=== PATIENT | female | born 1970 | race African-American/Black ===

== ENCOUNTER 2019-11-07 10:05 | Inpatient (IN) | payer OTHER ==
[~2019-11-07] VITALS: Ht 170.2 cm; Wt 113.4 kg
[2019-11-07] MEDS ORDERED: OLAN5TAB3 PO (14:14)
[2019-11-07] MEDS ORDERED: AMLO5TAB9 PO (14:14)
--- NOTE | 2019-11-07 14:15 | NUR ---
MS/RN ADMITTING NOTE Patient arrived on unit ambulatory A/O x4, showing no signs of acute distress. Patient refused skin assessment. Patient of admitted for a clinical trial. Left a message for Dr. Lopez to obtain admitting orders. Will continue with plan of care.
[2019-11-07 15:00] VITALS: BP 132/82
[2019-11-07 15:57] VITALS: BP 136/82
[2019-11-07] MEDS ORDERED: LORAZEPAM 1 MG TABLET PO PRN (16:30)
[2019-11-07] MEDS ORDERED: PROPRANOLOL HCL 10 MG TABLET PO PRN (16:30)
[2019-11-07] MEDS ORDERED: BENZTROPINE MESYLATE (1 MG) 1 MG TABLET PO PRN (16:30)
[2019-11-07] MEDS: LORAZEPAM 1 MG TABLET PO PRN (17:00)
[2019-11-07] MEDS: AMLODIPINE 5 MG PO SCH (18:28)
--- NOTE | 2019-11-07 19:30 | NUR ---
MS/RN CLOSING NOTE Patient arrived on unit ambulatory A/O x4, showing no signs of acute distress, stable on RA. Patient refused skin assessment. Patient of admitted for a clinical trial. Admitting orders carried out. All patient needs met, all due medications given. Patient left for smoke break at 1630 today with TIE KNITTER HELPER. Safety precautions in place, patient is aware of how to call for assistance will endorse to night filler.
--- NOTE | 2019-11-07 19:45 | NUR ---
MS RN NOTES RECEIVED ON BED A/O X4,SLEEPING,NO SOB,NO SALINE LOCK,ON CLINICAL TRIAL.WILL CONTINUE TO MONITOR BEHAVIOR.
[2019-11-07 20:00] VITALS: BP 138/81
[2019-11-07] MEDS: OLANZAPINE 10 MG PO SCH (22:00)
--- NOTE | 2019-11-08 06:30 | NUR ---
MS RN NOTES SLEPT WELL AT NIGHT.MED COMPLIANT.
[2019-11-08 07:58] VITALS: BP 147/67
[2019-11-08 08:00] VITALS: BP 147/67
[2019-11-08] MEDS: AMLODIPINE 5 MG PO SCH (09:34)
[2019-11-08] MEDS: LORAZEPAM 1 MG TABLET PO PRN ×2 (12:24→19:34)
[2019-11-08 16:00] VITALS: BP 138/72
--- NOTE | 2019-11-08 19:06 | NUR ---
RN closing note: Patient is AOX4, ambulatory, denies pain, no signs of distress noted, no complaints. Afebrile; breathing is even and unlabored, no adventitious breath sounds. Patient performed self care and showered today. Patient is med compliant. All needs attended to. Bed in low position with 2 side rails up for safety. Will endorse care to night manager for JOVANNY.
--- NOTE | 2019-11-08 19:10 | NUR ---
MS/RN NOTES: RECEIVED ON BED A/O X4, VERBALLY RESPONSIVE AND ABLE TO MAKE NEEDS KNOWN, NO SOB, NO SALINE LOCK, ON CLINICAL TRIAL. NO/C/O OF PAIN AT THIS TIME. REQUESTING ATIVAN FOR ANXIETY. WILL CONTINUE TO MONITOR BEHAVIOR.
[2019-11-08 20:00] VITALS: BP 140/80
[2019-11-08] MEDS: OLANZAPINE 10 MG PO SCH (21:59)
--- NOTE | 2019-11-08 22:16 | NUR ---
MS/RN NOTES: ENDORSED PT REPORT TO HITESH ATKINSON. FOR JOVANNY.
--- NOTE | 2019-11-08 22:16 | NUR ---
MS RN RECEIVE PT IN BED IN STABLE CONDITION NO S/S OF DISTRESS, WILL CONT TO MONITOR
[2019-11-08] MEDS: IBUPROFEN 200 MG TABLET PO PRN (23:22)
--- NOTE | 2019-11-09 06:16 | NUR ---
SLEPT WELL. NO PSYCH INSTABILITY. STABLE AND NOT IN DISTRESS, ALL NEEDS ATTENDED AND ANTICIPATED, KEPT CLEAN, DRY AND COMFORTABLE. NO C/O OF PAIN AT THIS TIME. PT COOPERATIVE WITH PLAN OF CARE. SAFETY MEASURES AT ALL TIMES. WILL ENDORSE TO NEXT SHIFT POC.
[2019-11-09 08:00] VITALS: BP 153/85
--- NOTE | 2019-11-09 08:00 | NUR ---
MS RN OPENING NOTES Received Patient awake and resting in bed. A/O x 4. VS stable with no acute distress. Breathing even and unlabored on room air with no respiratory distress. Denies pain. No signs and symptoms of pain. No IV access, MD aware. Safety precautions in place. Bed locked and set to lowest position with side rails x 2 up. All needs rendered at this time. Call light within reach. Will continue to monitor.
[2019-11-09] MEDS: AMLODIPINE 5 MG PO SCH (08:39)
[2019-11-09] MEDS: LORAZEPAM 1 MG TABLET PO PRN ×2 (12:42→18:18)
[2019-11-09 16:00] VITALS: BP 154/82
--- NOTE | 2019-11-09 19:43 | NUR ---
1914- RECEIVED IN BED AWAKE A/O X4, HAPPY. NO COMPLAIN OF PAIN. NO SOB NOTED.
--- NOTE | 2019-11-09 19:51 | NUR ---
MS RN CLOSING NOTES Patient awake and resting in bed. A/O x 4. VS stable with no acute distress. Breathing even and unlabored on room air with no respiratory distress. Denies pain. No signs and symptoms of pain. No IV access, MD aware. Safety precautions in place. Bed locked and set to lowest position with side rails x 2 up. All needs rendered at this time. Call light within reach. Will endorse plan of care to oncoming shift.
[2019-11-09 20:00] VITALS: BP 135/97
[2019-11-09] MEDS: OLANZAPINE 10 MG PO SCH (21:48)
--- NOTE | 2019-11-10 05:35 | NUR ---
RN CLOSING NOTES: PATIENT IN BED ASLEEP. NO SOB NOTED.NO COMPLAIN OF PAIN. CALL LIGHT WITHIN REACH. AMBULATORY. PATIENT RESTED THROUGHOUT THE NIGHT. PATIENT HAS BEEN CALM AND HAPPY.
[2019-11-10 08:00] VITALS: BP 138/78
--- NOTE | 2019-11-10 08:00 | NUR ---
MS/RN OPENING NOTES RECEIVED PATIENT LYING ON BED. PATIENT IS ALERT AND ORIENTED X4. NO APPARENT DISTRESS NOTED. DENIES PAIN AT THIS TIME. WILL CONTINUE TO MONITOR.
[2019-11-10] MEDS: IBUPROFEN 200 MG TABLET PO PRN (08:38)
[2019-11-10] MEDS: AMLODIPINE 5 MG PO SCH (08:38)
[2019-11-10] MEDS: LORAZEPAM 1 MG TABLET PO PRN ×3 (08:38→19:46)
[2019-11-10 16:00] VITALS: BP 121/84
[2019-11-10] MEDS: MAGNESIUM HYDROXIDE 30 ML UDC PO PRN (16:15)
--- NOTE | 2019-11-10 19:04 | NUR ---
MS/RN CLOSING NOTES PATIENT IS LYING ON BED. PATIENT IS ALERT AND ORIENTED X4. NO APPARENT DISTRESS NOTED. DENIES PAIN AT THIS TIME. WILL ENDORSED TO ON SITE SERVICES SPECIALIST FOR JOVANNY.
--- NOTE | 2019-11-10 19:30 | NUR ---
MS/RN OPENING NOTES: RECEIVED PATIENT IN BED, WATCHING TV, A/O X4, VERBALLY RESPONSIVE AND ABLE TO MAKE NEEDS KNOWN, NO SOB, NO IV ACCESS NOTED. SKIN INTACT, AMBULATORY, ON CLINICAL TRIAL. NO/C/O OF PAIN AT THIS TIME. REQUESTING ATIVAN FOR ANXIETY. WILL CONTINUE TO MONITOR BEHAVIOR.
--- NOTE | 2019-11-10 19:51 | NUR ---
MS/RN NOTES: PT. REQUESTED FOR ATIVAN FOR HER ANXIETY, GIVEN 1MG ATIVAN PO PER ORDER. VS STABLE. WILL CONTINUE TO MONITOR.
[2019-11-10 20:00] VITALS: BP 142/77
[2019-11-10] MEDS: OLANZAPINE 10 MG PO SCH (22:06)
[2019-11-10] MEDS: ZOLPIDEM TARTRATE 10 MG TABLET PO PRN (23:15)
--- NOTE | 2019-11-11 07:20 | NUR ---
MS RN OPENING NOTES RECEIVED PT AWAKE IN BED AT THIS TIME WATCHING TV. AOX4.RESPIRATIONS ARE EVEN AND UNLABORED. PT IS SATURATING WELL AT 95% ON RA. NO IV ACCESS NOTED. PT DENIES PAIN AT THIS TIME. BED IN LOWEST LOCKED POSITION, SIDE RAILS UPX2 CALL LIGHT WITHIN REACH, WILL CONTINUE TO MONITOR.
--- NOTE | 2019-11-11 07:40 | NUR ---
MS/RN CLOSING NOTES: PATIENT IS LYING ON BED. NO SIGNIFICANT CHANGES IN CONDITION. REMAINS ALERT AND ORIENTED X4. NO APPARENT DISTRESS NOTED. DENIES PAIN AT THIS TIME. WILL ENDORSED TO DAY SHIFT FOR JOVANNY.
[2019-11-11 08:00] VITALS: BP 146/88
[2019-11-11] MEDS: AMLODIPINE 5 MG PO SCH (08:53)
[2019-11-11] MEDS: LORAZEPAM 1 MG TABLET PO PRN ×2 (11:12→19:47)
--- NOTE | 2019-11-11 11:12 | NUR ---
MS RN NOTES PT C/O OF ANXIETY AND REQUESTED FOR ATIVAN FOR HER ANXIETY. VITALS SIGNS TAKEN, BP 138/76, PULSE 98, RR 18, SPO2 96%. PT DENIES HEARING VOICES, NO INTENT TO HARM SELF/OTHERS. ADMINISTERED ATIVAN 1MG PO PRN PER ORDER. WILL CONTINUE TO MONITOR.
[2019-11-11 16:00] VITALS: BP 143/86
[2019-11-11] MEDS: IBUPROFEN 200 MG TABLET PO PRN (16:38)
--- NOTE | 2019-11-11 16:45 | NUR ---
RN NOTES REMOVED ONE STITCH LEFT PLANTAR AREA, PICTURE TAKEN, WOUND CONSULT TRIGGERED. WRAPER WITH ELASTIC WRAP.
--- NOTE | 2019-11-11 18:30 | NUR ---
RN NOTES PATIENT STABLE, STATE HEARING VOICES BUT NOT HARMFUL, REFUSED SI/HI AT THIS TIME, EDUCATED PATIENT MEDICATION INTAKE. ENCOURAGED PATIENT TO VERBALIZE FEELINGS AND CONCERNS. PATIENT SMOKER, AMBULATORY SELF CARE. CALL LIGHT WITHIN TO REACH. PATIENT REDIRECTABLE.
--- NOTE | 2019-11-11 19:10 | NUR ---
MS RN CLOSING NOTES PT AWAKE IN BED A. AOX4. PT APPEARS COMFORTABLE WITH NO S/S OF ANY ACUTE DISTRESS. ALL NEEDS AND CARE PROVIDED. PAIN MANAGEMENT ADMINISTERED ORDERED. BED IN LOWEST LOCKED POSITION, SIDE RAILS UPX2 CALL LIGHT WITHIN REACH, WILL ENDORSE TO NIGHT NURSE FOR JOVANNY
--- NOTE | 2019-11-11 19:38 | NUR ---
MS/RN OPENING NOTES: RECEIVED PATIENT IN BED, WATCHING TV, A/O X4, VERBALLY RESPONSIVE AND ABLE TO MAKE NEEDS KNOWN, NO SOB, NO IV ACCESS NOTED. SKIN INTACT, AMBULATORY, ON CLINICAL TRIAL. NO/C/O OF PAIN AT THIS TIME. WILL CONTINUE TO MONITOR BEHAVIOR.
--- NOTE | 2019-11-11 19:45 | NUR ---
MS/RN NOTES: PATIENT COMPLAINED OF FEELINGS OF ANXIETY AND AGITATION. PER PT. "I'M SEEING MORE SHADOWS NOW, ESPECIALLY THAT THEY ARE LOWERING MY DOSE. I FEEL LIKE THE SHADOWS ARE MORE PRESENT AND I'M SEEING MORE STUFF". PATIENT REQUESTED FOR ATIVAN. GIVEN 1MG OF ATIVAN PO PER ORDER. WILL CONTINUE MONITORING ACCORDINGLY.
[2019-11-11 20:00] VITALS: BP 132/76
[2019-11-11 20:24] VITALS: BP 136/76
[2019-11-11] MEDS: OLANZAPINE 10 MG PO SCH (21:50)
[2019-11-11] MEDS: ZOLPIDEM TARTRATE 10 MG TABLET PO PRN (23:18)
--- NOTE | 2019-11-12 07:16 | NUR ---
MS/RN NOTES: WOUND CONSULT FOR THE LEFT FOOT ENDORSED TO JEREMY Joiner RN TO F/U WITH THE WOUND CARE NURSE.
[2019-11-12 08:00] VITALS: BP 140/83
[2019-11-12] MEDS: LORAZEPAM 1 MG TABLET PO PRN ×3 (08:05→19:33)
--- NOTE | 2019-11-12 08:09 | NUR ---
GIVEN ATIVAN FOR NERVOUSNESS.
[2019-11-12] MEDS: AMLODIPINE 5 MG PO SCH (08:55)
--- NOTE | 2019-11-12 09:37 | NUR ---
WOUND CARE CONSULT: PT PRESENTS WITH LEFT PLANTAR FOOT HEALING WOUND, PRESENT ON ADMISSION. RECOMMENDATIONS MADE FOR WOUND CARE AND SKIN PROTECTION. DISCUSSED WITH NURSING STAFF. PT STATES WILL FOLLOW UP WITH HER CREAM BUYER AFTER DISCHARGE. WILL SEE PRN. PT IS AMBULATORY AND CONTINENT. Addendum: 11/12/19 at 0938 by CADEN SANTOS WNDNU Amended: Links added.
--- NOTE | 2019-11-12 15:50 | NUR ---
GIVEN ATIVAN FOR ANXIETY.WALKING ABOUT IN HALLWAY.
[2019-11-12 16:00] VITALS: BP 137/85
[2019-11-12] MEDS: NEOMY SULF/BACITRAC ZN/POLY 15 GM TUBE TP SCH (18:28)
[2019-11-12] MEDS: IBUPROFEN 200 MG TABLET PO PRN (18:32)
--- NOTE | 2019-11-12 18:42 | NUR ---
medicated with ibuprofen for lt. foot pain.
--- NOTE | 2019-11-12 19:19 | NUR ---
MS/RN OPENING NOTES: RECEIVED PATIENT IN BED, A/O X4, VERBALLY RESPONSIVE AND ABLE TO MAKE NEEDS KNOWN, NO SOB, NO IV ACCESS NOTED. SKIN INTACT, AMBULATORY, ON CLINICAL TRIAL. NO/C/O OF PAIN AT THIS TIME. WILL CONTINUE TO MONITOR BEHAVIOR.
--- NOTE | 2019-11-12 19:33 | NUR ---
MS/RN NOTES: PATIENT COMPLAINING OF FEELING "ANTSY", AND NERVOUSNESS. VS WNL. ADMINISTERED 1MG PO ATIVAN FOR ANXIETY AND AGITATION. TOLERATED WELL. WILL REASSESS AND CONTINUE MONITORING.
[2019-11-12 19:59] VITALS: BP 115/76
[2019-11-12 20:20] VITALS: BP 115/76
[2019-11-12 21:30] VITALS: BP 140/78
[2019-11-12] MEDS: OLANZAPINE 10 MG PO SCH (21:59)
[2019-11-12] MEDS: ZOLPIDEM TARTRATE 10 MG TABLET PO PRN (23:45)
--- NOTE | 2019-11-13 | NUR ---
MS/RN NOTES: PT REQUESTED SLEEPING PILL. ADMINISTERED AMBIEN PO PER ORDER. TOLERATED WELL. VS WNL. WILL CONTINUE TO MONITOR.
[2019-11-13] MEDS: MAGNESIUM HYDROXIDE 30 ML UDC PO PRN (07:32)
--- NOTE | 2019-11-13 07:47 | NUR ---
RN OPENING NOTES: Received pt. awake in bed and responsive to staff. Pt. is complaining of constipation of constipation and Milk of Magnesia prn given. Needs attended and safety precautions in place. Bed locked and set to lowest position with side rails x 2 up. Call light within reach. Will continue to monitor.
[2019-11-13 08:00] VITALS: BP 126/85
[2019-11-13] MEDS: AMLODIPINE 5 MG PO SCH (08:23)
[2019-11-13] MEDS: LORAZEPAM 1 MG TABLET PO PRN ×2 (08:31→18:17)
--- NOTE | 2019-11-13 08:32 | NUR ---
Pt. is anxious and Ativan 1 mg po prn given and will continue to monitor.
[2019-11-13] MEDS: NEOMY SULF/BACITRAC ZN/POLY 15 GM TUBE TP SCH ×2 (09:21→16:03)
[2019-11-13 16:00] VITALS: BP 147/79
--- NOTE | 2019-11-13 18:19 | NUR ---
Pt.was asking of Ativan po and given. Pt. was complaining of anxiety.
[2019-11-13 20:00] VITALS: BP 138/84
[2019-11-13] MEDS: IBUPROFEN 200 MG TABLET PO PRN (20:38)
--- NOTE | 2019-11-13 20:47 | NUR ---
ms hurley initial notes received pt in bed awake and alert watching tv at this time without any sob noted. Ibuprofen given per pt request for left foot pain. will continue monitoring.
[2019-11-13] MEDS: ZOLPIDEM TARTRATE 10 MG TABLET PO PRN (21:21)
--- NOTE | 2019-11-13 21:22 | NUR ---
ms xavi notes ambien given per pt requested after she ate her sandwich . kept her warm and comfortable at all times. place call light at reach.
--- NOTE | 2019-11-14 | NUR ---
ms braid cutter notes pt checked she's sleeping at this time without any distress noted.
[2019-11-14] MEDS: LORAZEPAM 1 MG TABLET PO PRN ×4 (04:39→23:55)
--- NOTE | 2019-11-14 04:39 | NUR ---
ms xavi notes ativan 1 mg given per pt requested for her anxiety. kept her warm and comfortable at al times. will continue monitoring. place call light at reach.
--- NOTE | 2019-11-14 07:30 | NUR ---
ms radiopharmacist closing notes. pt back to rest after ativan given as ordered and pt requested. stable radha the night and slept well. kept her warm and comfortable at all times. endorse to am nurse for continuity of care. place call light at reach.
--- NOTE | 2019-11-14 07:57 | NUR ---
RN Notes: Received pt. awake in bed, responsive to staff, no distress and no agitation noted. Will continue to monitor.
[2019-11-14 08:00] VITALS: BP 123/81
[2019-11-14] MEDS: AMLODIPINE 5 MG PO SCH (08:18)
[2019-11-14] MEDS: NEOMY SULF/BACITRAC ZN/POLY 15 GM TUBE TP SCH ×2 (09:29→16:36)
--- NOTE | 2019-11-14 12:55 | NUR ---
Pt. is anxious and asking for Ativan po and given. Will continue to monitor.
[2019-11-14] MEDS: IBUPROFEN 200 MG TABLET PO PRN (15:11)
[2019-11-14 16:00] VITALS: BP 121/83
--- NOTE | 2019-11-14 17:56 | NUR ---
Pt. is anxious and was asking for a prn Ativan and given.
--- NOTE | 2019-11-14 18:41 | NUR ---
RN Closing Notes: Pt. is awake in bed and watching tv, ate 100% for dinner, no distress and no agitation noted. Will endorse to incoming nurse for continuity of care.
--- NOTE | 2019-11-14 19:30 | NUR ---
CERTIFIED NURSE AIDE NOTE, RECEIVED PATIENT AWAKE AND IN BED, NO S/S OR COMPLAINTS OF PAIN AT THIS TIME. PATIENT BREATHING IS UNLABORED WITH EQUAL RISE AND FALL OF THE CHEST. PATIENT IS ALERT AND ORIENTED X 4 ON ROOM AIR WITH A SPOO2 97%. PATIENT ASSISTED WITH TURNING AND REPOSITIONING Q2HR AND PRN FOR COMFORT AND CIRCULATION. PATIENT HAS NO NEEDS AT THIS TIME. PATIENT EDUCATED ON THE USE OF THE CALL LIGHT. PATIENT BED SIDE RAILS UP X 2 FOR SAFETY. PATIENT BED IS LOCKED AND LOW WILL CONTINUE TO MONITOR AND MAINTAIN SAFETY Q15 MIN WITH THE HELP OF STAFF.
[2019-11-14 20:37] VITALS: BP 133/84
[2019-11-14 20:46] VITALS: BP 133/84
[2019-11-14] MEDS: ZOLPIDEM TARTRATE 10 MG TABLET PO PRN (21:17)
--- NOTE | 2019-11-14 21:17 | NUR ---
LATEX CASTER NOTE, PATIENT HAS A COMPLAINT OF NOT BEING ABLE TO SLEEP AND IS REQUESTING AMBIEN AT THIS TIME. PATIENT VITAL SIGNS ARE STABLE. GAVE AMBIEN 10MG PO QHS PRN ORDERED. WILL REASSESS FOR INSOMNIA AND I WILL CONTINUE TO MONITOR THIS PATIENT.
--- NOTE | 2019-11-14 22:56 | NUR ---
MED / CHICKEN CATCHER NOTE, PATIENT IS A SLEEP IN BED EASILY AROUSES, ALL SCHEDULED PM MEDS GIVEN. PATIENT HAS NO S/S OR COMPLAINTS OF PAIN AT THIS TIME. PATIENT IS DISPLAYING NO S/S OF APPARENT DISTRESS AT TIS TIME. PATIENT BREATHING IS UNLABORED WITH EQUAL RISE AND FALL OF THE CHEST. ALL PATIENTS NEEDS ANTICIPATED AND MET. PATIENT BED IS LOW AND LOCKED, CALL LIGHT IN REACH WITH TWO SIDE RAILS UP FOR SAFETY. WILL CONTINUE TO MONITOR AND MAINTAIN SAFETY.
--- NOTE | 2019-11-14 23:55 | NUR ---
ROLL HAND NOTE, PATIENT HAS A COMPLAINT OF FEELING ANXIOUS AND IS REQUESTING ATIVAN AT THIS TIME. PATIENT VITAL SIGNS ARE STABLE. GAVE ATIVAN 1 MG PO Q4HR PRN ORDERED. WILL REASSESS FOR ANXIETY AND I WILL CONTINUE TO MONITOR THIS PATIENT.
--- NOTE | 2019-11-15 06:39 | NUR ---
TRANSFORMER BUILDER NOTE, RECEIVED PATIENT AWAKE AND IN BED, NO S/S OR COMPLAINTS OF PAIN AT THIS TIME. PATIENT BREATHING IS UNLABORED WITH EQUAL RISE AND FALL OF THE CHEST. PATIENT IS ALERT AND ORIENTED X 4 ON ROOM AIR. PATIENT ASSISTED WITH TURNING AND REPOSITIONING Q2HR AND PRN FOR COMFORT AND CIRCULATION. ALL PATIENT NEEDS ANTICIPATED AND MET. PATIENT BED SIDE RAILS UP X 2 FOR SAFETY. PATIENT BED IS LOCKED AND LOW WILL ENDORSE TO AM SHIFT NURSE FOR CONTINUATION OF CARE.
[2019-11-15 08:00] VITALS: BP 129/82
--- NOTE | 2019-11-15 08:00 | NUR ---
MS RN- OPEINING NOTES RECEIVED PATIENT FROM DIE CAST OPERATOR NURSE IN BED, AWAKE, CONSCIOUS, COOPERATIVE, COHERENT, UNLABORED BREATHING AT ROOM AIR, NO SIGNS OF RESPIRATORY DISTRESS. SIDE RAILS UP FOR SAFETY.
[2019-11-15] MEDS: AMLODIPINE 5 MG PO SCH (08:42)
[2019-11-15] MEDS: NEOMY SULF/BACITRAC ZN/POLY 15 GM TUBE TP SCH ×2 (08:42→17:46)
[2019-11-15] MEDS: LORAZEPAM 1 MG TABLET PO PRN ×3 (09:24→19:45)
[2019-11-15] MEDS: MAGNESIUM HYDROXIDE 30 ML UDC PO PRN (11:01)
[2019-11-15] MEDS: IBUPROFEN 200 MG TABLET PO PRN (12:37)
[2019-11-15 16:00] VITALS: BP 125/80
--- NOTE | 2019-11-15 18:57 | NUR ---
MS RN- CLOSING NOTES ENDORSED PATIENT TO PRODUCTION ESTIMATOR NURSE IN BED, AWAKE, CONSCIOUS, COOPERATIVE, AMBULATORY, NO SIGNS OF RESPIRATORY DISTRESS, SKIN IS INTACT.
--- NOTE | 2019-11-15 19:30 | NUR ---
ROD DRAWER NOTE, RECEIVED PATIENT AWAKE AND IN BED, NO S/S OR COMPLAINTS OF PAIN AT THIS TIME. PATIENT BREATHING IS UNLABORED WITH EQUAL RISE AND FALL OF THE CHEST. PATIENT IS ALERT AND ORIENTED X 4 ON ROOM AIR WITH A SPOO2 97%. PATIENT ASSISTED WITH TURNING AND REPOSITIONING Q2HR AND PRN FOR COMFORT AND CIRCULATION. PATIENT HAS NO NEEDS AT THIS TIME. PATIENT EDUCATED ON THE USE OF THE CALL LIGHT. PATIENT BED SIDE RAILS UP X 2 FOR SAFETY. PATIENT BED IS LOCKED AND LOW WILL CONTINUE TO MONITOR AND MAINTAIN SAFETY WITH THE HELP OF STAFF.
--- NOTE | 2019-11-15 19:45 | NUR ---
CAFETERIA COUNTER ATTENDANT NOTE, PATIENT HAS A COMPLAINT OF FEELING ANXIOUS AND IS REQUESTING ATIVAN AT THIS TIME. PATIENT VITAL SIGNS ARE STABLE. GAVE ATIVAN 1 MG PO Q4HR PRN ORDERED. WILL REASSESS FOR ANXIETY AND I WILL CONTINUE TO MONITOR THIS PATIENT.
[2019-11-15 20:00] VITALS: BP 140/84
[2019-11-15] MEDS: ZOLPIDEM TARTRATE 10 MG TABLET PO PRN (22:11)
[2019-11-16] MEDS: ACETAMINOPHEN ES 500 MG TABLET PO PRN (04:04)
[2019-11-16] MEDS: LORAZEPAM 1 MG TABLET PO PRN ×3 (04:04→16:35)
--- NOTE | 2019-11-16 04:04 | NUR ---
FREIGHT LOADING SUPERVISOR NOTE, PATIENT HAS A COMPLAINT OF FEELING ANXIOUS AND IS REQUESTING ATIVAN AT THIS TIME. PATIENT VITAL SIGNS ARE STABLE. GAVE ATIVAN 1 MG PO Q4HR PRN ORDERED. WILL REASSESS FOR ANXIETY AND I WILL CONTINUE TO MONITOR THIS PATIENT.
--- NOTE | 2019-11-16 04:05 | NUR ---
PAIN MANAGEMENT NURSE PRACTITIONER NOTE, PATIENT HAS A COMPLAINT OF L FOOT PAIN AT 3 OUT 10 ON THE PAIN SCALE AND IS REQUESTING TYLENOL AT THIS TIME. PATIENT VITAL SIGNS ARE STABLE. GAVE TYLENOL 1000 MG PO Q8 HR PRN ORDERED. WILL REASSESS PAIN AND I WILL CONTINUE TO MONITOR PATIENT.
--- NOTE | 2019-11-16 06:38 | NUR ---
LEAK DETECTOR NOTE, PATIENT AWAKE AND IN BED, NO S/S OR COMPLAINTS OF PAIN AT THIS TIME. PATIENT BREATHING IS UNLABORED WITH EQUAL RISE AND FALL OF THE CHEST. PATIENT IS ALERT AND ORIENTED X 4 ON ROOM AIR. PATIENT ASSISTED WITH TURNING AND REPOSITIONING Q2HR AND PRN FOR COMFORT AND CIRCULATION. ALL PATIENT NEEDS ANTICIPATED AND MET. PATIENT BED SIDE RAILS UP X 2 FOR SAFETY. PATIENT BED IS LOCKED AND LOW WILL ENDORSE TO AM SHIFT NURSE FOR CONTINUATION OF CARE.
[2019-11-16 08:00] VITALS: BP 134/86
[2019-11-16] MEDS: AMLODIPINE 5 MG PO SCH (08:14)
--- NOTE | 2019-11-16 08:37 | NUR ---
RN Notes: Received pt. awake in bed and responsive to staff. NO distress and no agitation noted. Ate 100% for breakfast, compliant on med. Needs attended and safety precautions in place. Bed locked and set to lowest position with side rails x 2 up. Call light within reach. Will continue to monitor.
[2019-11-16] MEDS: NEOMY SULF/BACITRAC ZN/POLY 15 GM TUBE TP SCH ×2 (08:59→16:14)
--- NOTE | 2019-11-16 11:23 | NUR ---
Pt. is anxious and was asking for a prn Ativan and given.
[2019-11-16 16:00] VITALS: BP 129/73
--- NOTE | 2019-11-16 16:36 | NUR ---
Pt. is anxious and was asking for a prn Ativan and given.
--- NOTE | 2019-11-16 18:51 | NUR ---
RN Closing Notes; Pt. awake in bed at this time, ate 100% for diner, no distress and no agitation noted. Will continue to monitor
--- NOTE | 2019-11-16 19:20 | NUR ---
MS RN NOTES PATIENT RECEIVED ALERT AND ORIENTED X 4. NO RESPIRATORY DISTRESS PRESENT AT THIS TIME, WITH EVEN NON-LABORED BREATHING. PATIENT ON ROOM AIR. PATIENT PRESENTS NO PAIN OR DISCOMFORT AT THIS TIME. PROVIDED COMFORT MEASURES TO THE PATIENT. SAFETY PRECAUTIONS IN PLACE WITH CALL LIGHT WITHIN EASY REACH OF THE PATIENT, BED LOCKED, BILATERAL SIDE RAILS UP, AND WILL CONTINUE TO MONITOR PATIENT.
[2019-11-16] MEDS: ZOLPIDEM TARTRATE 10 MG TABLET PO PRN (21:50)
[2019-11-17] MEDS: LORAZEPAM 1 MG TABLET PO PRN ×3 (01:03→14:56)
--- NOTE | 2019-11-17 01:05 | NUR ---
MS RN NOTES PATIENT EXPRESSED HER FEELING ANXIOUS AND STATING SHE FEELS UNEASY, AND NEEDS SOME MEDICATION TO CALM HER DOWN. ADMINISTERED PRN ATIVAN AT 0103. WILL CONTINUE TO MONITOR PATIENT.
[2019-11-17 04:00] VITALS: BP 134/82
--- NOTE | 2019-11-17 07:10 | NUR ---
MS RN NOTES PATIENT IN BED RESTING, ON ROOM AIR WITH NO SIGNS OF RESPIRATORY DISTRESS PRESENT, WITH EVEN NON-LABORED BREATHING. PROVIDED COMFORT MEASURES TO PATIENT, AND MET ALL OF PATIENT'S NEEDS. SAFETY PRECAUTIONS IN PLACE WITH BED IN THE LOWEST POSITION, BILATERAL SIDE RAILS UP AND CALL LIGHT WITHIN EASY REACH OF THE PATIENT. WILL ENDORSE JOVANNY TO UPCOMING DAYSHIFT NURSE.
[2019-11-17] MEDS: ACETAMINOPHEN ES 500 MG TABLET PO PRN (07:25)
--- NOTE | 2019-11-17 07:34 | NUR ---
MS/RN OPENING NOTE Patient is resting in bed, A/O x4, showing no signs of acute distress or SOB. No IV line noted. Tylenol given due to patient complaining of abdominal cramps. Patient is independent with care, ambulatory, with BRP. Patient is on clinical trial with Dr. Lopez. Will continue with plan of care.
[2019-11-17 08:00] VITALS: BP 120/74
[2019-11-17] MEDS: AMLODIPINE 5 MG PO SCH (08:38)
[2019-11-17] MEDS: NEOMY SULF/BACITRAC ZN/POLY 15 GM TUBE TP SCH ×2 (08:38→16:43)
[2019-11-17 08:39] VITALS: BP 120/74
[2019-11-17 16:00] VITALS: BP 143/82
--- NOTE | 2019-11-17 18:38 | NUR ---
MS/RN CLOSING NOTE Patient is resting in bed, A/O x4, showing no signs of acute distress or SOB. No IV line noted. All patient needs met, all due medications given. Patient is independent with care, ambulatory, with BRP. ALl patient needs met, all due medications given. Gave ibuprofen 600mg for pain reported in foot and abdominal cramping. Patient is on clinical trial with Dr. Lopez. Will continue with plan of care.
[2019-11-17] MEDS: IBUPROFEN 200 MG TABLET PO PRN (18:42)
--- NOTE | 2019-11-17 19:40 | NUR ---
MS RN NOTES PATIENT RECEIVED IN BED RESTING, ALERT AND ORIENTED X 4. PATIENT ON ROOM AIR WITH NO SIGNS OF RESPIRATORY DISTRESS, WITH EVEN NON-LABORED BREATHING. PATIENT HAS NO IV ACCESS. PROVIDED COMFORT MEASURES TO PATIENT. PATIENT PRESENTS NO PAIN OR DISCOMFORT AT THIS TIME. SAFETY PRECAUTIONS IN PLACE WITH BILATERAL SIDE RAILS UP, HOB IN SEMI-FOWLERS, BED LOCKED, AND CALL LIGHT WITHIN EASY REACH OF THE PATIENT. WILL CONTINUE TO MONITOR PATIENT.
[2019-11-17 20:27] VITALS: BP 124/106
[2019-11-17] MEDS: ZOLPIDEM TARTRATE 10 MG TABLET PO PRN (20:50)
--- NOTE | 2019-11-17 20:55 | NUR ---
MS RN NOTES PATIENT STATED SHE WANTS TO SLEEP, AND NEEDS MEDICATION TO GET SOME REST. PATIENT'S VITAL SIGNS 120/66 HEART RATE 85 RESPIRATORY RATE 18. ADMINISTERED PRN AMBIEN PO. WILL REASSESS PATIENT, AND WILL CONTINUE TO MONITOR.
--- NOTE | 2019-11-18 06:42 | NUR ---
MS RN NOTES PATIENT IN BED RESTING, ALERT AND ORIENTED X 4. PATIENT ON ROOM AIR, WITH NO SIGNS OF RESPIRATORY DISTRESS PRESENT, WITH EVEN NON-LABORED BREATHING. PATIENT HAS NO IV ACCESS. SKIN KEPT CLEAN AND DRY, AND PROVIDED COMFORT MEASURES. PATIENT STATES NO PAIN OR DISCOMFORT AT THIS TIME. SAFETY PRECAUTIONS IN PLACE WITH BED LOCKED, BILATERAL SIDE RAILS UP, AND CALL LIGHT WITHIN EASY REACH OF THE PATIENT. WILL ENDORSE JOVANNY TO UPCOMING DAYSHIFT NURSE.
[2019-11-18] MEDS: LORAZEPAM 1 MG TABLET PO PRN ×3 (09:08→20:45)
[2019-11-18] MEDS: AMLODIPINE 5 MG PO SCH (09:09)
[2019-11-18] MEDS: NEOMY SULF/BACITRAC ZN/POLY 15 GM TUBE TP SCH ×2 (09:09→17:35)
[2019-11-18 13:30] VITALS: BP 133/79
[2019-11-18] MEDS: ACETAMINOPHEN ES 500 MG TABLET PO PRN (15:05)
[2019-11-18 16:00] VITALS: BP 133/79
--- NOTE | 2019-11-18 18:43 | NUR ---
Patient is resting in bed, A/O x4, showing no signs of acute distress or SOB. No All patient needs met. Patient is independent with care, ambulatory, with BRP. Gave Tylenol for pain reported in abdominal cramping. Patient is on clinical trial with Dr. Lopez. Will endorse to next shift for ramírez. .
--- NOTE | 2019-11-18 19:31 | NUR ---
MS RN NOTES PATIENT RECEIVED LAYING IN BED, ALERT AND ORIENTED X 4. PATIENT ON ROOM AIR, NO SIGNS OF RESPIRATORY DISTRESS, NO SIGNS OF SOB, WITH EVEN NON-LABORED BREATHING. NO IV ACCESS IN PLACE, SKIN WARM AND DRY TO TOUCH. PROVIDED COMFORT MEASURES TO PATIENT. SAFETY PRECAUTIONS IN PLACE WITH BED LOCKED, BILATERAL SIDE RAILS UP, AND CALL LIGHT WITHIN EASY REACH OF THE PATIENT. WILL CONTINUE TO MONITOR PATIENT.
[2019-11-18 20:49] VITALS: BP 130/70
[2019-11-19] MEDS: ZOLPIDEM TARTRATE 10 MG TABLET PO PRN ×2 (00:38→22:29)
--- NOTE | 2019-11-19 00:48 | NUR ---
MS RN NOTES PATIENT STATES SHE CANNOT SLEEP, AND NEEDS MEDICATION TO HELP HER SLEEP. ADMINISTERED PRN AMBIEN 10mg. WILL CONTINUE TO MONITOR PATIENT.
[2019-11-19] MEDS: LORAZEPAM 1 MG TABLET PO PRN ×3 (05:02→16:25)
--- NOTE | 2019-11-19 05:05 | NUR ---
MS RN NOTE: COVERING ROSELINE RN, PATIENT ANXIOUS AND REQUESTING FOR MEDICATION, ATIVAN 1MG ORAL GIVEN PER MD ORDER. WILL CONTINUE TO MONITOR.
--- NOTE | 2019-11-19 06:58 | NUR ---
MS RN NOTES PATIENT IN ROOM LAYING DOWN COMFORTABLY. ALERT AND ORIENTED X 4. AWAITING TO TRANSFER PATIENT TO ROOM 216. PATIENT ON ROOM AIR, WITH NO SIGNS OF RESPIRATORY DISTRESS PRESENT, NO SIGNS OF SOB, AND WITH EVEN NON-LABORED BREATHING. NO IV ACCESS. MET ALL OF PATIENT NEEDS. PROVIDED COMFORT MEASURES TO PATIENT. SAFETY PRECAUTIONS IN PLACE. WILL ENDORSE PLAN OF CARE TO UPCOMING DAYSHIFT NURSE.
[2019-11-19 08:00] VITALS: BP 143/98
--- NOTE | 2019-11-19 08:01 | NUR ---
RN NOTE: PATIENT TRANSFERRED TO ROOM 214. ORIENTED TO UNIT. BREATHING UNLABORED WITH EQUAL RISE AND FALL OF CHEST. NO SIGNS OF DISTRESS NOTED. DENIES PAIN. BED IN LOW POSITION, LOW, LOCKED WITH 2 SIDE RAILS UP FOR SAFETY. WILL CONTINUE TO MONITOR
[2019-11-19] MEDS: AMLODIPINE 5 MG PO SCH (08:25)
[2019-11-19] MEDS: NEOMY SULF/BACITRAC ZN/POLY 15 GM TUBE TP SCH ×2 (09:38→17:07)
[2019-11-19] MEDS: MAGNESIUM HYDROXIDE 30 ML UDC PO PRN (13:38)
[2019-11-19 16:00] VITALS: BP 148/82
[2019-11-19] MEDS: IBUPROFEN 200 MG TABLET PO PRN (18:50)
[2019-11-19 20:18] VITALS: BP 142/93
--- NOTE | 2019-11-19 22:32 | NUR ---
GPS RN NOTES: INSOMNIA PT C/O UNABLE TO SLEEP. PT REQUESTED AMBIEN. OFFERED AMBIEN 10MG PO PRN ORDERED. PT AGREED AND TOLERATED MEDICATION WELL. CONTINUE TO MONITOR
[2019-11-20] MEDS: LORAZEPAM 1 MG TABLET PO PRN ×2 (04:25→12:21)
[2019-11-20] MEDS: MAG HYDROX/AL HYDROX/SIMETH 30 ML UDC PO PRN (07:23)
--- NOTE | 2019-11-20 07:23 | NUR ---
RN NOTE- PT W DYSPEPSIA. MAALOX 30 ML GIVEN
[2019-11-20 08:00] VITALS: BP 137/83
[2019-11-20] MEDS: AMLODIPINE 5 MG PO SCH (08:32)
[2019-11-20] MEDS: NEOMY SULF/BACITRAC ZN/POLY 15 GM TUBE TP SCH ×2 (08:33→16:34)
--- NOTE | 2019-11-20 08:40 | NUR ---
RN NOTE- DYSPEPSIA RELIEVED. MAALOX EFFECTIVE
--- NOTE | 2019-11-20 09:00 | NUR ---
RN NOTE- PT OOB IN HALLWAYS AND IN ROOM. ALERT ORIENTED TO PERSON PLACE TIME PURPOSE. DENIES SI HI AH VH. RESTED, CLEAN AND INTERACTIVE. MED COMPLIANT. PO INTAKE GOOD.
[2019-11-20] MEDS ORDERED: BENZTROPINE MESYLATE (1 MG) 1 MG TABLET PO PRN (12:00)
--- NOTE | 2019-11-20 12:21 | NUR ---
RN NOTE- ANXIETY/ PT W ANXIETY. RESTLESSNESS. ATIVAN 1 MG GIVEN.
[2019-11-20 16:00] VITALS: BP 147/88
--- NOTE | 2019-11-20 18:48 | NUR ---
RN NOTE- PT ALERT ORIENTED X 4, MED COMPLIANT, INTAKE GOOD.. NO BEHAVIORAL ISSUES DR ASLGUERO IN TO SEE PT THIS DAY
--- NOTE | 2019-11-20 19:15 | NUR ---
MS RN NOTES PATIENT RECEIVED IN BED, LAYING IN BED COMFORTABLY. ALERT AND ORIENTED X 4. NO SIGNS OF DISTRESS NOTED. DENIES ANY PAIN OR DISCOMFORT. NO SIGNS OF RESPIRATORY DISTRESS, NO SIGNS OF SOB, AND WITH EVEN NON-LABORED BREATHING. PROVIDED COMFORT MEASURES TO PATIENT. SAFETY PRECAUTIONS IN PLACE. WILL CONTINUE TO MONITOR PATIENT.
[2019-11-20 20:03] VITALS: BP 126/65
[2019-11-20] MEDS: ZOLPIDEM TARTRATE 10 MG TABLET PO PRN (22:10)
--- NOTE | 2019-11-20 22:11 | NUR ---
RN NOTES PATIENT COMPLAINING OF NOT BEING ABLE TO SLEEP. PATIENT REQUESTED SLEEPING MEDICATION. ADMINISTERED PRN AMBIEN 10mg PO. WILL CONTINUE TO MONITOR PATIENT.
--- NOTE | 2019-11-21 06:15 | NUR ---
RN NOTES PATIENT IN BED RESTING COMFORTABLY. PATIENT ALERT AND ORIENTED X 4. ON ROOM AIR WITH EVEN NON-LABORED BREATHING. MET ALL OF PATIENT'S NEEDS. NO PAIN OR DISCOMFORT AT THIS TIME. NO DISTRESS NOTED. PROVIDED COMFORT MEASURES TO PATIENT. SAFETY PRECAUTIONS IN PLACE. WILL ENDORSE PLAN OF CARE TO UPCOMING DAYSHIFT NURSE.
--- NOTE | 2019-11-21 07:10 | NUR ---
RN NOTES PATIENT IN BED ALERT ORIENTED X 4. NO ACUTE DISTRESS NOTED. BREATHING UNLABORED. NO SOB NOTED. SAFETY MEASURES IN PLACE. WILL CONTINUE TO MONITOR ACCORDINGLY.
[2019-11-21 08:00] VITALS: BP 140/84
[2019-11-21] MEDS: NEOMY SULF/BACITRAC ZN/POLY 15 GM TUBE TP SCH ×2 (08:33→16:58)
[2019-11-21] MEDS: AMLODIPINE 5 MG PO SCH (09:00)
--- NOTE | 2019-11-21 09:00 | NUR ---
RN NOTES MEDICATION HELD DUE TO PATIENT NPO UNTIL BLOOD DRAW IS DONE PER DR SALGUERO ORDER
--- NOTE | 2019-11-21 09:15 | NUR ---
RN NOTES PATIENT TAKEN BY DR GALAN STAFF FOR BLOOD DRAW IN STABLE CONDITION. PATIENT ALERT ORIENTED X 4.
--- NOTE | 2019-11-21 12:28 | NUR ---
RN NOTES PATIENT CAME BACK FROM DR SALGUERO'S OFFICE IN STABLE CONDITION ACCOMPANIED BY MD'S STAFF. ALERT ORIENTED X 4. BLOOD DRAW WAS DONE ALREADY, PER MD PATIENT CAM EAT ALREADY.
[2019-11-21] MEDS: LORAZEPAM 1 MG TABLET PO PRN ×2 (12:49→18:27)
--- NOTE | 2019-11-21 12:49 | NUR ---
RN NOTES PATIENT ANXIOUS ASKING FOR ATIVAN, CLARIFIED WITH DR SALGUERO IF OK TO GIVE, MD SAID MAY RESUME MEDICATION. VITAL SIGNS STABLE. ATIVAN GIVEN ORDERED.
[2019-11-21] MEDS: MAGNESIUM HYDROXIDE 30 ML UDC PO PRN (14:18)
[2019-11-21 16:00] VITALS: BP 148/92
--- NOTE | 2019-11-21 18:19 | NUR ---
RN NOTES PATIENT ANXIOUS ASKING FOR ATIVAN, VITAL SIGNS STABLE. ATIVAN GIVEN ORDERED.
--- NOTE | 2019-11-21 18:40 | NUR ---
RN NOTES PATIENT IN BED ALERT ORIENTED X 4. NO ACUTE DISTRESS NOTED. BREATHING UNLABORED. NO SOB NOTED. NEEDS ATTENDED AND ANTICIPATED. SAFETY MEASURES IN PLACE. WILL ENDORSE TO NIGHT NURSE FOR CONTINUITY OF CARE.
--- NOTE | 2019-11-21 19:35 | NUR ---
GPS RN OPENING NOTE: PATIENT RECEIVED IN BED, LAYING IN BED COMFORTABLY. ALERT AND ORIENTED X 4. NO SIGNS OF DISTRESS NOTED. DENIES ANY PAIN OR DISCOMFORT. NO SIGNS OF RESPIRATORY DISTRESS, NO SIGNS OF SOB, AND WITH EVEN NON-LABORED BREATHING. WILL CONTINUE TO MONITOR.
[2019-11-21 20:00] VITALS: BP 127/73
[2019-11-21] MEDS: IBUPROFEN 600 MG TABLET PO PRN (20:10)
--- NOTE | 2019-11-21 20:16 | NUR ---
GPS RN NOTE: PAIN PT. C/O OF GENERALIZED PAIN 02/06 AND REQUESTED FOR MOTRIN. ADMINISTERED MOTRIN 600MG 1 TAB PO PRN ORDERED. WILL CONTINUE TO MONITOR FOR SAFETY AND BEHAVIOR
--- NOTE | 2019-11-21 21:00 | NUR ---
GPS RN NOTE: INSOMNIA PT. C/O OF UNABLE TO SLEEP AND REQUESTED FOR AMBIEN. ADMINISTERED AMBIEN 10 MG 1 TAB PO PRN ORDERED. WILL CONTINUE TO MONITOR FOR SAFETY AND BEHAVIOR
[2019-11-21] MEDS: [UNRECOGNIZED DRUG - OTHER] PO SCH (21:05)
[2019-11-21] MEDS: ZOLPIDEM TARTRATE 10 MG TABLET PO PRN (21:06)
[2019-11-22] MEDS: LORAZEPAM 1 MG TABLET PO PRN ×3 (05:00→17:31)
--- NOTE | 2019-11-22 05:01 | NUR ---
GPS RN NOTE: ANXIETY PT. C/O OF ANXIETY AND REQUESTED FOR ATIVAN. ADMINISTERED ATIVAN 1MG PO PRN ORDERED. WILL CONTINUE TO MONITOR
[2019-11-22 07:48] VITALS: BP 125/86
[2019-11-22] MEDS: AMLODIPINE 5 MG PO SCH (08:15)
--- NOTE | 2019-11-22 08:30 | NUR ---
RN Opening Notes: Received pt. awake in bed, no distress and no agitation noted. Ate 100% for breakfast, compliant on meds. Pt. with for smoke with staff. Needs attended and will continue to monitor for safety.
[2019-11-22] MEDS: NEOMY SULF/BACITRAC ZN/POLY 15 GM TUBE TP SCH ×2 (09:37→17:27)
--- NOTE | 2019-11-22 11:27 | NUR ---
RN NOTE- PT WITH STATED ANXIETY AND RESTLESSNESS. 7-10. ATIVAN 1 MG GIVEN PO AT THIS TIME. PROVIDING SAFE THERAPEUTIC ENVIRONMENT. MONITOR PATIENT AND NEEDS.
[2019-11-22 16:09] VITALS: BP 127/89
--- NOTE | 2019-11-22 18:54 | NUR ---
RN Closing Notes: Pt. is awake in bed at this time, no distress and no agitation noted. Ate 100% for dinner, pt. had smoke break. Needs attended and will continue to monitor.
--- NOTE | 2019-11-22 19:30 | NUR ---
MACHINE MADE SHOE UNIT WORKER NOTE, RECEIVED PATIENT AWAKE AND IN BED, NO S/S OR COMPLAINTS OF PAIN AT THIS TIME. PATIENT BREATHING IS UNLABORED WITH EQUAL RISE AND FALL OF THE CHEST. PATIENT IS ALERT AND ORIENTED X 4 ON ROOM AIR WITH A SPOO2 99%. PATIENT IS COMPLAINT WITH MEDICATION, BRIGHT, CALM, AND COOPERATIVE. PATIENT DENIES SUICIDE AND HOMICIDAL IDEATIONS AT THIS TIME. PATIENT ASSISTED WITH TURNING AND REPOSITIONING Q2HR AND PRN FOR COMFORT AND CIRCULATION. PATIENT HAS NO NEEDS AT THIS TIME. PATIENT EDUCATED ON THE USE OF THE CALL LIGHT. PATIENT BED SIDE RAILS UP X 2 FOR SAFETY. PATIENT BED IS LOCKED AND LOW WILL CONTINUE TO MONITOR AND MAINTAIN SAFETY Q15 MIN WITH THE HELP OF STAFF.
[2019-11-22 20:06] VITALS: BP 127/76
[2019-11-22] MEDS: [UNRECOGNIZED DRUG - OTHER] PO SCH (21:00)
[2019-11-22] MEDS: ZOLPIDEM TARTRATE 10 MG TABLET PO PRN (21:00)
--- NOTE | 2019-11-22 21:00 | NUR ---
GPS RN NOTE, PATIENT HAS A COMPLAINT OF NOT BEING ABLE TO SLEEP AND IS REQUESTING AMBIEN AT THIS TIME. PATIENT VITAL SIGNS ARE STABLE. GAVE AMBIEN 10 MG PO QHS PRN. WILL REASSESS FOR INSOMNIA AND I WILL CONTINUE TO MONITOR THIS PATIENT.
[2019-11-23] MEDS: LORAZEPAM 1 MG TABLET PO PRN ×2 (05:58→09:53)
--- NOTE | 2019-11-23 05:58 | NUR ---
GPS RN NOTE, PATIENT HAS A COMPLAINT OF FEELING ANXIOUS AND IS REQUESTING ATIVAN AT THIS TIME. PATIENT VITAL SIGNS ARE STABLE. GAVE ATIVAN 1 MG PO Q4HR PRN ORDERED. WILL REASSESS FOR ANXIETY AND I WILL CONTINUE TO MONITOR THIS PATIENT.
[2019-11-23 08:00] VITALS: BP 161/97
[2019-11-23] MEDS: NEOMY SULF/BACITRAC ZN/POLY 15 GM TUBE TP SCH ×2 (08:12→16:09)
[2019-11-23] MEDS: AMLODIPINE 5 MG PO SCH (08:12)
--- NOTE | 2019-11-23 09:53 | NUR ---
RN-CO: Patient c/o restlessness. Ativan 1 mg PO given.
[2019-11-23 16:00] VITALS: BP 151/92
[2019-11-23] MEDS: IBUPROFEN 600 MG TABLET PO PRN (16:09)
--- NOTE | 2019-11-23 16:10 | NUR ---
RN NOTE :PATIENT C/O PAIN 02/06 MEDICATED WITH MOTRIN WILL CONTINUE TO MONITOR .
[2019-11-23] MEDS: [UNRECOGNIZED DRUG - OTHER] PO SCH (21:12)
[2019-11-23 22:36] VITALS: BP 128/85
[2019-11-24] MEDS: ZOLPIDEM TARTRATE 10 MG TABLET PO PRN ×2 (01:43→21:24)
--- NOTE | 2019-11-24 01:43 | NUR ---
GPS RN NOTE, PATIENT HAS A COMPLAINT OF NOT BEING ABLE TO SLEEP AND IS REQUESTING AMBIEN AT THIS TIME. PATIENT VITAL SIGNS ARE STABLE. GAVE AMBIEN 10 MG PO Q HS PRN. WILL REASSESS FOR INSOMNIA AND I WILL CONTINUE TO MONITOR THIS PATIENT.
[2019-11-24] MEDS: LORAZEPAM 1 MG TABLET PO PRN ×2 (06:36→13:11)
[2019-11-24] MEDS: MAGNESIUM HYDROXIDE 30 ML UDC PO PRN ×2 (06:42→16:28)
--- NOTE | 2019-11-24 06:42 | NUR ---
GPS RN NOTE, PATIENT HAS A COMPLAINT OF CONSTIPATION AND IS REQUESTING MOM AT THIS TIME. GAVE MOM 30 ML PO Q6HR PRN ORDERED. WILL CONTINUE TO MONITOR THIS PATIENT.
--- NOTE | 2019-11-24 07:30 | NUR ---
GPS RN OPENING NOTE: RECEIVED PATIENT AWAKE AND AOX4. PATIENT IS IN A CALM AND COOPERATIVE MOOD. REPORTS FEELING CALM ON THE NEW INVESTIGATIONAL MEDICATION. REPORTS SLEEPING WELL AFTER SLEEPING PILL WAS ADMINISTERED. PATIENT DENIES PAIN AND IS SHOWING NO SIGNS OF DISTRESS. SAFETY PRECAUTIONS IN PLACE. BED IS LOCKED AND IN LOW POSITION WITH 2 SIDE RAILS UP FOR SAFETY. WILL CONTINUE TO MONITOR.
[2019-11-24 08:00] VITALS: BP 139/113
[2019-11-24] MEDS: AMLODIPINE 5 MG PO SCH (08:03)
[2019-11-24] MEDS: NEOMY SULF/BACITRAC ZN/POLY 15 GM TUBE TP SCH ×2 (08:04→16:04)
[2019-11-24 16:20] VITALS: BP 143/75
[2019-11-24] MEDS: IBUPROFEN 600 MG TABLET PO PRN (18:11)
--- NOTE | 2019-11-24 19:45 | NUR ---
GPS RN OPENING NOTE: RECEIVED PATIENT AWAKE AND AOX4. PATIENT IS IN A CALM AND COOPERATIVE MOOD.PATIENT DENIES SOB AND IS SHOWING NO SIGNS OF DISTRESS. SAFETY PRECAUTIONS IN PLACE. BED IS LOCKED AND IN LOW POSITION WITH 2 SIDE RAILS UP FOR SAFETY. WILL CONTINUE TO MONITOR.
[2019-11-24 20:01] VITALS: BP 129/89
[2019-11-24] MEDS: [UNRECOGNIZED DRUG - OTHER] PO SCH (21:24)
--- NOTE | 2019-11-25 03:40 | NUR ---
GPS RN NOTE: ANXIETY PT. C/O OF ANXIETY AND REQUESTED FOR ATIVAN. ADMINISTERED ATIVAN 1MG PO PRN ORDERED. WILL CONTINUE TO MONITOR.
[2019-11-25] MEDS: LORAZEPAM 1 MG TABLET PO PRN ×4 (03:43→20:19)
--- NOTE | 2019-11-25 05:50 | NUR ---
GPS RN NOTE: CONSTIPATION PT. C/O CONSTIPATION. ADMINISTERED MILK OF MAGNESIA 30 ML PO PRN ORDERED. WILL CONTINUE TO MONITOR
[2019-11-25] MEDS: MAGNESIUM HYDROXIDE 30 ML UDC PO PRN (05:54)
[2019-11-25 08:00] VITALS: BP 140/83
[2019-11-25] MEDS: AMLODIPINE 5 MG PO SCH (08:33)
[2019-11-25] MEDS: NEOMY SULF/BACITRAC ZN/POLY 15 GM TUBE TP SCH ×2 (08:34→17:00)
--- NOTE | 2019-11-25 09:04 | NUR ---
rn note:patient c/o anxiety medicated with Ativen 1mg .Will continue to monitor .
--- NOTE | 2019-11-25 15:51 | NUR ---
RN NOTE:PT C/O OF ANXIETY AND REQUESTED FOR ATIVAN. ADMINISTERED ATIVAN 1MG PO PRN ORDERED. WILL CONTINUE TO MONITOR.
[2019-11-25 16:00] VITALS: BP 143/65
[2019-11-25] MEDS: IBUPROFEN 600 MG TABLET PO PRN (19:41)
[2019-11-25 20:13] VITALS: BP 131/70
[2019-11-25] MEDS: [UNRECOGNIZED DRUG - OTHER] PO SCH (21:47)
[2019-11-25] MEDS: ZOLPIDEM TARTRATE 10 MG TABLET PO PRN (21:48)
[2019-11-26 08:00] VITALS: BP 132/86
[2019-11-26] MEDS: AMLODIPINE 5 MG PO SCH (08:34)
[2019-11-26] MEDS: NEOMY SULF/BACITRAC ZN/POLY 15 GM TUBE TP SCH ×2 (08:35→17:06)
--- NOTE | 2019-11-26 09:00 | NUR ---
RN NOTE- Received pt. awake in bed, no distress and no agitation noted. Ate 100% for breakfast, compliant on meds. Pt. with for smoke with staff. Needs attended and will continue to monitor for safety.
[2019-11-26] MEDS: LORAZEPAM 1 MG TABLET PO PRN ×3 (09:37→20:44)
--- NOTE | 2019-11-26 09:38 | NUR ---
RN NOTE- C/O ANXIETY. ATIVAN 1MG GIVEN.
--- NOTE | 2019-11-26 12:20 | NUR ---
RN NOTE- RX EFFECTIVE
--- NOTE | 2019-11-26 12:45 | NUR ---
Rn Note- Dressing applied to Lt foot. Abx ointment applied plus 4X4. wrapped w MOR bandage.
[2019-11-26] MEDS: IBUPROFEN 600 MG TABLET PO PRN (14:05)
--- NOTE | 2019-11-26 14:06 | NUR ---
RN NOTE- PT WITH C/O PAIN IN LT FOOT. 6-10. MOTRIN 600 MG GIVEN
--- NOTE | 2019-11-26 14:50 | NUR ---
RN NOTE- PT C/O ANXIETY. RAISING VOICE, AGITATED. ATIVAN 1 MG GIVEN.
[2019-11-26 16:00] VITALS: BP 165/89
--- NOTE | 2019-11-26 17:53 | NUR ---
Rn Note- Pt. is awake in bed at this time, no distress and no agitation noted. Pt required Ativan earlier for anxiety. effective. Calm. Ate 100% for dinner, pt. had smoke break. Needs attended and will continue to monitor.
[2019-11-26 20:20] VITALS: BP 144/80
[2019-11-26] MEDS: [UNRECOGNIZED DRUG - OTHER] PO SCH (22:01)
[2019-11-26] MEDS: ZOLPIDEM TARTRATE 10 MG TABLET PO PRN (22:01)
[2019-11-27 08:00] VITALS: BP 138/92
[2019-11-27] MEDS: AMLODIPINE 5 MG PO SCH (08:16)
[2019-11-27] MEDS: NEOMY SULF/BACITRAC ZN/POLY 15 GM TUBE TP SCH ×2 (08:45→16:49)
--- NOTE | 2019-11-27 08:59 | NUR ---
RN Initial Notes: Received pt. awake in bed, responsive to staffs, no distress and no agitation noted. Ate 100% for breakfast, compliant on meds. Wound dressing done and pt. had smoking with staff. Needs attended and will continue to monitor.
[2019-11-27] MEDS: LORAZEPAM 1 MG TABLET PO PRN ×2 (11:19→19:42)
[2019-11-27 16:00] VITALS: BP 140/84
--- NOTE | 2019-11-27 19:15 | NUR ---
RN Closing Notes; Pt. is awake in bed at this time, ate 100% for dinner and had smoke break after dinner. No distress noted and will endorse to the next shift for the continuity of care.
[2019-11-27 19:58] VITALS: BP 140/76
[2019-11-27] MEDS: [UNRECOGNIZED DRUG - OTHER] PO SCH (21:35)
[2019-11-28 08:00] VITALS: BP 153/76
[2019-11-28] MEDS: AMLODIPINE 5 MG PO SCH (08:20)
--- NOTE | 2019-11-28 08:48 | NUR ---
RN Initial Notes: Received pt. awake in bed, responsive to staff, ate 100% for breakfast, compliant med. Needs attended, no distress and no agitation noted. Will continue to monitor for safety.
[2019-11-28] MEDS: NEOMY SULF/BACITRAC ZN/POLY 15 GM TUBE TP SCH ×2 (09:00→16:18)
--- NOTE | 2019-11-28 09:18 | NUR ---
Lorrie from the doctor's office came and picked up pt. to Dr. Lopez's office.
--- NOTE | 2019-11-28 11:25 | NUR ---
Pt. came back from the office, without distress and will continue to monitor.
[2019-11-28] MEDS: LORAZEPAM 1 MG TABLET PO PRN ×2 (12:55→19:53)
[2019-11-28] MEDS: IBUPROFEN 600 MG TABLET PO PRN (15:10)
[2019-11-28 15:51] VITALS: BP 150/79
[2019-11-28 20:00] VITALS: BP 119/72
[2019-11-28] MEDS: [UNRECOGNIZED DRUG - OTHER] PO SCH (21:44)
[2019-11-29] MEDS: LORAZEPAM 1 MG TABLET PO PRN ×2 (07:02→18:03)
[2019-11-29 08:00] VITALS: BP 152/95
--- NOTE | 2019-11-29 08:00 | NUR ---
RN NOTES RECEIVED PATIENT IN THE BED A/O X3, STABLE, NO ACUTE RESPIRATORY DISTRESS, PATIENT AMBULATORY SELF CARE. ADMINISTERED SCHEDULED MEDICATION, EDUCATED MEDICATION INTAKE, AND SIDE EFFECTS, PATIENT SMOKER. REFUSED SI/HI AT THIS TIME, NO DELUSION, PATIENT STATE"I AM FEELING MUCH BETTER, SLEEPING, AND GOOD MOOD' SAFETY PRECAUTION MAINTAINED ALL THE TIME.
[2019-11-29 08:01] VITALS: BP 152/95
[2019-11-29] MEDS: AMLODIPINE 5 MG PO SCH (09:19)
[2019-11-29] MEDS: NEOMY SULF/BACITRAC ZN/POLY 15 GM TUBE TP SCH ×2 (09:20→17:00)
[2019-11-29 16:00] VITALS: BP 163/93
--- NOTE | 2019-11-29 18:08 | NUR ---
RN NOTE: ANXIETY PATIENT REQUESTING ATIVAN FOR ANXIETY EVIDENCED BY INCREASING IRRITABILITY. ATIVAN PRN ADMINISTERED ORDERED. BP 163/93 PULSE 79
--- NOTE | 2019-11-29 19:30 | NUR ---
GPS RN NOTE, RECEIVED PATIENT AWAKE AND IN BED, NO S/S OR COMPLAINTS OF PAIN AT THIS TIME. PATIENT BREATHING IS UNLABORED WITH EQUAL RISE AND FALL OF THE CHEST. PATIENT IS ALERT AND ORIENTED X 4 ON ROOM AIR WITH A SPOO2 98%. PATIENT IS COMPLAINT WITH MEDICATION, BRIGHT, CALM, AND COOPERATIVE. PATIENT DENIES SUICIDE AND HOMICIDAL IDEATIONS AT THIS TIME. PATIENT ASSISTED WITH TURNING AND REPOSITIONING Q2HR AND PRN FOR COMFORT AND CIRCULATION. PATIENT HAS NO NEEDS AT THIS TIME. PATIENT EDUCATED ON THE USE OF THE CALL LIGHT. PATIENT BED SIDE RAILS UP X 2 FOR SAFETY. PATIENT BED IS LOCKED AND LOW WILL CONTINUE TO MONITOR AND MAINTAIN SAFETY Q15 MIN WITH THE HELP OF STAFF.
[2019-11-29 20:00] VITALS: BP_SYST 120; BP_SYST 129; BP_DIAS 70
[2019-11-29] MEDS: [UNRECOGNIZED DRUG - OTHER] PO SCH (21:18)
[2019-11-30 08:00] VITALS: BP 138/82
[2019-11-30] MEDS: AMLODIPINE 5 MG PO SCH (08:19)
--- NOTE | 2019-11-30 08:42 | NUR ---
RN Initial Notes;\: received pt. awake in bed, no sign of distress and no agitation noted. Ate 100% for breakfast, compliant on med. Needs attended, pt. with for smoke. Will continue to monitor.
[2019-11-30] MEDS: NEOMY SULF/BACITRAC ZN/POLY 15 GM TUBE TP SCH ×2 (09:31→16:04)
[2019-11-30] MEDS: LORAZEPAM 1 MG TABLET PO PRN ×2 (10:31→20:00)
[2019-11-30 16:00] VITALS: BP 146/86
--- NOTE | 2019-11-30 20:00 | NUR ---
GPS RN NOTE: ANXIETY PT. C/O OF ANXIETY AND REQUESTED FOR ATIVAN. ADMINISTERED ATIVAN 1MG PO PRN ORDERED. WILL CONTINUE TO MONITOR.
[2019-11-30 20:13] VITALS: BP 120/59
[2019-11-30] MEDS: [UNRECOGNIZED DRUG - OTHER] PO SCH (21:20)
[2019-12-01 08:00] VITALS: BP 148/82
[2019-12-01] MEDS: AMLODIPINE 5 MG PO SCH (08:51)
[2019-12-01] MEDS: NEOMY SULF/BACITRAC ZN/POLY 15 GM TUBE TP SCH ×2 (08:51→17:15)
[2019-12-01] MEDS: LORAZEPAM 1 MG TABLET PO PRN ×2 (09:11→20:57)
--- NOTE | 2019-12-01 09:11 | NUR ---
RN NOTE- PT C/O ANXIOUSNESS. ATIVAN 1 MG GIVEN
--- NOTE | 2019-12-01 09:37 | NUR ---
RN NOTE- PT ALERT ORIENTED TO PERSON PLACE TIME AND PURPOSE. ALL NEEDS ATTENDED. PO INTAKE GOOD. MED COMPLIANT
[2019-12-01 16:00] VITALS: BP 138/68
--- NOTE | 2019-12-01 17:45 | NUR ---
RN NOTE- PT ALERT ORIENTED TO PERSON PLACE TIME AND PURPOSE. CALM DIRECTABLE. DENIES SI HI AH VH. PO INTAKE GOOD,.. DRANK PRUNE JUICE EARLIER. EFFECTIVE . NO BEHAVIORAL ISSUES.
[2019-12-01 20:00] VITALS: BP 138/86
--- NOTE | 2019-12-01 20:57 | NUR ---
Pt c/o anxiety. Ativan 1 mg po prn given as ordered. Will continue to monitor.
[2019-12-01] MEDS: [UNRECOGNIZED DRUG - OTHER] PO SCH (21:33)
--- NOTE | 2019-12-01 22:03 | NUR ---
Post 1 hr Ativan effective. Pt calm in bed. Will continue to monitor.
--- NOTE | 2019-12-02 07:26 | NUR ---
GPS RN NOTE: OPENING RECEIVED PATIENT AOX4- IN BED WITH NO SIGNS OF DISTRESS NOTED. PATIENT BREATHING IS EVEN AND UNLABORED WITH EQUAL RISE AND FALL OF CHEST. NO OVERNIGHT BEHAVIORAL COMPLAINTS. REPORTS FEELING CALM AND DENIES VAH. SAFETY PRECAUTIONS IN PLACE - BED IN LOW AND LOCKED POSITION WITH 2 SIDE RAILS UP FOR SAFETY. WILL CONTINUE TO MONITOR Q15 FOR MOOD, SAFETY AND BEHAVIOR.
[2019-12-02 08:00] VITALS: BP 128/76
[2019-12-02] MEDS: AMLODIPINE 5 MG PO SCH (08:50)
[2019-12-02] MEDS: NEOMY SULF/BACITRAC ZN/POLY 15 GM TUBE TP SCH ×2 (08:51→17:32)
[2019-12-02] MEDS: LORAZEPAM 1 MG TABLET PO PRN (14:03)
[2019-12-02 16:00] VITALS: BP 149/74
[2019-12-02 20:15] VITALS: BP 140/90
[2019-12-02] MEDS: [UNRECOGNIZED DRUG - OTHER] PO SCH (21:35)
[2019-12-03 08:00] VITALS: BP 113/76
[2019-12-03] MEDS: AMLODIPINE 5 MG PO SCH (08:32)
[2019-12-03] MEDS: NEOMY SULF/BACITRAC ZN/POLY 15 GM TUBE TP SCH ×2 (08:32→16:29)
[2019-12-03 16:00] VITALS: BP 144/71
--- NOTE | 2019-12-03 19:25 | NUR ---
GPS RN OPENING NOTE: Received pt. awake in bed, no sign of distress and no agitation noted. Cooperative, med compliant. Needs attended, pt. Will continue to monitor for safety and behavior
[2019-12-03 20:19] VITALS: BP 133/71
[2019-12-03] MEDS: [UNRECOGNIZED DRUG - OTHER] PO SCH (21:31)
[2019-12-04 08:00] VITALS: BP 140/66
[2019-12-04] MEDS: AMLODIPINE 5 MG PO SCH (08:31)
[2019-12-04] MEDS: NEOMY SULF/BACITRAC ZN/POLY 15 GM TUBE TP SCH ×2 (08:32→17:07)
[2019-12-04 16:00] VITALS: BP 146/84
[2019-12-04 20:57] VITALS: BP 136/81
--- NOTE | 2019-12-04 21:09 | NUR ---
GPS RN NOTE: RECEIVED PT LAYING IN BED, AWAKE, ALERT AND ORIENTED X4. APPROPRIATE AFFECT, CALM AND COOPERATIVE. NO S/S OF ANY DISTRESS. RESPIRATION EVEN AND UNLABORED WITH EQUAL RISE AND FALL OF THE CHEST, ON ROOM AIR. PT DENIES SI AT THIS TIME. OFFERED FLUID AND SNACK TOLERATED. SAFETY AND FALL PRECAUTION OBSERVED, CALL LOPEZ WITHIN REACH. Q15 MINUTES OBSERVATION CONTINUED. WILL CONTINUE TO MONITOR PT FOR MOOD, SAFETY AND BEHAVIOR.
[2019-12-04] MEDS: [UNRECOGNIZED DRUG - OTHER] PO SCH (22:09)
[2019-12-05 08:00] VITALS: BP 152/84
[2019-12-05] MEDS: NEOMY SULF/BACITRAC ZN/POLY 15 GM TUBE TP SCH ×2 (08:02→17:26)
[2019-12-05] MEDS: AMLODIPINE 5 MG PO SCH (08:02)
[2019-12-05] MEDS ORDERED: LORAZEPAM 1 MG TABLET PO PRN (14:00)
[2019-12-05 16:00] VITALS: BP 161/91
[2019-12-05 20:00] VITALS: BP 125/91
[2019-12-05 20:22] VITALS: BP 150/77
[2019-12-05] MEDS: [UNRECOGNIZED DRUG - OTHER] PO SCH (22:25)
[2019-12-05] MEDS: ZOLPIDEM TARTRATE 10 MG TABLET PO PRN (22:27)
[2019-12-06] MEDS: AMLODIPINE 5 MG PO SCH (08:46)
[2019-12-06] MEDS: NEOMY SULF/BACITRAC ZN/POLY 15 GM TUBE TP SCH ×2 (08:50→17:17)
[2019-12-06] MEDS: IBUPROFEN 600 MG TABLET PO PRN ×2 (09:34→19:49)
--- NOTE | 2019-12-06 09:36 | NUR ---
GPS/RN-NOTES PATIENT C/O 01/07 LEFT FOOT PAIN AND REQUESTING FOR MOTRIN. MOTRIN 600MG P.O GIVEN PRN ORDER.
--- NOTE | 2019-12-06 09:53 | NUR ---
GPS/RN-NOTES RECEIVED PATIENT LAYING IN BED TALKING TO THE PHONE,NO ACUTE DISTRESS NOTED. COMPLIANT WITH MEDICATIONS.
--- NOTE | 2019-12-06 12:35 | NUR ---
GPS/RN -NOTES RECEIVED T.O ORDER FROM DR. SALGUERO OF ATIVAN 1MG P.O Q6HR. PRN FOR ANXIETY. NOTED AND CARRIED OUT.
[2019-12-06] MEDS: LORAZEPAM 1 MG TABLET PO PRN (12:54)
--- NOTE | 2019-12-06 12:54 | NUR ---
GPS/RN-NOTES PATIENT REQUESTING FOR ATIVAN. STATED" MY ANXIETY IS HIGH TODAY,I NEED MY ATIVAN". ATIVAN 1MG P.O GIVEN PRN ORDER. WILL CONT. MONITORING FOR SAFETY AND BEHAVIOR.
[2019-12-06] MEDS ORDERED: LORAZEPAM 1 MG TABLET PO PRN (13:00)
--- NOTE | 2019-12-06 13:30 | NUR ---
GPS/RN-NOTES PATIENT LAYING IN BED WATCHING ON HER TELEPHONE,CALM NO ACUTE DISTRESS NOTED.
[2019-12-06 16:19] VITALS: BP 123/70
--- NOTE | 2019-12-06 18:21 | NUR ---
GPS/RN-NOTES PATIENT IN THE ROOM AWAKE,ALERT WATCHING ON HER PHONE.NO ACUTE DISTRESS NOTED.
--- NOTE | 2019-12-06 19:51 | NUR ---
GPS-RN NOTE: C/O LEFT FOOT PAIN PATIENT C/O LEFT FOOT PAIN ON PAIN SCALE OF 7/10 AND REQUESTING FOR IBUPROFEN. ADMINISTERED ORDERED. WILL CONTINUE TO MONITOR FOR THE EFFECTIVENESS OF MEDICATION.
[2019-12-06] MEDS: [UNRECOGNIZED DRUG - OTHER] PO SCH (21:13)
[2019-12-07 08:00] VITALS: BP 127/81
--- NOTE | 2019-12-07 08:00 | NUR ---
GPS/RN-NOTES RECEIVED PATIENT LAYING IN BED WATCHING INTO THE PHONE, CALM,NO ACUTE DISTRESS NOTED. COMPLIANT WITH MEDICATIONS.
[2019-12-07] MEDS: AMLODIPINE 5 MG PO SCH (08:32)
[2019-12-07] MEDS: NEOMY SULF/BACITRAC ZN/POLY 15 GM TUBE TP SCH ×2 (08:32→17:08)
[2019-12-07 16:00] VITALS: BP 124/75
[2019-12-07 20:00] VITALS: BP 148/63
[2019-12-07] MEDS: [UNRECOGNIZED DRUG - OTHER] PO SCH (21:26)
[2019-12-08 08:00] VITALS: BP 129/77
[2019-12-08] MEDS: AMLODIPINE 5 MG PO SCH (08:26)
[2019-12-08] MEDS: NEOMY SULF/BACITRAC ZN/POLY 15 GM TUBE TP SCH ×2 (08:31→16:22)
[2019-12-08 16:00] VITALS: BP 145/64
[2019-12-08 20:31] VITALS: BP 139/93
[2019-12-08] MEDS: [UNRECOGNIZED DRUG - OTHER] PO SCH (21:42)
[2019-12-09 08:00] VITALS: BP 133/60
[2019-12-09] MEDS: AMLODIPINE 5 MG PO SCH (09:05)
[2019-12-09] MEDS: NEOMY SULF/BACITRAC ZN/POLY 15 GM TUBE TP SCH ×2 (09:05→16:44)
[2019-12-09 16:00] VITALS: BP 107/58
[2019-12-09 20:10] VITALS: BP 153/78
[2019-12-09] MEDS: [UNRECOGNIZED DRUG - OTHER] PO SCH (21:44)
[2019-12-10 08:00] VITALS: BP 132/63
[2019-12-10 08:03] VITALS: BP 132/63
[2019-12-10] MEDS: NEOMY SULF/BACITRAC ZN/POLY 15 GM TUBE TP SCH ×2 (08:29→16:02)
[2019-12-10] MEDS: AMLODIPINE 5 MG PO SCH (08:29)
--- NOTE | 2019-12-10 09:15 | NUR ---
RN OPENING NOTE: PATIENT AOX4, CALM, COOPERATIVE, MED COMPLIANT. REPORTS SLEEPING WELL AND FEELING RESTED WITHOUT SLEEPING PILL. STATES EXPERIENCING DECREASED ANXIETY. BREATHING IS EVEN AND UNLABORED WITH EQUAL RISE AND FALL OF CHEST. SAFETY PRECAUTIONS IN PLACE. BED IN LOCKED AND LOW POSITION WITH 2 SIDE RAILS UP FOR SAFETY.
[2019-12-10 16:00] VITALS: BP 118/55
[2019-12-10 20:18] VITALS: BP 123/72
[2019-12-10] MEDS: [UNRECOGNIZED DRUG - OTHER] PO SCH (21:02)
--- NOTE | 2019-12-11 06:52 | NUR ---
RN NOTES, NO SIGNIFICANTS CHANGE IN CONDITION, PATIENT COMPLAIN WITH CARE, NO DISRUPTIVE BEHAVIOR EXHIBITED, ADEQUATE HOURS OF SLEEP, WILL ENDORSED CONTINUITY OF CARE TO ONCOMING NURSE
[2019-12-11 08:00] VITALS: BP 141/66
[2019-12-11] MEDS: AMLODIPINE 5 MG PO SCH (08:26)
[2019-12-11] MEDS: NEOMY SULF/BACITRAC ZN/POLY 15 GM TUBE TP SCH ×2 (08:28→16:38)
--- NOTE | 2019-12-11 09:16 | NUR ---
RN Opening Notes: Received pt. awake in bed, pleasant upon approached, no sign of distress and no agitation noted. Ate 100% for breakfast, compliant on meds and refused for the ointment and stating that wound is healed. Pt. went for smoking with staff. Needs attended and will continue to monitor.
[2019-12-11 20:19] VITALS: BP 155/93
[2019-12-11] MEDS: ACETAMINOPHEN ES 500 MG TABLET PO PRN (20:21)
--- NOTE | 2019-12-11 20:21 | NUR ---
GPS-RN NOTE: C/O LEFT PLANTAR FOOT PATIENT C/O LEFT PLANTAR FOOT ON A SCALE OF 3/10 AND REQUESTING FOR TYLENOL ES. ADMINISTERED ORDERED. WILL CONTINUE TO MONITOR FOR THE EFFECTIVENESS OF THE MEDICATION.
[2019-12-11] MEDS: [UNRECOGNIZED DRUG - OTHER] PO SCH (21:01)
[2019-12-12 08:00] VITALS: BP 114/61
[2019-12-12] MEDS: AMLODIPINE 5 MG PO SCH (08:45)
[2019-12-12] MEDS: NEOMY SULF/BACITRAC ZN/POLY 15 GM TUBE TP SCH ×2 (08:45→16:17)
--- NOTE | 2019-12-12 09:21 | NUR ---
RN Opening Notes: Received pt. awake in bed, responsive to staffs, no sign of distress and no agitation noted. Ate 100% for breakfast, compliant on meds and had smoke break with staff. Will continue to monitor for safety.
--- NOTE | 2019-12-12 09:38 | NUR ---
RN Notes: Pt. left the unit to Dr. Lopez's office and picking machine operator by Justine the office staff. Left without distress and ambulatory.
--- NOTE | 2019-12-12 11:15 | NUR ---
RN Notes: Pt. from the clinic with an escort. Pt. is ambulatory and without distress. Addendum: 12/12/19 at 1543 by PALAK JOHNSON RN Pt. came back from the clinic
[2019-12-12] MEDS ORDERED: LORAZEPAM 1 MG TABLET PO PRN (12:00)
[2019-12-12 16:00] VITALS: BP 121/54
[2019-12-12] MEDS: [UNRECOGNIZED DRUG - OTHER] PO SCH (21:04)
[2019-12-12 21:13] VITALS: BP 110/59
[2019-12-13 08:00] VITALS: BP 124/77
[2019-12-13] MEDS: AMLODIPINE 5 MG PO SCH (08:53)
[2019-12-13] MEDS: NEOMY SULF/BACITRAC ZN/POLY 15 GM TUBE TP SCH ×2 (08:53→17:38)
--- NOTE | 2019-12-13 09:27 | NUR ---
GPS/RN-NOTES RELIEVED PATIENT LAYING IN BED WATCHING IN HER PHONE,CALM NO ACUTE DISTRESS NOTED. COMPLIANT WITH MEDICATIONS. WILL CONT. MONITORING FOR SAFETY AND BEHAVIOR.
[2019-12-13] MEDS: MAG HYDROX/AL HYDROX/SIMETH 30 ML UDC PO PRN (09:58)
--- NOTE | 2019-12-13 09:59 | NUR ---
GPS/RN-NOTES PATIENT C/O INDIGESTION AND REQUESTING MAALOX. MAALOX 30ML GIVEN PRN ORDER.
[2019-12-13 16:00] VITALS: BP 135/88
[2019-12-13 20:54] VITALS: BP 133/46
[2019-12-13] MEDS: [UNRECOGNIZED DRUG - OTHER] PO SCH (22:09)
--- NOTE | 2019-12-14 07:30 | NUR ---
RN OPENING NOTE: RECEIVED PT AMUBLATING IN HALLWAY. NO ACUTE DISTRESS NOTED. VSS, AFEBRILE, DENIES PAIN AND/OR DISCOMFORT. RESPIRATIONS CLEAR, EVEN AND UNLABORED.PT CALM AND COOPERATIVE. A+OX4, ABLE TO MAKE NEEDS KNOWN. PT IS VISIBLE ON THE UNIT AND INTERACTS WITH OTHERS. PT AMBULATORY WITH STEADY GAINT. INDEPENDENT WITH ADLS AND INTAKE. PT COMPLIANT WITH MEDICATION ADMINISTRATION AND PLAN OF CARE. DENIES SI/HI/AH/VH AT PRESENT TIME. WILL CONT TO MONITOR PT PER PROTOCOL AND PRN.
[2019-12-14 08:00] VITALS: BP 128/75
[2019-12-14] MEDS: NEOMY SULF/BACITRAC ZN/POLY 15 GM TUBE TP SCH ×2 (08:33→17:32)
[2019-12-14] MEDS: AMLODIPINE 5 MG PO SCH (08:33)
[2019-12-14 16:00] VITALS: BP 143/79
[2019-12-14 20:00] VITALS: BP 122/74
[2019-12-14] MEDS: [UNRECOGNIZED DRUG - OTHER] PO SCH (21:21)
--- NOTE | 2019-12-15 07:30 | NUR ---
RN OPENING NOTE: RECEIVED PT LYING IN BED. NO ACUTE DISTRESS NOTED. VSS, AFEBRILE, DENIES PAIN AND/OR DISCOMFORT. RESP CTA THROUGHOUT. PT AMBULATORY WITH STEADY GAIT AND INDEPENDENT WITH ADLS AND INTAKE. PT VISIBLE ON THE UNIT AND ENGAGES WITH OTHERS. PT COMPLIANT WITH MEDICATION ADMINISTRATION AND PLAN OF CARE. PT DENIES SI/HI/AH/VH AT PRESENT TIME. WILL CONT TO MOONITOR PT PER PROTOCOL AND PRN.
[2019-12-15 08:00] VITALS: BP 122/72
[2019-12-15] MEDS: NEOMY SULF/BACITRAC ZN/POLY 15 GM TUBE TP SCH ×2 (08:14→17:00)
[2019-12-15] MEDS: AMLODIPINE 5 MG PO SCH (08:14)
[2019-12-15 16:00] VITALS: BP 143/78
[2019-12-15 21:18] VITALS: BP 137/73
[2019-12-15] MEDS: [UNRECOGNIZED DRUG - OTHER] PO SCH (21:40)
--- NOTE | 2019-12-16 01:10 | NUR ---
GPS RN NOTE: RECEIVED PT IN BED, AWAKE, ALERT AND ORIENTED X3. APPROPRIATE AFFECT, CALM AND COOPERATIVE. NO BEHAVIORAL ISSUES. MED COMPLIANT. NO S/S OF ANY DISTRESS. RESPIRATION EVEN AND UNLABORED WITH EQUAL RISE AND FALL OF THE CHEST, ON ROOM AIR. PT DENIES SI AT THIS TIME. OFFERED FLUID AND SNACK TOLERATED. SAFETY AND FALL PRECAUTION OBSERVED, BED IN LOW LOCKED POSITION, CALL LOPEZ WITHIN REACH. Q15 MINUTES OBSERVATION CONTINUED. WILL CONTINUE TO MONITOR PT FOR MOOD, SAFETY AND BEHAVIOR.
[2019-12-16 08:00] VITALS: BP 119/72
[2019-12-16] MEDS: AMLODIPINE 5 MG PO SCH (08:31)
[2019-12-16] MEDS: NEOMY SULF/BACITRAC ZN/POLY 15 GM TUBE TP SCH ×2 (08:31→16:05)
--- NOTE | 2019-12-16 09:00 | NUR ---
RN NOTE- PT AWAKE, ORIENTED X 4 ALL NEEDS ATTENDED, PO INTAKE GOOD MED COMPLIANT CLEAN APPROPRIATE INTERACTIVE
[2019-12-16 16:00] VITALS: BP 138/56
--- NOTE | 2019-12-16 20:00 | NUR ---
Received patient socializing with another patient,still feels depressed,blunted affect,labile and unpredictable mood,easily gets irritable and agitated when being redirected not to stay inside male room .Staff explained to her the unit rules and she verbalized understanding.Patient is unmotivated ;no verbalization of thoughts and feelings.No s/s of acute distress noted.Will continue to monitor q15 min rounds for safety.
[2019-12-16 20:22] VITALS: BP 140/75
[2019-12-16] MEDS: [UNRECOGNIZED DRUG - OTHER] PO SCH (21:22)
[2019-12-17 08:00] VITALS: BP 133/74
[2019-12-17] MEDS: NEOMY SULF/BACITRAC ZN/POLY 15 GM TUBE TP SCH ×2 (08:49→17:52)
[2019-12-17] MEDS: AMLODIPINE 5 MG PO SCH (08:49)
[2019-12-17] MEDS: IBUPROFEN 600 MG TABLET PO PRN (15:48)
[2019-12-17 16:00] VITALS: BP 138/98
--- NOTE | 2019-12-17 20:17 | NUR ---
Received patient bed awake,laughing too loud, hyperactive,labile and unpredictable mood.No s/s f acute distress noted.Will continue to monitor q15 min for safety.
[2019-12-17 20:53] VITALS: BP 101/66
[2019-12-17] MEDS: [UNRECOGNIZED DRUG - OTHER] PO SCH (21:43)
[2019-12-18 08:00] VITALS: BP 142/87
[2019-12-18] MEDS: AMLODIPINE 5 MG PO SCH (08:25)
[2019-12-18] MEDS: NEOMY SULF/BACITRAC ZN/POLY 15 GM TUBE TP SCH ×2 (08:26→17:26)
[2019-12-18 16:00] VITALS: BP 130/63
--- NOTE | 2019-12-18 17:46 | NUR ---
RN-CO: DR SALGUERO ORDERED TO CHANGE THE TREATMENT ORDER OF HER LEFT PLANTAR WOUND FROM BID TO DAILY. DR SALGUERO ALSO SEEN THE WOUND TODAY. NO S/S OF INFECTION , SCARRING TISSUE IS DEVELOPING.
--- NOTE | 2019-12-18 19:10 | NUR ---
GPS RN NOTES: OPENING Received patient in her room smiling. Pt is calm, friendly, and easy to talk to. Pt is socializing w/ other residents. Pt is hyperverbal, needy ,labile and unpredictable mood. Pt has no verbalization of thoughts and feelings of si or hi at this time .No s/s of acute distress noted. breathing even and unlabored. no sob. call jason within reach. Will continue to monitor q15 min rounds for safety.
[2019-12-18] MEDS: IBUPROFEN 600 MG TABLET PO PRN (19:54)
--- NOTE | 2019-12-18 19:55 | NUR ---
GPS RN NOTES: C/O OF HEADACHE PT C/O OF 6/10 HEADACHE PAIN. OFFERED MOTRIN PRN ORDERED. PT AGREED AND TOLERATED MEDICATION WELL. CONTINUE TO MONITOR.
[2019-12-18 21:01] VITALS: BP 146/87
[2019-12-18] MEDS: [UNRECOGNIZED DRUG - OTHER] PO SCH (21:31)
[2019-12-19 08:00] VITALS: BP 130/62
--- NOTE | 2019-12-19 08:00 | NUR ---
GPS/RN-NOTES RECEIVED PATIENT WATCHING IN HER PHONE,NO ACUTE DISTRESS NOTED.
[2019-12-19] MEDS: AMLODIPINE 5 MG PO SCH (08:25)
[2019-12-19] MEDS ORDERED: NEOMY SULF/BACITRAC ZN/POLY 15 GM TUBE TP SCH (09:00)
--- NOTE | 2019-12-19 09:20 | NUR ---
GPS/RN-NOTES PATIENT OFF THE UNIT AT THIS TIME,PET FEEDER BY DR. SALGUERO STAFF.
--- NOTE | 2019-12-19 10:37 | NUR ---
GPS/RN-NOTES PATIENT BACK IN THE UNIT ,NO ACUTE DISTRESS NOTED.
[2019-12-19] MEDS: NEOMY SULF/BACITRAC ZN/POLY 15 GM TUBE TP SCH (10:57)
[2019-12-19 16:00] VITALS: BP 121/70
[2019-12-19 20:46] VITALS: BP 108/77
[2019-12-19] MEDS: [UNRECOGNIZED DRUG - OTHER] PO SCH (21:23)
[2019-12-20 08:00] VITALS: BP 118/67
--- NOTE | 2019-12-20 08:00 | NUR ---
GPS/RN-NOTES RECEIVED PATIENT WATCHING IN HER PHONE,CALM, NO ACUTE DISTRESS NOTED.
[2019-12-20] MEDS ORDERED: NEOMY SULF/BACITRAC ZN/POLY 15 GM TUBE TP SCH (09:00)
[2019-12-20] MEDS: AMLODIPINE 5 MG PO SCH (09:08)
[2019-12-20] MEDS: NEOMY SULF/BACITRAC ZN/POLY 15 GM TUBE TP SCH (09:08)
[2019-12-20 16:26] VITALS: BP 131/71
[2019-12-20 20:27] VITALS: BP 140/76
[2019-12-20] MEDS: [UNRECOGNIZED DRUG - OTHER] PO SCH (21:36)
[2019-12-21 08:00] VITALS: BP 132/74
[2019-12-21] MEDS: AMLODIPINE 5 MG PO SCH (09:31)
[2019-12-21] MEDS: NEOMY SULF/BACITRAC ZN/POLY 15 GM TUBE TP SCH (09:32)
--- NOTE | 2019-12-21 14:10 | NUR ---
RELOCATED PT. TO ANOTHER [id number]. MASCORRO IN TO SEE PT. EARLIER.
[2019-12-21 16:00] VITALS: BP 133/77
[2019-12-21] MEDS: ACETAMINOPHEN ES 500 MG TABLET PO PRN (18:16)
--- NOTE | 2019-12-21 18:16 | NUR ---
given tylenol es for neck ache.
--- NOTE | 2019-12-21 19:30 | NUR ---
GPS RN NOTE, RECEIVED PATIENT AWAKE AND IN BED, PATIENT HAS A COMPLAINT OF NECK PAIN. PATIENT IS TAKING ORAL PAIN MEDICATION FOR THIS PAIN. PATIENT BREATHING IS UNLABORED WITH EQUAL RISE AND FALL OF THE CHEST. PATIENT IS ALERT AND ORIENTED X 4 ON ROOM AIR WITH A SPOO2 98%. PATIENT IS COMPLAINT WITH MEDICATION, BRIGHT, CALM, AND COOPERATIVE. PATIENT DENIES SUICIDE AND HOMICIDAL IDEATIONS AT THIS TIME. PATIENT ASSISTED WITH TURNING AND REPOSITIONING Q2HR AND PRN FOR COMFORT AND CIRCULATION. PATIENT HAS NO NEEDS AT THIS TIME. PATIENT EDUCATED ON THE USE OF THE CALL LIGHT. PATIENT BED SIDE RAILS UP X 2 FOR SAFETY. PATIENT BED IS LOCKED AND LOW WILL CONTINUE TO MONITOR AND MAINTAIN SAFETY Q15 MIN WITH THE HELP OF STAFF.
[2019-12-21 20:00] VITALS: BP 112/69
[2019-12-21] MEDS: [UNRECOGNIZED DRUG - OTHER] PO SCH (21:11)
[2019-12-22 08:00] VITALS: BP 134/95
[2019-12-22] MEDS: NEOMY SULF/BACITRAC ZN/POLY 15 GM TUBE TP SCH (08:12)
[2019-12-22] MEDS: AMLODIPINE 5 MG PO SCH (08:12)
[2019-12-22] MEDS: LORAZEPAM 1 MG TABLET PO PRN ×2 (10:06→20:20)
[2019-12-22 16:00] VITALS: BP 127/66
[2019-12-22 16:53] VITALS: BP 127/66
[2019-12-22] MEDS: ACETAMINOPHEN ES 500 MG TABLET PO PRN (20:20)
[2019-12-22 20:32] VITALS: BP 148/79
[2019-12-22] MEDS: [UNRECOGNIZED DRUG - OTHER] PO SCH (21:35)
--- NOTE | 2019-12-23 05:17 | NUR ---
RN NOTE: Refused skin assessment.
--- NOTE | 2019-12-23 07:48 | NUR ---
RN OPENING NOTE: PT RECEIVED, ASSESSMENT COMPLETE. RECEIVED PT AMBULATING IN HALLWAY. NO ACUTE DISTRESS NOTED. AMBULATORY WITH STEADY GAIT. VSS, AFEBRILE. DENIES PAIN AND/OR DISCOMFORT. PT CALM AND COOPERATIVE. PT DENIES SI/HI/AH/VH AT PRESENT TIME. PT INDEPENDENT WITH ADLS AND INTAKE. NO S/SX OF ADVERSE RXN FROM MEDICATION. WILL CONT TO MONITOR PT PER UNIT PROTOCOL.
[2019-12-23 08:00] VITALS: BP 123/56
[2019-12-23] MEDS: AMLODIPINE 5 MG PO SCH (08:05)
[2019-12-23] MEDS: NEOMY SULF/BACITRAC ZN/POLY 15 GM TUBE TP SCH (08:05)
[2019-12-23 16:00] VITALS: BP 137/66
[2019-12-23] MEDS: LORAZEPAM 1 MG TABLET PO PRN (16:07)
--- NOTE | 2019-12-23 16:07 | NUR ---
RN NOTE: ANXIETY PT C/O INCREASING ANXIETY. REQUESTING ATIVAN PRN. ATIVAN 1MG PO PRN ADMINISTERED.
--- NOTE | 2019-12-23 19:30 | NUR ---
gps rn notes: opening Received patient in bed awake laughing out loud. pt is social with another patient, hyperverbal, friendly, needy ,blunted affect,labile and unpredictable mood. pt is easily agitated at times . pt is complaint with medication due. no verbalization of thoughts and feelings. No s/s of acute distress noted. call jason within reach. Will continue to monitor q15 min rounds for safety.
[2019-12-23 20:43] VITALS: BP 120/61
[2019-12-23] MEDS: [UNRECOGNIZED DRUG - OTHER] PO SCH (21:13)
[2019-12-24 08:00] VITALS: BP 147/69
[2019-12-24] MEDS: AMLODIPINE 5 MG PO SCH (08:00)
--- NOTE | 2019-12-24 08:00 | NUR ---
RN OPENING NOTE: REPORT RECEIVED, ASSESSMENT COMPLETE. PT RECEIVED SITTING IN BED. NO ACUTE DISTRESS NOTED. VSS, AFEBRILE. PT A+OX3, ABLE TO MAKE NEEDS KNOWN. PLEASANT AND COOPERATIVE. INDEPENDENT WITH ADLS AND INTAKE. AMBULATORY WITH STEADY GAIT. PT DENIES SI/HI/AH/VH AT PRESENT TIME. NO ADVERSE RXN FROM MEDICATION NOTED. COMPLIANT WITH MEDICATION ADMINISTRATION AND PLAN OF CARE. WILL CONT TO MONITOR PT FOR SAFETY, BEHAVIOR AND ADVERSE RXN PER GPS PROTOCOL
[2019-12-24] MEDS: NEOMY SULF/BACITRAC ZN/POLY 15 GM TUBE TP SCH (08:01)
[2019-12-24 16:00] VITALS: BP 138/76
--- NOTE | 2019-12-24 19:30 | NUR ---
RN NOTES PATIENT RECEIVED IN ROOM, ALERT AND ORIENTED X 3-4. PATIENT PRESENTS NO SIGNS OF RESPIRATORY DISTRESS WITH EVEN NON-LABORED BREATHING. PATIENT COOPERATING AND IN A PLEASANT MOOD. PATIENT DENIES SI/HI/AH/VH AT THIS TIME. SAFETY PRECAUTIONS IMPLEMENTED. WILL CONTINUE TO MONITOR PATIENT AND BEHAVIOR.
[2019-12-24 20:13] VITALS: BP 149/88
[2019-12-24] MEDS: LORAZEPAM 1 MG TABLET PO PRN (21:10)
--- NOTE | 2019-12-24 21:10 | NUR ---
RN NOTES PATIENT STATES AN INCREASE OF ANXIETY, AND REQUESTING ATIVAN. ADMINISTERED PRN ATIVAN 1mg PO. WILL CONTINUE TO MONITOR PATIENT.
[2019-12-24] MEDS: [UNRECOGNIZED DRUG - OTHER] PO SCH (21:32)
[2019-12-25 08:00] VITALS: BP 143/76
[2019-12-25] MEDS: AMLODIPINE 5 MG PO SCH (08:34)
[2019-12-25] MEDS: NEOMY SULF/BACITRAC ZN/POLY 15 GM TUBE TP SCH (08:35)
[2019-12-25] MEDS: LORAZEPAM 1 MG TABLET PO PRN ×2 (13:39→21:44)
[2019-12-25 16:00] VITALS: BP 138/68
--- NOTE | 2019-12-25 19:30 | NUR ---
GPS RN NOTE, RECEIVED PATIENT AWAKE AND IN BED, PATIENT DENIES PAIN AT THIS TIME. PATIENT BREATHING IS UNLABORED WITH EQUAL RISE AND FALL OF THE CHEST. PATIENT IS ALERT AND ORIENTED X 4 ON ROOM AIR WITH A SPOO2 99%. PATIENT IS COMPLAINT WITH MEDICATION, BRIGHT, CALM, AND COOPERATIVE. PATIENT DENIES SUICIDE AND HOMICIDAL IDEATIONS AT THIS TIME. PATIENT ASSISTED WITH TURNING AND REPOSITIONING Q2HR AND PRN FOR COMFORT AND CIRCULATION. PATIENT HAS NO NEEDS AT THIS TIME. PATIENT EDUCATED ON THE USE OF THE CALL LOPEZ. PATIENT BED SIDE RAILS UP X 2 FOR SAFETY. PATIENT BED IS LOCKED AND LOW WILL CONTINUE TO MONITOR AND MAINTAIN SAFETY Q15 MIN WITH THE HELP OF STAFF.
[2019-12-25 20:00] VITALS: BP 150/97
[2019-12-25 20:16] VITALS: BP 150/97
[2019-12-25] MEDS: [UNRECOGNIZED DRUG - OTHER] PO SCH (21:35)
[2019-12-26 08:00] VITALS: BP 137/79
[2019-12-26] MEDS: AMLODIPINE 5 MG PO SCH (08:39)
[2019-12-26] MEDS: NEOMY SULF/BACITRAC ZN/POLY 15 GM TUBE TP SCH (08:40)
[2019-12-26] MEDS: LORAZEPAM 1 MG TABLET PO PRN (15:23)
[2019-12-26 16:00] VITALS: BP 146/76
[2019-12-26 20:49] VITALS: BP 143/80
[2019-12-26] MEDS: [UNRECOGNIZED DRUG - OTHER] PO SCH (21:55)
[2019-12-27 08:21] VITALS: BP 141/76
[2019-12-27] MEDS: AMLODIPINE 5 MG PO SCH (08:34)
[2019-12-27] MEDS: NEOMY SULF/BACITRAC ZN/POLY 15 GM TUBE TP SCH (08:37)
[2019-12-27] MEDS: LORAZEPAM 1 MG TABLET PO PRN ×2 (09:34→16:21)
--- NOTE | 2019-12-27 10:43 | NUR ---
RN NOTE- PT IN ROOM, COOPERATIVE MED COMPLIANT CALM DIRECTABLE DENIES ALL. CARE OF PT TRANSFERRED TO THIS RN.
--- NOTE | 2019-12-27 11:28 | NUR ---
RN NOTE- LATE ENTRY FOR 12-09-19 / PT WAS MED COMPLIANT, PO INTAKE VERY GOOD, NO BEHAVIORAL ISSUES, CALM DIRECTABLE, INTERACTIVE
[2019-12-27 15:52] VITALS: BP 121/58
--- NOTE | 2019-12-27 16:21 | NUR ---
RN NOTE- ANXIETY/ PT W RESTLESSNESS. ATIVAN 1 MG GIVEN
--- NOTE | 2019-12-27 19:48 | NUR ---
gps rn notes: opening Received patient in the day room awake laughing out loud watching television. pt is social with another patient, hyperverbal, friendly, needy ,blunted affect,labile and unpredictable mood. pt is easily agitated at times . pt is complaint with medication due. no verbalization of thoughts and feelings. No s/s of acute distress noted. call jason within reach. Will continue to monitor q15 min rounds for safety.
[2019-12-27 20:25] VITALS: BP 124/73
[2019-12-27] MEDS: [UNRECOGNIZED DRUG - OTHER] PO SCH (22:09)
[2019-12-28 08:00] VITALS: BP_SYST 120; BP_SYST 141; BP_DIAS 64; BP_DIAS 81
[2019-12-28] MEDS: NEOMY SULF/BACITRAC ZN/POLY 15 GM TUBE TP SCH (08:39)
[2019-12-28] MEDS: AMLODIPINE 5 MG PO SCH (08:39)
--- NOTE | 2019-12-28 09:00 | NUR ---
GPS/RN PT C/O ANXIOUSNESS. ATIVAN 1 MG GIVEN ORDERED
[2019-12-28] MEDS: LORAZEPAM 1 MG TABLET PO PRN ×2 (09:05→18:47)
[2019-12-28 16:00] VITALS: BP 131/71
--- NOTE | 2019-12-28 18:35 | NUR ---
GPS/RN NO CHANGES THROUGHOUT THE SHIFT PT AMBULATORY, VSS NO ACUTE DISTRESS NOTED SMOKE BREAKS PROVIDED , TOOK THE SHOWER TODAY,SOCIALIZING WITH STUFF AND PATIENTS.
[2019-12-28] MEDS: [UNRECOGNIZED DRUG - OTHER] PO SCH (22:02)
[2019-12-29 08:00] VITALS: BP 129/68
[2019-12-29] MEDS: AMLODIPINE 5 MG PO SCH (08:03)
[2019-12-29] MEDS: NEOMY SULF/BACITRAC ZN/POLY 15 GM TUBE TP SCH (08:03)
--- NOTE | 2019-12-29 09:00 | NUR ---
RN NOTE- A BIT MORE LETHARGIC THIS MORNING THAN PREVIOUS DAYS. SOMEWHAT SOMNOLENT, CALM DIRECTABLE INTERACTIVE THOUGH SLOW TO RESPOND. DENIES ALL [facility] CONTACT. NEEDS ATTENDED. PO INTAKE GOOD
--- NOTE | 2019-12-29 11:29 | NUR ---
RN-CO: LATE ENTRY FOR DECEMBER 08, 2019. PATIENT IS ALERT AND ORIENTED X4 SHE IS A CLINICAL TRIAL PATIENT OF DR SALGUERO. SHE IS COOPERATIVE TO CARE. TAKE HER MEDICATIOS PRESCRIBED. SHE IS NOT COMPLAINING OF ANY ADVERSE REACTION FOR THE INVESTIGATIONAL MEDICATIONS. SHE GOES 3X TO SMOKE DURING MY SHIFT AND COMES BACK AFTER 10 MIN. I WILL CONTINUE TO MONITOR AND REPORT TO DR SALGUERO.
[2019-12-29 16:00] VITALS: BP 131/77
[2019-12-29] MEDS: LORAZEPAM 1 MG TABLET PO PRN (19:32)
[2019-12-29] MEDS: ACETAMINOPHEN ES 500 MG TABLET PO PRN (19:37)
[2019-12-29 19:50] VITALS: BP 123/75
[2019-12-29] MEDS: [UNRECOGNIZED DRUG - OTHER] PO SCH (21:14)
--- NOTE | 2019-12-30 00:33 | NUR ---
RN LATE ENTRY NOTE: 12-08-19 PATIENT IS ALERT AND ORIENTED X3-4. SHE IS A CLINICAL TRIAL PATIENT OF DR SALGUERO. SHE IS CALM, COOPERATIVE, MED COMPLIANT. NO ADVERSE REACTIONS FOR THE INVESTIGATIONAL MEDICATIONS. WILL CONTINUE TO MONITOR AND REPORT TO DR SALGUERO.
[2019-12-30 08:00] VITALS: BP 137/74
[2019-12-30] MEDS: AMLODIPINE 5 MG PO SCH (08:51)
[2019-12-30] MEDS: NEOMY SULF/BACITRAC ZN/POLY 15 GM TUBE TP SCH (08:52)
[2019-12-30 16:00] VITALS: BP 136/79
[2019-12-30] MEDS: LORAZEPAM 1 MG TABLET PO PRN ×2 (16:20→21:01)
[2019-12-30] MEDS: ACETAMINOPHEN ES 500 MG TABLET PO PRN (16:20)
--- NOTE | 2019-12-30 16:21 | NUR ---
RN NOTE- PT W ANXIETY AND FOOT PAIN. ATIVAN 1 MG AND TYLENOL GIVEN AT THIS TIME.
[2019-12-30 20:10] VITALS: BP 125/90
--- NOTE | 2019-12-30 21:15 | NUR ---
GPS-RN NOTES PATIENT STATES AN INCREASE OF ANXIETY, AND REQUESTING ATIVAN. ADMINISTERED PRN ATIVAN 1MG PO. WILL CONTINUE TO MONITOR PATIENT.
--- NOTE | 2019-12-30 21:30 | NUR ---
GPS RN NOTE: LATE ENTRY FOR DECEMBER 06, 2019 @2200 PATIENT IS LABILE, EASILY GETS AGITATED AT TIMES, SOCIALIZES WITH SELECTED PEERS, HYPERVERBAL, LAUGHING LOUD, DENIES SI/HI. TOOK HER SCHEDULED INVESTIGATIONAL MEDS, NO C/O OF ADVERSE REACTIONS. NO S/S OF ACUTE DISTRESS NOTED. WILL CONTINUE TO MONITOR Q15 MIN ROUNDS FOR SAFETY. ENCOURAGE TO VERBALIZE AT 2-3 COPING SKILLS. CALM AND QUIET ENVIRONMENT PROVIDED.
[2019-12-30] MEDS: [UNRECOGNIZED DRUG - OTHER] PO SCH (21:43)
--- NOTE | 2019-12-30 21:43 | NUR ---
GPS RN note :Late entry for November @22:00 PATIENT IS ISOLATIVE,SOCIALIZES WITH SELECTED PEERS,BRIGHT MOOD,LAUGHING LOUD,NO VERBALIZATION OF THOUGHTS AND FEELINGS,TOOK HER SCHEDULED INVESTIGATIONAL MEDS,NO C/O OF ADVERSE REACTIONS .NO S/SOF ACUTE DISTRESS NOTED.WILL CONTINUE TO MONITOR Q15 MIN ROUNDS FOR SAFETY.ENCOURAGE TO VERBALIZE AT 2-3 COPING SKILLS .WILL PROVIDE CALM AND STRUCTURED ENVIRONMENT TO HAVE AT LEAST 6-8 HOURS OF SLEEP TONIGHT.
--- NOTE | 2019-12-30 21:45 | NUR ---
GPS RN NOTE: LATE ENTRY NOTE FOR DECEMBER 11, 2019 @ 2200 PATIENT IS ANXIOUS, LOUD, HYPERACTIVE, UNPREDICTABLE, SOCIALIZES WITH SELECTED PEERS. DENIES SI/HI. TOOK HER SCHEDULED INVESTIGATIONAL MEDS WITH NO ADVERSE SIDE EFFECTS NOTED. NO S/S OF ACUTE DISTRESS. ENCOURAGE TO VERBALIZE AT 2-3 COPING SKILLS. CALM AND QUIET ENVIRONMENT PROVIDED. SAFETY PRECAUTIONS IN PLACE. WILL CONTINUE TO MONITOR Q15MIN ROUNDS FOR SAFETY AND BEHAVIOR.
--- NOTE | 2019-12-31 07:21 | NUR ---
GPS RN NOTE : LATE ENTRY FOR DECEMBER 05, 2019. PATIENT IS ALERT AND ORIENTED X4 CLINICAL TRIAL PATIENT.PATIENT IS COOPERATIVE TO NO S/S DISTRESS NOTED NO COMPLAINS TAKE HER MEDICATIONS PRESCRIBED. SHE IS NOT COMPLAINING OF ANY ADVERSE REACTION FOR THE INVESTIGATIONAL MEDICATIONS. PATIENT IS A SMOKER. WILL CONTINUE MONITORING AND REPORT ANY S/S TO DR FAJARDO.
--- NOTE | 2019-12-31 07:30 | NUR ---
GPS RN NOTE FOR November: LATE ENTRY FOR DECEMBER 05, 2019. PATIENT IS ALERT AND ORIENTED X4 CLINICAL TRIAL PATIENT.PATIENT IS COOPERATIVE TO NO S/S DISTRESS NOTED NO COMPLAINS TAKE HER MEDICATIONS PRESCRIBED. SHE IS NOT COMPLAINING OF ANY ADVERSE REACTION FOR THE INVESTIGATIONAL MEDICATIONS. PATIENT IS A SMOKER. WILL CONTINUE MONITORING AND REPORT ANY S/S TO DR FAJARDO.
[2019-12-31] MEDS: NEOMY SULF/BACITRAC ZN/POLY 15 GM TUBE TP SCH (08:40)
[2019-12-31] MEDS: AMLODIPINE 5 MG PO SCH (08:40)
--- NOTE | 2019-12-31 09:00 | NUR ---
RN NOTE- INTERACTIVE ALERT MED COMPLIANT CALM DIRECTABLE DENIES ALL
[2019-12-31] MEDS: LORAZEPAM 1 MG TABLET PO PRN (15:34)
--- NOTE | 2019-12-31 15:35 | NUR ---
RN NOTE- PT C/O ANXIETY. ATIVAN 1 MG GIVEN
[2019-12-31 16:00] VITALS: BP 152/78
--- NOTE | 2019-12-31 19:43 | NUR ---
gps rn notes: opening Received laying in her bed awake talkimg on her phone. pt is social with another patients, friendly, ,hyperverbal, loud when occupied on the phone, needy ,blunted affect, and unpredictable mood. pt is easily agitated at times . pt is complaint with medication due. no verbalization of thoughts and feelings. No s/s of acute distress noted. breathing even and unlabored. no sob at this time. call jason within reach. Will continue to monitor q15 min rounds for safety.
[2019-12-31 20:10] VITALS: BP 132/65
[2019-12-31] MEDS: [UNRECOGNIZED DRUG - OTHER] PO SCH (21:05)
[2020-01-01 08:00] VITALS: BP 144/88
[2020-01-01] MEDS: NEOMY SULF/BACITRAC ZN/POLY 15 GM TUBE TP SCH (09:19)
[2020-01-01] MEDS: AMLODIPINE 5 MG PO SCH (09:19)
[2020-01-01] MEDS: LORAZEPAM 1 MG TABLET PO PRN ×2 (15:05→19:26)
[2020-01-01] MEDS: ACETAMINOPHEN ES 500 MG TABLET PO PRN (15:05)
[2020-01-01 16:24] VITALS: BP 133/67
--- NOTE | 2020-01-01 19:28 | NUR ---
GPS RN NOTES: ANXIOUS UPON DOING ROUNDS, PT C/O FEELING ANXIOUS. PT STATED, "ITS THE FACT THAT ITS ALMOST TIME TO GO HOME SOON." VITALS CHECKED WNL. NO RESP DISTRESS. BREATHING EVEN AND UNLABORED. PT REQUESTED ATIVAN. OFFERED ATIVAN 1MG PO PRN ORDERED. PT TOLERATED MEDICATION WELL. CONTINUE TO MONITOR.
--- NOTE | 2020-01-01 20:14 | NUR ---
gps rn notes: opening Received patient in her room lying down in her bed. pt is awake,friendly ,loud, hyperverbal at times,and unpredictable. pt is easily agitated. Denies SI and HI at this time.pt interacts with other pts in the unit. Cooperative, med compliant and guarded.No s/s of acute distress noted. pt smiling and stated she is happy she is going to be able to go home soon. safety precaution implemented. Will continue to monitor q15 min rounds for safety. reminded pt about npo orders for today. pt agreed and will remind her again later on tonight. call jason within reach. continue to monitor.
[2020-01-01 20:21] VITALS: BP 128/70
[2020-01-01] MEDS: [UNRECOGNIZED DRUG - OTHER] PO SCH (21:22)
[2020-01-02 08:00] VITALS: BP 138/59
[2020-01-02] MEDS: AMLODIPINE 5 MG PO SCH ×2 (08:31→14:33)
[2020-01-02] MEDS: NEOMY SULF/BACITRAC ZN/POLY 15 GM TUBE TP SCH (08:32)
--- NOTE | 2020-01-02 09:35 | NUR ---
RN-CO: Patient is NPO today, she has an appointment with Dr Lopez. She remains calm and cooperative to care.
[2020-01-02] MEDS: LORAZEPAM 1 MG TABLET PO PRN ×2 (14:39→20:16)
--- NOTE | 2020-01-02 14:40 | NUR ---
RN-CO: PATIENT STATED THAT SHE FEELS A LOT BETTER AFTER THE COURSE OF INVESTIGATIONAL MEDICINE. A LOT LESS AUDITORY HALLUCINATIONS WELL VISUAL HALLUCINATIONS. HOWEVER SHE STATED THAT SHE STILL HAS MILD ANXIETY . SHE SAID SHE IS VERY HAPPY ABOUT THE EFFECT OF THAT INVESTIGATIONAL MEDICATION ON HER. SHE ASKED FOR ATIVAN NOW FOR ANXIETY.
[2020-01-02 16:00] VITALS: BP 118/90
--- NOTE | 2020-01-02 19:30 | NUR ---
GPS RN NOTE, RECEIVED PATIENT AWAKE AND IN BED, PATIENT DENIES PAIN AT THIS TIME. PATIENT BREATHING IS UNLABORED WITH EQUAL RISE AND FALL OF THE CHEST. PATIENT IS ALERT AND ORIENTED X 4 ON ROOM AIR WITH A SPOO2 97%. PATIENT IS COMPLAINT WITH MEDICATION, BRIGHT, NEEDY, CALM, AND COOPERATIVE. PATIENT DENIES SUICIDE AND HOMICIDAL IDEATIONS AT THIS TIME. PATIENT ASSISTED WITH TURNING AND REPOSITIONING Q2HR AND PRN FOR COMFORT AND CIRCULATION. PATIENT HAS NO NEEDS AT THIS TIME. PATIENT EDUCATED ON THE USE OF THE CALL LOPEZ. PATIENT BED SIDE RAILS UP X 2 FOR SAFETY. PATIENT BED IS LOCKED AND LOW WILL CONTINUE TO MONITOR AND MAINTAIN SAFETY Q15 MIN WITH THE HELP OF STAFF.
--- NOTE | 2020-01-02 20:00 | NUR ---
GPS RN NOTE, PATIENT HAS A CONCERN THAT SHE IS GOING TO HAVE WITHDRAWALS FROM NOT TAKING THE INVESTIGATIONAL MED AND WOULD LIKE TO START TAKING XANAX AND ZYPREXA. PAGED DR SALGUERO AND INFORMED HIM OF MY FINDINGS. DR SALGUERO ORDER TO GIVE ATIVAN 1 MG PO ONCE NOW. DR SALGUERO SAID HE WILL SEE THIS PATIENT TOMORROW TO RESTART HER ON HER OTHER MEDICATION. ALL ORDERS NOTED AND CARRIED OUT. WILL CONTINUE TO MONITOR THIS PATIENT WITH THE HELP OF STAFF.
[2020-01-02 20:06] VITALS: BP 137/77
--- NOTE | 2020-01-02 20:16 | NUR ---
GPS RN NOTE, PATIENT HAS A COMPLAINT OF FEELING ANXIOUS AND IS REQUESTING ATIVAN AT THIS TIME. PATIENT VITAL SIGNS ARE STABLE. GAVE ATIVAN 1 MG PO Q6HR PRN ORDERED. WILL REASSESS FOR ANXIETY AND I WILL CONTINUE TO MONITOR THIS PATIENT.
[2020-01-02] MEDS: ZOLPIDEM TARTRATE 10 MG TABLET PO PRN (21:26)
--- NOTE | 2020-01-02 21:26 | NUR ---
GPS RN NOTE, PATIENT HAS A COMPLAINT OF NOT BEING ABLE TO SLEEP AND IS REQUESTING AMBIEN AT THIS TIME. PATIENT VITAL SIGNS ARE STABLE. GAVE AMBIEN 10MG PO QHS PRN ORDERED. WILL REASSESS FOR INSOMNIA AND I WILL CONTINUE TO MONITOR THIS PATIENT.
[2020-01-03 08:00] VITALS: BP 125/74
[2020-01-03] MEDS: NEOMY SULF/BACITRAC ZN/POLY 15 GM TUBE TP SCH (08:29)
[2020-01-03] MEDS: LORAZEPAM 1 MG TABLET PO PRN (08:29)
--- NOTE | 2020-01-03 08:29 | NUR ---
GPS/RN-NOTES PATIENT STATED" CAN YOU GIVE ME ATIVAN,I'M VERY ANXIOUS". ATIVAN 1MG P.O GIVEN PRN ORDER.WILL CONT. MONITORING FOR SAFETY AND BEHAVIOR.
--- NOTE | 2020-01-03 09:30 | NUR ---
GPS/RN-NOTES PATIENT IN THE ROOM CALM ,NO ACUTE DISTRESS NOTED.
[2020-01-03] MEDS: AMLODIPINE 5 MG PO SCH (09:47)
[2020-01-03] MEDS: IBUPROFEN 600 MG TABLET PO PRN (10:28)
--- NOTE | 2020-01-03 10:38 | NUR ---
Dr. Lopez called and gave an order of Olanzapine 10 mg daily and to start first dose now.
[2020-01-03] MEDS ORDERED: OLANZAPINE 5 MG TABLET PO SCH (11:00)
[2020-01-03 16:07] VITALS: BP 112/58
--- NOTE | 2020-01-03 19:30 | NUR ---
GPS RN NOTE, RECEIVED PATIENT AWAKE AND IN BED, PATIENT DENIES PAIN AT THIS TIME. PATIENT BREATHING IS UNLABORED WITH EQUAL RISE AND FALL OF THE CHEST. PATIENT IS ALERT AND ORIENTED X 4 ON ROOM AIR WITH A SPOO2 97%. PATIENT IS COMPLAINT WITH MEDICATION, BRIGHT, NEEDY, CALM, AND COOPERATIVE. PATIENT HAS A CONCERN THAT HER ZYPREXA IS ORDERED AT 0900 AND WOULD RATHER TAKE ZYPREXA AT 2100. WILL ENDORSE TO A.M. SHIFT NURSE ABOUT PATIENT'S CONCERN. PATIENT DENIES SUICIDE AND HOMICIDAL IDEATIONS AT THIS TIME. PATIENT ASSISTED WITH TURNING AND REPOSITIONING Q2HR AND PRN FOR COMFORT AND CIRCULATION. PATIENT HAS NO NEEDS AT THIS TIME. PATIENT EDUCATED ON THE USE OF THE CALL LOPEZ. PATIENT BED SIDE RAILS UP X 2 FOR SAFETY. PATIENT BED IS LOCKED AND LOW WILL CONTINUE TO MONITOR AND MAINTAIN SAFETY Q15 MIN WITH THE HELP OF STAFF.
[2020-01-03 20:00] VITALS: BP 128/75
[2020-01-03] MEDS: ZOLPIDEM TARTRATE 10 MG TABLET PO PRN (21:32)
[2020-01-04 08:00] VITALS: BP 138/79
--- NOTE | 2020-01-04 09:02 | NUR ---
GPS/RN-NOTES PATIENT REQUESTING ZYPREXA SCHEDULE TO HS. DR. SALGUERO MADE AWARE OF PATIENT REQUEST AND AGREED BY T.O, TO GIVE ZYPREXA 10MG P.O Q HS. NOTED AND CARRIED OUT.
[2020-01-04] MEDS: NEOMY SULF/BACITRAC ZN/POLY 15 GM TUBE TP SCH (09:08)
[2020-01-04] MEDS: AMLODIPINE 5 MG PO SCH (09:08)
[2020-01-04] MEDS: LORAZEPAM 1 MG TABLET PO PRN ×2 (13:36→19:55)
--- NOTE | 2020-01-04 13:37 | NUR ---
GPS/RN-NOTES PATIENT REQUESTING ATIVAN. ATIVAN 1MG P.O GIVEN PRN ORDER.WILL CONT. MONITORING FOR SAFETY AND BEHAVIOR.
--- NOTE | 2020-01-04 14:35 | NUR ---
GPS/RN-NOTES PATIENT WATCHING TV IN THE DAY ROOM,CALM NO ACUTE DISTRESS NOTED.
[2020-01-04] MEDS: ACETAMINOPHEN ES 500 MG TABLET PO PRN (14:45)
--- NOTE | 2020-01-04 14:46 | NUR ---
GPS/RN-NOTES PATIENT C/O LEFT FOOT PAIN AND REQUESTING TYLENOL . TYLENOL ES 1000MG P.O GIVEN PRN ORDER.
[2020-01-04 16:00] VITALS: BP 140/72
--- NOTE | 2020-01-04 19:34 | NUR ---
MED SURG OVER FLOW CLINICAL TRIAL RECEIVED PATIENT , AWAKE, ALERT X3, ABLE TO VERBALIZE NEEDS, WENT TO SMOKE EARLIER AND REQUESTED FOR SOME ICE WATER DISCUSSED CARE AND REQUESTED FOR RD ATIVAN, PATIENT LISTENING TO MUSIC AND HAVE OCCASIONAL LOUD VOICE, TO MONITOR.RECEIVED ENDORSEMENT FROM AM RN FOR JOVANNY.AMBULATORY WITH STEADY GAIT.
[2020-01-04 20:00] VITALS: BP 121/64
--- NOTE | 2020-01-04 20:12 | NUR ---
MED SURG OVER FLOW PATIENT REQUESTED FOR SMOKING BREAK, CHARGE NURSE AWARE.
[2020-01-04] MEDS: OLANZAPINE 10 MG TABLET PO SCH (21:17)
[2020-01-05 08:00] VITALS: BP 125/64
--- NOTE | 2020-01-05 08:00 | NUR ---
RN NOTES RECEIVED PATIENT IN THE ROOM A/O X4, PATIENT ON RESEARCH CLINICAL STUDY. PATIENT REFUSED HALLUCINATION, AMBULATORY SELF CARE. PATIENT HAS NO ACUTE RESPIRATORY DISTRESS, V/S STABLE, SMOKER . PER PSYCHIATRIST Dr SALGUERO ABLE TO GO OUT TO SMOKE WITH SUPERVISION OF ONE OF THE NURSE. ADMINISTERED SCHEDULED MEDICATION. PATIENT STATE FEEL HAPPY WILL DISCHARGING HOME ON MONDAY. SAFETY PRECAUTION MAINTAINED ALL THE TIME.
[2020-01-05] MEDS: AMLODIPINE 5 MG PO SCH (09:08)
[2020-01-05] MEDS: LORAZEPAM 1 MG TABLET PO PRN ×2 (09:08→19:22)
--- NOTE | 2020-01-05 09:08 | NUR ---
rn notes administered Ativan 1mg pomprn for anxiety per patient request, v/s taken bp-125/64, p75. continued monitoring.
[2020-01-05 16:00] VITALS: BP 108/58
[2020-01-05 20:14] VITALS: BP 152/96
[2020-01-05] MEDS: ZOLPIDEM TARTRATE 10 MG TABLET PO PRN (21:16)
[2020-01-05] MEDS: OLANZAPINE 10 MG TABLET PO SCH (21:16)
[2020-01-06 08:00] VITALS: BP 134/53
[2020-01-06] MEDS: AMLODIPINE 5 MG PO SCH (08:08)
--- NOTE | 2020-01-06 09:00 | NUR ---
RN NOTE- ALERT ORIENTED CALM DIRECTABLE TINY ALL MED COMPLIANT CHEERFUL INTERACTIVE
[2020-01-06] MEDS: LORAZEPAM 1 MG TABLET PO PRN ×2 (10:50→16:56)
[2020-01-06] MEDS: IBUPROFEN 600 MG TABLET PO PRN (10:50)
--- NOTE | 2020-01-06 10:51 | NUR ---
RN NOTE- C/O FOOT PAIN AND RESTLESSNESS. ATIVAN 1 MG GIVEN AND MOTRIN 600 MG GIVEN
[2020-01-06 16:00] VITALS: BP 138/75
--- NOTE | 2020-01-06 16:56 | NUR ---
RN NOTE- ANXIETY STATED. ATIVAN 1 MG REQUESTED AND GIVEN
--- NOTE | 2020-01-06 19:50 | NUR ---
RN OPENING NOTES/CLINICAL TRIAL: RECEIVED REPORT FROM DAYSHIFT RN. FOUND Pt AWAKE, IN BED, ON HER PHONE. Pt IS A/OX4, VERBAL, ABLE TO MAKE NEEDS KNOWN. NO S/S OF ACUTE DISTRESS OR SOB NOTED. RESPIRATIONS EVEN AND UNLABORED WITH EQUAL CHEST RISE AND FALL. SAFETY MEASURES IN PLACE. WILL CONTINUE TO MONITOR Pt's CONDITION AND SAFETY THROUGHOUT THE NIGHT.
--- NOTE | 2020-01-06 20:00 | NUR ---
RN NOTES PER REPORT Pt IS ALLOWED TO GO OUTSIDE FOR A SMOKE.
[2020-01-06 20:04] VITALS: BP 135/52
[2020-01-06] MEDS: MAGNESIUM HYDROXIDE 30 ML UDC PO PRN (20:29)
[2020-01-06 20:30] VITALS: BP 135/52
[2020-01-06] MEDS: OLANZAPINE 10 MG TABLET PO SCH (21:06)
[2020-01-06] MEDS: ZOLPIDEM TARTRATE 10 MG TABLET PO PRN (22:04)
--- NOTE | 2020-01-07 07:27 | NUR ---
RN OPENING NOTES/CLINICAL TRIAL: RECEIVED PATIENT COMING BACK FROM SMOKE BREAK PT IS A/OX4,NO S/S DISTRESS NOTED PT VERBAL, NO SOB NOTED. RESPIRATIONS EVEN AND UNLABORED WITH EQUAL CHEST RISE AND FALL. SAFETY MEASURES IN PLACE.DENIES ANY PAIN OF DISCOMFORT. WILL CONTINUE TO MONITOR Pt's CONDITION AND SAFETY THROUGHOUT THE NIGHT.
[2020-01-07 08:00] VITALS: BP 142/92
[2020-01-07] MEDS: AMLODIPINE 5 MG PO SCH (09:00)
[2020-01-07] MEDS: LORAZEPAM 1 MG TABLET PO PRN (09:40)
--- NOTE | 2020-01-07 09:41 | NUR ---
RN NOTE- ANXIETY STATED. ATIVAN 1 MG REQUESTED AND GIVEN
[2020-01-07 16:00] VITALS: BP 144/76
--- NOTE | 2020-01-07 19:25 | NUR ---
GPS RN OPENING NOTE: RECEIVED PATIENT IN ROOM. A/O X4, AMBULATORY AND ABLE TO VERBALIZE NEEDS, COMPLIANT TO MEDICATION REGIMEN, CALM, COOPERATIVE. INDEPENDENT TO SELF CARE.WILL CONTINUE TO MONITOR.
[2020-01-07 20:02] VITALS: BP 149/99
[2020-01-07] MEDS: OLANZAPINE 10 MG TABLET PO SCH (21:06)
[2020-01-07] MEDS: ZOLPIDEM TARTRATE 10 MG TABLET PO PRN (21:06)
--- NOTE | 2020-01-07 21:06 | NUR ---
GPS RN NOTE: INSOMNIA PT. C/O UNABLE TO SLEEP AND REQUESTED AMBIEN. ADMINISTERED AMBIEN 10 MG PO PRN ORDERED. WILL CONTINUE TO MONITOR FOR SAFETY AND BEHAVIOR.
--- NOTE | 2020-01-08 08:00 | NUR ---
GPS/RN-NOTES RECEIVED PATIENT AWAKE,ALERT LAYING IN BED,CALM NO ACUTE DISTRESS NOTED.
[2020-01-08] MEDS: AMLODIPINE 5 MG PO SCH (08:55)
[2020-01-08 09:19] VITALS: BP 126/78
--- NOTE | 2020-01-08 09:29 | NUR ---
GPS/RN-NOTES RECEIVED T.O DISCHARGE ORDER FROM DR. SALGUERO AROUND 0800.PATIENT WAS DISCHARGE TO HOME . PATIENT DID NOT VERBALIZE SI/HI,NO ACUTE DISTRESS NOTED. PATIENT AMBULATORY STEADY GAIT , ALERT ORIENTED X4. 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 SALGUERO STAFF) VIA PRIVATE CAR.
== END 2020-01-08 09:28 | disposition home or self-care (01) | DRG 951 ==
LOC: MED 14:20 → MEDOV2 11-19 06:28 → GPS 11-19 09:59 → MEDOV2 11-19 10:00 → GPS 11-20 13:49 → MEDOV2 11-21 10:17
PROVIDERS: ADMIT Psychiatry & Neurology Psychiatry; ATTEND Psychiatry & Neurology Psychiatry
DX: Z00.6 Encounter for examination for normal comparison and control in clinical research program (principal); F20.0 Paranoid schizophrenia; I10 Essential (primary) hypertension
CPT/HCPCS: 87081-TC; A6403; G0378

== ENCOUNTER 2020-11-19 08:57 | Inpatient (IN) | payer OTHER ==
[~2020-11-19] VITALS: Ht 175.3 cm; Wt 133.4 kg
[~2020-11-19 08:57] MED LIST: AMLO-212 PO; OLAN5TAB3 PO
[2020-11-19] MEDS ORDERED: ACET-2605 PO (14:07)
[2020-11-19] MEDS ORDERED: LORA-259 PO (14:07)
[2020-11-19] MEDS ORDERED: MAGN400O6 PO (14:07)
[2020-11-19] MEDS ORDERED: CALC355O18 PO (14:07)
[2020-11-19] MEDS ORDERED: ZOLP5TAB8 PO (14:07)
[2020-11-19] MEDS ORDERED: IBUP-1953 PO (14:07)
--- NOTE | 2020-11-19 14:15 | NUR ---
RN NOTES PATIENT ARRIVED AT UNIT IN ROOM 314-2, AMBULATORY.
[2020-11-19] MEDS ORDERED: MAGNESIUM HYDROXIDE 30 ML UDC PO PRN (14:30)
--- NOTE | 2020-11-19 15:15 | NUR ---
MS TRAILER CHIEF NOTE PATIENT ARRIVED AT THE UNIT IN STABLE CONDITION IN ROOM 314. PATIENT IS A/O X 4 ABLE TO MAKE NEEDS KNOWN. PATIENT IS BREATHING EVENLY AND UNLABORED ON ROOM AIR. NO S/SX OF DISTRESS NOTED. PATIENT'S BELONGINGS WERE ACCOUNTED FOR. PATIENT'S SKIN IS INTACT. PATIENT STATED SHE HAS NO HOME MEDICATION ON HER. PATIENT IS ORIENTED TO THE ROOM AND HOW TO USE THE CALL LIGHT. SAFETY MEASURES ARE IN PLACE, BED LOW LOCKED AND CALL LIGHT WITHIN REACH. WILL CONTINUE TO MONITOR
[2020-11-19 15:49] VITALS: BP 142/66
--- NOTE | 2020-11-19 18:32 | NUR ---
MS RN CLOSING NOTES PATIENT IS A/O X 4 ABLE TO MAKE NEEDS KNOWN. PATIENT IS BREATHING EVENLY AND UNLABORED ON ROOM AIR. NO S/SX OF DISTRESS NOTED. PATIENT'S SKIN IS INTACT. PATIENTS NEEDS WERE MET UPON ADMISSION. SAFETY MEASURES ARE IN PLACE, BED LOW LOCKED AND CALL LIGHT WITHIN REACH.
--- NOTE | 2020-11-19 19:29 | NUR ---
RN NOTES PATIENT IS A/O X 4 ABLE TO MAKE NEEDS KNOWN. PATIENT IS BREATHING EVENLY AND UNLABORED ON ROOM AIR. NO S/SX OF DISTRESS NOTED.ALL NURSING NEEDS MET AT THIS TIME.SAFETY MEASURES ARE IN PLACE, BED LOW LOCKED AND CALL LIGHT WITHIN REACH.WILL CONTINUE TO MONITOR.
[2020-11-19 20:00] VITALS: BP 123/57
[2020-11-19] MEDS: IBUPROFEN 200 MG TABLET PO PRN (20:45)
[2020-11-19] MEDS: OLANZAPINE 10 MG PO SCH (21:00)
--- NOTE | 2020-11-20 06:30 | NUR ---
RN NOTES PATIENT IS A/O X 4 ABLE TO MAKE NEEDS KNOWN. PATIENT IS BREATHING EVENLY AND UNLABORED ON ROOM AIR. NO S/SX OF DISTRESS NOTED.ALL NURSING NEEDS MET AT THIS TIME.SAFETY MEASURES ARE IN PLACE, BED LOW LOCKED AND CALL LIGHT WITHIN REACH.WILL ENDORSE CARE TO DAY SHIFT NURSE.
--- NOTE | 2020-11-20 07:05 | NUR ---
MS RN OPENING NOTES RECEIVED PT AWAKE IN BED AT THIS TIME. AOX4. PT ABLE TO VERBALIZE NEED. NO SOB NOTED, NO C/O PAIN AT THIS TIME, NO S/O OF ANY APPARENT DISTRESS NOTED. PT IS STABLE ON RA. NO IV ACCESS NOTED. PT DENIES SI/HI. PT DENIES VISUAL/AUDITORY HALLUCINATION. SAFETY PRECAUTIONS IN PLACE AND MAINTAINED AT ALL TIMES. BED IN LOWEST LOCKED POSITION, HOB ELEVATED, SIDE RAILS UP X2, CALL LIGHT AND TABLE WITHIN REACH. WILL CONTINUE TO MONITOR
[2020-11-20 08:00] VITALS: BP 151/87
[2020-11-20] MEDS: AMLODIPINE 10 MG PO SCH (09:11)
[2020-11-20] MEDS: IBUPROFEN 200 MG TABLET PO PRN (15:57)
--- NOTE | 2020-11-20 15:57 | NUR ---
PT COMPLAINED OF ACHING PAIN 7/10 ON HER ELBOW. PT NOTED GRASPING. VS BP 130/73, HR 82, RR 18, TEMP 98.2, SPO2 100%. PER PT REQUEST IBUPROFEN 600MG PO Q8H PRN FOR PAIN ADMINISTERED AT THIS TIME ORDERED. WILL CONTINUE TO MONITOR.
--- NOTE | 2020-11-20 18:41 | NUR ---
MS RN CLOSING NOTES PT AWAKE IN BED AT THIS TIME. PT' REMAINED STABLE THROUGHOUT SHIFT. ALL CARE, NEEDS, MEDICATIONS AND TREATMENT ADMINISTERED ANTICIPATED PER ORDER.PAIN MANAGEMENT ADMINISTERED PER ORDER. PT DENIES SI/HI. PT DENIES VISUAL/AUDITORY HALLUCINATIONS. SAFETY PRECAUTIONS IN PLACE AND MAINTAINED AT ALL TIMES. BED IN LOWEST LOCKED POSITION, HOB ELEVATED, SIDE RAILS UPX2, CALL LIGHT AND TABLE WITHIN REACH. WILL ENDORSE TO DETECTIVE PRECINCT NURSE FOR JOVANNY
[2020-11-20 20:00] VITALS: BP 123/64
--- NOTE | 2020-11-20 20:22 | NUR ---
MS/TELE/RN DURING INITIAL SHIFT ROUNDING, FOUND PATIENT LYING IN BED AWAKE, ALERT, ORIENTED, CALM AND COMFORTABLE, NO C/O PAIN, NO DISTRESS NOTED, WILL MONITOR.
[2020-11-20] MEDS: OLANZAPINE 10 MG PO SCH (21:22)
[2020-11-20] MEDS: ZOLPIDEM TARTRATE 10 MG TABLET PO PRN (21:25)
--- NOTE | 2020-11-21 06:05 | NUR ---
MS/TELE/RN PATIENT IS STILL SLEEPING AT THIS TIME, APPEAR COMFORTABLE, NO SIGNS OF DISTRESS NOTED, GOOD SLEEP NOTED DURING THE SHIFT, ALL NEEDS ATTENDED AT THIS TIME, WILL CONTINUE TO MONITOR.
--- NOTE | 2020-11-21 07:24 | NUR ---
MS RN OPENING NOTES PATIENT RESTING COMFORTABLY. WILL CONTINUE TO MONITOR.
[2020-11-21 08:00] VITALS: BP 130/83
[2020-11-21] MEDS: AMLODIPINE 10 MG PO SCH (08:59)
[2020-11-21] MEDS: LORAZEPAM 1 MG TABLET FOR AGITATION/ANXIETY PO PRN ×2 (08:59→15:53)
--- NOTE | 2020-11-21 09:00 | NUR ---
MS RN NOTES PATIENT COMPLAINING BEING ANXIOUS AND REQUESTING PRN ATIVAN. PRN ATIVAN ADMINISTERED.
--- NOTE | 2020-11-21 15:54 | NUR ---
MS RN NOTES PATIENT COMPLAINING BEING ANXIOUS AND REQUESTING PRN ATIVAN. PRN ATIVAN ADMINISTERED.
[2020-11-21] MEDS: MAG HYDROX/AL HYDROX/SIMETH 30 ML UDC PO PRN (15:59)
[2020-11-21 16:00] VITALS: BP 154/76
--- NOTE | 2020-11-21 18:53 | NUR ---
MS RN CLOSING NOTES PATIENT IN THE HALLWAY WALKING. NO COMPLAINT OF PAIN OR DISCOMFORT AT THIS TIME. ALL DUE MEDS ARE GIVEN ORDERED. ALL NEEDS AND CARE ATTENDED PROMPTLY. WILL ENDORSE PLAN OF CARE TO CATALOGUE CLERK.
[2020-11-21 20:00] VITALS: BP 111/89
--- NOTE | 2020-11-21 20:00 | NUR ---
MS RN OPENING NOTE RECEIVED PT AWAKE IN BED. A/O X4. PT IS STABLE ON ROOM AIR. NO SOB NOTED. NO S/S OF RESPIRATORY DISTRESS. PT IS AMBULATORY WITH [facility]. PT HAS NO C/O PAIN AT THIS TIME. NO IV ACCESS NOTED. SAFETY MEASURES MAINTAINED. BED IN LOWEST LOCKED POSITION, HOB ELEVATED, SIDE RAILS UP X2. CALL LIGHT AND TABLE WITHIN REACH. WILL CONTINUE WITH PLAN OF CARE.
[2020-11-21] MEDS: OLANZAPINE 5 MG PO SCH (21:23)
[2020-11-21] MEDS: ZOLPIDEM TARTRATE 10 MG TABLET PO PRN (21:45)
--- NOTE | 2020-11-22 06:09 | NUR ---
MS RN CLOSING NOTE PT IS IN BED WITH EYES CLOSED AT THIS TIME. A/O X4. PT IS AMBULATORY WITH [facility]. PT IS STABLE ON ROOM AIR. BREATHING EVEN AND UNLABORED. NO SOB NOTED. NO S/O ANY APPARENT DISTRESS. NO IV ACCESS NOTED. ALL NEEDS HAVE BEEN MET. SAFETY PRECAUTIONS MAINTAINED AT ALL TIMES. BED IN LOWEST LOCKED POSITION, HOB ELEVATED, SIDE RAILS UP X2. CALL LIGHT AND TABLE WITHIN REACH. WILL ENDORSE TO ONCOMING NURSE FOR CONTINUITY OF CARE. Addendum: 11/22/20 at 0633 by ORALIA HOLLINGSWORTH RN MS RN CLOSING NOTE PT IS IN BED WITH EYES CLOSED AT THIS TIME. PT SLEPT FOR 8 HRS. A/O X4. PT IS AMBULATORY WITH [facility]. PT IS STABLE ON ROOM AIR. BREATHING EVEN AND UNLABORED. NO SOB NOTED. NO S/O ANY APPARENT DISTRESS. NO IV ACCESS NOTED. ALL NEEDS HAVE BEEN MET. SAFETY PRECAUTIONS MAINTAINED AT ALL TIMES. BED IN LOWEST LOCKED POSITION, HOB ELEVATED, SIDE RAILS UP X2. CALL LIGHT AND TABLE WITHIN REACH. WILL ENDORSE TO ONCOMING NURSE FOR CONTINUITY OF CARE.
[2020-11-22 08:00] VITALS: BP 135/84
[2020-11-22] MEDS: AMLODIPINE 10 MG PO SCH (09:44)
[2020-11-22] MEDS: LORAZEPAM 1 MG TABLET FOR AGITATION/ANXIETY PO PRN (12:57)
--- NOTE | 2020-11-22 12:58 | NUR ---
ATIVAN 1 GM GIVEN PATIENT DUE TO COMPLAIN OF ANXIETY
[2020-11-22 15:53] VITALS: BP 131/79
--- NOTE | 2020-11-22 18:47 | NUR ---
MS RN CLOSING NOTES PT RESTING IN BED WATCHING TV AT THIS TIME. A/O X4. VERBALLY RESPONSIVE. DENIES SI/HI AND VISUAL/AUDITORY HALLUCINATIONS. SAFETY PRECAUTIONS IN PLACE: BED IN LOWEST LOCKED POSITION, SIDE RAILS UPX2, CALL LIGHT AND BEDSIDE TABLE WITHIN EASY REACH OF PT. WILL ENDORSE JOVANNY TO CLIENT EVALUATOR NURSE.
--- NOTE | 2020-11-22 19:15 | NUR ---
RN MS opening notes Received Pt from morning nurse. Pt is sitting in bed comfortably. Pt is alert and orientedX4. Respiration is normal in room air. No SOB. No S/S of distress noted. Pt does not have IV site. Pt denies SI/HI at this time. Pt is able to ambulates with a steady gait. Safety precautions is maintained. Bed at low position, brakes locked, side rails upX2 and call light is within reach. Will continue to monitor.
[2020-11-22 20:00] VITALS: BP 137/72
[2020-11-22] MEDS: OLANZAPINE 5 MG PO SCH (21:28)
[2020-11-22] MEDS: ZOLPIDEM TARTRATE 10 MG TABLET PO PRN (21:33)
--- NOTE | 2020-11-22 21:35 | NUR ---
RN notes Pt is having insomnia and requesting a sleeping pill. Administered ambien 10 mg/po/prn per Pt's requested. Safety precautions is maintained. Will continue to monitor.
--- NOTE | 2020-11-23 06:50 | NUR ---
RN MS closing notes Pt is resting in bed comfortably. Pt is alert and orientedX4. Respiration is normal in room air. No SOB. No S/S of distress noted. Pt does not have IV site. Pt denies SI/HI at this time. Kept Pt clean, dry and comfortable. All needs met and attended. Safety precautions is maintained. Bed at low position, brakes locked, side rails upX2 and call light is within reach. Will endorse to morning nurse for JOVANNY.
--- NOTE | 2020-11-23 07:35 | NUR ---
R NOTES. RESIDENT COMPLAIN OF RIGHT SHOULDER ACHING PAIN DURING SLEEP WITH PS-7, MOTRIN GIVEN 600MG ADVISE TO TAKE IT WITH MEALS.
--- NOTE | 2020-11-23 07:35 | NUR ---
MS RN OPENING NOTE RECEIVED PT AWAKE IN BED. A/O X4. ABLE TO EXPRESS NEEDS, ON ROOM AIR. NO SOB OR ANY SYMPTOMS RESPIRATORY DISTRESS. PT IS AMBULATORY WITH [facility]. PT HAS NO C/O PAIN AT THIS TIME. NO IV ACCESS NOTED. SAFETY MEASURES MAINTAINED. BED IN LOWEST LOCKED POSITION, HOB ELEVATED, SIDE RAILS UP X2. CALL LIGHT AND TABLE WITHIN REACH. WILL CONTINUE WITH PLAN OF CARE.
--- NOTE | 2020-11-23 07:37 | NUR ---
MS RN CLOSING NOTE PATIENT A/OX4; ABLE TO MAKE NEEDS KNOWN. ON ROOM AIR TOLERATING WELL WITH NO SOB. NO IV ACCESS NOTED. SAFETY MEASURES IN PLACE: BED IN LOWEST LOCKED POSITION, CALL LIGHT WITHIN EASY REACH, SIDE RAILS UPX2. ENDORSE PLAN OF CARE TO ONCOMING MORNING RN.
[2020-11-23] MEDS: IBUPROFEN 200 MG TABLET PO PRN ×2 (07:41→20:48)
--- NOTE | 2020-11-23 07:47 | NUR ---
RN NOTES/ PAIN MANAGEMENT PT C/O RIGHT SHOULDER PAIN, PRN MOTRIN 600MG PO GIVEN AT 0741. WILL CONTINUE TO MONITOR.
[2020-11-23 08:00] VITALS: BP 125/79
[2020-11-23] MEDS: AMLODIPINE 10 MG PO SCH (08:08)
--- NOTE | 2020-11-23 10:57 | NUR ---
RN NOTES PT VERBALIZED THAT SHE'S ANXIOUS AND REQUESTED FOR MEDICATION. PRN ATIVAN 1 MG PO GIVEN AT 1058. WILL CONTINUE TO MONITOR.
[2020-11-23] MEDS: LORAZEPAM 1 MG TABLET FOR AGITATION/ANXIETY PO PRN ×2 (10:58→18:18)
[2020-11-23 16:00] VITALS: BP 124/77
--- NOTE | 2020-11-23 18:47 | NUR ---
MS RN CLOSING NOTES PT IN BED AWAKE AND WATCHING TV AT THIS TIME. A/O X4. VERBALLY RESPONSIVE. AMBULATORY. WITH STEADY GAIT. DENIES SI/HI AND VISUAL/AUDITORY HALLUCINATIONS. NO INAPPROPRIATE BEHAVIOR EXHIBITED DURING SHIFT. SAFETY PRECAUTIONS IN PLACE: BED IN LOWEST LOCKED POSITION, SIDE RAILS UPX2, CALL LIGHT AND BEDSIDE TABLE WITHIN EASY REACH OF PT. WILL ENDORSE JOVANNY TO PRECISION LENS POLISHER NURSE.
[2020-11-23 20:00] VITALS: BP 131/79
[2020-11-23] MEDS: ZOLPIDEM TARTRATE 10 MG TABLET PO PRN (20:31)
--- NOTE | 2020-11-23 20:48 | NUR ---
MS RN PAIN PT C/O ACHING PAIN IN RIGHT SHOULDER, RATED 6/10 ON PAIN SCALE. PER PT REQUEST, ADMINISTERED IBUPROFEN 600 MG PO Q8H PRN AT THIS TIME. WILL CONTINUE TO MONITOR.
--- NOTE | 2020-11-24 06:14 | NUR ---
MS RN CLOSING NOTE PT IS IN BED WITH EYES CLOSED AT THIS TIME. A/O X4. PT IS AMBULATORY WITH [facility]. PT IS STABLE ON ROOM AIR. BREATHING EVEN AND UNLABORED. NO SOB NOTED. NO S/O ANY APPARENT DISTRESS. NO IV ACCESS NOTED. ALL NEEDS HAVE BEEN MET. SAFETY PRECAUTIONS MAINTAINED AT ALL TIMES. BED IN LOWEST LOCKED POSITION, HOB ELEVATED, SIDE RAILS UP X2. CALL LIGHT AND TABLE WITHIN REACH. WILL ENDORSE TO ONCOMING NURSE FOR CONTINUITY OF CARE. Addendum: 11/24/20 at 0739 by ORALIA HOLLINGSWORTH RN MS RN CLOSING NOTE PT IS IN BED WITH EYES CLOSED AT THIS TIME. A/O X4. PT IS AMBULATORY WITH [facility]. PT IS STABLE ON ROOM AIR. BREATHING EVEN AND UNLABORED. NO SOB NOTED. NO S/O ANY APPARENT DISTRESS. NO IV ACCESS NOTED. PT SLEPT FOR 8.5 HOURS. ALL NEEDS HAVE BEEN MET. SAFETY PRECAUTIONS MAINTAINED AT ALL TIMES. BED IN LOWEST LOCKED POSITION, HOB ELEVATED, SIDE RAILS UP X2. CALL LIGHT AND TABLE WITHIN REACH. WILL ENDORSE TO ONCOMING NURSE FOR CONTINUITY OF CARE.
[2020-11-24] MEDS: IBUPROFEN 200 MG TABLET PO PRN ×2 (06:54→15:44)
[2020-11-24 08:00] VITALS: BP 146/88
--- NOTE | 2020-11-24 08:30 | NUR ---
received pt. in am alert and oriented x4,skin warm and dry,no acute distress,vs stable.
[2020-11-24] MEDS: AMLODIPINE 10 MG PO SCH (09:47)
[2020-11-24] MEDS: LORAZEPAM 1 MG TABLET FOR AGITATION/ANXIETY PO PRN ×2 (09:54→20:23)
--- NOTE | 2020-11-24 09:54 | NUR ---
medicated with ativan for nervousness.
--- NOTE | 2020-11-24 14:00 | NUR ---
off floor several times to smoke.pleasant,cooperative,med compliant.
--- NOTE | 2020-11-24 15:44 | NUR ---
given motrin for rt. shoulder and tooth pain.
[2020-11-24 16:00] VITALS: BP 137/74
--- NOTE | 2020-11-24 19:30 | NUR ---
MS RN OPENING NOTE PATIENT IN BED AWAKE, WATCHING TV. A/O X 4. BREATHING EVEN AND UNLABORED. PATIENT IS A CLINICAL TRIAL PATIENT OF DR. SALGUERO. ABLE TO MAKE NEEDS KNOWN. PATIENT IS INDEPENDENT AND AMBULATORY. NO COMPLAINS OF PAIN OR DISCOMFORT. SAFETY MEASURES IN PLACE: BED IN LOCKED AND LOWEST POSITION, SIDE RAILS UP, CALL LIGHT WITHIN REACH. WILL MONITOR PATIENT CLOSELY.
[2020-11-24 20:00] VITALS: BP 136/77
--- NOTE | 2020-11-24 20:23 | NUR ---
MS RN NOTE PATIENT GIVEN ATIVAN FOR ANXIETY
[2020-11-24] MEDS: ZOLPIDEM TARTRATE 10 MG TABLET PO PRN (22:05)
--- NOTE | 2020-11-24 22:05 | NUR ---
MS RN NOTE PATIENT REQUESTED AMBIEN BEFORE BEDTIME.
[2020-11-25] MEDS: IBUPROFEN 200 MG TABLET PO PRN (02:39)
--- NOTE | 2020-11-25 02:43 | NUR ---
MS RN NOTE IBUPROFEN GIVEN FOR SHOULDER PAIN OF 5/10.
--- NOTE | 2020-11-25 07:15 | NUR ---
MS RN CLOSING NOTE PATIENT AWAKE, A/O X 4. INDEPENDENT AND AMBULATORY. NO C/O PAIN OR DISCOMFORT AT THIS TIME. BREATHING EVEN AND UNLABORED. SAFETY MEASURES MAINTAINED. ALL NEEDS MET AND ATTENDED. PRN AND ROUTINE MEDICATIONS GIVEN. ENDORSED TO DAY SHIFT NURSE FOR JOVANNY.
[2020-11-25 08:51] VITALS: BP 141/76
[2020-11-25] MEDS: AMLODIPINE 10 MG PO SCH ×2 (09:47→09:48)
[2020-11-25] MEDS: LORAZEPAM 1 MG TABLET FOR AGITATION/ANXIETY PO PRN ×2 (09:51→20:26)
[2020-11-25 16:18] VITALS: BP 136/76
--- NOTE | 2020-11-25 18:41 | NUR ---
Patient without any changes in condition this shift. No s/s of distress or discomfort. Needs addressed. Will endorse to night nurse for JOVANNY.
[2020-11-25 20:00] VITALS: BP 136/76
--- NOTE | 2020-11-25 20:18 | NUR ---
MS/TELE/RN RECEIVED PATIENT AWAKE, ALERT,ORIENTED, COMFORTABLE, NO C/O PAIN, NO DISTRESS NOTED, CALL LIGHT IN REACH, WILL MONITOR.
[2020-11-25] MEDS: ZOLPIDEM TARTRATE 10 MG TABLET PO PRN (21:36)
--- NOTE | 2020-11-26 00:06 | NUR ---
MS/TELE/RN PATIENT IS SLEEPING AT THIS TIME, APPEAR COMFORTABLE, NO DISTRESS NOTED, CALL LIGHT IN REACH, WILL CONTINUE TO MONITOR.
--- NOTE | 2020-11-26 00:38 | NUR ---
MS/TELE/RN PATIENT IS SLEEPING AT THIS TIME, APPEAR COMFORTABLE, NO SIGNS OF DISTRESS NOTED, CALL LIGHT IN REACH, WILL CONTINUE TO MONITOR.
--- NOTE | 2020-11-26 06:10 | NUR ---
MS/TELE/RN PATIENT IS SLEEPING, APPEAR COMFORTABLE, NO SIGNS OF DISTRESS NOTED, CALL LIGHT IN REACH, ALL NEEDS ATTENDED AT THIS TIME, WILL CONTINUE TO MONITOR.
--- NOTE | 2020-11-26 07:26 | NUR ---
MS RN OPENING NOTE PATIENT IN BED AWAKE, WATCHING TV. A/O X 4. BREATHING EVEN AND UNLABORED. PATIENT IS A CLINICAL TRIAL PATIENT OF DR. SALGUERO. ABLE TO MAKE NEEDS KNOWN. PATIENT IS INDEPENDENT AND AMBULATORY. NO COMPLAINS OF PAIN OR DISCOMFORT. SAFETY MEASURES IN PLACE: BED IN LOCKED AND LOWEST POSITION, SIDE RAILS UP, CALL LIGHT WITHIN REACH. WILL CONTINUE TO MONITOR
[2020-11-26 08:00] VITALS: BP 120/70
[2020-11-26] MEDS: LORAZEPAM 1 MG TABLET FOR AGITATION/ANXIETY PO PRN ×2 (08:57→20:47)
--- NOTE | 2020-11-26 18:39 | NUR ---
RN CLOSING NOTES PATIENT IN BED AWAKE A/O X 4. BREATHING EVEN AND UNLABORED ON ROOM AIR. PATIENT IS A CLINICAL TRIAL PATIENT OF DR. SALGUERO. ABLE TO MAKE NEEDS KNOWN. PATIENT IS INDEPENDENT AND AMBULATORY. NO COMPLAINS OF PAIN OR DISCOMFORT. PATIENTS NEEDS WERE MET THROUGHOUT SHIFT. SAFETY MEASURES IN PLACE: BED IN LOCKED AND LOWEST POSITION, SIDE RAILS UP. WILL ENDORSE TO EVENING SHIFT.
[2020-11-26 20:19] VITALS: BP 135/79
--- NOTE | 2020-11-27 00:12 | NUR ---
PATIENT IS ASLEEP AT THIS TIME.
--- NOTE | 2020-11-27 07:25 | NUR ---
MS RN NOTES PATIENT IN BED ALERT ORIENTED X 4. NO ACUTE DISTRESS NOTED. BREATHING UNLABORED. NO SOB NOTED. SAFETY MEASURES IN PLACE. CALL LIGHT WITHIN REACH. WILL CONTINUE TO MONITOR ACCORDINGLY
[2020-11-27 08:00] VITALS: BP 133/78
[2020-11-27] MEDS: AMLODIPINE 10 MG PO SCH (09:38)
[2020-11-27 16:00] VITALS: BP 125/74
[2020-11-27] MEDS: LORAZEPAM 1 MG TABLET FOR AGITATION/ANXIETY PO PRN (16:07)
--- NOTE | 2020-11-27 16:07 | NUR ---
MS RN NOTES ATIVAN GIVEN ORDERED. VITAL SIGNS STABLE. NO ACUTE DISTRESS NOTED
--- NOTE | 2020-11-27 19:00 | NUR ---
MS RN NOTES PATIENT IN BED ALERT ORIENTED X 4. NO ACUTE DISTRESS NOTED. BREATHING UNLABORED. NO SOB NOTED. NEEDS ATTENDED AND ANTICIPATED. SAFETY MEASURES IN PLACE. CALL LIGHT WITHIN REACH. WILL ENDORSE TO NIGHT NURSE FOR CONTINUITY OF CARE.
[2020-11-27 20:00] VITALS: BP 130/79
[2020-11-27] MEDS: ZOLPIDEM TARTRATE 10 MG TABLET PO PRN (22:34)
--- NOTE | 2020-11-28 07:55 | NUR ---
MS/RN OPENING NOTE RECEIVED PATIENT FROM MANAGER TRADE MARKETING NURSE. PATIENT SEEN LAYING IN BED EATING BREAKFAST A/O X4. NO ACUTE DISTRESS NOTED AT THIS TIME. PATIENT IS ON ROOM AIR, TOLERATING WELL, NO SOB NOTED, BREATHING EVEN, NON LABORED. SAFETY MEASURES IN PLACE, BED LOCKED AND IN LOWEST POSITION, CALL LIGHT WITHIN REACH. WILL CONTINUE TO MONITOR AND ENSURE SAFETY.
[2020-11-28] MEDS: AMLODIPINE 10 MG PO SCH (08:41)
[2020-11-28] MEDS: LORAZEPAM 1 MG TABLET FOR AGITATION/ANXIETY PO PRN (14:12)
[2020-11-28 16:00] VITALS: BP 128/90
--- NOTE | 2020-11-28 18:44 | NUR ---
MS/RN CLOSING NOTE PATIENT SEEN LAYING IN BED A/O X4. NO ACUTE DISTRESS NOTED AT THIS TIME. PATIENT IS ON ROOM AIR, TOLERATING WELL, NO SOB NOTED, BREATHING EVEN, NON LABORED. SAFETY MEASURES IN PLACE, BED LOCKED AND IN LOWEST POSITION, CALL LIGHT WITHIN REACH. ALL NEEDS MET THROUGHOUT THE SHIFT. WILL ENDORSE TO TRIBAL DELEGATE NURSE.
--- NOTE | 2020-11-28 19:15 | NUR ---
MS RN OPENING NOTE PATIENT IS IN BED, AWAKE WATCHING TV. PATIENT IS CALM AND COOPERATIVE. NO C/O PAIN OR DISCOMFORT AT THIS TIME. PATIENT IS A CLINICAL TRIAL PATIENT OF DR. SALGUERO. BREATHING EVEN AND UNLABORED. SAFETY MEASURES IN PLACE: BED IN LOCKED AND LOWEST POSITION, SIDE RAILS UP, CALL LIGHT WITHIN REACH. WILL MONITOR PATIENT CLOSELY.
[2020-11-28] MEDS: IBUPROFEN 200 MG TABLET PO PRN (19:56)
--- NOTE | 2020-11-28 19:56 | NUR ---
MS RN NOTE PATIENT COMPLAINING OF BACK AND SHOULDER PAIN 5/10, IBUPROFEN GIVEN.
[2020-11-28 20:00] VITALS: BP 120/74
[2020-11-28] MEDS: ZOLPIDEM TARTRATE 10 MG TABLET PO PRN (21:03)
--- NOTE | 2020-11-28 21:05 | NUR ---
MS RN NOTE PATIENT REQUESTED MEDICATION FOR SLEEP, AMBIEN 10 MG GIVEN.
--- NOTE | 2020-11-29 06:56 | NUR ---
MS RN CLOSING NOTE PATIENT IS IN BED, LAYING IN BED, AROUSED EASILY. NO C/O PAIN OR DISCOMFORT AT THIS TIME. BREATHING EVEN AND UNLABORED. SAFETY MEASURES MAINTAINED: BED IN LOCKED AND LOWEST POSITION, SIDE RAILS UP, CALL LIGHT WITHIN REACH. ALL NEEDS MET AND ATTENDED DURING THE SHIFT. WILL ENDORSE TO DAY SHIFT NURSE FOR JOVANNY.
--- NOTE | 2020-11-29 07:20 | NUR ---
MS RN OPENING NOTE RECEIVED PATIENT WALKING AROUND THE ROOM. AMBULATORY W/ STEADY GAIT. A/O X4. ON ROOM AIR, TOLERATING WELL. NO SOB NOTED. IN NO APPARENT DISTRESS. DENIES ANY PAIN OR DISCOMFORT AT THIS TIME. SAFETY MEASURES MAINTAINED. BED IN LOWEST POSITION, BRAKES LOCKED. SIDE RAILS UP X2. CALL LIGHT WITHIN REACH. WILL CONTINUE PLAN OF CARE.
[2020-11-29] MEDS: AMLODIPINE 10 MG PO SCH (08:16)
[2020-11-29 08:20] VITALS: BP 141/81
--- NOTE | 2020-11-29 09:20 | NUR ---
MS RN NOTE REMINDED THE PT THAT LORAZEPAM AND AMBIEN WILL BE HELD AT 2200 TONIGHT. ALSO NPO AFTER 2100. PATIENT VERBALIZED UNDERSTANDING.
[2020-11-29] MEDS: LORAZEPAM 1 MG TABLET FOR AGITATION/ANXIETY PO PRN (12:39)
[2020-11-29] MEDS: IBUPROFEN 200 MG TABLET PO PRN ×2 (14:30→20:10)
[2020-11-29 16:00] VITALS: BP 129/92
--- NOTE | 2020-11-29 18:08 | NUR ---
MS RN CLOSING NOTE PATIENT RESTING IN BED. A/O X4. AMBULATORY. ON ROOM AIR, SATURATING WELL AT 96%. NO SOB NOTED. SHOWS NO SIGNS OF RESPIRATORY DISTRESS. NO REPORTS OF PAIN OR DISCOMFORT AT THIS TIME. MEDS WERE GIVEN ORDERED. ALL NEEDS HAVE BEEN MET AND ATTENDED. SAFETY MEASURES MAINTAINED. BED IN LOWEST POSITION, BRAKES LOCKED. SIDE RAILS UP X2. CALL LIGHT WITHIN REACH. WILL ENDORSE CONTINUITY OF CARE TO ONCOMING SHIFT.
--- NOTE | 2020-11-29 19:15 | NUR ---
MS RN OPENING NOTE PATIENT IN BED AWAKE, ABLE TO MAKE NEEDS KNOWN. A / O X 4. PATIENT IS INDEPENDENT AND CALM. REMINDED PATIENT NOT TO EAT OR DRINK STARTING AT 2100. BREATHING EVEN AND UNLABORED. IN NO APPARENT DISTRESS. SAFETY MEASURES IN PLACE: BED IN LOCKED AND LOWEST POSITION, SIDE RAILS UP, CALL LIGHT WITHIN REACH. WILL MONITOR PATIENT CLOSELY DURING THE SHIFT.
[2020-11-29 20:00] VITALS: BP 134/78
--- NOTE | 2020-11-29 20:10 | NUR ---
MS RN NOTE PATIENT COMPLAINING OF BACK PAIN 02/06, IBUPROFEN GIVEN.
--- NOTE | 2020-11-30 06:56 | NUR ---
MS RN CLOSING NOTE PATIENT AWAKE, WALKING AROUND THE ROOM. A/O X4. TOLERATING ROOM AIR AT 97%. SHOWS NO SIGNS OF RESPIRATORY DISTRESS. NO REPORTS OF PAIN OR DISCOMFORT AT THIS TIME. MEDS WERE GIVEN ORDERED. ALL NEEDS HAVE BEEN MET AND ATTENDED. ALL ORDERS CARRIED OUT. SAFETY MEASURES MAINTAINED. BED IN LOWEST POSITION, BRAKES LOCKED. SIDE RAILS UP X2. CALL LIGHT WITHIN REACH. WILL ENDORSE TO ONCOMING SHIFT FOR JOVANNY.
--- NOTE | 2020-11-30 07:25 | NUR ---
MS RN OPENING NOTE RECEIVED PATIENT IN BED. AMBULATORY W/ STEADY GAIT. A/O X4. ON ROOM AIR, TOLERATING WELL. NO SOB NOTED. NO S/S OF RESPIRATORY DISTRESS. DENIES ANY PAIN OR DISCOMFORT AT THIS TIME. PT IS CURRENTLY ON NPO STATUS. SAFETY MEASURES MAINTAINED. BED IN LOWEST POSITION, BRAKES LOCKED. SIDE RAILS UP X2. CALL LIGHT WITHIN REACH. WILL CONTINUE PLAN OF CARE.
[2020-11-30] MEDS: AMLODIPINE 10 MG PO SCH (08:04)
[2020-11-30 08:36] VITALS: BP 126/74
[2020-11-30] MEDS: LORAZEPAM 1 MG TABLET FOR AGITATION/ANXIETY PO PRN (15:51)
[2020-11-30 16:00] VITALS: BP 137/74
--- NOTE | 2020-11-30 18:08 | NUR ---
MS RN CLOSING NOTE PATIENT IN BED. A/O X4. ON ROOM AIR, SATURATING WELL AT 99%. NO SOB NOTED. NO S/S OF RESPIRATORY DISTRESS. NO REPORTS OF PAIN OR DISCOMFORT AT THIS TIME. MEDS WERE GIVEN ORDERED. ALL NEEDS HAVE BEEN MET AND ATTENDED. SAFETY MEASURES MAINTAINED. BED IN LOWEST POSITION, BRAKES LOCKED. SIDE RAILS UP X2. CALL LIGHT WITHIN REACH. WILL ENDORSE CONTINUITY OF CARE TO ONCOMING SHIFT.
[2020-11-30 20:00] VITALS: BP 144/79
--- NOTE | 2020-11-30 20:00 | NUR ---
MS RN opening NOTE PATIENT IN BED. A/O X4. ON ROOM AIR, NO S/S OF RESPIRATORY DISTRESS. denies PAIN AT THIS TIME. BED IN LOW POSITION, BRAKES LOCKED. SIDE RAILS UP X2. CALL LIGHT WITHIN REACH. verbalized understanding to call for assistance if needed. patient reports she has some auditory hallucinations but reports that it is her baseline. reports she is anxious about starting study medication tomorrow but has been meditating to cope and says it helps. patient is well groomed. acting appropriate. reports she has been having minor constipation issues, reports difficult to pass avery last couple of days. reviewed poc. questions concerns addressed will cont to monitor. Addendum: 11/30/20 at 2144 by JOE CHONG RN pt also denied si/hi
[2020-11-30] MEDS: ZOLPIDEM TARTRATE 10 MG TABLET PO PRN (20:52)
[2020-11-30] MEDS: IBUPROFEN 200 MG TABLET PO PRN (23:47)
[2020-12-01 08:00] VITALS: BP 121/88
--- NOTE | 2020-12-01 08:19 | NUR ---
RN MS NOTES Patient is awake, A&Ox4. VSS. Reminded patient that experimental drug is timed at 1000 and must be on an empty stomach. Pt verbalized understanding. Able to verbalize needs. Patient was in no distress.
[2020-12-01] MEDS: AMLODIPINE 10 MG PO SCH (09:21)
[2020-12-01] MEDS: INVEST MED Kar XT OR PLACEBO 50/20 MG PO SCH ×2 (10:45→21:52)
[2020-12-01] MEDS: LORAZEPAM 1 MG TABLET FOR AGITATION/ANXIETY PO PRN ×2 (14:32→20:49)
[2020-12-01 16:00] VITALS: BP 120/84
[2020-12-01] MEDS: MAG HYDROX/AL HYDROX/SIMETH 30 ML UDC PO PRN (16:03)
--- NOTE | 2020-12-01 18:39 | NUR ---
MS RN CLOSING NOTE Patient is A&Ox4, VS WNL. Seen ambulating and had a shower today. Linens changed. Able to make needs known. C/o gas PRN maalox given with effect at 1600. 1st dose of experimental drug given at 1000.
--- NOTE | 2020-12-01 19:32 | NUR ---
RN NOTES PATIENT IN BED. A/O X4. ON ROOM AIR, NO S/S OF RESPIRATORY DISTRESS. DENIES PAIN AT THIS TIME. ALL NURSING NEEDS MET. BED IN LOW POSITION, BRAKES LOCKED. SIDE RAILS UP X2. CALL LIGHT WITHIN REACH. WILL CONTINUE TO MONITOR. SAFETY PRECAUTIONS FOLLOWED.
[2020-12-01 20:00] VITALS: BP 122/83
[2020-12-01] MEDS: ZOLPIDEM TARTRATE 10 MG TABLET PO PRN (23:29)
--- NOTE | 2020-12-02 06:37 | NUR ---
RN NOTES PATIENT IN BED. A/O X4. ON ROOM AIR, NO S/S OF RESPIRATORY DISTRESS. DENIES PAIN AT THIS TIME. ALL NURSING NEEDS MET. BED IN LOW POSITION, BRAKES LOCKED. SIDE RAILS UP X2. CALL LIGHT WITHIN REACH. ALL NURSING NEEDS MET. SAFETY PRECAUTIONS FOLLOWED. WILL ENDORSE CARE TO DAY SHIFT
--- NOTE | 2020-12-02 07:41 | NUR ---
MS RN OPENING NOTE Patient is awake, A&Ox4. VS WNL. No c/o pain or discomfort. Able to make needs known. Will continue to monitor throughout shift.
[2020-12-02] MEDS: AMLODIPINE 10 MG PO SCH (08:30)
[2020-12-02] MEDS: INVEST MED Kar XT OR PLACEBO 50/20 MG PO SCH ×2 (09:32→21:39)
[2020-12-02] MEDS: LORAZEPAM 1 MG TABLET FOR AGITATION/ANXIETY PO PRN (13:12)
[2020-12-02] MEDS: IBUPROFEN 200 MG TABLET PO PRN (18:05)
--- NOTE | 2020-12-02 18:45 | NUR ---
MS RN CLOSING NOTES Patient is A&Ox4. VSS. C/o anxiety relieved by PRN Ativan and R shoulder pain relieved by PRN Ibuprofen. Seen up and walking independently and study. No other complaints. Pt able to verbalize needs. No ase from investigational drugs.
[2020-12-02 20:00] VITALS: BP 117/72
--- NOTE | 2020-12-02 20:00 | NUR ---
MS RN NOTES PATIENT ALERT AND ORIENTED X 4. NO SIGNS OF DISTRESS OR SHORTNESS OF BREATH NOTED. VITAL SIGNS STABLE. NO COMPLAINTS OF PAIN AT THIS TIME. PATIENT ABLE TO MAKE NEEDS KNOWN. SAFETY MEASURES IN PLACE, BED LOCKED IN LOWEST POSITION, BED ALARM ON AND CALL LIGHT WITHIN REACH. WILL CONTINUE TO MONITOR
[2020-12-02] MEDS: ZOLPIDEM TARTRATE 10 MG TABLET PO PRN (21:52)
--- NOTE | 2020-12-03 06:36 | NUR ---
MS RN CLOSING NOTES PATIENT ALERT AND ORIENTED X 4. NO SIGNS OF DISTRESS OR SHORTNESS OF BREATH NOTED. MEDICATIONS GIVEN ORDERED. PATIENT NEEDS ATTENDED TO THROUGHOUT SHIFT. SAFETY MEASURES IN PLACE, BED LOCKED IN LOWEST POSITION AND CALL LIGHT WITHIN REACH. WILL ENDORSE TO DAY SHIFT NURSE FOR CONTINUITY OF CARE
--- NOTE | 2020-12-03 07:32 | NUR ---
MS RN OPENING NOTES PATIENT IS ALERT AND ORIENTED X4. VITALS SIGNS ARE STABLE. CALL LIGHT WITHIN REACH. ABLE TO VERBALIZE NEEDS. NO SIGNS AND SYMPTOMS OF DISTRESS. NO COMPLAINTS OF PAIN. WILL CONTINUE TO MONITOR THROUGHOUT SHIFT.
[2020-12-03 08:00] VITALS: BP 127/79
[2020-12-03] MEDS: AMLODIPINE 10 MG PO SCH (08:46)
[2020-12-03] MEDS: INVEST MED Kar XT OR PLACEBO 50/20 MG PO SCH ×2 (10:08→21:37)
[2020-12-03] MEDS: IBUPROFEN 200 MG TABLET PO PRN (15:34)
[2020-12-03 16:00] VITALS: BP 146/70
--- NOTE | 2020-12-03 18:38 | NUR ---
MS RN CLOSING NOTE PATIENT IN BED AND AWAKE . A/O X4. ON ROOM AIR. NO SIGNS AND SYMPTOMS OF SOB NOTED. NO COMPLAINTS OF PAIN. ALL MEDICATIONS WERE GIVEN ORDERED. ALL NEEDS HAVE BEEN MET AND ATTENDED. SAFETY MEASURES MAINTAINED. BED IN LOWEST POSITION, BRAKES LOCKED. SIDE RAILS UP X2. CALL LIGHT WITHIN REACH. WILL ENDORSE CONTINUITY OF CARE TO ONCOMING SHIFT.
[2020-12-03 20:00] VITALS: BP 137/83
--- NOTE | 2020-12-03 20:00 | NUR ---
MS RN OPENING NOTES PATIENT ALERT & ORIENTED X 4. NO SIGNS OF DISTRESS OR SHORTNESS OF BREATH NOTED. VITAL SIGNS STABLE. SAFETY MEASURES IN PLACE, BED LOCKED IN LOWEST POSITION AND CALL LIGHT WITHIN REACH. WILL CONTINUE TO MONITOR
[2020-12-03] MEDS: ZOLPIDEM TARTRATE 10 MG TABLET PO PRN (21:37)
[2020-12-04] MEDS: IBUPROFEN 200 MG TABLET PO PRN ×2 (02:28→07:57)
--- NOTE | 2020-12-04 02:30 | NUR ---
MS RN NOTE PATIENT REPORTING 7/10 PAIN IN RIGHT ARM. GAVE MOTRIN 600 MG ORDERED. WILL CONTINUE TO MONITOR
--- NOTE | 2020-12-04 07:00 | NUR ---
MS RN CLOSING NOTE PATIENT ALERT AND ORIENTED X 4. NO SIGNS OF DISTRESS OR SHORTNESS OF BREATH NOTED. NO REPORTS OF PAIN AT THIS TIME.PATIENT NEEDS ATTENDED TO THROUGHOUT SHIFT. SAFETY MEASURES IN PLACE, BED LOCKED IN LOWEST POSITION AND CALL LIGHT WITHIN REACH. WILL ENDORSE TO DAY SHIFT NURSE FOR CONTINUITY OF CARE
--- NOTE | 2020-12-04 07:41 | NUR ---
MS RN CLOSING NOTE PATIENT IN BED, AWAKE AND WATCHING TV . A/O X4. ON ROOM AIR. NO SIGNS AND SYMPTOMS OF SOB NOTED. ALL NEEDS HAVE BEEN MET AND ATTENDED. SAFETY MEASURES MAINTAINED. BED IN LOWEST POSITION, BRAKES LOCKED. SIDE RAILS UP X2. CALL LIGHT WITHIN REACH.
[2020-12-04 08:00] VITALS: BP 116/79
[2020-12-04] MEDS: AMLODIPINE 10 MG PO SCH (09:05)
[2020-12-04] MEDS: INVEST MED Kar XT OR PLACEBO 50/20 MG PO SCH ×2 (10:58→23:11)
--- NOTE | 2020-12-04 14:00 | NUR ---
PATIENT IN BED, AWAKE AND WATCHING TV . A/O X4. ON ROOM AIR. NO SIGNS AND SYMPTOMS OF SOB NOTED. ALL NEEDS HAVE BEEN MET AND ATTENDED. SAFETY MEASURES MAINTAINED. BED IN LOWEST POSITION, BRAKES LOCKED. SIDE RAILS UP X2. CALL LIGHT WITHIN REACH.
[2020-12-04] MEDS: LORAZEPAM 1 MG TABLET FOR AGITATION/ANXIETY PO PRN (17:58)
--- NOTE | 2020-12-04 19:00 | NUR ---
MS CLOSING RN NOTES PATIENT IN BED AND AWAKE . A/O X4. ON ROOM AIR. NO SIGNS AND SYMPTOMS OF SOB NOTED. NO COMPLAINTS OF PAIN. ALL MEDICATIONS WERE GIVEN ORDERED. ALL NEEDS HAVE BEEN MET AND ATTENDED. SAFETY MEASURES MAINTAINED. BED IN LOWEST POSITION, BRAKES LOCKED. SIDE RAILS UP X2. CALL LIGHT WITHIN REACH. WILL ENDORSE CONTINUITY OF CARE TO ONCOMING NURSE.
[2020-12-04 20:00] VITALS: BP 124/69
[2020-12-04] MEDS: ZOLPIDEM TARTRATE 10 MG TABLET PO PRN (20:05)
[2020-12-05] MEDS: IBUPROFEN 200 MG TABLET PO PRN ×2 (01:13→18:43)
--- NOTE | 2020-12-05 01:13 | NUR ---
MS RN PAIN PT C/O THROAT PAIN, RATED 7/10 ON PAIN SCALE. VS STABLE. PER PT REQUEST, ADMINISTERED IBUPROFEN 600 MG PO Q8H PRN AT THIS TIME. WILL CONTINUE TO MONITOR.
--- NOTE | 2020-12-05 06:11 | NUR ---
MS RN CLOSING NOTE PT IS IN BED WITH EYES CLOSED AT THIS TIME. A/O X4. PT IS AMBULATORY WITH [facility]. PT IS STABLE ON ROOM AIR. BREATHING EVEN AND UNLABORED. NO SOB NOTED. NO S/O ANY APPARENT DISTRESS. NO IV ACCESS NOTED. ALL NEEDS HAVE BEEN MET. PAIN MANAGEMENT ADMINISTERED PER ORDER. SAFETY PRECAUTIONS MAINTAINED AT ALL TIMES. BED IN LOWEST LOCKED POSITION, HOB ELEVATED, SIDE RAILS UP X2. CALL LIGHT AND TABLE WITHIN REACH. WILL ENDORSE TO ONCOMING NURSE FOR CONTINUITY OF CARE.
--- NOTE | 2020-12-05 07:48 | NUR ---
MS RN OPENING NOTE Patient is A&Ox4. Awake and able to verbalize needs. No c/o pain or discomfort. No distress noted.
[2020-12-05 08:00] VITALS: BP 144/87
[2020-12-05] MEDS: AMLODIPINE 10 MG PO SCH (08:17)
[2020-12-05] MEDS: INVEST MED Kar XT OR PLACEBO 50/20 MG PO SCH ×2 (09:43→23:53)
[2020-12-05 16:06] VITALS: BP 138/81
--- NOTE | 2020-12-05 18:18 | NUR ---
MS RN CLOSING NOTES Patient is A&Ox4. VS WNL. Calm and cooperative with care. No behaviors. Patient tolerating medication regimen well, no adverse effects related to experimental drug. No c/o pain or discomfort.
[2020-12-05 20:00] VITALS: BP 124/75
[2020-12-05] MEDS: LORAZEPAM 1 MG TABLET FOR AGITATION/ANXIETY PO PRN (20:43)
[2020-12-05] MEDS: ZOLPIDEM TARTRATE 10 MG TABLET PO PRN (21:46)
--- NOTE | 2020-12-06 06:10 | NUR ---
MS RN CLOSING NOTE PT IS IN BED WITH EYES CLOSED AT THIS TIME. PT SLEPT FOR 8 HOURS. A/O X4. PT IS AMBULATORY WITH [facility]. PT IS STABLE ON ROOM AIR. BREATHING EVEN AND UNLABORED. NO SOB NOTED. NO S/O ANY APPARENT DISTRESS. NO IV ACCESS NOTED. ALL NEEDS HAVE BEEN MET. SAFETY PRECAUTIONS MAINTAINED AT ALL TIMES. BED IN LOWEST LOCKED POSITION, HOB ELEVATED, SIDE RAILS UP X2. CALL LIGHT AND TABLE WITHIN REACH. WILL ENDORSE TO ONCOMING NURSE FOR CONTINUITY OF CARE.
[2020-12-06 08:00] VITALS: BP 130/84
--- NOTE | 2020-12-06 08:00 | NUR ---
MS RN OPENING NOTE RECEIVED PATIENT IN ROOM, AWAKE A/O X 4. CLINICAL TRIAL PATIENT. PATIENT IS CALM AND COOPERATIVE AT THIS TIME. NO DISTRESS NOTED. NO C/O PAIN OR DISCOMFORT. SAFETY MEASURES IMPLEMENTED. ENCOURAGED PATIENT TO CALL IF NEEDED. WILL CONTINUE TO MONITOR.
[2020-12-06] MEDS: AMLODIPINE 10 MG PO SCH (08:35)
[2020-12-06] MEDS: IBUPROFEN 200 MG TABLET PO PRN ×2 (08:36→16:31)
[2020-12-06] MEDS: INVEST MED Kar XT OR PLACEBO 50/20 MG PO SCH ×2 (10:43→23:22)
[2020-12-06] MEDS: LORAZEPAM 1 MG TABLET FOR AGITATION/ANXIETY PO PRN (13:53)
[2020-12-06 16:00] VITALS: BP 130/69
--- NOTE | 2020-12-06 18:50 | NUR ---
MS RN CLOSING NOTE PATIENT CURRENTLY LYING IN BED, AWAKE, WATCHING TV. A/O X4. ON ROOM AIR. CLINICAL TRIAL PATIENT. NO PAIN OR DISTRESS NOTED. BREATHING EVEN AND UNLABORED. AMBULATORY. PATIENT CALM AND COOPERATIVE THROUGHOUT SHIFT. INVESTIGATIONAL DRUGS IN [place]. SAFETY PRECAUTIONS IMPLEMENTED. CALL LIGHT WITHIN REACH. WILL ENDORSE TO TWILL CUTTER NURSE FOR JOVANNY.
[2020-12-06 20:00] VITALS: BP 134/73
[2020-12-06] MEDS: ZOLPIDEM TARTRATE 10 MG TABLET PO PRN (21:17)
[2020-12-07] MEDS: IBUPROFEN 200 MG TABLET PO PRN (04:32)
--- NOTE | 2020-12-07 04:32 | NUR ---
MS RN PAIN PT C/O RIGHT SHOULDER PAIN, RATED 7/10 ON PAIN SCALE. VSS. PER PT REQUEST, ADMINISTERED IBUPROFEN 600 MG PO Q8H PRN AT THIS TIME. WILL CONTINUE TO MONITOR.
--- NOTE | 2020-12-07 06:49 | NUR ---
MS RN CLOSING NOTE PT IS IN BED WITH EYES CLOSED AT THIS TIME. PT SLEPT FOR 7.5 HOURS. A/O X4. PT IS AMBULATORY WITH [facility]. PT IS STABLE ON ROOM AIR. BREATHING EVEN AND UNLABORED. NO SOB NOTED. NO S/O ANY APPARENT DISTRESS. NO IV ACCESS NOTED. ALL NEEDS HAVE BEEN MET. SAFETY PRECAUTIONS MAINTAINED AT ALL TIMES. BED IN LOWEST LOCKED POSITION, HOB ELEVATED, SIDE RAILS UP X2. CALL LIGHT AND TABLE WITHIN REACH. WILL ENDORSE TO ONCOMING NURSE FOR CONTINUITY OF CARE.
--- NOTE | 2020-12-07 07:24 | NUR ---
MS RN OPENING NOTE RECEIVED PT RESTING IN BED. A/O X4. PT IS STABLE ON ROOM AIR. NO SOB NOTED. NO S/S OF RESPIRATORY DISTRESS. PT IS AMBULATORY WITH [facility]. PT HAS NO C/O PAIN AT THIS TIME. NO IV ACCESS NOTED. SKIN INTACT. SAFETY MEASURES MAINTAINED. BED IN LOWEST LOCKED POSITION, HOB ELEVATED, SIDE RAILS UP X2. CALL LIGHT AND TABLE WITHIN REACH.
[2020-12-07 08:00] VITALS: BP 128/76
[2020-12-07] MEDS: AMLODIPINE 10 MG PO SCH (09:27)
[2020-12-07] MEDS: INVEST MED Kar XT OR PLACEBO 50/20 MG PO SCH ×2 (10:02→21:56)
[2020-12-07 16:09] VITALS: BP 137/79
--- NOTE | 2020-12-07 18:27 | NUR ---
MS RN CLOSING NOTE PATIENT CURRENTLY LYING IN BED, AWAKE, A/O X4. ON ROOM AIR. CLINICAL TRIAL PATIENT. NO PAIN OR DISTRESS NOTED. BREATHING EVEN AND UNLABORED. AMBULATORY. PATIENT CALM AND COOPERATIVE THROUGHOUT SHIFT. INVESTIGATIONAL MEDICATION WAS GIVEN THIS MORNING AND TONIGHTS INVESTIGATIONAL DRUGS IN [place]. SAFETY PRECAUTIONS IMPLEMENTED. CALL LIGHT WITHIN REACH. WILL ENDORSE TO VISUAL LEAD NURSE.
[2020-12-07 20:00] VITALS: BP 117/58
[2020-12-07] MEDS: ZOLPIDEM TARTRATE 10 MG TABLET PO PRN (21:05)
--- NOTE | 2020-12-07 23:00 | NUR ---
MS/TELE/RN PATIENT IS SLEEPING AT THIS TIME, APPEAR COMFORTABLE, NO DISTRESS NOTED, CALL LIGHT IN REACH, WILL CONTINUE TO MONITOR.
--- NOTE | 2020-12-08 06:03 | NUR ---
MS/TELE/RN PATIENT IS STILL SLEEPING AT THIS TIME, APPEAR COMFORTABLE, NO SIGNS OF DISTRESS NOTED, CALL LIGHT IN REACH, ALL NEEDS ATTENDED AT THIS TIME, WILL CONTINUE TO MONITOR.
--- NOTE | 2020-12-08 08:00 | NUR ---
MS RN OPENING NOTE Patient is awake, A&Ox4. Denies any pain or discomfort. Able to verbalize needs. Verbalizes understanding that 1000 investigational medication should be taken on an empty stomach.
[2020-12-08 08:09] VITALS: BP 145/83
[2020-12-08] MEDS: AMLODIPINE 10 MG PO SCH (08:20)
[2020-12-08] MEDS: INVEST MED Kar XT OR PLACEBO 50/20 MG PO SCH ×2 (09:08→21:20)
[2020-12-08] MEDS: LORAZEPAM 1 MG TABLET FOR AGITATION/ANXIETY PO PRN (13:34)
[2020-12-08 15:56] VITALS: BP 112/65
--- NOTE | 2020-12-08 16:35 | NUR ---
RN MS NOTES PT TO HAVE LAB DRAW EXACTLY AT 17[address] SALGUERO, CONFIRMED BY LAB, SPOKE WITH ANIBAL, STATED THAT THEY HAVE RECEIVED THE VIALS AND INSTRUCTIONS, PT AWARE AND INFORMED.
--- NOTE | 2020-12-08 17:30 | NUR ---
RN NOTES BLOOD DRAW DONE ORDERED.
--- NOTE | 2020-12-08 18:21 | NUR ---
MS RN NOTES Patient A&Ox4. VS WNL. Ambulatory around facility campus. Patient educated about taking investigational medications right on time. Educated patient that she should be back on the unit by 9pm for blood draw and medication administration. and to be on unit from 9-10am the next morning. Patient verbalized understanding. No c/o pain or discomfort. Able to verbalize needs. All needs met by staff.
--- NOTE | 2020-12-08 19:48 | NUR ---
MS/TELE/RN RECEIVED PATIENT IN ROOM LYING IN BED AWAKE, ALERT, ORIENTED, COMFORTABLE, NO C/O PAIN, NO DISTRESS NOTED, PLAN OF CARE DISCUSSED, RE: BLOOD DRAW AT 2114 AND IN INVESTIGATIONAL MEDICATION AT 2119. Addendum: 12/08/20 at 1950 by CYRUS MALDONADO RN PATIENT VERBALIZED UNDERSTANDING AND AGREEMENT TO THE PLAN OF CARE.
--- NOTE | 2020-12-08 19:55 | NUR ---
MS/CARL/RN CALLED LAB RE: BLOOD DRAW AT 21:15 [place].
[2020-12-08 20:00] VITALS: BP 125/65
--- NOTE | 2020-12-09 06:16 | NUR ---
MS/TELE/RN PATIENT IS SLEEPING, APPEAR COMFORTABLE, NO SIGNS OF DISTRESS NOTED, CALL LIGHT IN REACH. ALL NEEDS ATTENDED AT THIS TIME, WILL CONTINUE TO MONITOR.
[2020-12-09 08:00] VITALS: BP 116/67
--- NOTE | 2020-12-09 08:17 | NUR ---
Patient is awake, alert, and oriented x4. Denies any pain or discomfort. Reminded patient to be on the floor before 02 Addendum: 12/09/20 at 0819 by MIYA DUARTE RN before 1000* for prompt administration of investigational med. Patient verbalizes understanding. No ase noted at this time. All needs met.
[2020-12-09] MEDS: AMLODIPINE 10 MG PO SCH (09:01)
[2020-12-09] MEDS: INVEST MED Kar XT OR PLACEBO 50/20 MG PO SCH ×2 (10:01→21:59)
[2020-12-09 16:00] VITALS: BP 149/94
--- NOTE | 2020-12-09 18:00 | NUR ---
MS RN CLOSING NOTES Patient is A&Ox4. Vs a
--- NOTE | 2020-12-09 18:01 | NUR ---
MS PROCTOR CLOSING NOTES Patient is A&Ox4. Vs at baseline. No c/o of pain or discomfort. Patient is able to verbalize needs,- Addendum: 12/09/20 at 1802 by MIYA DUARTE RN no issues. Clinical trial medication given at 1000 tolerated well by patient. No adverse effects or side effects.
[2020-12-09 20:00] VITALS: BP 119/66
--- NOTE | 2020-12-09 21:01 | NUR ---
MS/TELE/RN AT 1930, PATIENT WAS IN THE ROOM LYING IN BED AWAKE, ALERT, ORIENTED, COMFORTABLE, NO C/O PAIN, NO DISTRESS NOTED, REMINDED PATIENT ABOUT INVESTIGATIONAL MEDICATION AT 2200, PATIENT VERBALIZED CORRECTLY THE INSTRUCTION BEFORE AND AFTER ITS ADMINISTRATION. WILL MONITOR.
[2020-12-09] MEDS: ZOLPIDEM TARTRATE 10 MG TABLET PO PRN (22:36)
--- NOTE | 2020-12-10 06:41 | NUR ---
MS/TELE/RN PATIENT IS STILL SLEEPING AT THIS TIME, APPEAR COMFORTABLE, NO DISTRESS NOTED, CALL LIGHT IN REACH, ALL NEEDS ATTENDED AT THIS TIME, WILL CONTINUE TO MONITOR.
[2020-12-10 08:00] VITALS: BP 135/70
[2020-12-10] MEDS: AMLODIPINE 10 MG PO SCH (09:25)
[2020-12-10] MEDS: INVEST MED Kar XT OR PLACEBO 50/20 MG PO SCH ×2 (10:07→22:10)
--- NOTE | 2020-12-10 10:18 | NUR ---
MS RN NOTE PATIENT WAS NOT IN ROOM FOR 10AM INVESTIGATIONAL DRUG. PATIENT WAS NOT TO BE FOUND ON THE UNIT AT THIS TIME - PATIENT WAS OUTSIDE SMOKING. PATIENT WAS MADE AWARE THAT IT IS CRUCIAL SHE TAKES THE MEDICATION AT THE SCHEDULED TIME - PATIENT VERBALIZED UNDERSTANDING. PATIENT TOOK MEDICATION AT 1018.
[2020-12-10] MEDS: LORAZEPAM 1 MG TABLET FOR AGITATION/ANXIETY PO PRN (14:42)
[2020-12-10 16:00] VITALS: BP 116/70
--- NOTE | 2020-12-10 18:58 | NUR ---
MS RN CLOSING NOTE PATIENT CURRENTLY LYING IN BED, AWAKE, WATCHING TV. A/O X4. ON ROOM AIR. CLINICAL TRIAL PATIENT. NO PAIN OR DISTRESS NOTED. BREATHING EVEN AND UNLABORED. AMBULATORY. PATIENT CALM AND COOPERATIVE THROUGHOUT SHIFT. INVESTIGATIONAL DRUGS IN [place]. SAFETY PRECAUTIONS IMPLEMENTED. CALL LIGHT WITHIN REACH. WILL ENDORSE TO CALL CENTER AGENT NURSE FOR JOVANNY.
[2020-12-10 20:00] VITALS: BP 116/51
[2020-12-10] MEDS: ZOLPIDEM TARTRATE 10 MG TABLET PO PRN (22:20)
[2020-12-11 07:50] VITALS: BP 90/67
[2020-12-11] MEDS: AMLODIPINE 10 MG PO SCH (08:23)
[2020-12-11] MEDS: INVEST MED Kar XT OR PLACEBO 50/20 MG PO SCH ×2 (10:00→22:00)
[2020-12-11] MEDS: LORAZEPAM 1 MG TABLET FOR AGITATION/ANXIETY PO PRN (11:46)
[2020-12-11 16:00] VITALS: BP 114/52
--- NOTE | 2020-12-11 18:38 | NUR ---
MS RN CLOSING NOTE PATIENT CURRENTLY LYING IN BED, AWAKE, WATCHING TV. A/O X4. ON ROOM AIR. CLINICAL TRIAL PATIENT. NO PAIN OR DISTRESS NOTED. BREATHING EVEN AND UNLABORED. AMBULATORY. PATIENT CALM AND COOPERATIVE THROUGHOUT SHIFT. INVESTIGATIONAL DRUGS IN [place]. SAFETY PRECAUTIONS IMPLEMENTED. CALL LIGHT WITHIN REACH. WILL ENDORSE TO CASE THERAPIST NURSE FOR JOVANNY.
[2020-12-11 20:00] VITALS: BP 104/67
[2020-12-11] MEDS: ZOLPIDEM TARTRATE 10 MG TABLET PO PRN (22:08)
--- NOTE | 2020-12-12 08:00 | NUR ---
RN OPENING NOTE PATIENT AWAKE IN BED RESTING. A/O X3 AND WELSH SPEAKING. COMPLAINT OF SHOULDER PAIN AND REQUESTED IBUPROFEN. NO COMPLAINT OF NAUSEA. CURRENTLY ON RA WITH NO SOB OR RESPIRATORY DISTRESS PRESENT. NO EDEMA PRESENT. SELF AMBULATORY WITH BATHROOM PRIVILEGES. SKIN IS INTACT. NO IV PRESENT DUE TO STATUS CLINICAL TRIAL PATIENT. SAFETY MEASURES IN PLACE. SIDE RAILS RAISED. BED LOWERED. CALL LIGHT WITHIN REACH. WILL CONTINUE TO MONITOR.
[2020-12-12] MEDS: IBUPROFEN 200 MG TABLET PO PRN ×2 (09:09→16:39)
[2020-12-12] MEDS: AMLODIPINE 10 MG PO SCH (09:09)
[2020-12-12] MEDS: INVEST MED Kar XT OR PLACEBO 50/20 MG PO SCH ×2 (09:10→21:17)
--- NOTE | 2020-12-12 10:18 | NUR ---
RN NOTE INVESTIGATIONAL MEDICINE GIVEN TO PATIENT. PATIENT NPO 2 HOURS PRIOR TO ADMINISTRATION. WILL CONTINUE TO MONITOR FOR SIDE EFFECTS.
[2020-12-12 16:00] VITALS: BP 121/79
--- NOTE | 2020-12-12 18:58 | NUR ---
RN CLOSING NOTE PATIENT AWAKE IN BED RESTING. A/O X3 AND [place] SPEAKING. COMPLAINT OF SHOULDER PAIN AND REQUESTED IBUPROFEN. NO COMPLAINT OF NAUSEA. CURRENTLY ON RA WITH NO SOB OR RESPIRATORY DISTRESS PRESENT. NO EDEMA PRESENT. SELF AMBULATORY WITH BATHROOM PRIVILEGES. SKIN IS INTACT. NO IV PRESENT DUE TO STATUS CLINICAL TRIAL PATIENT. SAFETY MEASURES IN PLACE. SIDE RAILS RAISED. BED LOWERED. CALL LIGHT WITHIN REACH. REPORT TO BE GIVEN TO NIGHT NURSE FOR JOVANNY
--- NOTE | 2020-12-12 19:15 | NUR ---
MS RN OPENING NOTE PATIENT IN BED ON THE PHONE, PATIENT IS CALM AND COOPERATIVE AT THIS TIME. ABLE TO MAKE NEEDS KNOWN. BREATHING EVEN AND UNLABORED, PATIENT IS INDEPENDENT. RE-EDUCATED PATIENT NOT TO EAT OR DRINK 2.5 HOURS BEFORE AND AFTER INVESTIGATIONAL DRUG IS GIVEN. SAFETY MEASURES IN PLACE: BED IN LOCKED AND LOWEST POSITION,SIDE RAILS UP, CALL LIGHT WITHIN REACH. WILL MONITOR PATIENT CLOSELY.
[2020-12-12 20:00] VITALS: BP 128/64
--- NOTE | 2020-12-12 21:15 | NUR ---
INVESTIGATIONAL DRUG GIVEN CLOSE TO THE TIME GIVEN IN THE AM 0910.
[2020-12-12] MEDS: ZOLPIDEM TARTRATE 10 MG TABLET PO PRN (21:58)
--- NOTE | 2020-12-12 21:58 | NUR ---
PATIENT REQUESTED RAISA FOR SLEEP. GIVEN, WILL RE-ASSESS.
[2020-12-13] MEDS: IBUPROFEN 200 MG TABLET PO PRN ×2 (06:21→15:59)
--- NOTE | 2020-12-13 06:21 | NUR ---
PATIENT COMPLAINING OF SHOULDER AND BACK PAIN 5/10 ON THE PAIN SCALE 0-10. IBUPROFEN GIVEN TO RELIEVE PAIN.
--- NOTE | 2020-12-13 07:36 | NUR ---
MS RN CLOSING NOTE PATIENT IN NO ACUTE DISTRESS AT THIS TIME. BREATHING EVEN AND UNLABORED. PATIENT REMAINED CALM DURING THE SHIFT. SAFETY MEASURES MAINTAINED. ALL ORDERS CARRIED OUT, NEEDS ALL MET AND ATTENDED. ENDORSED TO DAY SHIFT NURSE FOR JOVANNY.
[2020-12-13 08:00] VITALS: BP 147/69
[2020-12-13] MEDS: AMLODIPINE 10 MG PO SCH (09:14)
[2020-12-13] MEDS: INVEST MED Kar XT OR PLACEBO 50/20 MG PO SCH ×2 (10:02→22:03)
[2020-12-13] MEDS: MAG HYDROX/AL HYDROX/SIMETH 30 ML UDC PO PRN (11:35)
[2020-12-13 16:18] VITALS: BP 137/70
--- NOTE | 2020-12-13 18:38 | NUR ---
MS RN CLOSING NOTE PATIENT CURRENTLY LYING IN BED, AWAKE, WATCHING TV. A/O X4. ON ROOM AIR. CLINICAL TRIAL PATIENT. NO PAIN OR DISTRESS NOTED. BREATHING EVEN AND UNLABORED. AMBULATORY. PATIENT CALM AND COOPERATIVE THROUGHOUT SHIFT. INVESTIGATIONAL DRUGS IN [place]ET[place]. SAFETY PRECAUTIONS IMPLEMENTED. CALL LIGHT WITHIN REACH. WILL ENDORSE TO CUTTING AND BONING SUPERVISOR NURSE FOR JOVANNY.
--- NOTE | 2020-12-13 19:15 | NUR ---
MS RN OPENING NOTE PATIENT IN BED USING HER PHONE, PATIENT IS CALM AND COOPERATIVE AT THIS TIME. ABLE TO MAKE NEEDS KNOWN. BREATHING EVEN AND UNLABORED, PATIENT IS INDEPENDENT. NO COMPLAINS OF PAIN AT THIS TIME. RE-EDUCATED PATIENT NOT TO EAT OR DRINK 2.5 HOURS BEFORE AND AFTER INVESTIGATIONAL DRUG IS GIVEN. SAFETY MEASURES IN PLACE: BED IN LOCKED AND LOWEST POSITION,SIDE RAILS UP, CALL LIGHT WITHIN REACH. WILL MONITOR PATIENT CLOSELY.
[2020-12-13 20:00] VITALS: BP 124/44
[2020-12-13] MEDS: ZOLPIDEM TARTRATE 10 MG TABLET PO PRN (22:03)
--- NOTE | 2020-12-13 22:03 | NUR ---
investigational drug given and ambien per patient request for sleep.
--- NOTE | 2020-12-14 06:44 | NUR ---
MS RN CLOSING NOTE PATIENT IN BED RESTING. BREATHING EVEN AND UNLABORED, PATIENT IS INDEPENDENT. NO COMPLAINS OF PAIN AT THIS TIME. SAFETY MEASURES MAINTAINED: ALL NEEDS MET AND ATTENDED, ALL ORDERS CARRIED OUT. WILL ENDORSE TO DAY SHIFT NURSE FOR JOVANNY.
--- NOTE | 2020-12-14 07:40 | NUR ---
MS RN OPENING NOTE RECEIVED PATIENT LYING IN BED, RESTING. A/O X 4. CLINICAL TRIAL PATIENT. PATIENT IS CALM AND COOPERATIVE AT THIS TIME. NO DISTRESS NOTED. NO C/O PAIN OR DISCOMFORT. SAFETY MEASURES IMPLEMENTED. ENCOURAGED PATIENT TO CALL IF NEEDED. WILL CONTINUE TO MONITOR.
[2020-12-14] MEDS: AMLODIPINE 10 MG PO SCH (08:12)
[2020-12-14] MEDS: IBUPROFEN 200 MG TABLET PO PRN ×2 (08:16→21:30)
[2020-12-14 08:34] VITALS: BP 120/76
[2020-12-14] MEDS: INVEST MED Kar XT OR PLACEBO 50/20 MG PO SCH ×2 (10:02→21:58)
[2020-12-14 16:23] VITALS: BP 127/68
--- NOTE | 2020-12-14 18:31 | NUR ---
MS RN CLOSING NOTE PATIENT CURRENTLY LYING IN BED, AWAKE, WATCHING TV. A/O X4. ON ROOM AIR. CLINICAL TRIAL PATIENT. NO PAIN OR DISTRESS NOTED. BREATHING EVEN AND UNLABORED. AMBULATORY. PATIENT CALM AND COOPERATIVE THROUGHOUT SHIFT. INVESTIGATIONAL DRUGS IN [place]. SAFETY PRECAUTIONS IMPLEMENTED. CALL LIGHT WITHIN REACH. WILL ENDORSE TO WAITER/WAITRESS BUFFET NURSE FOR JOVANNY.
[2020-12-14] MEDS: LORAZEPAM 1 MG TABLET FOR AGITATION/ANXIETY PO PRN (18:52)
--- NOTE | 2020-12-14 19:00 | NUR ---
RN opening notes Received Pt from morning nurse. Pt is laying in bed comfortably watching TV. Pt is alert and orientedX4. Respiration is normal in room air. No SOB. No S/s of distress noted. Pt has no IV site. Pt is able to ambulates with a steady gait. Safety precautions is maintained. Bed at low position, brakes locked, side rails upX2 and call light is within reach. Will continue to monitor.
[2020-12-14 20:00] VITALS: BP 130/83
--- NOTE | 2020-12-14 21:30 | NUR ---
RN notes Pt's complaining of pain on R arm and requesting ibuprofen. Administered ibuprofen 200 mg/3 tabs/po as ordered for pain. VS is stable. Safety precautions is maintained. will continue to monitor.
[2020-12-14] MEDS: ZOLPIDEM TARTRATE 10 MG TABLET PO PRN (22:29)
--- NOTE | 2020-12-14 22:29 | NUR ---
RN notes Pt is complaining of insomnia and requesting ambien. Administered ambien 10 mg/po/prn as ordered for sleeping. safety precautions is maintained. Will continue to monitor.
[2020-12-14] MEDS: MAG HYDROX/AL HYDROX/SIMETH 30 ML UDC PO PRN (22:32)
--- NOTE | 2020-12-14 22:32 | NUR ---
RN notes Pt is complaining of heartburn and requesting meds. Administered maalox 30 ml/po/prn as ordered for heartburn. Will continue to monitor.
--- NOTE | 2020-12-15 06:50 | NUR ---
RN MS closing notes Pt is resting in bed comfortably. Pt is alert and orientedX4. Respiration is normal in room air. No SOB. No S/s of distress noted. VS is stable. Pt has no IV site. Kept Pt clean, dry and comfortable. Safety precautions is maintained. Bed at low position, brakes locked, side rails upX2 and call light is within reach. Will endorse to morning for JOVANNY.
[2020-12-15 08:00] VITALS: BP 116/64
[2020-12-15] MEDS: IBUPROFEN 200 MG TABLET PO PRN ×2 (09:03→18:07)
[2020-12-15] MEDS: AMLODIPINE 10 MG PO SCH (09:03)
[2020-12-15] MEDS: INVEST MED Kar XT OR PLACEBO 50/20 MG PO SCH ×2 (10:02→21:59)
[2020-12-15 16:00] VITALS: BP 113/14
--- NOTE | 2020-12-15 18:42 | NUR ---
MS RN CLOSING NOTE PATIENT CURRENTLY LYING IN BED, AWAKE, WATCHING TV. A/O X4. ON ROOM AIR. CLINICAL TRIAL PATIENT. NO PAIN OR DISTRESS NOTED. BREATHING EVEN AND UNLABORED. AMBULATORY. PATIENT CALM AND COOPERATIVE THROUGHOUT SHIFT. INVESTIGATIONAL DRUGS IN [place]. SAFETY PRECAUTIONS IMPLEMENTED. CALL LIGHT WITHIN REACH. WILL ENDORSE TO ACCOUNTING RECRUITER NURSE FOR JOVANNY.
--- NOTE | 2020-12-15 19:30 | NUR ---
MS RN OPENING NOTE RECEIVED PATIENT IN BED. DR. SALGUERO AT BEDSIDE. A/OX4. TOLERATING ROOM AIR. RESPIRATIONS ARE EVEN AND UNLABORED. NO S/S SOB NOTED. NO C/O PAIN AT THIS TIME. IN NO APPARENT DISTRESS. NO IV ACCESS. PER PATIENT MD STATED NO AMBIEN TONIGHT. BED IS OW AND LOCKED, HOB ELEVATED IN SEMI FOWLERS, SIDE RIALS UP X2, CALL LIGHT WITHIN REACH. WILL CONTINUE TO MONITOR THROUGHOUT SHIFT.
[2020-12-15 20:00] VITALS: BP 107/51
[2020-12-15] MEDS: ACETAMINOPHEN ES 500 MG TABLET PO PRN (20:20)
--- NOTE | 2020-12-15 20:20 | NUR ---
MS RN NOTE PATIENT REQUESTED IBUPROFEN, INFORMED HER SHE JUST RECEIVED IBUPROFEN AND IT IS ORDERED Q8HR BUT TYLENOL IS AVAILABLE. PATIENT AGREED, PAIN IN RIGHT ELBOW AND BACK STATING THE HOSPITAL BED IS UNCOMFORTABLE.
[2020-12-15 20:37] VITALS: BP 107/51
[2020-12-16] MEDS: ZOLPIDEM TARTRATE 10 MG TABLET PO PRN ×2 (01:18→22:05)
--- NOTE | 2020-12-16 06:46 | NUR ---
MS RN CLOSING NOTE PATIENT RESTING IN BED. A/OX4. REMAINS TOLERATING ROOM AIR MANAGED PAIN WITH TYLENOL.NO DISTRESS. NO S/S OF AKATHISIA OR TREMORS. NO IV ACCESS. PATIENT DID REQUEST AMBIEN, STATED STATED IT WAS OK TO GET IT AFTER 12 O CLOCK. CHECKED PAPER WORK. NO HOLD FOR AMBIEN. BED REMAINS LOW AND LOCKED, HOB ELEVATED IN SEMI FOWLERS, SIDE RIALS UP X2, CALL LIGHT WITHIN REACH. WILL ENDORSE TO ONCOMING SHIFT.
--- NOTE | 2020-12-16 07:35 | NUR ---
MS RN OPENING NOTE PATIENT RESTING IN BED. A/OX4. REMAINS TOLERATING ROOM AIR MANAGED PAIN WITH TYLENOL.NO DISTRESS. NO S/S OF AKATHISIA OR TREMORS. NO IV ACCESS. PATIENT DID REQUEST AMBIEN, STATED STATED IT WAS OK TO GET IT AFTER 12 O CLOCK. CHECKED PAPER WORK. NO HOLD FOR AMBIEN. BED REMAINS LOW AND LOCKED, HOB ELEVATED IN SEMI FOWLERS, SIDE RIALS UP X2, CALL LIGHT WITHIN REACH AND ANSWERED PROMPTLY.
[2020-12-16 07:52] VITALS: BP 128/88
[2020-12-16] MEDS: INVEST MED Kar XT OR PLACEBO 50/20 MG PO SCH ×2 (10:15→21:59)
[2020-12-16] MEDS: AMLODIPINE 10 MG PO SCH (10:15)
[2020-12-16] MEDS: ACETAMINOPHEN ES 500 MG TABLET PO PRN ×2 (12:33→20:47)
[2020-12-16 16:00] VITALS: BP 105/79
--- NOTE | 2020-12-16 18:38 | NUR ---
MS RN CLOSING NOTE PATIENT RESTING IN BED. A/OX4. REMAINS TOLERATING ROOM AIR MANAGED PAIN WITH TYLENOL.NO DISTRESS. NO S/S OF AKATHISIA OR TREMORS. NO IV ACCESS. PATIENT DID REQUEST AMBIEN, STATED STATED IT WAS OK TO GET IT AFTER 12 O CLOCK. CHECKED PAPER WORK. NO HOLD FOR AMBIEN. BED REMAINS LOW AND LOCKED, HOB ELEVATED IN SEMI FOWLERS, SIDE RIALS UP X2, CALL LIGHT WITHIN REACH AND ANSWERED PROMPTLY.
--- NOTE | 2020-12-16 20:00 | NUR ---
MS RN OPENING NOTES Patient is A&Ox4. No behaviors at this time. Seen ambulating around unit. Denies any adverse side effects from investigational medication.
[2020-12-16 20:08] VITALS: BP 124/60
[2020-12-17] MEDS: IBUPROFEN 200 MG TABLET PO PRN (04:01)
--- NOTE | 2020-12-17 06:36 | NUR ---
MS RN CLOSING NOTES Patient is A&Ox4. Slpet approx. 7 hours tonight. PRN Motrin given for R shoulder pain with effect. No other complaints. Able to make needs known. No behaviors noted. All needs met by staff.
--- NOTE | 2020-12-17 07:26 | NUR ---
MS RN OPENING NOTE PATIENT RESTING IN BED. A/OX4. REMAINS TOLERATING ROOM AIR MANAGED PAIN WITH TYLENOL.NO DISTRESS. NO S/S OF AKATHISIA OR TREMORS. NO IV ACCESS. CHECKED PAPER WORK. BED REMAINS LOW AND LOCKED, HOB ELEVATED IN SEMI FOWLERS, SIDE RIALS UP X2, CALL LIGHT WITHIN REACH AND ANSWERED PROMPTLY.
[2020-12-17 08:00] VITALS: BP 135/71
[2020-12-17] MEDS: AMLODIPINE 10 MG PO SCH (08:14)
[2020-12-17] MEDS: INVEST MED Kar XT OR PLACEBO 50/20 MG PO SCH ×2 (10:39→22:00)
[2020-12-17] MEDS: ACETAMINOPHEN ES 500 MG TABLET PO PRN (11:11)
[2020-12-17 16:00] VITALS: BP 147/76
--- NOTE | 2020-12-17 18:39 | NUR ---
MS RN CLOSING NOTE PATIENT RESTING IN BED. A/OX4. REMAINS TOLERATING ROOM AIR MANAGED PAIN WITH TYLENOL.NO DISTRESS. NO S/S OF AKATHISIA OR TREMORS. NO IV ACCESS. CHECKED PAPER WORK. BED REMAINS LOW AND LOCKED, HOB ELEVATED IN SEMI FOWLERS, SIDE RIALS UP X2, CALL LIGHT WITHIN REACH AND ANSWERED PROMPTLY.
--- NOTE | 2020-12-17 19:40 | NUR ---
MS RN OPENING NOTES: RECEIVED PATIENT AWAKE IN BED, AMBULATORY WITH SUPERVISION, NO COMPLAIN OF PAIN AND DISCOMFORT AT THIS TIME, BED IN LOW, CALL LIGHTS WITHIN REACH, REMIND THE RESIDENT TO USE THE CALL LIGHTS WHEN NEEDED ASSISTANCE AND NOT TO EAT 2.5 HOURS BEFORE AND AFTER PRIOR TO TAKING THE 2200 MEDICATION, PATIENT UNDERSTOOD INSTRUCTIONS, ALL NEEDS MET , WILL CONTINUE TO MONITOR.
[2020-12-17 20:00] VITALS: BP 133/78
[2020-12-17] MEDS: ZOLPIDEM TARTRATE 10 MG TABLET PO PRN (22:31)
[2020-12-18 05:13] VITALS: BP 133/78
--- NOTE | 2020-12-18 06:38 | NUR ---
MS RN CLOSING NOTE: PATIENT WAS PLACED IN BED AWAKE AND ON STABLE CONDITION, A/O X4, ABLE TO MAKE NEEDS KNOWN, AMBULATORY, NO COMPLAIN OF PAIN AND DISCOMFORT AT THIS TIME, DUE MEDICAION GIVEN, PATIENT KEPT CLEAN AND DRY, BED ARE PLACED IN ITS LOWEST POSITION, CALL LIGHTS WITHIN REACH, WILL ENDORSE INCOMING SHIFT.
--- NOTE | 2020-12-18 07:55 | NUR ---
MS OPENING NOTE PATIENT IS IN BED RESTING, PATIENT IS IN NO ACUTE DISTRESS, PATIENT IS ON ROOM AIR. SAFETY PRECAUTIONS ARE ON, BED IS LOCKED IN THE LOWEST POSITION, SIDE RAILS ARE UP, CALL LIGHT WITHIN REACH, WILL CONTINUE TO MONITOR CLOSELY THROUGHOUT THE SHIFT.
[2020-12-18 08:00] VITALS: BP 127/72
[2020-12-18] MEDS: AMLODIPINE 10 MG PO SCH (08:31)
[2020-12-18] MEDS: INVEST MED Kar XT OR PLACEBO 50/20 MG PO SCH ×2 (10:05→22:00)
[2020-12-18 16:00] VITALS: BP 120/76
--- NOTE | 2020-12-18 18:52 | NUR ---
MS RN CLOSING NOTE PATIENT IS IN BED RESTING, PATIENT IS IN NO ACUTE DISTRESS, PATIENT IS ON ROOM AIR. SAFETY PRECAUTIONS ARE ON, BED IS LOCKED IN THE LOWEST POSITION, SIDE RAILS ARE UP, CALL LIGHT WITHIN REACH, ENDORSE PATIENT TO TOLL BOOTH OPERATOR NURSE.
--- NOTE | 2020-12-18 19:30 | NUR ---
MS/RN OPENING NOTES RECEIVED IN BED RESTING. PATIENT IS A/O X 4. PATIENT IS BREATHING EVENLY AND NONLABORED ON ROOM AIR. NO SIGNS OF DISTRESS NOTED. PATIENT SAFETY MEASURES ARE IN PLACE. BED LOW LOCKED AND CALL LIGHT WITHIN REACH. WILL CONTINUE WITH PATIENT PLAN OF CARE.
[2020-12-18] MEDS: ACETAMINOPHEN ES 500 MG TABLET PO PRN (19:38)
--- NOTE | 2020-12-18 19:40 | NUR ---
MS/RN NOTES PATIENT REQUESTING FOR PAIN MED. PATIENT GIVEN TYLENOL 1,000MG PO. V/S WNL, WILL CONTINUE TO MONITOR.
[2020-12-18 20:00] VITALS: BP 126/68
[2020-12-19 08:00] VITALS: BP 141/77
--- NOTE | 2020-12-19 08:00 | NUR ---
RN OPENING NOTE RECEIVED PATIENT IN BED, AO X 4, ABLE TO RESPONDS ALL STIMULI. NO SI/HI OBSERVED. ALSO DOES NO APPEARS DISTRESS OR DISCOMFORT. SKIN IS WARM TO TOUCH, KEEP CLEAN/DRY INTACT IV SITE. RESPIRATORY EVEN AND UNLABORED IN ROOM AIR. KEPT ELEVATED HOB FOR ENSURE AIR AND ASPIRATION PRECAUTION, ALSO LOWEST BED POSITION FOR SAFETY. CALL LIGHT WITHIN REACH, WILL CONTINUE TO MONITOR.
[2020-12-19] MEDS: AMLODIPINE 10 MG PO SCH (08:45)
[2020-12-19] MEDS: INVEST MED Kar XT OR PLACEBO 50/20 MG PO SCH ×2 (10:00→22:00)
--- NOTE | 2020-12-19 18:15 | NUR ---
RN CLOSING NOTE PATIENT RESTING IN BED, REMAINS AO X 4, DENIES DISTRESS, NO SI/HI OBSERVED. SKIN IS WARM TOUCH, KEEP CLEAN/DRY. RESPIRATORY EVEN AND UNLABORED IN ROOM AIR. KEPT ELEVATED HOB FOR ENSURE AIRWAY, ALSO LOWEST BED POSITION FOR SAFETY. CALL LIGHT WITHIN REACH, WILL ENDORSE SUPERVISOR MOTORCYCLE REPAIR SHOP.
[2020-12-19 20:00] VITALS: BP 106/54
--- NOTE | 2020-12-19 20:00 | NUR ---
RN NOTES RECEIVED IN ROOM, EATING DINNER, NOT IN APPARENT DISTRESS, GIVEN INSTRUCTIONS NOT TO EAT AFTER 8 PM PRIOR TO INVESTIGATIONAL DRUG ADMINISTRATION. PATIENT VERBALIZED UNDERSTANDING.
--- NOTE | 2020-12-20 07:10 | NUR ---
RN OPENING NOTE RECEIVED PATIENT IN BED, AlLERT AND ORIENTED X 4. PATIENT IS AMBULATORY WITH STEADY GAIT. WITH EVEN AND UNLABORED BREATHING ON ROOM AIR WITH NO SIGNS OF DISTRESS. SAFETY MEASURES ENSURED AND COMFORT MEASURES PROVIDED. BED AT LOWEST BED POSITION AND LOCKED FOR SAFETY. CALL LIGHT AND TABLE WITHIN REACH AT ALL TIMES. PROVIDED WITH CALM AND QUIET ENVIRONMENT. WILL CONTINUE TO MONITOR PATIENT.
[2020-12-20 08:00] VITALS: BP 132/69
[2020-12-20] MEDS: AMLODIPINE 10 MG PO SCH (09:04)
[2020-12-20] MEDS: INVEST MED Kar XT OR PLACEBO 50/20 MG PO SCH ×2 (09:58→22:00)
[2020-12-20 16:00] VITALS: BP 122/59
--- NOTE | 2020-12-20 18:53 | NUR ---
RN CLOSING NOTE PATIENT AWAKE ON BED ALERT AND ORIENTED. PATIENT DENIES ANY PAIN OR DISCOMFORT. WITH NO SIGNS OF DISTRESS THROUGHOUT THE SHIFT. COMFORT MEASURES PROVIDED. PROVIDED WITH CALM AND QUIET ENVIRONMENT. NO SINGS AND SYMPTOMS OF AKATHISIA, TREMORS OR EPS NOTED THROUOUT THE SHIFT. BED MAINTAINED ON LOWEST POSITION AND LOCKED. CALL LIGHT AND BEDSIDE TABLE WITHIN REACH AT ALL TIMES. WILL ENDORSE TO CUTTING AND PRINTING MACHINE OPERATOR FOR CONTINUITY OF CARE.
--- NOTE | 2020-12-20 18:58 | NUR ---
RN NOTES INFORMED BY PHARMACY THAT PATIENT'S [facility] MEDICATION [facility]PPL[facility] HAS RAN OUT; PATIENT MADE AWARE AND PER PATIENT, SHE WILL LET DR. SALGUERO'S OFFICE KNOW ABOUT IT. WILL ENDORSE TO NEXT SHIFT.
--- NOTE | 2020-12-20 19:40 | NUR ---
MS-RN OPENING NOTE RECEIVED PATIENT RESTING IN BED WATCHING TV. ALERT AND ORIENTED X 4. ABLE TO MAKE NEEDS KNOWN. NO COMPLAINTS OF PAIN NOTED AT THIS TIME. NO IV ACCESS AT THIS TIME. CONTINUES ON CLINICAL TRIAL AND INVESTIGATIONAL MEDICATION. PATIENT IS AMBULATORY WITH STEADY GAIT. CALL LIGHT WITHIN REACH. ASPIRATION, FALL AND SAFETY PRECAUTIONS MAINTAINED. WILL CONTINUE TO MONITOR.
[2020-12-20 21:04] VITALS: BP 137/65
[2020-12-20] MEDS: ZOLPIDEM TARTRATE 10 MG TABLET PO PRN (22:03)
--- NOTE | 2020-12-21 06:20 | NUR ---
MS/RN CLOSING NOTE PATIENT CURRENTLY RESTING IN BED WATCHING TV. ALERT AND ORIENTED X 4. ABLE TO MAKE NEEDS KNOWN. NO COMPLAINTS OF PAIN NOTED AT THIS TIME. NO IV ACCESS AT THIS TIME. CONTINUES ON CLINICAL TRIAL AND INVESTIGATIONAL MEDICATION. PATIENT IS AMBULATORY WITH STEADY GAIT. CALL LIGHT WITHIN REACH. ASPIRATION, FALL AND SAFETY PRECAUTIONS MAINTAINED. WILL ENDORSE PLAN OF CARE TO ONCOMING SHIFT.
--- NOTE | 2020-12-21 07:18 | NUR ---
MS RN OPENING NOTE RECEIVED PATIENT IN BED, ALERT AND ORIENTED X 4. PATIENT IS AMBULATORY WITH STEADY GAIT. WITH EVEN AND UNLABORED BREATHING ON ROOM AIR WITH NO SIGNS OF DISTRESS. NO COMPLAINT OF PAIN OR DISCOMFORT. SAFETY MEASURES ENSURED AND COMFORT MEASURES PROVIDED. BED AT LOWEST BED POSITION AND LOCKED FOR SAFETY. CALL LIGHT AND TABLE WITHIN REACH AT ALL TIMES. PROVIDED WITH CALM AND QUIET ENVIRONMENT. WILL CONTINUE TO MONITOR PATIENT.
[2020-12-21 08:00] VITALS: BP 140/83
[2020-12-21] MEDS: AMLODIPINE 10 MG PO SCH (09:07)
[2020-12-21] MEDS: INVEST MED Kar XT OR PLACEBO 50/20 MG PO SCH ×2 (09:36→22:02)
--- NOTE | 2020-12-21 09:37 | NUR ---
RN NOTES PATIENT WITH APPOINTMENT AT DR. SALGUERO'S OFFICE AND WAS LEAVING ACCOMPANIED BU NURSE. PATIENT WITH DUE MEDICATION AT EXACTLY 10AM BUT NEEDED TO GO. PATIENT WAS GIVEN THE MEDICATION WITH THE INSTRUCTION TO GIVE IT .AT EXACTLY 10AM. PATIENT AND NURSE VERBALIZED UNDERSTANDING AND APPRECIATION.
--- NOTE | 2020-12-21 10:20 | NUR ---
MS PROCTOR NOTES PATIENT DISCHARGED ORDERED. PATIENT IN STABLE CONDITION WITH NO SIGNS OF DISTRESS. DISCHARGE INSTRUCTIONS AND HEALTH TEACHING PROVIDED. PATIENT VERBALIZED UNDERSTANDING AND APPRECIATION. PATIENT ACCOMPANIED BY 2 POLICE OFFICERS, IN STABLE CONDITION. Addendum: 12/21/20 at 1032 by ANUJ DUNN RN ERROR - WRONG ENTRY
--- NOTE | 2020-12-21 11:30 | NUR ---
RN NOTES RECEIVED A CALL FROM DR. SALGUERO TO SAID TO GIVE THE INVESTIGATIONAL DRUG TO PATIENT TONIGHT AND NOT TO PUT PATIENT ON NPO.
[2020-12-21 16:00] VITALS: BP 123/63
--- NOTE | 2020-12-21 19:06 | NUR ---
RN CLOSING NOTE PATIENT AWAKE ON BED ALERT AND ORIENTED. PATIENT DENIES ANY PAIN OR DISCOMFORT. WITH NO SIGNS OF DISTRESS THROUGHOUT THE SHIFT. COMFORT MEASURES PROVIDED. PROVIDED WITH CALM AND QUIET ENVIRONMENT. NO SIGNS AND SYMPTOMS OF AKATHISIA, TREMORS OR EPS NOTED THROUGHOUT THE SHIFT. BED MAINTAINED ON LOWEST POSITION AND LOCKED. CALL LIGHT AND BEDSIDE TABLE WITHIN REACH AT ALL TIMES. WILL ENDORSE TO FIBERGLASS BOAT BUILDER FOR CONTINUITY OF CARE.
--- NOTE | 2020-12-21 19:30 | NUR ---
RN OPENING NOTE PATIENT AMBULATING [place]. PATIENT DENIES ANY PAIN/ DISCOMFORT. DENIES SYMPTOMS OF AKATHISIA, TREMORS OR EPS, NONE SEEN AT THIS TIME. PT REPORTS "I FEEL RELAXED. LIKE REAL MELLOW SINCE STARTING THE MEDICATION." DENIES SI/HI. ROOM CHECKED BED ON LOWEST POSITION AND LOCKED. CALL LIGHT AVAILABLE AND WORKING WILL CONT TO MONITOR. PER REPORT DR. SALGUERO CANCELLED NPO STATUS SCHEDULED FOR TONIGHT AND PATIENT TO BE ALLOWED TO HAVE LORZEPAM AND AMBIEN PRN. TELEPHONE ORDER WRITTEN OUT AND FAXED TO PHARMACY BY ROBERT PROCTOR.
[2020-12-21 20:00] VITALS: BP 120/61
--- NOTE | 2020-12-21 22:00 | NUR ---
PATIENT CONFIRMED NPO STATUS FOR LAST 2 HOURS. INVESTIGATIONAL MEDICINE ADMINISTERED TO PATIENT SCHEDULED.
[2020-12-21] MEDS: ZOLPIDEM TARTRATE 10 MG TABLET PO PRN (22:02)
--- NOTE | 2020-12-22 07:31 | NUR ---
MS RN OPENING NOTE PATIENT RESTING IN BED. A/OX4. REMAINS TOLERATING ROOM AIR MANAGED PAIN WITH TYLENOL.NO DISTRESS. NO S/S OF AKATHISIA OR TREMORS. NO IV ACCESS. CHECKED PAPER WORK. NO HOLD FOR AMBIEN. BED REMAINS LOW AND LOCKED, HOB ELEVATED IN SEMI FOWLERS, SIDE RIALS UP X2, CALL LIGHT WITHIN REACH AND ANSWERED PROMPTLY.
[2020-12-22 08:00] VITALS: BP 145/84
[2020-12-22] MEDS: INVEST MED Kar XT OR PLACEBO 50/20 MG PO SCH ×2 (10:00→22:00)
[2020-12-22] MEDS: AMLODIPINE 10 MG PO SCH (13:59)
[2020-12-22] MEDS: LORAZEPAM 1 MG TABLET FOR AGITATION/ANXIETY PO PRN (14:00)
[2020-12-22 16:00] VITALS: BP 146/91
--- NOTE | 2020-12-22 17:11 | NUR ---
MS RN CLOSING NOTE PATIENT RESTING IN BED. A/OX4. REMAINS TOLERATING ROOM AIR MANAGED PAIN WITH TYLENOL.NO DISTRESS. NO S/S OF AKATHISIA OR TREMORS. NO IV ACCESS. CHECKED PAPER WORK. NO HOLD FOR AMBIEN. BED REMAINS LOW AND LOCKED, HOB ELEVATED IN SEMI FOWLERS, SIDE RIALS UP X2, CALL LIGHT WITHIN REACH AND ANSWERED PROMPTLY.
--- NOTE | 2020-12-22 19:23 | NUR ---
MS RN OPENING PATIENT IN ROOM. MADE KNOWN OF THE INVESTIGATIONAL DRUG SHE IS RECEIVING AT 2200. PATIENT SAID SHE IS AWARE. NO C/O PAIN AT THE MOMENT. SAFETY IN PLACE: BED IN LOWEST, LOCKED POSITION; CALL LIGHT WITHIN REACH. WILL CONTINUE TO MONITOR.
[2020-12-22 20:00] VITALS: BP 121/62
[2020-12-22] MEDS: ZOLPIDEM TARTRATE 10 MG TABLET PO PRN (22:05)
--- NOTE | 2020-12-22 22:06 | NUR ---
MS RN NOTE PATIENT ASKED FOR AMBIEN. GIVEN PRN.
--- NOTE | 2020-12-23 07:04 | NUR ---
MS RN CLOSING 314 PATIENT IN BED. A/OX4. NO S/S OF DISTRESS. NO C/O PAIN HEATHER. PATIENT ABLE TO MAKE NEEDS KNOWN. ALL NEEDS ATTENDED. INVESTIGATIONAL DRUG GIVEN. PATIENT DID NOT EXHIBIT ANY S/S OF EPS, TREMORS, NOR AKATHISIA. SAFETY KEPT IN PLACE THE WHOLE SHIFT: BED IN LOWEST, LOCKED POSITION. CALL LIGHT WITHIN REACH. WILL ENDORSE CARE TO MORNING RN.
[2020-12-23 08:00] VITALS: BP 126/81
[2020-12-23] MEDS: AMLODIPINE 10 MG PO SCH (08:46)
[2020-12-23] MEDS: INVEST MED Kar XT OR PLACEBO 50/20 MG PO SCH ×2 (10:00→22:00)
[2020-12-23 16:00] VITALS: BP 113/51
[2020-12-23] MEDS: ACETAMINOPHEN ES 500 MG TABLET PO PRN (17:35)
--- NOTE | 2020-12-23 17:40 | NUR ---
RN NOTE PATIENT COMPLAINED OF HEAD AND BACK PAIN. PATIENT ASKED FOR TYLENOL PRN. MEDICATION ADMINISTERED ORDERED. WILL REASSESS.
--- NOTE | 2020-12-23 18:08 | NUR ---
MS RN CLOSING NOTE PATIENT CURRENTLY LYING IN BED, AWAKE, A/O X4. ON ROOM AIR. CLINICAL TRIAL PATIENT. NO PAIN OR DISTRESS NOTED AT THIS TIME. PATIENT IS BREATHING EVEN AND UNLABORED. AMBULATORY. PATIENT CALM AND COOPERATIVE THROUGHOUT SHIFT. INVESTIGATIONAL MEDICATION WAS GIVEN THIS MORNING. SAFETY PRECAUTIONS IMPLEMENTED BED LOW LOCKED AND CALL LIGHT WITHIN REACH. WILL ENDORSE TO MARKET RESEARCH SENIOR PROJECT MANAGER NURSE.
[2020-12-23 20:00] VITALS: BP 128/60
--- NOTE | 2020-12-23 20:00 | NUR ---
MS RN OPENING NOTES Patient is Awake, alert, and oriented x4. Denies any pain or discomfort at this time. Denies any side effects from investigational med. Pt is able to make needs known.
[2020-12-23] MEDS: ZOLPIDEM TARTRATE 10 MG TABLET PO PRN (22:23)
--- NOTE | 2020-12-23 22:25 | NUR ---
RN NOTES Pt asked for sleeping pill- Ambien 10mg po given as ordered, V/S stable
--- NOTE | 2020-12-24 06:46 | NUR ---
MS RN CLOSING NOTES Patient is A&Ox4. VS WNL. ABle to sleep well after taking PRN ambien. No c/o pain or discomfort. No distress noted. P{atient denies any side effects from investigational med.
--- NOTE | 2020-12-24 07:00 | NUR ---
RN OPENING NOTES RECEIVED PT AWAKE IN BED AT THIS TIME. AOX4. PT ABLE TO MAKE NEEDS KNOWN. NO SOB NOTED, NO C/O PAIN AT THIS TIME, NO S/S OF ANY APPARENT DISTRESS NOTED. PT IS STABLE ON RA. NO IV ACCESS NOTED. PT DENIES SI/HI. PT DENIES VISUAL/AUDITORY HALLUCINATION. SAFETY PRECAUTIONS IN PLACE AND MAINTAINED AT ALL TIMES. BED IN LOWEST LOCKED POSITION, HOB ELEVATED, SIDE RAILS UP X2, CALL LIGHT AND TABLE WITHIN REACH. WILL CONTINUE TO MONITOR
[2020-12-24 08:00] VITALS: BP 119/64
[2020-12-24] MEDS: ACETAMINOPHEN ES 500 MG TABLET PO PRN (09:18)
--- NOTE | 2020-12-24 09:18 | NUR ---
PT C/O OF RIGHT ACHING SHOULDER PAIN OF 3/10 AT THIS TIME. PT NOTED GRASPING SITE. VS BP 119/64, HR 81, RR 18, T 98.1, SPO2 97% ON RA. PER PT REQUEST, TYLENOL 1000MG PO Q8H PRN FOR PAIN ADMINISTERED AT THIS TIME PER ORDER. WILL CONTINUE TO MONITOR
[2020-12-24] MEDS: AMLODIPINE 10 MG PO SCH (09:19)
[2020-12-24] MEDS: INVEST MED Kar XT OR PLACEBO 50/20 MG PO SCH ×2 (10:01→22:00)
[2020-12-24 16:00] VITALS: BP 131/83
--- NOTE | 2020-12-24 18:17 | NUR ---
RN CLOSING NOTES PT AWAKE IN BED AT THIS TIME. PT REMAINED STABLE THROUGHOUT SHIFT. ALL NEEDS, MEDICATIONS, AND CARE ADMINISTERED ANTICIPATED PER ORDER. PT DENIES SI/HI, VISUAL AND AUDITORY HALLUCINATION. SAFETY PRECAUTIONS IN PLACE AND MAINTAINED AT ALL TIMES. BED IN LOWEST LOCKED POSITION, HOB ELEVATED, SIDE RAILS UP X 2. CALL LIGHT AND TABLE WITHIN REACH. WILL ENDORSE TO SERVICE GIRL NURSE FOR JOVANNY
[2020-12-24 20:00] VITALS: BP 130/66
--- NOTE | 2020-12-24 20:05 | NUR ---
MS RN OPENING NOTES Patient is A&Ox4. Calm and cooperative. Verablizes importance of taking investigational medication at 10pm exactly -states she will not go off unit at this time. Able to verbalize needs. denies side effects from investigational meds at this time. Will continue to monitor.
[2020-12-24] MEDS: ZOLPIDEM TARTRATE 10 MG TABLET PO PRN (22:28)
--- NOTE | 2020-12-25 06:15 | NUR ---
MS RN CLOSING NOTES Patient is A&Ox4. VSS. Denies pain or discomfort. Denies side effects from investigational medication. Pt exhibits appropriate behaviors. Slept well throughout the night after PRN Toño.
[2020-12-25 07:52] VITALS: BP 132/80
--- NOTE | 2020-12-25 07:57 | NUR ---
MS RN OPENING NOTES RECEIVED PATIENT IN BED, AWAKE, A/O X4 WATCHING IPAD. DENIES ANY PAIN. WILL CONTINUE TO MONITOR.
[2020-12-25] MEDS: AMLODIPINE 10 MG PO SCH (08:36)
[2020-12-25] MEDS: INVEST MED Kar XT OR PLACEBO 50/20 MG PO SCH ×2 (10:13→22:00)
[2020-12-25] MEDS: LORAZEPAM 1 MG TABLET FOR AGITATION/ANXIETY PO PRN (16:26)
--- NOTE | 2020-12-25 18:42 | NUR ---
MS RN CLOSING NOTES PATIENT RESTING IN HER ROOM; WATCHING TV. A/O X4, ON ROOM AIR; BREATHING EVEN AND UNLABORED. DOES NOT REPORT ANY TREMORS DURING THE SHIFT. WILL ENDORSE TO GASTROENTEROLOGY MANAGER NURSE.
[2020-12-25 20:00] VITALS: BP 139/98
--- NOTE | 2020-12-26 06:06 | NUR ---
MS RN CLOSING NOTE PT IS IN BED WITH EYES CLOSED, EASY TO AROUSE. PT SLEPT FOR 8 HOURS. A/O X4. PT IS AMBULATORY WITH BRP. PT IS STABLE ON ROOM AIR. BREATHING EVEN AND UNLABORED. NO SOB NOTED. NO S/O ANY APPARENT DISTRESS. NO IV ACCESS NOTED. ALL NEEDS HAVE BEEN MET. SAFETY PRECAUTIONS MAINTAINED AT ALL TIMES. BED IN LOWEST LOCKED POSITION, HOB ELEVATED, SIDE RAILS UP X2. CALL LIGHT AND TABLE WITHIN REACH. WILL ENDORSE TO ONCOMING NURSE FOR JOVANNY.
--- NOTE | 2020-12-26 07:08 | NUR ---
RN OPENING NOTES RECEIVED PT AWAKE IN BED AT THIS TIME. AOX4. PT ABLE TO MAKE NEEDS KNOWN. NO SOB NOTED, NO C/O PAIN AT THIS TIME, NO S/O ANY ACUTE DISTRESS NOTED. RESPIRATIONS EVEN AND UNLABORED, STABLE ON RA. NO IV ACCESS NOTED. PT DENIES SI/HI. PT DENIES VISUAL/AUDITORY HALLUCINATION. NO COMPLAIN OF TREMORS, EPS OR AKATHISIA. SAFETY PRECAUTIONS IN PLACE AND MAINTAINED AT ALL TIMES. BED IN LOWEST LOCKED POSITION, HOB ELEVATED, SIDE RAILS UP X2, CALL LIGHT AND TABLE WITHIN REACH. WILL CONTINUE TO MONITOR
[2020-12-26 08:00] VITALS: BP 130/63
[2020-12-26] MEDS: AMLODIPINE 10 MG PO SCH (09:53)
[2020-12-26] MEDS: INVEST MED Kar XT OR PLACEBO 50/20 MG PO SCH ×2 (09:53→21:42)
[2020-12-26 16:01] VITALS: BP 114/54
--- NOTE | 2020-12-26 18:55 | NUR ---
RN CLOSING NOTES PT AWAKE IN ROOM AT THIS TIME. PT REMAINED STABLE THROUGHOUT SHIFT. ALL NEEDS, MEDICATIONS, AND CARE ADMINISTERED ANTICIPATED PER ORDER. PT DENIES SI/HI, VISUAL AND AUDITORY HALLUCINATION. NO COMPLAINS OF TREMORS, EPS, OR AKATHISIA. SAFETY PRECAUTIONS IN PLACE AND MAINTAINED AT ALL TIMES. BED IN LOWEST LOCKED POSITION, HOB ELEVATED, SIDE RAILS UP X 2. CALL LIGHT AND TABLE WITHIN REACH. WILL ENDORSE TO VENDING ENTERPRISES SUPERVISOR NURSE FOR JOVANNY
--- NOTE | 2020-12-26 19:20 | NUR ---
MS RN OPENING NOTES: RECEIVED PATIENT IN BED AWAKE, WATCHING VIDEO ON HER PHONE, CALM AND HAPPY. NO S/S OF DISTRESS NOTED. CALL LIGHT WITHIN REACH. BED IN LOWEST AND LOCKED POSITION.
[2020-12-26] MEDS: LORAZEPAM 1 MG TABLET FOR AGITATION/ANXIETY PO PRN (19:47)
[2020-12-26 20:00] VITALS: BP 147/60
[2020-12-26] MEDS: ZOLPIDEM TARTRATE 10 MG TABLET PO PRN (23:17)
--- NOTE | 2020-12-27 07:58 | NUR ---
MS/RN OPENING NOTES RECEIVED PATIENT AWAKE IN BED. A CLINICAL TRIAL PATIENT. ON ROOM AIR. NO SOB NOTED AT THIS TIME. NO DISTRESS NOTED. SAFETY PRECAUTIONS IN PLACE. BED IN LOWEST LOCKED POSITION, HOB ELEVATED, SIDE RAILS UP X 2. CALL LIGHT AND TABLE WITHIN REACH. WILL CONTINUE TO MONITOR PATIENT.
[2020-12-27 08:00] VITALS: BP 130/72
[2020-12-27] MEDS: ACETAMINOPHEN ES 500 MG TABLET PO PRN (08:21)
[2020-12-27] MEDS: AMLODIPINE 10 MG PO SCH (08:22)
[2020-12-27] MEDS: INVEST MED Kar XT OR PLACEBO 50/20 MG PO SCH ×2 (10:00→22:00)
--- NOTE | 2020-12-27 19:02 | NUR ---
MS/RN CLOSING NOTES PATIENT IS IN BED, AWAKE AND ORIENTED X4. ABLE TO MAKE NEEDS KNOWN. A CLINICAL TRIAL PATIENT. ON ROOM AIR. NO SOB NOTED AT THIS TIME. NO DISTRESS NOTED. CLINICAL TRIAL MEDICATION GIVEN AT EXACT TIME TODAY AT 10AM. PATIENT TOLERATED WELL. NO TREMORS, AKATHISIA OR EPS NOTED OR REPORTED DURING THE SHIFT. ALL NEEDS MET. SAFETY PRECAUTIONS IN PLACE. BED LOCKED IN LOWEST POSITION, HOB ELEVATED, SIDE RAILS UP X 2. CALL LIGHT AND TABLE WITHIN REACH. WILL ENDORSE TO THE NEXT SHIFT FOR CONTINUITY OF CARE.
--- NOTE | 2020-12-27 19:19 | NUR ---
MS RN OPENING PATIENT IN ROOM, LYING IN BED ON HER PHONE, WATCHING TV. A/OX4. REMINDED HER OF HER INVESTIGATIONAL DRUG FOR THE @2200, PATIENT STATE UNDERSTANDING AND ACKNOWLEDGEMENT. INVESTIGATIONAL DRUG IN [place]. NOT EXHIBITING ANY S/S OF EPS, AKATHISIA, NOR TREMORS. WILL CONTINUE TO MONITOR.
[2020-12-27 20:00] VITALS: BP 131/61
[2020-12-27 20:32] VITALS: BP 131/61
--- NOTE | 2020-12-28 06:53 | NUR ---
MS CLOSING RN NOTES PATIENT WAS IN BED STILL SLEEPING, EASY TO AROUSE. A/OX4. AMBULATORY. INVESTIGATIONAL DRUGS GIVEN ON TIME. DID NOT EXHIBIT ANY S/S OF AKATHISIA, TREMORS, NOR EPS. WILL ENDORSE CARE TO MORNING SHIFT RN.
--- NOTE | 2020-12-28 07:55 | NUR ---
MS/RN OPENING NOTES RECEIVED PATIENT AWAKE IN BED. ALERT AND ORIENTED X4. ABLE TO MAKE NEEDS KNOWN. A CLINICAL TRIAL PATIENT. ON ROOM AIR. NO SOB NOTED AT THIS TIME. NO DISTRESS NOTED. SAFETY PRECAUTIONS IN PLACE. BED IN LOWEST LOCKED POSITION, HOB ELEVATED, SIDE RAILS UP X 2. CALL LIGHT AND TABLE WITHIN REACH. WILL CONTINUE TO MONITOR PATIENT.
[2020-12-28] MEDS: AMLODIPINE 10 MG PO SCH (09:01)
[2020-12-28] MEDS: INVEST MED Kar XT OR PLACEBO 50/20 MG PO SCH ×2 (10:00→22:00)
[2020-12-28] MEDS: ACETAMINOPHEN ES 500 MG TABLET PO PRN (10:56)
[2020-12-28 16:00] VITALS: BP 141/81
--- NOTE | 2020-12-28 19:31 | NUR ---
MS/RN CLOSING NOTES PATIENT AWAKE IN BED. ALERT AND ORIENTED X4. ABLE TO MAKE NEEDS KNOWN. A CLINICAL TRIAL PATIENT. ON ROOM AIR. NO SOB NOTED AT THIS TIME. NO DISTRESS NOTED. SAFETY PRECAUTIONS IN PLACE. BED IN LOWEST LOCKED POSITION, HOB ELEVATED, SIDE RAILS UP X 2. CALL LIGHT AND TABLE WITHIN REACH. WILL ENDORSE TO THE NEXT SHIFT FOR CONTINUITY OF CARE.
[2020-12-28] MEDS: LORAZEPAM 1 MG TABLET FOR AGITATION/ANXIETY PO PRN (19:53)
[2020-12-28 20:00] VITALS: BP 129/70
--- NOTE | 2020-12-28 20:09 | NUR ---
MS RN OPENING NOTES: CT RECEIVED PATIENT AWAKE IN BED, A/OX4 ABLE TO MAKENEEDS KNOWN. AMBULATORY, NO COMPLAIN OF PAIN AND DISCOMFORT AT THIS TIME, BED IN LOW POSITION, CALL LIGHTS WITHIN REACH, PATIENT KEPT CLEAN AND DRY WILL CONTINUE TO MONITOR.
--- NOTE | 2020-12-29 06:56 | NUR ---
MS RN CLOSING NOTES: PATIENT SLEEP IN BED COMFORTABLY, BED IN LOW POSITION, CALL LIGHTS WITHIN REACH, NO COMPLAIN OF PAIN AND DISCOMFORT AT THIS TIME, PATIENT IS A/O AMBULATORY AND ABLE TO MAKE NEEDS KNOWN, ALL NEED ARE MET, KEPT CLEAN AND DRY, WILL CONTINUE TO MONITOR.
[2020-12-29] MEDS: AMLODIPINE 10 MG PO SCH (09:00)
[2020-12-29] MEDS: INVEST MED Kar XT OR PLACEBO 50/20 MG PO SCH ×2 (09:55→22:00)
[2020-12-29 16:00] VITALS: BP 143/81
[2020-12-29 20:00] VITALS: BP 106/76
--- NOTE | 2020-12-29 20:00 | NUR ---
MS HITESH NOTES Patient is A&Ox4. Able to make needs known. All needs met at this time. Reminded pt to be on unit at 2200 promptly for investigational medication administration. Denies any side effects at this time. Addendum: 12/29/20 at 2013 by TASHA YADAV RN wrong account
--- NOTE | 2020-12-29 20:01 | NUR ---
MS RN NOTES Patient is A&Ox4. Able to make needs known. All needs met at this time. Reminded pt to be on unit at 2200 promptly for investigational medication administration. Denies any side effects at this time.
[2020-12-29 20:20] VITALS: BP 106/76
[2020-12-29] MEDS: ZOLPIDEM TARTRATE 10 MG TABLET PO PRN (22:00)
--- NOTE | 2020-12-30 06:24 | NUR ---
MS RN CLOSING NOTES Patient A&Ox4. VSS. Slept well throughout the night after PRN administration of Ambien. Patient still easy to rouse while sleeping. Compliant with blood draws and taking investigational medications right on time. Denies any adverse side effects of investigational med.
--- NOTE | 2020-12-30 07:25 | NUR ---
MS RN OPENING NOTES Patient A&Ox4. Slept well throughout the night after PRN administration of Ambien. Patient still easy to rouse while sleeping. Compliant with blood draws and taking investigational medications right on time. Denies any adverse side effects of investigational med.
[2020-12-30] MEDS: AMLODIPINE 10 MG PO SCH (08:49)
[2020-12-30] MEDS: INVEST MED Kar XT OR PLACEBO 50/20 MG PO SCH ×2 (10:02→22:00)
--- NOTE | 2020-12-30 18:40 | NUR ---
MS RN CLOSING NOTES Patient A&Ox4. Patient still easy to rouse while sleeping. Compliant with blood draws and taking investigational medications right on time. Denies any adverse side effects of investigational med.
[2020-12-30] MEDS: ACETAMINOPHEN ES 500 MG TABLET PO PRN (19:45)
[2020-12-30 20:00] VITALS: BP 125/72
--- NOTE | 2020-12-30 20:00 | NUR ---
MS RN OPENING NOTES Patient is awake, A&Ox4. Pleasant and cooperative. Denies any side effects from investigational medication. Requests tylenol because she reports she had been lying on her shoulder at an odd angle. Pain level is a 3/10.
[2020-12-30] MEDS: ZOLPIDEM TARTRATE 10 MG TABLET PO PRN (22:00)
--- NOTE | 2020-12-31 06:10 | NUR ---
MS RN CLOSING NOTES Patient is A&Ox4. VSS. No c/o pain or discomfort. Denies adverse side effects from investigational med. No overnight events. Patientis able to make needs known to staff. Independent with ADLs.
--- NOTE | 2020-12-31 07:00 | NUR ---
MS RN OPENING NOTES Patient A&Ox4. Pt reports sleeping well. Reminded to be present in room at 1000 sharp for taking investigational meds Denies any adverse side effects of investigational med.
[2020-12-31 08:00] VITALS: BP 125/72
[2020-12-31] MEDS: AMLODIPINE 10 MG PO SCH (10:01)
[2020-12-31] MEDS: INVEST MED Kar XT OR PLACEBO 50/20 MG PO SCH ×2 (10:01→22:01)
--- NOTE | 2020-12-31 10:08 | NUR ---
ATTEMPTED TO GIVE SCHEDULED INVESTIGATIONAL MED AT 1000, CLINICAL TRIAL PATIENT NOT IN ROOM , SIGN OUT/IN BOOK SAYS PATIENT LEFT FLOOR AT 0955.
--- NOTE | 2020-12-31 11:25 | NUR ---
PT RERUNED TO FLOOR 3 AT 1125 , MEDICATION GIVEN AND EDUCATED ON BEING IN ROOM AT EXACT TIMES FOR MEDICATION
[2020-12-31] MEDS: MAG HYDROX/AL HYDROX/SIMETH 30 ML UDC PO PRN (14:08)
[2020-12-31] MEDS: ACETAMINOPHEN ES 500 MG TABLET PO PRN (14:08)
[2020-12-31 16:00] VITALS: BP 129/71
--- NOTE | 2020-12-31 18:38 | NUR ---
MS RN CLOSING NOTES Patient A&Ox4. Pt reports sleeping well. Reminded to be present in room at 1000 sharp for taking investigational meds Denies any adverse side effects of investigational med.
--- NOTE | 2020-12-31 19:30 | NUR ---
MS RN OPENING NOTES PATIENT ALERT AND ORIENTED X 4, ABLE TO MAKE NEEDS KNOWN. NO COMPLAINTS OF PAIN AT THIS TIME. PATIENT REQUESTED ATIVAN, GIVEN ORDERED. PATIENT STABLE ON ROOM AIR, NO S/S OF DISTRESS OR SHORTNESS OF BREATH NOTED. PATIENT AMBULATORY, STEADY AND INDEPENDENT WITH ADL'S. REMINDED PATIENT TO BE IN ROOM BY 22OO FOR INVESTIGATIONAL MEDICATION. SAFETY MEASURES IN PLACE, CALL LIGHT WITHIN REACH, BED LOCKED IN LOWEST POSITION, SIDE RAILS UP X2. WILL CONTINUE PLAN OF CARE, WILL CONTINUE TO MONITOR.
[2020-12-31] MEDS: LORAZEPAM 1 MG TABLET FOR AGITATION/ANXIETY PO PRN (19:34)
[2020-12-31 20:00] VITALS: BP 140/74
[2020-12-31] MEDS: ZOLPIDEM TARTRATE 10 MG TABLET PO PRN (22:04)
--- NOTE | 2021-01-01 07:00 | NUR ---
MS RN CLOSING NOTES PATIENT RESTING IN BED, ALERT/ORIENTED X 4, ABLE TO MAKE NEEDS KNOWN. NO COMPLAINTS OF PAIN AT THIS TIME. NO REPORTS OF ADVERSE EFFECTS FROM INVESTIGATIONAL MEDS. PATIENT STABLE ON ROOM AIR, NO S/S OF DISTRESS OR SHORTNESS OF BREATH NOTED. MEDICATIONS GIVEN ORDERED. PATIENT NEEDS MET THROUGHOUT SHIFT. SAFETY MEASURES IN PLACE, CALL LIGHT WITHIN REACH, BED LOCKED IN LOWEST POSITION, SIDE RAILS UP X2. WILL ENDORSE TO DAY SHIFT NURSE FOR CONTINUITY OF CARE
--- NOTE | 2021-01-01 07:25 | NUR ---
MS RN OPENING NOTE RECEIVED PATIENT WALKING AROUND THE ROOM. A/O X4. AMBULATORY WITH STEADY GAIT. ON ROOM AIR, TOLERATING WELL. NO SOB NOTED. IN NO APPARENT DISTRESS. NO REPORTS OF PAIN, TREMORS AND AKATHISIA AT THIS TIME. SAFETY MEASURES MAINTAINED. BED IN LOWEST POSITION, BRAKES LOCKED. SIDE RAILS UP X2. CALL LIGHT WITHIN REACH. WILL CONTINUE PLAN OF CARE.
[2021-01-01 08:00] VITALS: BP 128/81
[2021-01-01] MEDS: AMLODIPINE 10 MG PO SCH (08:52)
[2021-01-01] MEDS: INVEST MED Kar XT OR PLACEBO 50/20 MG PO SCH ×2 (10:07→22:00)
[2021-01-01] MEDS: MAG HYDROX/AL HYDROX/SIMETH 30 ML UDC PO PRN (15:02)
--- NOTE | 2021-01-01 15:02 | NUR ---
MS RN NOTE PT. VERBALIZING SHE'S EXPERIENCING HEART BURN. MAALOX 30 ML PRN GIVEN. WILL CONTINUE TO MONITOR THROUGHOUT THE SHIFT.
[2021-01-01 16:00] VITALS: BP 128/63
--- NOTE | 2021-01-01 18:21 | NUR ---
MS HITESH OPENING NOTE PATIENT IN BED. A/O X4. AMBULATORY. ON ROOM AIR, SATURATING WELL AT 99%. NO SOB NOTED. IN NO APPARENT DISTRESS. NO REPORTS OF PAIN, TREMORS AND AKATHISIA AT THIS TIME. ALL DUE MEDS GIVEN ORDERED. ALL NEEDS HAVE BEEN MET AND ATTENDED. SAFETY MEASURES MAINTAINED. BED IN LOWEST POSITION, BRAKES LOCKED. SIDE RAILS UP X2. CALL LIGHT WITHIN REACH. WILL ENDORSE CONTINUITY OF CARE TO ONCOMING SHIFT. Addendum: 01/02/21 at 0751 by MEENAKSHI GIANG RN CLOSING NOTE*
--- NOTE | 2021-01-01 19:30 | NUR ---
MS RN OPENING NOTES PATIENT ALERT AND ORIENTED X 4, ABLE TO MAKE NEEDS KNOWN. NO COMPLAINTS OF PAIN AT THIS TIME. PATIENT STABLE ON ROOM AIR, NO S/S OF DISTRESS OR SHORTNESS OF BREATH NOTED. PATIENT AMBULATORY, STEADY AND INDEPENDENT WITH ADL'S. REMINDED PATIENT TO BE IN ROOM BY 22OO FOR INVESTIGATIONAL MEDICATION. SAFETY MEASURES IN PLACE, CALL LIGHT WITHIN REACH, BED LOCKED IN LOWEST POSITION, SIDE RAILS UP X2. WILL CONTINUE PLAN OF CARE, WILL CONTINUE TO MONITOR.
[2021-01-01 20:00] VITALS: BP 134/87
[2021-01-01] MEDS: ZOLPIDEM TARTRATE 10 MG TABLET PO PRN (22:05)
--- NOTE | 2021-01-02 07:20 | NUR ---
MS RN OPENING NOTE RECEIVED PATIENT IN BED. A/O X4. AMBULATORY. ON ROOM AIR, TOLERATING WELL. NO SOB NOTED. IN NO APPARENT DISTRESS. NO REPORTS OF PAIN, TREMORS AND AKATHISIA AT THIS TIME. SAFETY MEASURES MAINTAINED. BED IN LOWEST POSITION, BRAKES LOCKED. SIDE RAILS UP X2. CALL LIGHT WITHIN REACH. WILL CONTINUE PLAN OF CARE.
[2021-01-02 08:00] VITALS: BP 124/63
[2021-01-02] MEDS: AMLODIPINE 10 MG PO SCH (09:05)
[2021-01-02] MEDS: INVEST MED Kar XT OR PLACEBO 50/20 MG PO SCH ×2 (10:08→22:00)
[2021-01-02] MEDS: LORAZEPAM 1 MG TABLET FOR AGITATION/ANXIETY PO PRN (13:07)
[2021-01-02 16:00] VITALS: BP 129/87
--- NOTE | 2021-01-02 18:13 | NUR ---
MS RN CLOSING NOTE PATIENT IN BED. A/O X4. AMBULATORY. ON ROOM AIR, SATURATING WELL AT 99%. NO SOB NOTED. IN NO APPARENT DISTRESS. NO REPORTS OF PAIN, TREMORS AND AKATHISIA AT THIS TIME. SAFETY MEASURES MAINTAINED. BED IN LOWEST POSITION, BRAKES LOCKED. SIDE RAILS UP X2. CALL LIGHT WITHIN REACH. WILL ENDORSE CONTINUITY OF CARE TO ONCOMING SHIFT.
[2021-01-02] MEDS: ACETAMINOPHEN ES 500 MG TABLET PO PRN (19:15)
--- NOTE | 2021-01-02 19:15 | NUR ---
MS/RN OPENING NOTE RECEIVED PATIENT RESTING IN BED. AWAKE, ALERT AND ORIENTED X 4. ABLE TO MAKE NEEDS KNOWN. C/O BACK PAIN 10/07 - WILL ADMINISTER ORDERED PAIN MEDICATION. NO IV ACCESS AT THIS TIME. CONTINUES ON ROOM AIR WITH NO S/SX OF RESPIRATORY DISTRESS NOTED. CONTINUES ON CLINICAL TRIAL AND INVESTIGATIONAL MEDICATION. NO S/SX OF TREMORS, AKATHASIA OR EPS. CALL LIGHT WITHIN REACH. ASPIRATION, FALL AND SAFETY PRECAUTIONS MAINTAINED. WILL CONTINUE TO MONITOR.
[2021-01-02 20:00] VITALS: BP 109/55
[2021-01-02] MEDS: ZOLPIDEM TARTRATE 10 MG TABLET PO PRN (21:59)
--- NOTE | 2021-01-02 22:00 | NUR ---
MS/RN NOTE PATIENT REQUESTING SLEEPING MEDICATION. ADMINISTERED AMBIEN PRN AT 2200. WILL CONTINUE TO MONITOR.
--- NOTE | 2021-01-03 06:15 | NUR ---
MS/RN CLOSING NOTE PATIENT CURRENTLY RESTING IN BED. AWAKE, ALERT AND ORIENTED X 4. ABLE TO MAKE NEEDS KNOWN. NO COMPLAINTS OF PAIN AT THIS TIME. NO IV ACCESS AT THIS TIME. CONTINUES ON ROOM AIR WITH NO S/SX OF RESPIRATORY DISTRESS NOTED. CONTINUES ON CLINICAL TRIAL AND INVESTIGATIONAL MEDICATION. NO S/SX OF TREMORS, AKATHASIA OR EPS. CALL LIGHT WITHIN REACH. ASPIRATION, FALL AND SAFETY PRECAUTIONS MAINTAINED. WILL ENDORSE TO AM SHIFT RN.
[2021-01-03 08:00] VITALS: BP 108/58
--- NOTE | 2021-01-03 08:00 | NUR ---
RN OPENING NOTE RECEIVED PATIENT IN BED, AO X 4, ABLE TO RESPONDS ALL STIMULI. SKIN IS WARM TO TOUCH KEEP CLEAN/DRY. RESPIRATORY EVEN AND UNLABORED IN ROOM AIR, NO DISTRESS OBSERVED. REMAINDER PATIENT EMPTY STOMACH 1 HOUR BEFORE MEAL AND 2-3 HOURS AFTER A MEAL. KEPT ELEVATED HOB FOR ENSURE AIRWAY AND ASPIRATION PRECAUTION, ALSO LOWEST BED POSITION FOE SAFETY. CALL LIGHT WITHIN REACH, WILL CONTINUE TO MONITOR.
[2021-01-03] MEDS: AMLODIPINE 10 MG PO SCH ×2 (09:00→11:33)
--- NOTE | 2021-01-03 09:35 | NUR ---
BP-108/58, WILL HOLD BP MEDICATION.
[2021-01-03] MEDS: INVEST MED Kar XT OR PLACEBO 50/20 MG PO SCH ×2 (10:03→22:02)
[2021-01-03 11:00] VITALS: BP 108/58
[2021-01-03] MEDS: LORAZEPAM 1 MG TABLET FOR AGITATION/ANXIETY PO PRN (11:06)
[2021-01-03] MEDS: MAG HYDROX/AL HYDROX/SIMETH 30 ML UDC PO PRN (11:10)
--- NOTE | 2021-01-03 11:33 | NUR ---
PATIENT NOTICED INCREASED BP 180/85, GIVEN NOVOLOG.
[2021-01-03] MEDS: ACETAMINOPHEN ES 500 MG TABLET PO PRN (15:37)
--- NOTE | 2021-01-03 15:41 | NUR ---
PATIENT HAVING HEADACHE AND REQUESTED TYLENOL, AND GIVEN. REASSESS IN 1 HOUR ON EMAR.
[2021-01-03 16:00] VITALS: BP 141/77
--- NOTE | 2021-01-03 18:00 | NUR ---
RN CLOSING NOTE PATIENT RESTING IN BED, REMAINS AO X 4, STILL NOTED ABD PAIN, CONTINUE TO GIVEN DILAUDID 1MG Q2 HOURS FOR PRN. SKIN IS WARM TOUCH, KEEP CLEAN/DRY, PATIENT IN MC CATHETER AND AZEB, AZEB OUT PUT 20ML SEROSANGUINEOUS CHARACTERISTIC. RESPIRATORY EVEN AND UNLABORED IN ROOM AIR O2SAT 96%. KEPT ELEVATED HOB FOR ENSURE AIRWAY AND ASPIRATION PRECAUTION, ALSO LOWEST BED POSITION FOR SAFETY. CALL LIGHT WITHIN REACH, WILL ENDORSE TELECOMMUNICATIONS SUPPORT.
[2021-01-03 20:00] VITALS: BP 134/61
--- NOTE | 2021-01-03 20:00 | NUR ---
MS RN OPENING NOTE Patient is A&Ox4. Able to make needs known. Patient reports she is feeling good again after episode of nausea and headache this morning. No complaints at this time.
[2021-01-03] MEDS: ZOLPIDEM TARTRATE 10 MG TABLET PO PRN (22:06)
--- NOTE | 2021-01-04 05:50 | NUR ---
MS RN CLOSING NOTES Patient is A&Ox4. VSS. No ase from investigational medications. Able to fall asleep after PRN Ambien administration. Able to make needs known. All needs met by staff. Independent with self-care ADLS.
[2021-01-04] MEDS: ACETAMINOPHEN ES 500 MG TABLET PO PRN ×2 (07:58→15:23)
[2021-01-04 08:00] VITALS: BP 127/84
[2021-01-04] MEDS: INVEST MED Kar XT OR PLACEBO 50/20 MG PO SCH (10:22)
--- NOTE | 2021-01-04 14:33 | NUR ---
RN NOTES INVESTIGATIONAL MEDICATION SCANNED AT 1022 TO BE GIVEN TO PATIENT, PATIENT WAS NOT IN ROOM AND RETURNED TO ROOM AT 1220 AND TOOK MEDICATION
[2021-01-04 16:00] VITALS: BP 122/61
--- NOTE | 2021-01-04 18:11 | NUR ---
MS RN CLOSING NOTES Patient is A&Ox4. vitals wnl. Investigational med to continue 01/05 @ 1000 Able to make needs known. All needs met by staff. Independent with self-care ADLS.
--- NOTE | 2021-01-04 19:47 | NUR ---
MS/TELE/RN RECEIVED PATIENT IN ROOM LYING IN BED AWAKE, ALERT, ORIENTED, COMFORTABLE, NO C/O PAIN, NO DISTRESS NOTED, DISCUSSED PLAN OF CARE RE: NOTHING BY MOUTH AFTER 2100, VERBALISED UNDERSTANDING, CALL LIGHT IN REACH, WILL MONITOR.
[2021-01-04 20:00] VITALS: BP 114/49
--- NOTE | 2021-01-04 21:40 | NUR ---
MSF/TELE/RN CLARIFIED WITH Austin PALACIOS RE: ORDER OF NPO POST 2100 TONIGHT AND RESUME AFTER BLOOD DRAW. PER DR. SALGUERO, THE PATIENT DOES NOT NEED TO BE NPO TONIGH. CHARGE NURSE MADE AWARE.
[2021-01-04] MEDS: ZOLPIDEM TARTRATE 10 MG TABLET PO PRN (22:38)
[2021-01-05] MEDS: ACETAMINOPHEN ES 500 MG TABLET PO PRN (04:54)
--- NOTE | 2021-01-05 04:59 | NUR ---
MS/TELE/RN C/O PAIN IN LEFT SHOULDER AND BACK 02/06, TYLENOL 1 G WAS GIVEN PER PATIENT'S REQUEST. WILL MONITOR.
--- NOTE | 2021-01-05 06:15 | NUR ---
MS/TELE/RN PATIENT IS STILL SLEEPING AT THIS TIME, APPEAR COMFORTABLE, NO SIGNS OF DISTRESS NOTED, CALL LIGHT IN REACH, ALL NEEDS ATTENDED AT THSI TIME, WILL CONTINUE TO MONITOR.
--- NOTE | 2021-01-05 07:27 | NUR ---
MSRN NOTES RECEIVED PATIENT IN ROOM LYING IN BED AWAKE, ALERT, ORIENTED, COMFORTABLE, NO C/O PAIN, NO DISTRESS NOTED, CALL LIGHT IN REACH AND ANSWERED PROPMTLY.
[2021-01-05 08:00] VITALS: BP 135/73
[2021-01-05] MEDS: INVEST MED Kar XT OR PLACEBO 50/20 MG PO SCH ×2 (10:15→22:00)
[2021-01-05] MEDS: AMLODIPINE 10 MG PO SCH (10:16)
--- NOTE | 2021-01-05 18:19 | NUR ---
MS RN CLOSING NOTES Patient is A&Ox4. vitals wnl. All needs met by staff. Independent with self-care ADLS. no s/s of adverse effects like tremors akaithsia or EPS , pt reminded to be present at 2200 for investigational medication
[2021-01-05 20:00] VITALS: BP 137/82
--- NOTE | 2021-01-05 21:03 | NUR ---
MS/TELE/RN PER DOCTOR SALGUERO, WATER IS OK PRIOR TO INVESTIGATIONAL MEDICATION ADMINISTRATION.
--- NOTE | 2021-01-06 06:23 | NUR ---
MS/TELE/RN PATIENT IS AWAKE, COMFORTABLE, NO C/O PAIN, NO DISTRESS NOTED, ALL NEEDS ATTENDED AT THIS TIME, WILL CONTINUE TO MONITOR.
--- NOTE | 2021-01-06 07:30 | NUR ---
ms rn received on bed,awake,alert,oriented x4,not in any form of distress, respirations even and unlabored,no sob noted, clinical trial patient od dr. carrasquillo, ready to go down for smoke,all needs attended.
--- NOTE | 2021-01-06 08:01 | NUR ---
ms rn just came back form smoking,will monitor patient.
[2021-01-06] MEDS: AMLODIPINE 10 MG PO SCH (09:15)
[2021-01-06] MEDS: INVEST MED Kar XT OR PLACEBO 50/20 MG PO SCH ×2 (10:00→22:00)
--- NOTE | 2021-01-06 11:00 | NUR ---
ms rn patient just had her second shot of covid vaccine,no distress noted.
--- NOTE | 2021-01-06 16:00 | NUR ---
rn on bed, [id number] mg po given for 5/10 mild body pain.
[2021-01-06] MEDS: ACETAMINOPHEN ES 500 MG TABLET PO PRN (16:51)
--- NOTE | 2021-01-06 19:05 | NUR ---
ms rn on bed. no distress noted,all needs attended.
[2021-01-06 20:00] VITALS: BP 120/63
--- NOTE | 2021-01-06 20:00 | NUR ---
MS/TELE/RN PATIENT IS IN ROOM LYING IN BED AWAKE, ALERT, COMFORTABLE, NO C/O PAIN, NO DISTRESS NOTED, CALL LIGHT IN REACH, WILL MONITOR.
[2021-01-06] MEDS: ZOLPIDEM TARTRATE 10 MG TABLET PO PRN (22:03)
--- NOTE | 2021-01-07 01:00 | NUR ---
MS/TELE/RN PATIENT IS SLEEPING AT THIS TIME, APPEAR COMFORTABLE, NO DISTRESS NOTED, CALL LIGHT IN REACH, WILL CONTINUE TO MONITOR.
--- NOTE | 2021-01-07 06:14 | NUR ---
MS/TELE/RN PATIENT IS AWAKE AT THIS TIME, COMFORTABLE, NO C/O PAIN, NO DISTRESS NOTED, ALL NEEDS ATTENDED AT THIS TIME, WILL CONTINUE TO MONITOR.
--- NOTE | 2021-01-07 07:51 | NUR ---
RN OPENING NOTES RECEIVED PT AWAKE AND TALKING IN BED AT THIS TIME. AOX4. PT ABLE TO MAKE NEEDS KNOWN. NO SOB NOTED, NO C/O PAIN AT THIS TIME, NO S/O ANY ACUTE DISTRESS NOTED. RESPIRATIONS EVEN AND UNLABORED, STABLE ON RA. NO IV ACCESS NOTED. PT DENIES SI/HI. PT DENIES VISUAL/AUDITORY HALLUCINATION. NO COMPLAIN OF TREMORS, EPS OR AKATHISIA. SAFETY PRECAUTIONS IN PLACE AND MAINTAINED AT ALL TIMES. BED IN LOWEST LOCKED POSITION, HOB ELEVATED, SIDE RAILS UP X2, CALL LIGHT AND TABLE WITHIN REACH. WILL CONTINUE TO MONITOR
[2021-01-07] MEDS: INVEST MED Kar XT OR PLACEBO 50/20 MG PO SCH ×2 (09:57→21:50)
[2021-01-07] MEDS: AMLODIPINE 10 MG PO SCH (09:57)
--- NOTE | 2021-01-07 18:00 | NUR ---
RN CLOSING NOTES PT AWAKE IN ROOM AT THIS TIME. PT REMAINED STABLE THROUGHOUT SHIFT. ALL NEEDS, MEDICATIONS, AND CARE ADMINISTERED ANTICIPATED PER ORDER. PT DENIES SI/HI, VISUAL AND AUDITORY HALLUCINATION. NO COMPLAINS OF TREMORS, EPS, OR AKATHISIA. SAFETY PRECAUTIONS IN PLACE AND MAINTAINED AT ALL TIMES. BED IN LOWEST LOCKED POSITION, HOB ELEVATED, SIDE RAILS UP X 2. CALL LIGHT AND TABLE WITHIN REACH. WILL ENDORSE TO RESIDENTIAL SUBSTANCE ABUSE COUNSELOR NURSE FOR JOVANNY
--- NOTE | 2021-01-07 19:30 | NUR ---
MS/RN OPENING NOTES RECEIVED PATIENT IN BED RESTING. PATIENT IS A/OX 4, NO SIGNS OF SOB OR RESPIRATORY DISTRESS NOTED. PATIENT BREATHING IS EVEN AND UNLABORED. PATIENT IN NO ACUTE DISTRESS NOTED. SAFETY MEASURES ARE IN PLACE, WILL CONTINUE WITH PATIENT PLAN OF CARE.
[2021-01-07 20:00] VITALS: BP 132/75
--- NOTE | 2021-01-08 06:30 | NUR ---
MS/RN CLOSING NOTES PATIENT IN BED RESTING. PATIENT IS A/OX 4, NO SIGNS OF SOB OR RESPIRATORY DISTRESS NOTED. PATIENT BREATHING IS EVEN AND UNLABORED. PATIENT IN NO ACUTE DISTRESS NOTED. SAFETY MEASURES ARE IN PLACE, WILL ENDORSE CARE TO DAY SHIFT NURSE.
--- NOTE | 2021-01-08 07:17 | NUR ---
RN NOTES ENDORSEMENT OBTAINED FROM PREVIOUS SHIFT RN. PATIENT OUT OF THE ROOM AT THIS TIME. CONTINUES ON CLINICAL TRIAL W/ ORDERS NOTED. SAFETY MEASURES IN PLACE. WILL CONTINUE TO MONITOR.
[2021-01-08] MEDS: AMLODIPINE 10 MG PO SCH (08:41)
--- NOTE | 2021-01-08 08:43 | NUR ---
RN NOTES BP-150/93, HR-108. AMLODIPINE HOME MED GIVEN TO PATIENT; PATIENT IN BED SPEAKING TO SOMEONE ON HER CELLPHONE.
--- NOTE | 2021-01-08 10:18 | NUR ---
YARD WORKER NOTES PATIENT DISCHARGED TODAY FROM [facility] AND CLINICAL TRIAL STUDY. DISCHARGE INSTRUCTIONS PROVIDED TO PATIENT, FORM SIGNED. NO IV LINE, NO SKIN ISSUES NOTED. PATIENT DID NOT SIGN BELONGINGS LIST FORM BUT PER PATIENT, ALL HER BELONGINGS HAVE BEEN ACCOUNTED FOR. WILL BE PICKED UP BY CHARGE NURSE AND DR. SALGUERO AWARE OF DISCHARGE.
== END 2021-01-08 09:58 | disposition home or self-care (01) | DRG 951 ==
LOC: MED 13:48
PROVIDERS: ADMIT Psychiatry & Neurology Psychiatry; ATTEND Psychiatry & Neurology Psychiatry
DX: Z00.6 Encounter for examination for normal comparison and control in clinical research program (principal); F20.0 Paranoid schizophrenia; Z79.899 Other long term (current) drug therapy; I10 Essential (primary) hypertension; F41.9 Anxiety disorder, unspecified; K59.00 Constipation, unspecified
CPT/HCPCS: 87081-TC; G0378

== ENCOUNTER 2020-12-09 14:49 | Outpatient (CLI) | payer SELFPAY ==
[~2020-12-09 14:49] MED LIST changes: +ACET-2605 PO; +CALC355O18 PO; +IBUP-1953 PO; +LORA-259 PO; +MAGN400O6 PO; +ZOLP5TAB8 PO
[2020-12-09] MEDS ORDERED: COVID-19 VACC,MRNA(MODERNA) 100 MCG/0.5 ML IM ONE (15:41)
== END 2020-12-09 23:59 | disposition home or self-care (01) ==
LOC: COVVAC 14:49
PROVIDERS: ATTEND Internal Medicine Cardiovascular Disease
DX: Z23 Encounter for immunization (principal)
CPT/HCPCS: 0011A; 91301

== ENCOUNTER 2022-03-02 13:12 | Inpatient (IN) | payer OTHER ==
[~2022-03-02] VITALS: Ht 175.3 cm; Wt 114.8 kg
--- NOTE | 2022-03-02 13:31 | NUR ---
[facility] ADMISSION NOTE Received patient from Dr. Bowser office research patient. She arrived @1330. Upon face to face assessment, patient is A+Ox4. She is calm and cooperative. Patient denies having a past medical and psych history, and denies being on any medications currently. However, patient claims she has taken olanzapine in the past to help with sleep. Patient reports feeling depressed, anxious, and often having trouble sleeping. She also reports hearing voices when she is stressed out, and claims those voices merely narrate her daily routine. Patient is full code. No known allergies. Patient is B/B continent and ambulatory with a steady gait. She is on a regular diet. Her skin is intact. Patient is Covid negative as of 03/02/22. Dr. Lopez made aware of the patient's arrival onto the unit. Patient's belongings were inventoried by VISUALLY IMPAIRED TEACHER. Patient was handed her patient rights booklet, explained her rights, and was able to express understanding. Patient was given a tour of the unit and was explained the policies and procedures of [facility]. Will continue to address patient's needs and to monitor patient.
[2022-03-02] MEDS ORDERED: BLOOD SUGAR DIAGNOSTIC 1 EACH STRIP IN ONE (14:00)
[2022-03-02] MEDS ORDERED: MAG HYDROX/AL HYDROX/SIMETH 30 ML UDC PO PRN (14:00)
[2022-03-02 16:00] VITALS: BP 122/62
--- NOTE | 2022-03-02 19:30 | NUR ---
[facility] RN NOTES RECEIVED ON BED SLEEPING,WITH NORMAL BREATHING PATTERN.ALERT X4 PER REPORT,SMOKER,DEPRESSED.WILL CONTINUE TO MONITOR BEHAVIOR.
[2022-03-02 20:00] VITALS: BP 136/73
[2022-03-02] MEDS: OLANZAPINE 10 MG PO SCH (22:05)
[2022-03-02] MEDS: ZOLPIDEM TARTRATE 10 MG TABLET PO PRN (22:08)
--- NOTE | 2022-03-02 22:08 | NUR ---
[facility] RN NOTES AWAKE THIS TIME,ASKING FOR HER SLEEPING PILL.AMBIEN 10MG PO GIVEN ORDERED.WILL MONITOR HOUR OF SLEEP.
[2022-03-03 08:00] VITALS: BP 138/75
[2022-03-03] MEDS: AMLODIPINE 10 MG PO SCH (08:11)
--- NOTE | 2022-03-03 09:15 | NUR ---
RN Notes: Patient has low energy and keeps to herself in her room. She exhibits a depressed mood and expresses feeling anxious periodically. Patient is only interactive with staff when she has unexpressed needs.
[2022-03-03] MEDS: LORAZEPAM 1 MG TABLET FOR AGITATION PO PRN ×2 (12:57→19:43)
[2022-03-03 16:00] VITALS: BP 126/67
--- NOTE | 2022-03-03 19:12 | NUR ---
RN NOTES: PT. WENT TO SMOKE , FRESH AIR .
--- NOTE | 2022-03-03 19:30 | NUR ---
RN NOTES: PT. BACK FROM SMOKE, WILL CONTINUITY WITH CARE.
--- NOTE | 2022-03-03 19:45 | NUR ---
RN NOTES: ANXIETY PT. C/O FEELING ANXIOUS .RESTLESS ,PRN , ATIVAN 1 MG PO GIVEN PER PT. REQUEST, WILL CONTINUE WITH PLAN OF CARE.
--- NOTE | 2022-03-03 19:53 | NUR ---
RN NOTES: PATIENT RESTING IN ROOM. PER PT. I AM FFELING ANXIOUS ,PRN ATIVAN GIVEN PER REQUEST, ENCOURAGED PT.TO VERBALIZATION OF FEELINGS . ENCOURAGED TO ATTEND IN GROUP ACTIVITIES.ALL NEEDS ATTENDED AND ANTICIPATED, SAFETY PRECAUTIONS MAINTAINED. WILL CONTINUE TO MONITOR Q15MIN ROUNDS FOR SAFETY AND BEHAVIOR.
[2022-03-03 20:00] VITALS: BP 124/82
[2022-03-03] MEDS: OLANZAPINE 10 MG PO SCH (22:10)
[2022-03-03] MEDS: ZOLPIDEM TARTRATE 10 MG TABLET PO PRN (22:14)
--- NOTE | 2022-03-03 22:15 | NUR ---
RN NOTES: PT. C/O UNABLE TO SLEEP PRN AMBIEN 10 MG PO GIVEN ,PER PT. REQUEST , WILL CONTINUE TO MONITOR.
--- NOTE | 2022-03-04 06:45 | NUR ---
RN NOTES: PATIENT RESTING IN ROOM. PT. 8 HRS OF SLEEP , NO ACUTE DISTRESS NOTED, .COOPERTIVE, COMPLIANT WITH MEDS AND CARE, ENCOURAGED PT.TO VERBALIZATION OF FEELINGS .ALL NEEDS ATTENDED AND ANTICIPATED, SAFETY PRECAUTIONS MAINTAINED. WILL CONTINUE TO MONITOR Q15MIN ROUNDS FOR SAFETY AND BEHAVIOR.
[2022-03-04 08:00] VITALS: BP 111/64
[2022-03-04] MEDS: AMLODIPINE 10 MG PO SCH (08:01)
--- NOTE | 2022-03-04 09:30 | NUR ---
RN Notes: Received pt. asleep in bed, breathing is even and unlabored. Ate 100% for breakfast, compliant on meds. Encouraged to take shower and motivated to attend group activity. No distress and no agitation noted and needs attended. Will continue to monitor for safety.
[2022-03-04] MEDS: LORAZEPAM 1 MG TABLET FOR AGITATION PO PRN ×2 (11:34→19:12)
[2022-03-04 16:03] VITALS: BP 145/64
--- NOTE | 2022-03-04 19:13 | NUR ---
RN-CO: ATIVAN 1 MG GIVEN FOR C/O ANXIETY.
--- NOTE | 2022-03-04 19:20 | NUR ---
RN NOTES: PT. WENT TO SMOKE , FRESH AIR .
--- NOTE | 2022-03-04 19:35 | NUR ---
RN NOTES: PT. BACK FROM SMOKE, WILL CONTINUITY WITH CARE.
[2022-03-04 20:00] VITALS: BP 126/67
--- NOTE | 2022-03-04 20:06 | NUR ---
RN NOTES: PATIENT RESTING IN ROOM. DEPRESSED,EASILY AGITATED, HEARING VOICES,, PER PT.VOICES LIKE PEOPLES ARE TAKING BUT NOT COMMAND , ENCOURAGED PT.TO VERBALIZATION OF FEELINGS . ENCOURAGED TO ATTEND IN GROUP ACTIVITIES.ALL NEEDS ATTENDED AND ANTICIPATED, SAFETY PRECAUTIONS MAINTAINED. WILL CONTINUE TO MONITOR Q15MIN ROUNDS FOR SAFETY AND BEHAVIOR.
[2022-03-04] MEDS: ZOLPIDEM TARTRATE 10 MG TABLET PO PRN (22:01)
[2022-03-04] MEDS: OLANZAPINE 5 MG PO SCH (22:01)
--- NOTE | 2022-03-05 06:01 | NUR ---
RN NOTES: PATIENT RESTING IN ROOM. PT. 9 HRS OF SLEEP , NO ACUTE DISTRESS NOTED, .COOPERTIVE, COMPLIANT WITH MEDS AND CARE, ENCOURAGED PT.TO VERBALIZATION OF FEELINGS .ALL NEEDS ATTENDED AND ANTICIPATED, SAFETY PRECAUTIONS MAINTAINED. WILL CONTINUE TO MONITOR Q15MIN ROUNDS FOR SAFETY AND BEHAVIOR.
[2022-03-05 08:00] VITALS: BP 139/69
[2022-03-05] MEDS: AMLODIPINE 10 MG PO SCH (08:07)
--- NOTE | 2022-03-05 09:30 | NUR ---
RN Notes: Received pt. asleep in bed, breathing is even and unlabored. Ate 25% for breakfast, compliant on med. Encouraged to to verbalize feelings and motivated to attend group activity. Pt. went for smoking and took shower. No distress and no agitation noted and needs attended. Will continue to monitor for safety.
[2022-03-05] MEDS: LORAZEPAM 1 MG TABLET FOR AGITATION PO PRN ×2 (12:49→19:43)
--- NOTE | 2022-03-05 12:50 | NUR ---
Pt. reported feeling anxious and requested for an Ativan po and given.
[2022-03-05 16:00] VITALS: BP 122/65
--- NOTE | 2022-03-05 19:25 | NUR ---
RN NOTES: PT. WENT TO SMOKE , FRESH AIR .
--- NOTE | 2022-03-05 19:35 | NUR ---
RN NOTES: PT. BACK FROM SMOKE, WILL CONTINUITY WITH CARE.
--- NOTE | 2022-03-05 19:43 | NUR ---
RN NOTES: ANXIETY PT. C/O FEELING ANXIOUS .RESTLESS ,PRN , ATIVAN 1 MG PO GIVEN PER PT. REQUEST, WILL CONTINUE WITH PLAN OF CARE.
[2022-03-05 20:06] VITALS: BP 139/65
--- NOTE | 2022-03-05 20:32 | NUR ---
RN NOTES: PATIENT RESTING IN ROOM. DEPRESSED,EASILY AGITATED, HEARING VOICES,, PER PT.HEARING VOICES LIKE PEOPLES ARE TAKING , ENCOURAGED PT.TO VERBALIZATION OF FEELINGS . ENCOURAGED TO ATTEND IN GROUP ACTIVITIES.ALL NEEDS ATTENDED AND ANTICIPATED, SAFETY PRECAUTIONS MAINTAINED. WILL CONTINUE TO MONITOR Q15MIN ROUNDS FOR SAFETY AND BEHAVIOR.
[2022-03-05] MEDS: ZOLPIDEM TARTRATE 10 MG TABLET PO PRN (22:01)
[2022-03-05] MEDS: OLANZAPINE 5 MG PO SCH (22:01)
--- NOTE | 2022-03-06 05:57 | NUR ---
RN NOTES: PATIENT RESTING IN ROOM. PT. 9 HRS OF SLEEP , NO ACUTE DISTRESS NOTED, .COOPERTIVE, COMPLIANT WITH MEDS AND CARE, ENCOURAGED PT.TO VERBALIZATION OF FEELINGS .ALL NEEDS ATTENDED AND ANTICIPATED, SAFETY PRECAUTIONS MAINTAINED. WILL CONTINUE TO MONITOR Q15MIN ROUNDS FOR SAFETY AND BEHAVIOR. Addendum: 03/06/22 at 0728 by HELENA THOMASON RN RN NOTES: PATIENT RESTING IN ROOM. PT. 7 HRS OF SLEEP , NO ACUTE DISTRESS NOTED, .COOPERTIVE, COMPLIANT WITH MEDS AND CARE, ENCOURAGED PT.TO VERBALIZATION OF FEELINGS .ALL NEEDS ATTENDED AND ANTICIPATED, SAFETY PRECAUTIONS MAINTAINED. WILL CONTINUE TO MONITOR Q15MIN ROUNDS FOR SAFETY AND BEHAVIOR.
[2022-03-06 08:00] VITALS: BP 134/74
[2022-03-06] MEDS: AMLODIPINE 10 MG PO SCH (08:36)
[2022-03-06] MEDS: LORAZEPAM 1 MG TABLET FOR AGITATION PO PRN ×2 (14:21→20:43)
--- NOTE | 2022-03-06 14:21 | NUR ---
RN NOTE- ANXIETY AND RESTLESSNESS. ATIVAN 1 MG ADMINISTERED
[2022-03-06 16:00] VITALS: BP 106/59
--- NOTE | 2022-03-06 19:15 | NUR ---
[facility] RN NOTES RECEIVED PATIENT IN BED AWAKE, ALERT AND ORIENTED X4, ABLE TO MAKE NEEDS KNOWN. PATIENT REMAINS ANXIOUS, PREOCCUPIED WITH SMOKING, COOPERATIVE WITH CARE, PATIENT HAVING AUDITORY HALLUCINATIONS. PT STATED, SHE HEARS VOICES WHEN STRESSED. DENIES SI/HI/AVH. SAFETY PRECAUTIONS MAINTAINED. WILL CONTINUE TO MONITOR Q15MIN ROUNDS FOR SAFETY AND BEHAVIOR. Addendum: 03/06/22 at 2034 by NAE QUIÑONES RN DENIED VISUAL HALLUCINATIONS.
[2022-03-06 19:32] VITALS: BP 115/73
[2022-03-06] MEDS: ZOLPIDEM TARTRATE 10 MG TABLET PO PRN (21:20)
[2022-03-07 08:00] VITALS: BP 116/69
[2022-03-07] MEDS: AMLODIPINE 10 MG PO SCH (08:01)
--- NOTE | 2022-03-07 09:12 | NUR ---
RN-CO: PATIENT IS VISIBLE IN THE UNIT, PLEASANT BUT NEEDY. SHE IS FOCUS ON SMOKING AND GOING OUT OF THE UNIT. SHE IS SOCIALIZING WITH PEERS. HER AFFECT IS BRIGHT AND SHE IS WELL GROOMED.
[2022-03-07 16:00] VITALS: BP 135/88
[2022-03-07] MEDS: LORAZEPAM 1 MG TABLET FOR AGITATION PO PRN (16:17)
--- NOTE | 2022-03-07 16:17 | NUR ---
RN-CO: ATIVAN WAS REQUESTED FOR C/O ANXIETY.
--- NOTE | 2022-03-07 19:25 | NUR ---
[facility] RN NOTES RECEIVED PATIENT WATCHING TV IN THE DAY ROOM, COMMUNICATING WITH OTHER PATIENT'S, ALERT AND ORIENTED X4, ABLE TO MAKE NEEDS KNOWN. PATIENT REMAINS ANXIOUS, ASKS FOR ANTIANXIETY WHEN NEEDED ORDERED BY MD. PREOCCUPIED WITH SMOKING, COOPERATIVE WITH CARE. AMBULATORY AND STEADY GAIT. SAFETY PRECAUTIONS MAINTAINED. WILL CONTINUE TO MONITOR Q15MIN ROUNDS FOR SAFETY AND BEHAVIOR.
--- NOTE | 2022-03-07 19:50 | NUR ---
RN NOTE: SMOKE BREAK PATIENT WENT OUT OF THE UNIT AT THIS TIME FOR SMOKE BREAK.
[2022-03-07 19:53] VITALS: BP 141/85
[2022-03-07 20:00] VITALS: BP 141/85
--- NOTE | 2022-03-07 20:05 | NUR ---
PATIENT CAME BACK TO THE UNIT FROM SMOKE BREAK.
--- NOTE | 2022-03-07 20:55 | NUR ---
PATIENT WENT OUT OF THE UNIT TO SMOKE.
--- NOTE | 2022-03-07 21:10 | NUR ---
PATIENT CAME BACK TO THE UNIT FROM SMOKE BREAK.
[2022-03-07] MEDS: ZOLPIDEM TARTRATE 10 MG TABLET PO PRN (21:20)
--- NOTE | 2022-03-07 21:24 | NUR ---
RN NOTE: INSOMNIA PATIENT C/O INABILITY TO SLEEP AND WANTED TO TAKE AMBIEN. PER PATIENT REQUEST, AMBIEN 10 MG PO ADMINISTERED ORDERED BY .
--- NOTE | 2022-03-08 06:40 | NUR ---
PATIENT WENT OUT OF THE UNIT FOR SMOKE BREAK.
--- NOTE | 2022-03-08 06:58 | NUR ---
RN CLOSING NOTE: PATIENT CAME BACK FROM SMOKE BREAK. PATIENT SLEPT FOR 8 HOURS. NO ACUTE DISTRESS NOTED, COOPERATIVE, COMPLIANT WITH MEDS AND CARE, ENCOURAGED PT.TO VERBALIZATION OF FEELINGS. ALL NEEDS ATTENDED AND ANTICIPATED, SAFETY PRECAUTIONS MAINTAINED. WILL CONTINUE TO MONITOR Q15MIN ROUNDS FOR SAFETY AND BEHAVIOR.
[2022-03-08 08:00] VITALS: BP 111/69
--- NOTE | 2022-03-08 08:00 | NUR ---
RN OPENING NOTE PATIENT AWAKE IN BED RESTING. A/O X 4, COOPERATIVE. NO S/S OF PAIN NOTED AT THIS TIME. ON ROOM AIR, NO DISTRESS OR SHORTNESS OF BREATH NOTED. PATIENT IS COMPLIANT WITH MEDICATIONS. PATIENT DENIES SUICIDE IDEATION AND HOMICIDAL IDEATIONS AT THIS TIME. FALL AND SAFETY MEASURES IN PLACE, BED IN LOW AND LOCK POSITION, CALL LIGHT AND TABLE WITHIN EASY REACH, SIDE RAILS UP X2. WILL CONTINUE TO MONITOR Q15 MINUTES WITH HELP OF STAFF TO MAINTAIN SAFETY.
--- NOTE | 2022-03-08 08:50 | NUR ---
PATIENT WENT OUT OF THE UNIT FOR SMOKE BREAK.
--- NOTE | 2022-03-08 09:00 | NUR ---
PATIENT CAME BACK TO THE UNIT FROM SMOKE BREAK.
[2022-03-08] MEDS: AMLODIPINE 10 MG PO SCH (09:19)
--- NOTE | 2022-03-08 10:08 | NUR ---
PATIENT WENT OUT OF THE UNIT FOR SMOKE BREAK.
--- NOTE | 2022-03-08 10:25 | NUR ---
PATIENT CAME BACK TO THE UNIT FROM SMOKE BREAK.
--- NOTE | 2022-03-08 12:40 | NUR ---
PATIENT WENT OUT OF THE UNIT FOR SMOKE BREAK.
--- NOTE | 2022-03-08 12:55 | NUR ---
PATIENT CAME BACK TO THE UNIT FROM SMOKE BREAK.
[2022-03-08] MEDS: LORAZEPAM 1 MG TABLET FOR AGITATION PO PRN (13:05)
--- NOTE | 2022-03-08 19:15 | NUR ---
GPS RN NOTES RECEIVED PATIENT IN BED AWAKE, ALERT AND ORIENTED X4, ABLE TO MAKE NEEDS KNOWN. PATIENT REMAINS ANXIOUS, PLEASANT BUT NEEDY, SMOKING PRIVILEGES PERMITTED PER UNIT SMOKING SCHEDULE. COOPERATIVE WITH CARE, PATIENT HAVING AUDITORY HALLUCINATIONS. PT STATED, SHE HEARS VOICES WHEN STRESSED. DENIES SI/HI/VH. SAFETY PRECAUTIONS MAINTAINED. WILL CONTINUE TO MONITOR Q15MIN ROUNDS FOR SAFETY AND BEHAVIOR.
[2022-03-08] MEDS: ZOLPIDEM TARTRATE 10 MG TABLET PO PRN (21:29)
[2022-03-09 08:00] VITALS: BP 151/83
[2022-03-09] MEDS: AMLODIPINE 10 MG PO SCH (08:59)
[2022-03-09] MEDS: LORAZEPAM 1 MG TABLET FOR AGITATION PO PRN (14:12)
[2022-03-09 16:00] VITALS: BP 128/73
--- NOTE | 2022-03-09 19:16 | NUR ---
GPS RN NOTES RECEIVED PATIENT IN BED AWAKE, ALERT AND ORIENTED X4, ABLE TO MAKE NEEDS KNOWN. PATIENT REMAINS ANXIOUS, PLEASANT BUT NEEDY, COOPERATIVE WITH CARE, PATIENT DENIES BEING SUICIDAL OR HOMICIDAL AT THIS TIME. ON SMOKING PRIVILEGES PERMITTED PER UNIT PROTOCOL. PATIENT HAVING AUDITORY HALLUCINATIONS. PT STATED, SHE HEARS VOICES WHEN STRESSED. SAFETY PRECAUTIONS MAINTAINED. WILL CONTINUE TO MONITOR Q15MIN ROUNDS FOR SAFETY AND BEHAVIOR.
[2022-03-09] MEDS: ZOLPIDEM TARTRATE 10 MG TABLET PO PRN (21:19)
[2022-03-10 08:00] VITALS: BP 136/73
[2022-03-10] MEDS: AMLODIPINE 10 MG PO SCH (08:13)
--- NOTE | 2022-03-10 10:00 | NUR ---
RN Notes: Received pt. awake in bed, responding to staffs, no distress and no agitation noted. Ate 100% for breakfast, compliant on meds. pt. went for smoking. encouraged to verbalize feelings and motivated to attend group activity. Needs attended and will continue to monitor for safety.
[2022-03-10 16:30] VITALS: BP 139/96
--- NOTE | 2022-03-10 19:30 | NUR ---
GPS RN NOTE, RECEIVED PATIENT AWAKE AND IN BED, NO S/S OR COMPLAINTS OF PAIN AT THIS TIME. PATIENT IS DISPLAYING NO S/S OF APPARENT DISTRESS AT THIS TIME. PATIENT BREATHING IS UNLABORED WITH EQUAL RISE AND FALL OF THE CHEST. PATIENT IS ALERT AND ORIENTED X 4 ON ROOM AIR WITH A SPO2 94%. PATIENT IS COMPLIANT WITH MEDICATIONS, CALM, AND COOPERATIVE. PATIENT DENIES SUICIDAL AND HOMICIDAL IDEATIONS AT THIS TIME. PATIENT ASSISTED WITH TURNING AND REPOSITIONING Q2HR AND PRN FOR COMFORT AND CIRCULATION. PATIENT HAS NO NEEDS AT THIS TIME. PATIENT EDUCATED ON THE USE OF THE CALL LOPEZ. PATIENT BED SIDE RAILS UP X 2 FOR SAFETY. PATIENT BED IS LOCKED, LOW, WITH BED ALARM ON. WILL CONTINUE TO MONITOR THIS PATIENT Q15 MINUTES WITH THE HELP OF STAFF TO MAINTAIN SAFETY.
[2022-03-10 20:00] VITALS: BP 117/65
[2022-03-10] MEDS: ZOLPIDEM TARTRATE 10 MG TABLET PO PRN (22:35)
--- NOTE | 2022-03-10 22:36 | NUR ---
GPS RN NOTE, PATIENT HAS A COMPLAINT OF NOT BEING ABLE TO SLEEP AND IS REQUESTING AMBIEN AT THIS TIME. PATIENT VITAL SIGNS ARE STABLE. GAVE AMBIEN 10MG PO HS PRN ORDERED. WILL REASSESS FOR INSOMNIA AND I WILL CONTINUE TO MONITOR THIS PATIENT WITH THE HELP OF STAFF.
[2022-03-11 08:00] VITALS: BP 141/84
[2022-03-11] MEDS: AMLODIPINE 10 MG PO SCH (08:11)
--- NOTE | 2022-03-11 09:30 | NUR ---
RN Notes: Received pt. awake in bed, responding to staffs, no distress and no agitation noted. Ate 100% for breakfast, compliant on meds.Pt. had shower and pt. went for smoking. Encouraged to verbalize feelings and motivated to attend group activity. Needs attended and will continue to monitor for safety.
[2022-03-11 16:00] VITALS: BP 135/67
[2022-03-11] MEDS: LORAZEPAM 1 MG TABLET FOR AGITATION PO PRN (19:10)
--- NOTE | 2022-03-11 19:20 | NUR ---
GPS RN NOTE, PATIENT HAS A COMPLAINT OF FEELING ANXIOUS AND IS REQUESTING ATIVAN AT THIS TIME. PATIENT VITAL SIGNS ARE STABLE. GAVE ATIVAN 1MG PO Q4 HR PRN ORDERED. WILL REASSESS FOR ANXIETY AND I WILL CONTINUE TO MONITOR THIS PATIENT WITH THE HELP OF STAFF.
--- NOTE | 2022-03-11 19:30 | NUR ---
GPS RN NOTE, RECEIVED PATIENT AWAKE AND IN BED, NO S/S OR COMPLAINTS OF PAIN AT THIS TIME. PATIENT IS DISPLAYING NO S/S OF APPARENT DISTRESS AT THIS TIME. PATIENT BREATHING IS UNLABORED WITH EQUAL RISE AND FALL OF THE CHEST. PATIENT IS ALERT AND ORIENTED X 4 ON ROOM AIR WITH A SPO2 95%. PATIENT IS COMPLIANT WITH MEDICATIONS, CALM, AND COOPERATIVE. PATIENT DENIES SUICIDAL AND HOMICIDAL IDEATIONS AT THIS TIME. PATIENT ASSISTED WITH TURNING AND REPOSITIONING Q2HR AND PRN FOR COMFORT AND CIRCULATION. PATIENT HAS NO NEEDS AT THIS TIME. PATIENT EDUCATED ON THE USE OF THE CALL LOPEZ. PATIENT BED SIDE RAILS UP X 2 FOR SAFETY. PATIENT BED IS LOCKED, LOW, WITH BED ALARM ON. WILL CONTINUE TO MONITOR THIS PATIENT Q15 MINUTES WITH THE HELP OF STAFF TO MAINTAIN SAFETY.
[2022-03-11 20:13] VITALS: BP 136/78
[2022-03-11] MEDS: ZOLPIDEM TARTRATE 10 MG TABLET PO PRN (21:10)
[2022-03-12 08:00] VITALS: BP 119/62
[2022-03-12] MEDS: MAGNESIUM HYDROXIDE 30 ML UDC PO PRN (08:27)
[2022-03-12] MEDS: AMLODIPINE 10 MG PO SCH (08:28)
--- NOTE | 2022-03-12 09:15 | NUR ---
RN Notes: Received pt. awake in bed, responding to staffs, no distress and no agitation noted. Ate 100% for breakfast, compliant on meds. Pt. went out from the unit for smoking. Pt. is complaining of constipation and prn of MOM given. Needs attended and will continue to monitor for safety.
[2022-03-12] MEDS: LORAZEPAM 1 MG TABLET FOR AGITATION PO PRN ×2 (13:35→20:03)
[2022-03-12 16:00] VITALS: BP 154/80
[2022-03-12 20:00] VITALS: BP 112/70
[2022-03-12] MEDS: ZOLPIDEM TARTRATE 10 MG TABLET PO PRN (21:26)
[2022-03-13 08:00] VITALS: BP 132/68
[2022-03-13] MEDS: AMLODIPINE 10 MG PO SCH (08:25)
--- NOTE | 2022-03-13 09:00 | NUR ---
GPS RN NOTES RECEIVED PATIENT AWAKE AND IN BED, NO S/S OR COMPLAINTS OF PAIN AT THIS TIME. NO SOB OR DISTRESS NOTED . PATIENT IS ALERT AND ORIENTED X 4 PATIENT IS COMPLIANT WITH MEDICATIONS, CALM, AND COOPERATIVE. PATIENT DENIES SUICIDE IDEATIONS AND HOMICIDAL IDEATIONS , BED SIDE RAILS UP X 2 FOR SAFETY , WILL CONTINUE TO MONITOR Q15 MIN WITH HELP OF STAFF TO MAINTAIN SAFETY
[2022-03-13] MEDS: LORAZEPAM 1 MG TABLET FOR AGITATION PO PRN (12:33)
--- NOTE | 2022-03-13 12:33 | NUR ---
RN NOTES PATIENT NOTED TO BE ANXIOUS AND ATIVAN WAS GIVEN ORDERED
--- NOTE | 2022-03-13 15:00 | NUR ---
RN NOTES PATIENT WENT OUT FOR SMOKE BREAK
[2022-03-13 16:11] VITALS: BP 145/90
--- NOTE | 2022-03-13 17:00 | NUR ---
RN NOTE CAME BACK FROM SMOKE BREAK
--- NOTE | 2022-03-13 18:15 | NUR ---
RN CLOSING NOTES PATIENT AWAKE , A/O X 4 , ALL DUE MEDS GIVEN , WENT OUT FOR SMOKING , HAD A SHOWER TODAY , CALM, AND COOPERATIVE. PATIENT DENIES ANY SUICIDE IDEATIONS AND HOMICIDAL IDEATIONS , BED SIDE RAILS UP X 2 FOR SAFETY , WILL CONTINUE TO MONITOR Q15 MIN WITH HELP OF STAFF FOR SAFETY AND ENDORSED TO NEXT SHIFT
--- NOTE | 2022-03-13 19:15 | NUR ---
GPS RN NOTES RECEIVED PATIENT IN BED AWAKE, ALERT AND ORIENTED X4, ABLE TO MAKE NEEDS KNOWN. PATIENT REMAINS ANXIOUS, PLEASANT BUT NEEDY, COOPERATIVE WITH CARE, PATIENT HAVING AUDITORY HALLUCINATIONS. PT STATED, SHE HEARS VOICES "PEOPLE ARE TALKING TO ME". DENIES SI/HI/VH AT THIS TIME. SAFETY PRECAUTIONS MAINTAINED. WILL CONTINUE TO MONITOR Q15MIN ROUNDS FOR SAFETY AND BEHAVIOR.
[2022-03-13 20:10] VITALS: BP 126/58
--- NOTE | 2022-03-14 07:54 | NUR ---
RN-CO: PATIENT DENIED PAIN AND DISCOMFORTS, SHE IS NPO UNTIL 1300. BP IS 128/65.
[2022-03-14 08:00] VITALS: BP 128/65
[2022-03-14] MEDS: AMLODIPINE 10 MG PO SCH (08:55)
--- NOTE | 2022-03-14 09:22 | NUR ---
RN-CO: PATIENT DENIED PAIN AND DISCOMFORTS, SHOWERED THIS MORNING. SHE IS NPO TODAY PER ORDER. SHE IS PLEASANT AND COOPERATIVE TO STAFF. AT TIMES IT WAS NOTED THAT SHE IS TALKING TO HERSELF AND LAUGHING VERY LOUD. WE WILL CONTINUE TO MONITOR.
--- NOTE | 2022-03-14 10:54 | NUR ---
RN-CO: PATIENT WENT TO DR SALGUERO"S OFFICE THIS MORNING FOR LAB WORKS.
[2022-03-14 16:00] VITALS: BP 121/64
[2022-03-14] MEDS: LORAZEPAM 1 MG TABLET FOR AGITATION PO PRN (16:50)
--- NOTE | 2022-03-14 16:50 | NUR ---
RN-CO: ATIVAN 1 MG GIVEN FOR C/O ANXIETY.
--- NOTE | 2022-03-14 16:54 | NUR ---
RN-CO: IBUPROFEN 600 MG PO GIVEN FOR C/O 02/06 RAFITA KNEE PAIN.
[2022-03-14] MEDS: IBUPROFEN 200 MG TABLET PO PRN (16:55)
--- NOTE | 2022-03-14 17:28 | NUR ---
RN-CO: DR SALGUERO SEEN PATIENT THIS AFTERNOON.
--- NOTE | 2022-03-14 19:35 | NUR ---
GPS RN OPENING NOTES: RECEIVED PATIENT IN BED, AWAKE A/O X3. APPROPRIATE AFFECT, CALM AND COOPERATIVE. DENIES SI, HI AND PAIN AT THIS TIME. NO S/S OF DISTRESS. RESPIRATION EVEN AND UNLABORED WITH EQUAL RISE AND FALL OF THE CHEST, ON ROOM AIR. OFFERED FLUID AND SNACKS TOLERATED. BED IN LOWEST POSITION AND LOCKED, SIDE RAILS UP X2 FOR SAFETY. WILL CONTINUE TO MONITOR Q15 FOR MOOD, SAFETY AND BEHAVIOR.
[2022-03-14 20:19] VITALS: BP 122/68
[2022-03-14] MEDS: ZOLPIDEM TARTRATE 10 MG TABLET PO PRN (21:24)
--- NOTE | 2022-03-14 21:27 | NUR ---
GPS RN NOTES: PATIENT REQUESTED FOR SLEEP MEDICATION D/T INSOMNIA. AMBIEN 10MG GIVEN PO PRN AT 2123. WILL CONTINUE TO MONITOR.
[2022-03-15 08:00] VITALS: BP 130/76
--- NOTE | 2022-03-15 09:00 | NUR ---
Patient alert,verbally responsive, poor insight ,poor judgment ,easily irritable and anxious.Patient flat affect ,stay in her room all day .Patient responding to internal stimuli ,talking to herself .Continue to monitor for safety q15 minutes .Encourage patient to verbalize feelings and thoughts ,redirect as needed.
[2022-03-15] MEDS: INVEST MED CVL-231-2002 PO SCH (09:07)
[2022-03-15] MEDS: AMLODIPINE 10 MG PO SCH (09:07)
--- NOTE | 2022-03-15 13:00 | NUR ---
Patient remains isolative and withdrawn,no interaction with peers ,will continue to monitor for safety q15 minutes .
[2022-03-15 16:00] VITALS: BP 132/74
[2022-03-15] MEDS: LORAZEPAM 1 MG TABLET FOR AGITATION PO PRN (17:03)
--- NOTE | 2022-03-15 17:04 | NUR ---
Patient c/o anxiety medicated with Ativan 1mg will continue to monitor .
[2022-03-15] MEDS: ACETAMINOPHEN ES 500 MG TABLET PO PRN (19:01)
--- NOTE | 2022-03-15 19:02 | NUR ---
Patient c/o headache medicated with Tylenol 1000mg will continue to monitor .
--- NOTE | 2022-03-15 19:25 | NUR ---
GPS RN OPENING NOTES: RECEIVED PATIENT RETURNING FROM A SMOKE BREAK. A/O X3. APPROPRIATE AFFECT, CALM AND COOPERATIVE. DENIES SI, HI AND PAIN AT THIS TIME. NO S/S OF DISTRESS. RESPIRATION EVEN AND UNLABORED WITH EQUAL RISE AND FALL OF THE CHEST, ON ROOM AIR. OFFERED FLUID AND SNACKS TOLERATED. BED IN LOWEST POSITION AND LOCKED, SIDE RAILS UP X2 FOR SAFETY. WILL CONTINUE TO MONITOR Q15 FOR MOOD, SAFETY AND BEHAVIOR.
[2022-03-15 20:05] VITALS: BP 104/52
[2022-03-15] MEDS: ZOLPIDEM TARTRATE 10 MG TABLET PO PRN (21:06)
--- NOTE | 2022-03-15 21:08 | NUR ---
GPS RN NOTES: PATIENT REQUESTED FOR SLEEP MEDICATION D/T INSOMNIA. AMBIEN 10MG GIVEN PO PRN AT 2105. WILL CONTINUE TO MONITOR.
--- NOTE | 2022-03-16 06:57 | NUR ---
GPS RN CLOSING NOTES: PATIENT IS AWAKE, A/O X3. PATIENT SLEPT 8HRS THIS SHIFT. PATIENT LEFT THE UNIT 3 TIMES FOR A SMOKE BREAK THIS SHIFT. NO S/S OF DISTRESS. RESPIRATION EVEN AND UNLABORED WITH EQUAL RISE AND FALL OF THE CHEST, ON ROOM AIR. ALL PATIENT CARE NEEDS HAVE BEEN MET ANTICIPATED. BED LOCKED AND IN LOWEST POSITION, SIDE RAILS UP X2 FOR SAFETY, BED ALARM WITHIN REACH. WILL CONTINUE TO MONITOR Q15 FOR SAFETY, MOOD AND BEHAVIOR AND ENDORSE TO AM SHIFT.
[2022-03-16 08:00] VITALS: BP 149/83
--- NOTE | 2022-03-16 09:00 | NUR ---
Patient alert,verbally responsive, poor insight ,poor judgment ,easily irritable and anxious.Patient stay in her room all day .Patient stated "hearing voicesof different people".Continue to monitor for safety q15 minutes .Encourage patient to verbalize feelings and thoughts redirect as needed.
[2022-03-16] MEDS: INVEST MED CVL-231-2002 PO SCH (09:19)
[2022-03-16] MEDS: AMLODIPINE 10 MG PO SCH (09:19)
[2022-03-16] MEDS: ACETAMINOPHEN ES 500 MG TABLET PO PRN (10:12)
--- NOTE | 2022-03-16 10:13 | NUR ---
Patient c/o headache medicated with Tylenol 1000mg will continue to monitor .
[2022-03-16] MEDS: LORAZEPAM 1 MG TABLET FOR AGITATION PO PRN ×2 (12:24→19:51)
--- NOTE | 2022-03-16 13:00 | NUR ---
Patient remains isolative and withdrawn,no interaction with peers ,will continue to monitor for saftey q15 minutes .
--- NOTE | 2022-03-16 19:52 | NUR ---
GPS RN OPENING NOTES: RECEIVED PATIENT IN ROOM, AWAKE, A/O X3. PATIENT IS ANXIOUS, RESTLESS, ASKING FOR ATIVAN. ATIVAN 1MG GIVEN PO AT 1950. DENIES SI, HI AND PAIN AT THIS TIME. NO S/S OF DISTRESS. RESPIRATION EVEN AND UNLABORED WITH EQUAL RISE AND FALL OF THE CHEST, ON ROOM AIR. OFFERED FLUID AND SNACKS TOLERATED. BED IN LOWEST POSITION AND LOCKED, SIDE RAILS UP X2 FOR SAFETY. WILL CONTINUE TO MONITOR Q15 FOR MOOD, SAFETY AND BEHAVIOR.
[2022-03-16 20:00] VITALS: BP 124/71
[2022-03-16] MEDS: ZOLPIDEM TARTRATE 10 MG TABLET PO PRN (21:03)
--- NOTE | 2022-03-16 21:04 | NUR ---
GPS RN NOTES: PATIENT REQUESTED FOR SLEEP MEDICATION D/T INSOMNIA. AMBIEN 10MG GIVEN PO PRN AT 2102. WILL CONTINUE TO MONITOR.
[2022-03-17 08:00] VITALS: BP 100/59
[2022-03-17] MEDS: AMLODIPINE 10 MG PO SCH (08:05)
--- NOTE | 2022-03-17 08:06 | NUR ---
BP med of Norvasc 10 mg not gieven for a BP of 100/59.
[2022-03-17] MEDS: INVEST MED CVL-231-2002 PO SCH (10:02)
--- NOTE | 2022-03-17 10:15 | NUR ---
RN Notes: Received pt. awake in bed, responsive to staffs. Ate 100% for breakfast compliant on the investigational med. BP med not given for a BP of 100/59. Pt. went for smoking and and pt. took shower. No distress and no agitation noted. Needs attended and will continue to monitor for safety.
[2022-03-17] MEDS: MAGNESIUM HYDROXIDE 30 ML UDC PO PRN (12:40)
[2022-03-17] MEDS: LORAZEPAM 1 MG TABLET FOR AGITATION PO PRN ×2 (12:40→19:52)
[2022-03-17 16:00] VITALS: BP 140/74
--- NOTE | 2022-03-17 19:54 | NUR ---
GPS RN NOTE, PATIENT HAS A COMPLAINT OF FEELING ANXIOUS AND IS REQUESTING ATIVAN AT THIS TIME. PATIENT VITAL SIGNS ARE STABLE. GAVE ATIVAN 1MG PO Q6 HR PRN ORDERED. WILL REASSESS FOR ANXIETY AND I WILL CONTINUE TO MONITOR THIS PATIENT WITH THE HELP OF STAFF.
--- NOTE | 2022-03-17 20:08 | NUR ---
GPS RN NOTE, RECEIVED PATIENT AWAKE AND IN BED, NO S/S OR COMPLAINTS OF PAIN AT THIS TIME. PATIENT IS DISPLAYING NO S/S OF APPARENT DISTRESS AT THIS TIME. PATIENT BREATHING IS UNLABORED WITH EQUAL RISE AND FALL OF THE CHEST. PATIENT IS ALERT AND ORIENTED X 4 ON ROOM AIR WITH A SPO2 96%. PATIENT IS COMPLIANT WITH MEDICATIONS, COOPERATIVE, C/O ANXIETY. ATIVAN 1MG PO ADMINSTERED QHRS ORDERED. PATIENT DENIES SUICIDAL AND HOMICIDAL IDEATIONS AT THIS TIME. PATIENT HAS NO NEEDS AT THIS TIME. PATIENT EDUCATED ON THE USE OF THE CALL LOPEZ. PATIENT BED SIDE RAILS UP X 2 FOR SAFETY. PATIENT BED IS LOCKED, LOW, WITH BED ALARM ON. WILL CONTINUE TO MONITOR THIS PATIENT Q15 MINUTES WITH THE HELP OF STAFF TO MAINTAIN SAFETY.
--- NOTE | 2022-03-17 20:12 | NUR ---
GPS RN NOTE, RECEIVED PATIENT AWAKE AND IN BED, NO S/S OR COMPLAINTS OF PAIN AT THIS TIME. PATIENT IS DISPLAYING NO S/S OF APPARENT DISTRESS AT THIS TIME. PATIENT BREATHING IS UNLABORED WITH EQUAL RISE AND FALL OF THE CHEST. PATIENT IS ALERT AND ORIENTED X 4 ON ROOM AIR WITH A SPO2 96%. PATIENT IS COMPLIANT WITH MEDICATIONS, COOPERATIVE, C/O ANXIETY. ATIVAN 1MG PO ADMINSTERED QHRS ORDERED. PATIENT DENIES SUICIDAL AND HOMICIDAL IDEATIONS AT THIS TIME. PATIENT HAS NO NEEDS AT THIS TIME. PATIENT EDUCATED ON THE USE OF THE CALL LOPEZ. PATIENT BED SIDE RAILS UP X 2 FOR SAFETY. PATIENT BED IS LOCKED, LOW, WITH BED ALARM ON. WILL CONTINUE TO MONITOR THIS PATIENT Q15 MINUTES WITH THE HELP OF STAFF TO MAINTAIN SAFETY. Addendum: 03/17/22 at 2013 by SYDNIE JOHNSON RN Amended: Links added.
[2022-03-18 08:00] VITALS: BP 121/61
[2022-03-18] MEDS: AMLODIPINE 10 MG PO SCH (08:18)
[2022-03-18] MEDS: INVEST MED CVL-231-2002 PO SCH (10:03)
--- NOTE | 2022-03-18 10:15 | NUR ---
RN Notes: Received pt. awake in bed, responsive to staffs. Ate 100% for breakfast compliant on the investigational med. Pt. went for smoking. No distress and no agitation noted. Needs attended and will continue to monitor for safety.
[2022-03-18] MEDS: LORAZEPAM 1 MG TABLET FOR AGITATION PO PRN (10:29)
[2022-03-18 16:00] VITALS: BP 139/74
[2022-03-18] MEDS: ZOLPIDEM TARTRATE 10 MG TABLET PO PRN (21:34)
[2022-03-18 22:22] VITALS: BP 103/60
[2022-03-19 08:00] VITALS: BP 126/66
[2022-03-19] MEDS: AMLODIPINE 10 MG PO SCH (08:46)
[2022-03-19] MEDS: INVEST MED CVL-231-2002 PO SCH (10:11)
--- NOTE | 2022-03-19 10:30 | NUR ---
RN Notes: Received pt. awake in bed, responsive to staffs. Ate 100% for breakfast compliant on meds including the investigational med. Pt. went for smoking and pt. took shower. No distress and no agitation noted. Needs attended and will continue to monitor for safety.
[2022-03-19] MEDS: MAGNESIUM HYDROXIDE 30 ML UDC PO PRN (14:09)
[2022-03-19 16:00] VITALS: BP 120/70
[2022-03-19 20:43] VITALS: BP 158/79
[2022-03-19] MEDS: ZOLPIDEM TARTRATE 10 MG TABLET PO PRN (21:30)
--- NOTE | 2022-03-20 07:28 | NUR ---
GPS RN OPENING NOTE RECEIVED PATIENT IN BED AWAKE, ALERT AND ORIENTED X4, ABLE TO MAKE NEEDS KNOWN. PATIENT IS CALM AND DENIES SI/HI/VH AT THIS TIME. SAFETY PRECAUTIONS IN PLACED AND MAINTAINED. WILL CONTINUE TO MONITOR Q15MIN ROUNDS FOR SAFETY AND BEHAVIOR.
[2022-03-20 08:00] VITALS: BP 110/63
[2022-03-20] MEDS: AMLODIPINE 10 MG PO SCH (08:49)
[2022-03-20] MEDS: INVEST MED CVL-231-2002 PO SCH (10:02)
[2022-03-20] MEDS: LORAZEPAM 1 MG TABLET FOR AGITATION PO PRN ×2 (10:13→17:07)
--- NOTE | 2022-03-20 10:15 | NUR ---
GPS RN NOTE PATIENT C/O FEELING ANXIOUS AND IS REQUESTING ATIVAN AT THIS TIME. PATIENT VITAL SIGNS ARE STABLE. ATIVAN 1MG PO ADMINISTERED ORDERED PRN Q6 HR ORDERED FOR ANXIETY. WILL MONITOR AND REASSESS PT.
--- NOTE | 2022-03-20 13:07 | NUR ---
GPS RN NOTE PATIENT IN BED AWAKE, ALERT AND ORIENTED X4, ABLE TO MAKE NEEDS KNOWN. PT REMAINS CALM WITH NO EPISODES OF ANXIOUSNESS. DENIES SI/HI/VH AT THIS TIME. SAFETY PRECAUTIONS MAINTAINED. WILL CONTINUE TO MONITOR Q15MIN ROUNDS FOR SAFETY AND BEHAVIOR.
[2022-03-20 16:18] VITALS: BP 134/86
--- NOTE | 2022-03-20 17:07 | NUR ---
GPS RN NOTE PATIENT C/O FEELING ANXIOUS AND IS REQUESTING ATIVAN AT THIS TIME. PATIENT VITAL SIGNS ARE STABLE. ATIVAN 1MG PO ADMINISTERED ORDERED PRN Q6 HR FOR ANXIETY. WILL MONITOR AND REASSESS PT.
--- NOTE | 2022-03-20 19:30 | NUR ---
GPS RN NOTE PATIENT IN BED AWAKE, A/O X4, ABLE TO MAKE NEEDS KNOWN. PT REMAINS CALM WITH NO EPISODES OF ANXIOUSNESS. DENIES SI/HI/VH AT THIS TIME. SAFETY PRECAUTIONS IN PLACE. WILL CONTINUE TO MONITOR Q15MIN ROUNDS FOR SAFETY AND BEHAVIOR.
[2022-03-20 20:00] VITALS: BP 125/61
[2022-03-21] MEDS: AMLODIPINE 10 MG PO SCH (09:37)
[2022-03-21] MEDS: INVEST MED CVL-231-2002 PO SCH (09:38)
[2022-03-21] MEDS ORDERED: LORAZEPAM 1 MG TABLET FOR AGITATION PO PRN (13:00)
--- NOTE | 2022-03-21 13:00 | NUR ---
Patient alert,verbally responsive,disorganized thoughts , poor insight ,poor judgment ,easily irritable and anxious.Patient flat affect.Patient talking to herself stated "hearing voices".Continue to monitor for safety q15 minutes .Encourage patient to verbalize feelings and thoughts redirect as needed.
[2022-03-21 20:01] VITALS: BP 110/53
[2022-03-21] MEDS: ZOLPIDEM TARTRATE 10 MG TABLET PO PRN (20:37)
--- NOTE | 2022-03-21 20:53 | NUR ---
RN GPS note: patient is alert,oriented x 3 ,ambulatory,pleasant upon approach.No s/s of acute distress noted.c/o of difficulty falling asleep,requested and given Ambien 10 mg PO as needed for insomnia.Will henrietta ue to monitor q15 min rounds for safety.
[2022-03-22] MEDS: AMLODIPINE 10 MG PO SCH (09:05)
[2022-03-22] MEDS: INVEST MED CVL-231-2002 PO SCH (09:05)
[2022-03-22] MEDS: MAGNESIUM HYDROXIDE 30 ML UDC PO PRN (12:19)
--- NOTE | 2022-03-22 14:45 | NUR ---
Patient alert,verbally responsive,disorganized thoughts , poor insight .poor judgment .Patient flat affect.Patient talking to herself stated "hearing voices".Continue to monitor for safety q15 minutes .Encourage patient to verbalize feelings and thoughts redirect as needed.
--- NOTE | 2022-03-22 16:22 | NUR ---
Patient isolative and withdrawn,no interaction with peers,preoccupied with her own thoughts ,will continue to monitor for safety q15 minutes .
--- NOTE | 2022-03-22 19:59 | NUR ---
Received patient in bed awake,bright mood,pleasant upon approach,no s/s of acute distress noted.Patient requested to have her Ambien 10 mg PO at 10 pm.Will continue to monitor q15 min rounds for safety.
[2022-03-22 20:28] VITALS: BP 121/66
[2022-03-22] MEDS: ZOLPIDEM TARTRATE 10 MG TABLET PO PRN (20:50)
[2022-03-23] MEDS: AMLODIPINE 10 MG PO SCH (08:45)
--- NOTE | 2022-03-23 09:43 | NUR ---
RN-CO: PATIENT DENIED PAIN AND DISCOMFORTS,COOPERATIVE BUT NEEDY. PATIENT NOTED WITH EPISODE OF RESPONDING TO INTERNAL STIMULI. WE WILL CONTINUE TO MONITOR.
[2022-03-23] MEDS: INVEST MED CVL-231-2002 PO SCH (10:00)
[2022-03-23] MEDS: ZOLPIDEM TARTRATE 10 MG TABLET PO PRN (21:01)
--- NOTE | 2022-03-23 22:36 | NUR ---
Patient appears to be cooperative,pleasant upon approach,no c/o of any adverse effect.No s/s of acut distress noted.Will continue to monitor q15 min rounds for safety.
[2022-03-24 08:25] VITALS: BP 111/59
[2022-03-24] MEDS: AMLODIPINE 10 MG PO SCH (09:00)
[2022-03-24] MEDS: INVEST MED CVL-231-2002 PO SCH (11:00)
--- NOTE | 2022-03-24 13:17 | NUR ---
RN-NOTES PATIENT REQUESTING ATIVAN, ATIVAN 1MG P.O GIVEN PRN ORDER.
[2022-03-24 16:00] VITALS: BP 114/64
--- NOTE | 2022-03-24 19:30 | NUR ---
GPS RN NOTE, RECEIVED PATIENT AWAKE AND IN BED, PATIENT HAS A COMPLAINT OF CHRONIC BILATERAL FOOT PAIN AT 4 OUT OF 10 ON THE PAIN SCALE. PATIENT IS TAKING PAIN MEDICATION FOR THIS PAIN. PATIENT IS DISPLAYING NO S/S OF APPARENT DISTRESS AT THIS TIME. PATIENT BREATHING IS UNLABORED WITH EQUAL RISE AND FALL OF THE CHEST. PATIENT IS ALERT AND ORIENTED X 4 ON ROOM AIR WITH A SPO2 98%. PATIENT IS COMPLIANT WITH MEDICATIONS, ANXIOUS, AND COOPERATIVE. PATIENT DENIES SUICIDAL AND HOMICIDAL IDEATIONS AT THIS TIME. PATIENT ASSISTED WITH TURNING AND REPOSITIONING Q2HR AND PRN FOR COMFORT AND CIRCULATION. PATIENT HAS NO NEEDS AT THIS TIME. PATIENT EDUCATED ON THE USE OF THE CALL LOPEZ. PATIENT BED SIDE RAILS UP X 2 FOR SAFETY. PATIENT BED IS LOCKED, LOW, WITH BED ALARM ON. WILL CONTINUE TO MONITOR THIS PATIENT Q15 MINUTES WITH THE HELP OF STAFF TO MAINTAIN SAFETY.
[2022-03-24 20:00] VITALS: BP 121/62
[2022-03-24] MEDS: IBUPROFEN 200 MG TABLET PO PRN (20:11)
--- NOTE | 2022-03-24 20:11 | NUR ---
GPS RN NOTE, PATIENT HAS A COMPLAINT OF CHRONIC BILATERAL FOOT PAIN AT 4 OUT 10 ON THE PAIN SCALE AND REQUESTING MOTRIN AT THIS TIME. PATIENT VITAL SIGNS ARE STABLE. GAVE MOTRIN 600MG PO Q8HR PRN ORDERED. WILL REASSESS PAIN AND I WILL CONTINUE TO MONITOR THIS PATIENT WITH THE HELP OF STAFF.
[2022-03-24] MEDS: ZOLPIDEM TARTRATE 10 MG TABLET PO PRN (23:34)
[2022-03-25 08:00] VITALS: BP 132/69
[2022-03-25] MEDS: AMLODIPINE 10 MG PO SCH (09:23)
[2022-03-25] MEDS: INVEST MED CVL-231-2002 PO SCH (10:05)
[2022-03-25] MEDS: IBUPROFEN 200 MG TABLET PO PRN (13:56)
--- NOTE | 2022-03-25 13:57 | NUR ---
RN-NOTES PATIENT REQUESTING FOR MOTRIN ,MOTRIN 600MG P.O GIVEN PRN ORDER.
[2022-03-25 16:00] VITALS: BP 130/65
--- NOTE | 2022-03-25 19:00 | NUR ---
RN-NOTES PATIENT LYING IN HER BED AWAKE,A/O X4,CALM,NO ACUTE DISTRESS NOTED. COMPLIANT WITH MEDICATIONS. ABLE TO MAKE NEEDS KNOWN TO THE STAFF. AMBULATORY STEADY GAIT.PATIENT OFF THE UNIT SEVERAL TIMES FOR SMOKING.WILL CONT. MONITORING FOR SAFETY AND BEHAVIOR.WILL ENDORSE TO INCOMING SHIFT.
--- NOTE | 2022-03-25 19:30 | NUR ---
GPS RN NOTE, RECEIVED PATIENT AWAKE AND IN BED, PATIENT HAS A COMPLAINT OF CHRONIC BILATERAL FOOT PAIN AT 1 OUT OF 10 ON THE PAIN SCALE. PATIENT IS TAKING PAIN MEDICATION FOR THIS PAIN. PATIENT IS DISPLAYING NO S/S OF APPARENT DISTRESS AT THIS TIME. PATIENT BREATHING IS UNLABORED WITH EQUAL RISE AND FALL OF THE CHEST. PATIENT IS ALERT AND ORIENTED X 4 ON ROOM AIR WITH A SPO2 98%. PATIENT IS COMPLIANT WITH MEDICATIONS, ANXIOUS, AND COOPERATIVE. PATIENT DENIES SUICIDAL AND HOMICIDAL IDEATIONS AT THIS TIME. PATIENT ASSISTED WITH TURNING AND REPOSITIONING Q2HR AND PRN FOR COMFORT AND CIRCULATION. PATIENT HAS NO NEEDS AT THIS TIME. PATIENT EDUCATED ON THE USE OF THE CALL LOPEZ. PATIENT BED SIDE RAILS UP X 2 FOR SAFETY. PATIENT BED IS LOCKED, LOW, WITH BED ALARM ON. WILL CONTINUE TO MONITOR THIS PATIENT Q15 MINUTES WITH THE HELP OF STAFF TO MAINTAIN SAFETY.
[2022-03-25 20:00] VITALS: BP 118/74
[2022-03-25] MEDS: ZOLPIDEM TARTRATE 10 MG TABLET PO PRN (20:09)
[2022-03-26] MEDS: IBUPROFEN 200 MG TABLET PO PRN ×3 (03:56→20:59)
[2022-03-26 08:00] VITALS: BP 106/71
[2022-03-26] MEDS: AMLODIPINE 10 MG PO SCH (09:14)
[2022-03-26] MEDS: INVEST MED CVL-231-2002 PO SCH (10:14)
--- NOTE | 2022-03-26 12:27 | NUR ---
RN-NOTES PATIENT C/O LEFT HAND PAIN ,REQUESTING FOR MOTRIN ,MOTRIN 600MG P.O GIVEN PRN ORDER.
[2022-03-26 16:00] VITALS: BP 150/88
--- NOTE | 2022-03-26 18:58 | NUR ---
RN-NOTES PATIENT LYING IN HER BED AWAKE,A/O X4,CALM,COOPERATIVE,NO ACUTE DISTRESS NOTED. COMPLIANT WITH MEDICATIONS. ABLE TO MAKE NEEDS KNOWN TO THE STAFF. AMBULATORY STEADY GAIT.PATIENT OFF THE UNIT SEVERAL TIMES FOR SMOKING.WILL CONT. MONITORING FOR SAFETY AND BEHAVIOR.WILL ENDORSE TO INCOMING SHIFT.
[2022-03-26 20:11] VITALS: BP 129/61
[2022-03-26] MEDS: ZOLPIDEM TARTRATE 10 MG TABLET PO PRN (21:00)
[2022-03-27] MEDS: MAGNESIUM HYDROXIDE 30 ML UDC PO PRN (05:05)
--- NOTE | 2022-03-27 05:09 | NUR ---
GPS RN NOTE, PATIENT HAS A COMPLAINT OF CONSTIPATION AND IS REQUESTING MILK OF MAGNESIA AT THIS TIME. PATIENT VITAL SIGNS ARE STABLE. GAVE MILK OF MAGNESIA 30ML 1 UNIT DOSE Q6HR PRN ORDERED. WILL CONTINUE TO MONITOR THIS PATIENT WITH THE HELP OF STAFF.
[2022-03-27 08:00] VITALS: BP 133/69
[2022-03-27] MEDS: AMLODIPINE 10 MG PO SCH (08:26)
[2022-03-27] MEDS: IBUPROFEN 200 MG TABLET PO PRN (09:24)
--- NOTE | 2022-03-27 09:24 | NUR ---
RN-CO: IBUPROFEN 600 MG PO GIVEN FOR C/O 76/10 BILATERAL KNEE PAIN.
--- NOTE | 2022-03-27 09:43 | NUR ---
RN-CO: PATIENT ASKED FOR IBUPROFEN FOR HER BILATERAL KNEE PAIN DUE TO HER ARTHRITIS. OTHERWISE SHE IS MOTIVATED TO SELFCARE.SHE DENIED ANY EPS FROM INVESTIGATIONAL MEDICATIONS.
--- NOTE | 2022-03-27 09:44 | NUR ---
RN-CO: PATIENT NOTED THAT AT TIMES SHE IS MUMBLING TO HERSELF AND SHE IS GUARDED IN GIVING INFORMATIONS.
[2022-03-27] MEDS: INVEST MED CVL-231-2002 PO SCH (10:00)
[2022-03-27 16:00] VITALS: BP 130/65
[2022-03-27 21:00] VITALS: BP 131/76
--- NOTE | 2022-03-27 21:18 | NUR ---
RN Note: Patient is awake,alert,oriented x 4,ambulatory ,bright mood.No s/s of acute distress noted. Held Ativan PRN and Ambien PRN for tonight per Psych MD order.Will continue to monitor q15 min rounds for safety.
[2022-03-28 08:00] VITALS: BP 122/62
[2022-03-28] MEDS: AMLODIPINE 10 MG PO SCH (08:50)
--- NOTE | 2022-03-28 09:28 | NUR ---
RN-CO: PATIENT IS NOT HAPPY ABOUT HOLDING HER AMBIEN AND ATIVAN LAST NIGHT, HOWEVER SHE REMAINS CALM AND PLEASANT TO STAFF. SHE STATED SHE FEELS BETTER TAKING THE INVESTIGATIONAL MEDICATIONS. THE "VOICES" ARE NOTE THERE ANYMORE AND THE PARANOIA. I WILL CONTINUE TO MONITOR. SHE DENIED SIDE EFFECTS FROM IT.
[2022-03-28] MEDS: INVEST MED CVL-231-2002 PO SCH (10:01)
[2022-03-28] MEDS ORDERED: LORAZEPAM 1 MG TABLET FOR AGITATION PO PRN (13:00)
[2022-03-28] MEDS: MAGNESIUM HYDROXIDE 30 ML UDC PO PRN (15:31)
[2022-03-28] MEDS: IBUPROFEN 200 MG TABLET PO PRN (15:31)
--- NOTE | 2022-03-28 15:32 | NUR ---
RCO: MOM GIVEN AND IBUPROFEN 600 MG PO C/O RAFITA KNEE PAIN 02/06. AND C/O CONSTIPATION.
[2022-03-28 16:00] VITALS: BP 126/60
--- NOTE | 2022-03-28 19:30 | NUR ---
PATIENT RECEIVED AWAKE RESTING COMFORTABLY IN HER ROOM. NO COMPLAINTS AND NOT IN DISTRESS. A/O X4. CALM, COOPERATIVE. ABLE TO MAKE NEEDS KNOWN. PT IS AMBULATORY WITH STEADY GAIT. WILL CONT PLAN OF CARE. WILL MONITORING FOR SAFETY AND BEHAVIOR.
[2022-03-28 19:54] VITALS: BP 107/63
--- NOTE | 2022-03-28 20:30 | NUR ---
PT WENT OUT TO SMOKE.
--- NOTE | 2022-03-28 21:00 | NUR ---
PT BACK FROM SMOKING. ASKED FOR AMBIEN. PRN MED PROVIDED REQUESTED BY PT.
[2022-03-28] MEDS: ZOLPIDEM TARTRATE 10 MG TABLET PO PRN (21:04)
--- NOTE | 2022-03-29 09:00 | NUR ---
Patient alert,verbally responsive,disorganized thoughts ,poor insight poor judgment .Patient refused to attend groups Patient stated hearing voices".Continue to monitor for safety q15 minutes .Encourage patient to verbalize feelings and thoughts redirect as needed.
[2022-03-29] MEDS: INVEST MED CVL-231-2002 PO SCH (09:11)
[2022-03-29] MEDS: AMLODIPINE 10 MG PO SCH (09:11)
[2022-03-29] MEDS: IBUPROFEN 200 MG TABLET PO PRN (12:21)
--- NOTE | 2022-03-29 12:23 | NUR ---
Patient c/o of headache 01/07 medicated with IBUPROFEN 600MG WILL CONTINUE TO MONITOR .
--- NOTE | 2022-03-29 13:00 | NUR ---
PATIENT REMAINS ISOLATIVE AND WITHDRAWN ,NO INTERACTION WITH PEERS ,WILL CONTINUE TO MONITOR FOR SAFETY Q15 MINUTES .
[2022-03-29 20:00] VITALS: BP 123/62
[2022-03-29 20:10] VITALS: BP 123/62
--- NOTE | 2022-03-29 20:10 | NUR ---
RN OPENING NOTE: RECEIVED PATIENT RESTING IN HER ROOM, AWAKE, ANXIOUS, LABILE AT TIMES BUT REDIRECTABLE. NO ACUTE DISTRESS NOTED. NO C/O PAIN VERBALIZED. PATIENT TAKES SMOKE BREAKS AND GOES OUT OF THE UNIT. DENIES SI/HI AT THIS TIME. PATIENT REMAINS ISOLATIVE AND WITHDRAWN, AMBULATORY, STEADY GAIT. BED IN LOW LOCKED POSITION. WILL CONTINUE TO MONITOR Q15 MINUTES FOR SAFETY AND BEHAVIOR.
[2022-03-29] MEDS: ZOLPIDEM TARTRATE 10 MG TABLET PO PRN (21:16)
--- NOTE | 2022-03-29 21:19 | NUR ---
RN NOTE: INSOMNIA PATIENT C/O INABILITY TO SLEEP AND REQUESTED TO TAKE SLEEPING MEDICINE. PRN AMBIEN 10 MG PO ADMINISTERED ORDERED BY .
[2022-03-30 08:00] VITALS: BP 130/63
[2022-03-30] MEDS: AMLODIPINE 10 MG PO SCH (08:06)
[2022-03-30] MEDS: INVEST MED CVL-231-2002 PO SCH (09:57)
[2022-03-30] MEDS: IBUPROFEN 200 MG TABLET PO PRN (10:08)
--- NOTE | 2022-03-30 10:09 | NUR ---
Patient c/o of headache 01/07 medicated with IBUPROFEN 600MG WILL CONTINUE TO MONITOR .
--- NOTE | 2022-03-30 10:30 | NUR ---
RN-CO: IBUPROFEN GIVEN FOR C/O BILATERAL KNEE PAIN 01/07.
--- NOTE | 2022-03-30 13:30 | NUR ---
RN-CO: PATIENT WAS GIVEN IBUPROFEN 600 MG PO FOR BILATERAL KNEE PAIN, SHOWERED AND WASHED HER CLOTHES TODAY. SHE USUALLY GOES OUT TO SMOKE AND MOST OF THE TIME WATCHES IN HER TABLET. SHE STATED SHE DON"T FEEL PARANOID NOT HEARING "VOICES" SHE DENIED FEELING OF ADVERSE REACTION IN IP MEDICATION.
[2022-03-30 16:00] VITALS: BP 130/66
[2022-03-30] MEDS: MAGNESIUM HYDROXIDE 30 ML UDC PO PRN (16:35)
--- NOTE | 2022-03-30 16:35 | NUR ---
ROSACO; MOM GIVEN FOR C/O CONSTIPATIONS.
--- NOTE | 2022-03-30 19:15 | NUR ---
GPS RN NOTES PATIENT IN BED AWAKE, ALERT AND ORIENTED X4, ABLE TO MAKE NEEDS KNOWN. NO S/SX OF ACUTE DISTRESS NOTED. PT STEPPED OUT OF THE UNIT TO SMOKE AND CAME BACK AFTER 10MINS. PLEASANT UPON APPROACH, COOPERATIVE WITH CARE, ON INVESTIGATIONAL MEDS WITH NO ADVERSE REACTIONS NOTED. NO EPS, NO TREMORS NOTED. DENIES SI/HI/AVH AT THIS TIME. SAFETY PRECAUTIONS MAINTAINED. WILL CONTINUE TO MONITOR Q15MIN ROUNDS FOR SAFETY AND BEHAVIOR.
[2022-03-30] MEDS: ZOLPIDEM TARTRATE 10 MG TABLET PO PRN (21:02)
[2022-03-31 08:00] VITALS: BP 144/95
[2022-03-31] MEDS: AMLODIPINE 10 MG PO SCH (08:34)
[2022-03-31] MEDS: INVEST MED CVL-231-2002 PO SCH (10:04)
[2022-03-31 16:01] VITALS: BP 158/63
--- NOTE | 2022-03-31 18:28 | NUR ---
RN-NOTES PATIENT LYING IN HER BED AWAKE,A/O X4,WATCHING ON HER CELLPHONE,CALM,NO ACUTE DISTRESS NOTED. COMPLIANT WITH MEDICATIONS. ABLE TO MAKE NEEDS KNOWN TO THE STAFF.AMBULATORY STEADY GAIT.PATIENT OFF THE UNIT SEVERAL TIMES FOR SMOKING.WILL CONT. MONITORING FOR SAFETY AND BEHAVIOR.WILL ENDORSE TO INCOMING SHIFT FOR CONTINUITY OF CARE.
[2022-03-31] MEDS: MAGNESIUM HYDROXIDE 30 ML UDC PO PRN (18:34)
[2022-03-31] MEDS: IBUPROFEN 200 MG TABLET PO PRN (18:34)
--- NOTE | 2022-03-31 18:37 | NUR ---
RN-NOTES PATIENT REQUESTING FOR MOTRIN AND MOM ( CONSTIPATION). MOTRIN 600MG P.O AND MOM 30ML GIVEN PRN ORDER. WILL ENDORSE TO INCOMING SHIFT FOR CONTINUITY OF CARE.
--- NOTE | 2022-03-31 19:30 | NUR ---
GPS RN NOTE, RECEIVED PATIENT AWAKE AND IN BED, NO S/S OR COMPLAINTS OF PAIN AT THIS TIME. PATIENT IS DISPLAYING NO S/S OF APPARENT DISTRESS AT THIS TIME. PATIENT BREATHING IS UNLABORED WITH EQUAL RISE AND FALL OF THE CHEST. PATIENT IS ALERT AND ORIENTED X 4 ON ROOM AIR WITH A SPO2 99%. PATIENT IS COMPLIANT WITH MEDICATIONS, CALM, AND COOPERATIVE. PATIENT DENIES SUICIDAL AND HOMICIDAL IDEATIONS AT THIS TIME. PATIENT ASSISTED WITH TURNING AND REPOSITIONING Q2HR AND PRN FOR COMFORT AND CIRCULATION. PATIENT HAS NO NEEDS AT THIS TIME. PATIENT EDUCATED ON THE USE OF THE CALL LOPEZ. PATIENT BED SIDE RAILS UP X 2 FOR SAFETY. PATIENT BED IS LOCKED, LOW, WITH BED ALARM ON. WILL CONTINUE TO MONITOR THIS PATIENT Q15 MINUTES WITH THE HELP OF STAFF TO MAINTAIN SAFETY.
[2022-03-31 20:00] VITALS: BP 127/62
[2022-03-31] MEDS: ZOLPIDEM TARTRATE 10 MG TABLET PO PRN (21:04)
[2022-04-01 08:00] VITALS: BP 121/57
[2022-04-01] MEDS: AMLODIPINE 10 MG PO SCH (08:20)
[2022-04-01] MEDS: INVEST MED CVL-231-2002 PO SCH (09:59)
--- NOTE | 2022-04-01 13:40 | NUR ---
RN-CO: PATIENT IS CALM AND COOPERATIVE TO CARE. SHE DENIES ADVERSE REACTIONS FROM THE INVESTIGATIONAL MEDICATIONS. SHE IS LOOKING FORWARD FOR HER DISCHARGE IN 4 WEEKS BECAUSE SHE HAS A NEW APARTMENT AND PLANNING TO BUY A CAR. SHE STATED THAT THE INVESTIGATIONAL MEDICATION IS WORKING SINCE SHE DOESN'T HAVE AH/VH AND PARANOIA.
[2022-04-01 16:00] VITALS: BP 131/67
[2022-04-01] MEDS: IBUPROFEN 200 MG TABLET PO PRN (16:42)
--- NOTE | 2022-04-01 16:42 | NUR ---
RN-CO: IBUPROFEN 600 MG PO GIVEN FOR C/O 02/06 BILATERAL KNEE PAIN.
[2022-04-01 20:00] VITALS: BP 134/90
--- NOTE | 2022-04-01 20:05 | NUR ---
RN NOTES: PATIENT RESTING IN HER ROOM, NO S/SX OF ACUTE DISTRESS NOTED. PT STEPPED OUT OF THE UNIT TO SMOKE AND CAME BACK AFTER 10 MINS. PLEASANT UPON APPROACH, COOPERATIVE WITH CARE, ON INVESTIGATIONAL MEDS WITH NO ADVERSE REACTIONS NOTED. NO EPS, DENIES SI/HI/AVH AT THIS TIME. SAFETY PRECAUTIONS MAINTAINED. WILL CONTINUE TO MONITOR Q15MIN ROUNDS FOR SAFETY AND BEHAVIOR.
[2022-04-01] MEDS: ZOLPIDEM TARTRATE 10 MG TABLET PO PRN (21:18)
--- NOTE | 2022-04-01 21:20 | NUR ---
RN NOTES: INSOMNIA PATIENT C/O INABILITY TO SLEEP . PER PATIENT REQUEST, AMBIEN 10 MG PO ADMINISTERED ORDERED .
[2022-04-02 08:00] VITALS: BP 121/69
[2022-04-02] MEDS: AMLODIPINE 10 MG PO SCH (08:59)
--- NOTE | 2022-04-02 09:00 | NUR ---
RN NOTE- PATIENT AFFECT APPROPRIATE. INTERACTIVE. PO INTAKE GOOD, SHOWERED AND WASHED HER CLOTHES TODAY. SHE USUALLY GOES OUT TO SMOKE AND MOST OF THE TIME WATCHES IN HER TABLET. SHE STATED SHE DON"T FEEL PARANOID NOT HEARING "VOICES" SHE DENIED FEELING OF ADVERSE REACTION IN MEDICATION.
[2022-04-02] MEDS: INVEST MED CVL-231-2002 PO SCH (10:11)
[2022-04-02 16:00] VITALS: BP 118/58
[2022-04-02 20:20] VITALS: BP 147/81
[2022-04-02] MEDS: ZOLPIDEM TARTRATE 10 MG TABLET PO PRN (20:40)
--- NOTE | 2022-04-02 21:00 | NUR ---
GPS RN NOTE, PATIENT TRANSFERRED TO [facility] [place] IN STABLE CONDITION. REPORT GIVEN TO MORA COHEN RN FOR CONTINUATION OF CARE.
--- NOTE | 2022-04-02 21:00 | NUR ---
MS RN NOTES/CLINICAL TRIAL RECEIVED FROM GPS AMBULATORY,ACCOMPANIED BY CHARGE NURSE TRENA JASON SURG/CLINICAL TRIAL STATUS.ALERT X4,ABLE TO COMMUNICATE WELL,SMOKER, WITH CIGARETTE KEPT BY THE NURSE.REDIRECTABLE,
[2022-04-02 21:13] VITALS: BP 118/77
--- NOTE | 2022-04-03 07:15 | NUR ---
MS RN NOTES/CLINICAL TRIAL NO BEHAVIORAL ISSUES NOTED,MED COMPLIANT,
--- NOTE | 2022-04-03 07:35 | NUR ---
MS RN OPENING NOTES RECEIVED PATIENT IN HER ROOM WATCHING TV, PATIENT APPEARS TO BE CALM, AOX4, NOT SHOWING ANY S/SX OF RESPIRATORY DISTRESS. NO IV LINES, PATIENT IS AMBULATORY. EDUCATED PATIENT REGARDING HER NPO TONIGHT AT 2100 ONWARDS AND TO HOLD OFF ATIVAN AND AMBIEN WELL. WILL CONTINUE TO MONITOR DURING MY SHIFT.
[2022-04-03 08:00] VITALS: BP 135/77
[2022-04-03] MEDS: AMLODIPINE 10 MG PO SCH (09:05)
[2022-04-03] MEDS: INVEST MED CVL-231-2002 PO SCH (09:59)
[2022-04-03] MEDS: MAGNESIUM HYDROXIDE 30 ML UDC PO PRN (13:50)
--- NOTE | 2022-04-03 13:50 | NUR ---
RN NOTES PATIENT REQUESTED FOR MILK OF MAGNESIA FOR HER CONSTIPATION. GIVEN PRN MED.
[2022-04-03 16:00] VITALS: BP 119/75
--- NOTE | 2022-04-03 18:18 | NUR ---
RN NOTES CONFIRMED WITH DR SALGUERO THAT LONNY'S SCHEDULED NPO AND HOLDING OFF ON ATIVAN AND AMBIEN STARTING AT 2100 HAS BEEN MOVED TO 04/04 INSTEAD. WILL RELAY TO THE ONCOMING NURSE.
--- NOTE | 2022-04-03 18:46 | NUR ---
MS RN CLOSING NOTES PATIENT IN HER ROOM WATCHING TV, PATIENT APPEARS TO BE CALM, AOX4, NOT SHOWING ANY S/SX OF RESPIRATORY DISTRESS. NO IV LINES, PATIENT IS AMBULATORY. NPO AND HOLDING OFF ON AMBIEN AND ATIVAN HAS BEEN MOVED TO 04/[address]GUERO. PATIENT HAS BEEN ADVISED. ALL NEEDS MET. WILL ENDORSE TO THE NEXT NURSE.
--- NOTE | 2022-04-03 19:55 | NUR ---
MS RN OPENING NOTES: RECEIVED PATIENT AWAKE IN BED, BED IN LOW POSITION, CALL LIGHTS WITHIN REACH, NO COMPLAIN OF PAIN AND DISCOMFORT AT THIS TIME, ON ROOM AIR SATURATING WELL, PATIENT IS A/OX4 AMBULATORY, ON CLINICAL TRIAL, NO CHANGES IN BEHAVIOR HAS BEEN OBSERVED, APPEARS CALM AND PLEASANT DURING CONVERSATION. WILL CONTINUE TO MONITOR.
[2022-04-03 20:04] VITALS: BP 119/64
[2022-04-03 20:36] VITALS: BP 119/64
[2022-04-03] MEDS: ZOLPIDEM TARTRATE 10 MG TABLET PO PRN (20:48)
--- NOTE | 2022-04-04 06:42 | NUR ---
RN CLOSING NOTES: PATIENT SLEEP IN BED COMFORTABLY AROUSABLE TO VERBAL STIMULI, BED IN LOW POSITION CALL LIGHTS WITHIN REACH, ON ROOM AIR SATURATING WELL, PATIENT IS A/OX4, AMBULATORY ABLE TO MAKE NEEDS KNOWN, ON CLINICAL TRIAL, NO CHANGES IN BEHAVIOR WAS OBSERVED, KEPT CLEAN AND DRY ALL NEEDS MET ENDORSE TO INCOMING SHIFT.
--- NOTE | 2022-04-04 07:45 | NUR ---
MS RN OPENING NOTE Patient in bed, awake. A/O x 3, able to make needs known. On room air, breathing evenly and unlabored. No SOB or s/s of distress noted. No IV access due to clinical trial status. Patinet denies any pain or discomfort at this time. Safety precautions in place: be din low, locked position; siderails up x 2, call light within reach. Will continue to monitor.
[2022-04-04 08:34] VITALS: BP 120/66
[2022-04-04] MEDS: AMLODIPINE 10 MG PO SCH (08:50)
[2022-04-04] MEDS: INVEST MED CVL-231-2002 PO SCH (10:02)
[2022-04-04 16:20] VITALS: BP 117/56
--- NOTE | 2022-04-04 18:53 | NUR ---
MS RN CLOSING NOTE Patient in bed, resting. A/O x 3, able to make needs known. Stable on room air, breathing evenly and unlabored. No SOB or s/s of distress noted. No IV access due to clinical trial status. All needs attended to. Due meds given. Safety precautions in place: bed in low, locked position; siderails up x 2, call light within reach. Will endorse to [facility] shift nurse for JOVANNY.
--- NOTE | 2022-04-04 19:55 | NUR ---
MS RN OPENING NOTE Patient in bed, awake. A/O x 3, able to make needs known. On room air, breathing evenly and unlabored. No SOB or s/s of distress noted. No IV access due to clinical trial status. Patinet denies any pain or discomfort at this time. Safety precautions in place:call light within reach. Will continue to monitor.
[2022-04-04 20:00] VITALS: BP 117/60
--- NOTE | 2022-04-05 06:22 | NUR ---
MS RN CLOSING NOTE; Patient in bed sleeping.A/O x 3, able to make needs known. On room air, breathing evenly and unlabored. No SOB or s/s of distress noted.pt was NPO since 04-04-22 @2100.No IV access due to clinical trial status. Patinet denies any pain or discomfort at this time. Safety precautions in place:call light within reach. Will endorsed to next shift..
[2022-04-05 08:00] VITALS: BP 127/67
--- NOTE | 2022-04-05 08:06 | NUR ---
MS RN OPENING NOTE Patient in bed, awake. A/O x 3, able to make needs known. On room air, breathing evenly and unlabored. No SOB or s/s of distress noted. No IV access due to clinical trial status. Patient kept NPO for lab draw this AM. Safety precautions in place: be din low, locked position; siderails up x 2, call light within reach. Will continue to monitor.
[2022-04-05] MEDS: AMLODIPINE 10 MG PO SCH (09:34)
[2022-04-05] MEDS: INVEST MED CVL-231-2002 PO SCH (10:00)
[2022-04-05] MEDS ORDERED: LORAZEPAM 1 MG TABLET FOR AGITATION PO PRN (13:00)
[2022-04-05 16:00] VITALS: BP 105/47
--- NOTE | 2022-04-05 19:45 | NUR ---
MS RN OPENING NOTES RECEIVED PATIENT IN BED; AWAKE, ALERT AND ORIENTED X 4. BREATHING EVENLY AND NONLABORED. ON ROOM AIR; WELL TOLERATED. NOT IN ANY FORM OF RESPIRATORY DISTRESS. DENIES ANY PAIN OR DISCOMFORT AT THIS TIME. ON CLINICAL TRIAL. NO IV ACCESS. ABLE TO MAKE NEEDS KNOWN. FALL AND SAFETY MEASURES IMPLEMENTED: CALL LIGHT AND TABLE WITHIN EASY REACH, SIDE RAILS UP X 2, BED IN LOWEST LOCKED POSITION. WILL CONTINUE TO MONITOR.
--- NOTE | 2022-04-05 19:49 | NUR ---
MS RN CLOSING NOTE Patient in bed, awake. A/O x 3, able to make needs known. Stable on room air, breathing evenly and unlabored. No SOB or s/s of distress noted. No IV access due to clinical trial status. All needs attended to. Due meds given. Safety precautions in place: be din low, locked position; siderails up x 2, call light within reach. Will continue to monitor.
[2022-04-05 20:00] VITALS: BP 108/63
[2022-04-05] MEDS: IBUPROFEN 200 MG TABLET PO PRN (20:14)
--- NOTE | 2022-04-05 20:14 | NUR ---
RN NOTES PATIENT C/O PAIN ON LATERAL SIDE OF LEFT BREAST; IBUPROFEN 200 MG GIVEN PO PER PT'S REQUEST. WILL CONTINUE TO REASSESS AND MONITOR PT.
[2022-04-05] MEDS: ZOLPIDEM TARTRATE 10 MG TABLET PO PRN (20:33)
--- NOTE | 2022-04-05 20:33 | NUR ---
RN NOTES PRN AMBIEN 10 MG PO GIVEN PER PT'S REQUEST; WILL CONTINUE TO MONITOR
--- NOTE | 2022-04-06 07:05 | NUR ---
MS RN CLOSING NOTES PATIENT IN BED; AWAKE, ALERT AND ORIENTED X4. BREATHING EVENLY AND NONLABORED. STABLE ON ROOM AIR. IN NO ACUTE DISTRESS NOTED. NO C/O ANY PAIN OR DISCOMFORT AT THIS TIME. ON CLINICAL TRIAL. NO IV ACCESS. ALL NEEDS MET. FALL AND SAFETY MEASURES IN PLACE: CALL LIGHT AND TABLE WITHIN REACH, SIDE RAILS UP X 2, BED IN LOWEST LOCKED POSITION. ENDORSED TO JHONY PROCTOR FOR JOVANNY.
[2022-04-06 08:00] VITALS: BP 115/68
[2022-04-06] MEDS: INVEST MED CVL-231-2002 PO SCH (09:25)
[2022-04-06] MEDS: AMLODIPINE 10 MG PO SCH (09:55)
[2022-04-06 16:00] VITALS: BP 119/60
[2022-04-06 20:00] VITALS: BP 107/51
[2022-04-06] MEDS: ZOLPIDEM TARTRATE 10 MG TABLET PO PRN (20:40)
--- NOTE | 2022-04-06 22:53 | NUR ---
RN Closing Notes PT Aox4, able to express her own concerns. Patient shows no signs of distress and reports no pain. Patient shared personal information about her family who lives in [place] and i looking forward to ending trial as scheduled in a couple of weeks. Patient remained calm throughout shift and reports providing self care. No incidents throughout shift, all safety precautions take, call light and table within reach, bed locked and at lowest position.
--- NOTE | 2022-04-07 07:10 | NUR ---
MS RN OPENING NOTES PATIENT RECEIVED RESTING IN BED. A/O X 4. ABLE TO MAKE NEEDS KNOWN. DENIES ANY PAIN OR DISCOMFORT AT THIS TIME. ON ROOM AIR, BREATHING EVEN AND UNLABORED, NOT IN ANY FORM OF RESPIRATORY DISTRESS. ON CLINICAL TRIAL. NO IV ACCESS. SAFETY MEASURES MAINTAINED: CALL LIGHT AND TABLE WITHIN EASY REACH, SIDE RAILS UP X 2, BED IN LOWEST LOCKED POSITION. WILL CONTINUE TO MONITOR.
[2022-04-07 08:00] VITALS: BP 132/84
[2022-04-07] MEDS: AMLODIPINE 10 MG PO SCH (08:01)
[2022-04-07] MEDS: INVEST MED CVL-231-2002 PO SCH (10:05)
--- NOTE | 2022-04-07 18:40 | NUR ---
MS RN CLOSING NOTES PATIENT IN BED RESTING AND WATCHING TV AT THIS TIME. A/O X 4. ABLE TO MAKE NEEDS KNOWN. AMBULATORY AND SMOKER. ON ROOM AIR, BREATHING EVEN AND UNLABORED, NO ACUTE RESPIRATORY DISTRESS NOTED DURING SHIFT. ON CLINICAL TRIA, TOLERATED MEDICATION WITH NO BEHAVIORAL ISSUES NOTED THIS SHIFT. NO IV ACCESS PER CT PROTOCOL. ALL NEEDS AND CARE ATTENDED WELL. CALL LIGHT WITHIN EASY REACH OF PT. WILL ENDORSE JOVANNY TO REGIONAL RECRUITER NURSE.
--- NOTE | 2022-04-07 19:30 | NUR ---
MS RN NOTE RECEIVED PATIENT, WALKING IN THE HALLWAY, STEADY. A/OX4. NO S/S OF APPARENT DISTRESS, NO C/O PAIN. INTRODUCED MYSELF TO PATIENT, AND ENCOURAGED VERBALIZING NEEDS. WILL CONTINUE WITH CARE PLAN.
[2022-04-07 20:00] VITALS: BP 102/52
[2022-04-07] MEDS: ZOLPIDEM TARTRATE 10 MG TABLET PO PRN (21:26)
--- NOTE | 2022-04-08 07:13 | NUR ---
MS RN OPENING NOTES RECEIVED PT IN BED AWAKE AND WATCHING TV. A/O X 4. ABLE TO MAKE NEEDS KNOWN, DENIES ANY PAIN OR DISCOMFORT AT THIS TIME. ON ROOM AIR, BREATHING EVEN AND UNLABORED, NOT IN ANY FORM OF RESPIRATORY DISTRESS. ON CLINICAL TRIAL. NO IV ACCESS PER CT PROTOCOL. SAFETY MEASURES MAINTAINED: CALL LIGHT AND TRAY TABLE WITHIN EASY REACH, SIDE RAILS UP X 2, BED IN LOWEST LOCKED POSITION. WILL CONTINUE TO MONITOR.
--- NOTE | 2022-04-08 07:30 | NUR ---
PATIENT DID NOT EXHIBIT ANY BEHAVIORAL ISSUES NOR PSYCH INSTABILITY THROUGHOUT SHIFT. ENDORSED TO HITESH BARLOW FOR CONTINUITY OF PATIENT CARE.
[2022-04-08 08:00] VITALS: BP 124/86
[2022-04-08] MEDS: AMLODIPINE 10 MG PO SCH (08:02)
[2022-04-08] MEDS: INVEST MED CVL-231-2002 PO SCH (10:00)
[2022-04-08] MEDS: MAGNESIUM HYDROXIDE 30 ML UDC PO PRN (13:42)
[2022-04-08 16:00] VITALS: BP 131/64
--- NOTE | 2022-04-08 18:29 | NUR ---
RN CLOSING NOTES PATIENT IN BED RESTING AND WATCHING TV AT THIS TIME. A/O X 4. ABLE TO MAKE NEEDS KNOWN. AMBULATORY AND SMOKER. ON ROOM AIR, BREATHING EVEN AND UNLABORED, NO ACUTE RESPIRATORY DISTRESS NOTED DURING SHIFT. ON CLINICAL TRIAL, TOLERATED MEDICATION WITH NO BEHAVIORAL ISSUES NOTED THIS SHIFT. NO IV ACCESS PER CT PROTOCOL. ALL NEEDS AND CARE ATTENDED WELL. CALL LIGHT WITHIN EASY REACH OF PT. WILL ENDORSE JOVANNY TO MACHINE LONG GOODS HELPER NURSE.
--- NOTE | 2022-04-08 18:41 | NUR ---
MS PROCTOR CLOSING NOTES PATIENT IN BED WATCHING TV AT THIS TIME. A/O X 4. ABLE TO MAKE NEEDS KNOWN. AMBULATORY AND SMOKER. ON ROOM AIR, BREATHING EVEN AND UNLABORED. ON CLINICAL TRIAl, TOLERATED MEDICATION WITH NO BEHAVIORAL ISSUES EXHIBITED NOTED THIS SHIFT. NO IV ACCESS PER CT PROTOCOL. ALL NEEDS AND CARE ATTENDED WELL. CALL LIGHT WITHIN EASY REACH OF PT. WILL ENDORSE JOVANNY TO HISTORIC SITES SUPERVISOR NURSE Addendum: 04/08/22 at 1932 by DYLAN FAY RN DUPLICATE CLOSING NOTES
--- NOTE | 2022-04-08 19:39 | NUR ---
MS RN OPENING NOTES: RECEIVED PATIENT AWAKE IN BED, BED IN LOW POSITION CALL LIGHTS WITHIN REACH,, NO COMPLAIN OF PAIN AND DISCOMFORT AT THIS TIME, ON ROOM AIR SATURATING WELL, PATIENT IS IS A/0X4 AMBULATORY ABLE TO MAKE NEEDS KNOWN, ON CLINICAL TRIAL, NO CHANGES IN BEHAVIOR WAS OBSERVED, WILL CONTINUE TO MONITOR.
[2022-04-08 20:00] VITALS: BP 105/56
[2022-04-08] MEDS: ZOLPIDEM TARTRATE 10 MG TABLET PO PRN (20:50)
--- NOTE | 2022-04-09 07:40 | NUR ---
MS RN OPENING NOTE Patient in bed, awake. a/O x 4, able to make needs known. On room air, breathing evenly and unlabored. No SOB or s/s of distress noted. No IV access due to clinical trial status. Safety precautions in place: bed in low ,locked position; siderails up x 2; call light within reach. Will continue to monitor.
--- NOTE | 2022-04-09 07:55 | NUR ---
MS RN CLOSING NOTES: PATIENT SLEEP IN BED COMFORTABLY, AROUSABLE TO STIMULI, PATIENT IS A/O4 AMBULATORY ABLE TO MAKE NEEDS KNOW, PATIENT ON CLINICAL TRIAL NO CHANGES IN BEHAVIOR HAS BEEN OBSERVED, PATIENT KEPT CLEAN AND DRY ALL NEEDS MET ENDORSE TO INCOMING SHIFT.
[2022-04-09 08:00] VITALS: BP 121/66
[2022-04-09] MEDS: AMLODIPINE 10 MG PO SCH (09:06)
[2022-04-09] MEDS: INVEST MED CVL-231-2002 PO SCH (09:51)
[2022-04-09] MEDS: MAGNESIUM HYDROXIDE 30 ML UDC PO PRN (15:29)
--- NOTE | 2022-04-09 15:29 | NUR ---
RN NOTE Patient complained of stomach pain and constipation, PRN MOM given. Will continue to monitor.
[2022-04-09 16:00] VITALS: BP 100/54
--- NOTE | 2022-04-09 18:51 | NUR ---
MS RN CLOSING NOTE Patient in bed, resting. A/O x 4, able to make needs known. Stable on room air, breathing evenly and unlabored. No SOB or s/s of distress noted. No IV access due to clinical trial status. Patient reports relief of stomach pain. Due meds given. All needs attended to. Safety precautions maintained: bed in low ,locked position; siderails up x 2; call light within reach. Will endorse to production shift supervisor nurse for JOVANNY.
[2022-04-09 20:00] VITALS: BP 140/71
--- NOTE | 2022-04-09 20:00 | NUR ---
RECEIVED PATIENT IN BED, ALERT/ORIENTED X4, CALM, NO COMPLAIN OF PAIN, REMINDED PATIENT THAT ATIVAN AND AMBIEN WILL BE ON HOLD 04/10/22 AT 2100. PATIENT VERBALIZED UNDERSTANDING.
[2022-04-09] MEDS: ZOLPIDEM TARTRATE 10 MG TABLET PO PRN (20:47)
--- NOTE | 2022-04-10 06:07 | NUR ---
Clinical Trial participant, alert/oriented x4, room air, no complain of pain, kept to self, no behavioral disturbance during shift. Patient calm and cooperative.
[2022-04-10] MEDS: AMLODIPINE 10 MG PO SCH (08:47)
--- NOTE | 2022-04-10 10:00 | NUR ---
RN NOTE About to give investigational drug but patient was not in room. Will check again later.
[2022-04-10] MEDS: INVEST MED CVL-231-2002 PO SCH (10:33)
--- NOTE | 2022-04-10 10:36 | NUR ---
RN NOTE Patient returned to room, investigational drug given.
--- NOTE | 2022-04-10 19:52 | NUR ---
MS RN CLOSING NOTE Patient in bed, resting. A/O x 4, able to make needs known. Stable on room air, breathing evenly and unlabored. No SOB or s/s of distress noted. No IV access due to clinical trial status. All needs attended to. due meds given. Safety precautions in place: bed in low ,locked position; siderails up x 2; call light within reach. Will endorse to night stocker nurse for JOVANNY.
[2022-04-10 20:42] VITALS: BP 103/46
--- NOTE | 2022-04-10 22:21 | NUR ---
MS RN OPENING NOTE Patient in bed, resting. A/O x 4, able to make needs known. Stable on room air, breathing evenly and unlabored. No SOB or s/s of distress noted. No IV access due to clinical trial status. All needs attended . Safety precautions in place: bed in low ,locked position; siderails up x 2; call light within reach.
--- NOTE | 2022-04-11 06:46 | NUR ---
MS RN CLOSING NOTE Patient in bed, resting. A/O x 4, able to make needs known. Stable on room air, breathing evenly and unlabored. No SOB or s/s of distress noted. No IV access due to clinical trial status. All needs attended . Safety precautions in place: bed in low ,locked position; siderails up x 2; call light within reach.
[2022-04-11 08:00] VITALS: BP 122/51
--- NOTE | 2022-04-11 08:00 | NUR ---
RN OPENING NOTE PATIENT RECEIVED IN ROOM AND AWAKE. A/O X4 AND VERBALLY RESPONSIVE. NO S/SX OF DISTRESS OR PAIN. REMAINS ON CLINICAL TRIAL. NO IV ACCESS. SAFETY MEASURES IN PLACE. BED LOW AND LOCKED CALL LIGHT WITHIN REACH. WILL CONT TO MONITOR.
[2022-04-11] MEDS: INVEST MED CVL-231-2002 PO SCH (10:00)
[2022-04-11] MEDS: AMLODIPINE 10 MG PO SCH (11:35)
[2022-04-11] MEDS ORDERED: LORAZEPAM 1 MG TABLET FOR AGITATION PO PRN (13:00)
[2022-04-11 16:00] VITALS: BP 135/82
--- NOTE | 2022-04-11 19:12 | NUR ---
RN CLOSING NOTE PATIENT REMAINED IN ROOM AND AWAKE , WELL AMBULATING THROUGHOUT UNIT. A/O X4 AND VERBALLY RESPONSIVE. NO S/SX OF DISTRESS OR PAIN. CLINICAL TRIAL MEDICATION GIVEN ON SHIFT @ 10AM. TOLERATED WELL. . NO IV ACCESS. SAFETY MEASURES IN PLACE. BED LOW AND LOCKED CALL LIGHT WITHIN REACH. WILL CONT TO MONITOR.
[2022-04-11 20:00] VITALS: BP 112/66
--- NOTE | 2022-04-11 20:36 | NUR ---
MS/TELE/RN ON INITIAL SHIFT ROUNDING, PATIENT WAS IN ROOM AWAKE, ALERT, ORIENTED, NO SIGNS OF DISTRESS NOTED, CALL LIGHT IN REACH, WILL MONITOR.
[2022-04-11] MEDS: ZOLPIDEM TARTRATE 10 MG TABLET PO PRN (21:05)
--- NOTE | 2022-04-12 01:10 | NUR ---
MS/TELE/RN PATIENT IS SLEEPING AT THIS TIME, NO SIGNS OF DISTRESS NOTED, CALL LIGHT IN REACH, WILL CONTINUE TO MONITOR.
--- NOTE | 2022-04-12 06:20 | NUR ---
MS/TELE/RN PATIENT IS STILL SLEEPING, NO DISTRESS NOTED, ALL NEEDS ATTENDED AT THIS TIME, WILL CONTINUE TO MONITOR.
[2022-04-12] MEDS: INVEST MED CVL-231-2002 PO SCH (10:39)
[2022-04-12] MEDS: AMLODIPINE 10 MG PO SCH (10:39)
[2022-04-12 16:00] VITALS: BP 148/84
--- NOTE | 2022-04-12 19:46 | NUR ---
MS/TELE/RN RECEIVED PATIENT IN ROOM LYING IN BED AWAKE, ALERT, ORIENTED, NO C/O PAIN, NO SIGNS OF DISTRESS NOTED, CALL LIGHT IN REACH, WILL MONITOR.
--- NOTE | 2022-04-12 19:53 | NUR ---
RN CLOSING NOTES: PATIENT IN ROOM AND AWAKE. A/O X4 AND VERBALLY RESPONSIVE. NO S/SX OF DISTRESS OR PAIN. REMAINS ON CLINICAL TRIAL. NO IV ACCESS. SAFETY MEASURES IN PLACE. BED LOW AND LOCKED, CALL LIGHT WITHIN REACH, ENDORSED TO PM SHIFT.
[2022-04-12 20:38] VITALS: BP 129/77
[2022-04-12] MEDS: ZOLPIDEM TARTRATE 10 MG TABLET PO PRN (21:10)
--- NOTE | 2022-04-13 00:24 | NUR ---
MS/TELE/RN PATIENT IS SLEEPING, NO SIGNS OF DISTRESS NOTED, CALL LIGHT IN REACH, WILL CONTINUE TO MONITOR
--- NOTE | 2022-04-13 06:20 | NUR ---
MS/TELE/RN PATIENT IS STILL SLEEPING AT THIS TIME, NO SIGNS OF DISTRESS NOTED, CALL LIGHT IN REACH, ALL NEEDS ATTENDED AT THIS TIME, WILL CONTINUE TO MONITOR.
--- NOTE | 2022-04-13 07:30 | NUR ---
RN NOTES PT AWAKE, ALERT AND ORIENTED, WALKING IN THE HALLWAY WITH STEADY GAIT, NO BEHAVIOR PROBLEM NOTED, WILL CONTINUE TO MONITOR.
[2022-04-13 08:00] VITALS: BP 127/54
[2022-04-13] MEDS: INVEST MED CVL-231-2002 PO SCH (09:52)
[2022-04-13] MEDS: AMLODIPINE 10 MG PO SCH (09:52)
--- NOTE | 2022-04-13 18:16 | NUR ---
RN MS NOTES PT AWAKE, ALERT AND ORIENTED, WALKING ALONG JACLYN HALLWAY, NO BEHAVIOR PROBLEMS NOTED, COMPLIANT WITH MEDS.
--- NOTE | 2022-04-13 19:30 | NUR ---
RN OPENING NOTE PATIENT SEEN WALKING IN THE HALLWAY, NOT IN ANY APPARENT DISTRESS. PATIENT IS A/O X 4 ABLE TO MAKE NEEDS KNOWN. PATIENT IS A CLINICAL TRIAL PATIENT OF DR. SALGUERO. PATIENT IS CALM AT THIS TIME. INDEPENDENT WITH ACTIVITIES. NO PAIN OR DISCOMFORT VERBALIZED. SAFETY MEASURES IN PLACE: BED LOCKED AND IN LOWEST POSITION, CALL LIGHT WITHIN REACH, SIDE RAILS UP. WILL MONITOR PATIENT CLOSELY.
[2022-04-13] MEDS: ZOLPIDEM TARTRATE 10 MG TABLET PO PRN (21:27)
--- NOTE | 2022-04-13 21:27 | NUR ---
RN NOTE PATIENT GIVEN AMBIEN REQUESTED TO HELP SLEEP.
--- NOTE | 2022-04-14 06:54 | NUR ---
RN CLOSING NOTE PATIENT SEEN IN ROOM, SLEEPING, NOT IN ANY APPARENT DISTRESS. PATIENT IS A/O X 4 ABLE TO MAKE NEEDS KNOWN. PATIENT IS A CLINICAL TRIAL PATIENT OF DR. SALGUERO. PATIENT IS CALM THROUGHOUT THE SHIFT. NO PAIN OR DISCOMFORT VERBALIZED. SAFETY MEASURES IN PLACE: BED LOCKED AND IN LOWEST POSITION, CALL LIGHT WITHIN REACH, SIDE RAILS UP. ALL NEEDS MET AND ATTENDED. ALL ORDERS CARRIED OUT. WILL ENDORSE TO DAY SHIFT NURSE FOR JOVANNY.
--- NOTE | 2022-04-14 07:30 | NUR ---
RN OPENING NOTE RECEIVED PATIENT AWAKE AND SEEN WALKING IN THE HALLWAY, NOT IN ANY APPARENT DISTRESS. PATIENT IS A/O X 4 ABLE TO MAKE NEEDS KNOWN. PATIENT IS A CLINICAL TRIAL PATIENT OF DR. SALGUERO. PATIENT IS CALM AT THIS TIME. INDEPENDENT WITH ACTIVITIES. NO PAIN OR DISCOMFORT VERBALIZED. SAFETY MEASURES IN PLACE: BED LOCKED AND IN LOWEST POSITION, CALL LIGHT WITHIN REACH, SIDE RAILS UP. WILL MONITOR PATIENT CLOSELY.
[2022-04-14 08:00] VITALS: BP 136/75
[2022-04-14] MEDS: AMLODIPINE 10 MG PO SCH (09:09)
[2022-04-14] MEDS: INVEST MED CVL-231-2002 PO SCH (10:04)
[2022-04-14 16:00] VITALS: BP 123/78
--- NOTE | 2022-04-14 19:04 | NUR ---
RN CLOSING NOTE PATIENT AWAKE AND SEEN WALKING IN THE HALLWAY, NOT IN ANY APPARENT DISTRESS. PATIENT IS A/O X 4 ABLE TO MAKE NEEDS KNOWN. PATIENT IS A CLINICAL TRIAL PATIENT OF DR. SALGUERO. PATIENT IS CALM AT THIS TIME. INDEPENDENT WITH ACTIVITIES. NO PAIN OR DISCOMFORT VERBALIZED. SAFETY MEASURES IN PLACE: BED LOCKED AND IN LOWEST POSITION, CALL LIGHT WITHIN REACH, SIDE RAILS UP. WILL ENDORSE FOR JOVANNY.
--- NOTE | 2022-04-14 20:00 | NUR ---
RN NOTE: PATIENT RESTING IN HER ROOM , NOT IN ANY APPARENT DISTRESS. PATIENT IS A/O X 4 ABLE TO MAKE NEEDS KNOWN. PATIENT IS A CLINICAL TRIAL PATIENT OF DR. SALGUERO. PATIENT IS CALM AT THIS TIME. INDEPENDENT WITH ACTIVITIES. NO PAIN OR DISCOMFORT VERBALIZED. SAFETY MEASURES IN PLACE: BED LOCKED AND IN LOWEST POSITION, CALL LIGHT WITHIN REACH, SIDE RAILS UP. WILL MONITOR PATIENT CLOSELY.
[2022-04-14 20:55] VITALS: BP 113/65
[2022-04-14] MEDS: ZOLPIDEM TARTRATE 10 MG TABLET PO PRN (21:16)
--- NOTE | 2022-04-14 21:17 | NUR ---
RN NOTES INSOMNIA PT. C/O UNABLE TO SLEEP PRN AMBIEN 10 MG PO GIVEN PER PT. REQUEST, WILL CONTINUE TO MONITOR.
--- NOTE | 2022-04-15 05:51 | NUR ---
RN NOTES: PATIENT RESTING IN ROOM. NO ACUTE DISTRESS NOTED, .COOPERTIVE, COMPLIANT WITH MEDS AND CARE, ENCOURAGED PT.TO VERBALIZATION OF FEELINGS .ALL NEEDS ATTENDED AND ANTICIPATED, SAFETY PRECAUTIONS MAINTAINED. WILL CONTINUE TO MONITOR FOR SAFETY AND BEHAVIOR.
--- NOTE | 2022-04-15 07:40 | NUR ---
MS RN OPENING NOTES RECEIVED PT IN BED, AWAKE WITH NO ACUTE DISTRESS NOTED, AOX4, COOPERATIVE, COMPLIANT WITH MEDS AND CARES, AMBULATORY, SAFETY PRECAUTIONS IN PLACE, BED AT LOWEST POSITION, SIDE RAILS UP X2, CALL LIGHT AND TRAY TABLE WITHIN HER REACH. WILL CONTINUE TO MONITOR DURING MY SHIFT.
[2022-04-15] MEDS: AMLODIPINE 10 MG PO SCH (08:53)
[2022-04-15 09:11] VITALS: BP 111/57
[2022-04-15] MEDS: INVEST MED CVL-231-2002 PO SCH (09:57)
[2022-04-15 16:38] VITALS: BP 132/71
--- NOTE | 2022-04-15 18:48 | NUR ---
MS RN CLOSING NOTES PT IN BED, AWAKE WITH NO ACUTE DISTRESS NOTED, AOX4, COOPERATIVE, COMPLIANT WITH MEDS AND CARES, AMBULATORY, SAFETY PRECAUTIONS IN PLACE, BED AT LOWEST POSITION, SIDE RAILS UP X2, CALL LIGHT AND TRAY TABLE WITHIN HER REACH. NO PRN MEDS GIVEN DURING MY SHIFT, NO BEHAVIORAL CHANGES NOTED WELL. WILL ENDORSE TO THE PROCESS CHEMIST NURSE.
--- NOTE | 2022-04-15 19:20 | NUR ---
MS RN OPENING NOTES RECEIVED PATIENT IN BED; AWAKE, ALERT AND ORIENTED X 4. BREATHING EVEN AND NONLABORED. ON ROOM AIR; WELL TOLERATED. NOT IN ANY FORM OF RESPIRATORY DISTRESS. DENIES ANY PAIN OR DISCOMFORT AT THIS TIME. ON CLINICAL TRIAL. NO IV ACCESS. ABLE TO MAKE NEEDS KNOWN. FALL AND SAFETY MEASURES IMPLEMENTED: CALL LIGHT AND TABLE WITHIN EASY REACH, SIDE RAILS UP X 2, BED IN LOWEST LOCKED POSITION. WILL CONTINUE TO MONITOR.
[2022-04-15 20:00] VITALS: BP 116/58
[2022-04-15] MEDS: ZOLPIDEM TARTRATE 10 MG TABLET PO PRN (20:56)
--- NOTE | 2022-04-15 20:56 | NUR ---
RN NOTES PRN AMBIEN 10 MG PO GIVEN PER PT'S REQUEST; WILL CONTINUE TO MONITOR
--- NOTE | 2022-04-16 06:50 | NUR ---
MS RN CLOSING NOTES PATIENT IN BED; AWAKE, A/O X 4. EVEN AND NONLABORED RESPIRATION NOTED. STABLE ON ROOM AIR. IN NO APPARENT DISTRESS. NO C/O ANY PAIN OR DISCOMFORT AT THIS TIME. ON CLINICAL TRIAL. NO IV ACCESS. ALL NEEDS MET. ALL DUE MEDS GIVEN ORDERED. FALL AND SAFETY MEASURES MAINTAINED: CALL LIGHT AND TABLE WITHIN EASY REACH, SIDE RAILS UP X 2, BED IN LOWEST LOCKED POSITION. ENDORSED TO JOSE PROCTOR FOR JOVANNY.
--- NOTE | 2022-04-16 07:43 | NUR ---
MS RN OPENING NOTES RECEIVED PT IN BED, AWAKE WITH NO ACUTE DISTRESS NOTED, BREATHING UNLABORED AND EVEN, AOX4, COOPERATIVE, COMPLIANT WITH MEDS AND INTERVENTION, AMBULATORY, SAFETY PRECAUTIONS IN PLACE, BED AT LOWEST POSITION, SIDE RAILS UP X2, CALL LIGHT AND TRAY TABLE WITHIN HER REACH. WILL CONTINUE TO MONITOR DURING MY SHIFT.
[2022-04-16] MEDS: AMLODIPINE 10 MG PO SCH (09:01)
[2022-04-16] MEDS: INVEST MED CVL-231-2002 PO SCH (09:56)
--- NOTE | 2022-04-16 18:50 | NUR ---
MS RN CLOSING NOTES PT IN BED, AWAKE WITH NO ACUTE DISTRESS NOTED, BREATHING UNLABORED AND EVEN, AOX4, COOPERATIVE, COMPLIANT WITH MEDS AND INTERVENTION, AMBULATORY, SAFETY PRECAUTIONS MAINTAINED, BED AT LOWEST POSITION, SIDE RAILS UP X2, CALL LIGHT AND TRAY TABLE WITHIN HER REACH. ALL DUE MEDS GIVEN. WILL ENDORSE TO THE NIGHT NURSE.
[2022-04-16 20:00] VITALS: BP 109/53
[2022-04-16] MEDS: ZOLPIDEM TARTRATE 10 MG TABLET PO PRN (21:31)
[2022-04-17 08:00] VITALS: BP_SYST 139; BP_DIAS 74; BP_DIAS 82
[2022-04-17] MEDS: AMLODIPINE 10 MG PO SCH (09:08)
[2022-04-17] MEDS: INVEST MED CVL-231-2002 PO SCH (10:01)
[2022-04-17 16:13] VITALS: BP 148/72
--- NOTE | 2022-04-17 18:27 | NUR ---
MS RN CLOSING NOTES PT IN BED, AWAKE WITH NO ACUTE DISTRESS NOTED, BREATHING UNLABORED AND EVEN, AOX4, COOPERATIVE, COMPLIANT WITH MEDS AND INTERVENTION, AMBULATORY, SAFETY PRECAUTIONS MAINTAINED, BED AT LOWEST POSITION, SIDE RAILS UP X2, CALL LIGHT AND TRAY TABLE WITHIN HER REACH. ALL DUE MEDS GIVEN. REMINDED HOLD AMBIEN AND ATIVAN STARTING 2100 TONIGHT. WILL ENDORSE TO THE NIGHT NURSE.
--- NOTE | 2022-04-17 19:30 | NUR ---
MS RN OPENING NOTE RECEIVED PT AWAKE IN BED. A/O X4 AND ABLE TO MAKE NEEDS KNOWN. PT STABLE ON ROOM AIR. NO SOB OR S/S OF RESPIRATORY DISTRESS. BREATHING EVEN AND UNLABORED. NO IV ACCESS D/T CLINICAL TRAILS STATUS. SAFETY PRECAUTIONS IN PLACE. BED IN LOWEST LOCKED POSITION, HOB ELEVATED, SIDE RAILS UP X2, AND CALL LIGHT AND TABLE WITHIN REACH. ALL NEEDS MET AT THIS TIME.
[2022-04-17 20:00] VITALS: BP 155/59
--- NOTE | 2022-04-18 07:30 | NUR ---
MS RN OPENING NOTE Patient in bed, awake. A/O x 4, able to make needs known. On room air, breathing evenly and unlabored. No SOB or s/s of distress noted. No IV access due to clinical trial status. Safety precautions in place: bed in low, locked position; siderails up x 2; call light within reach. Will continue to monitor.
[2022-04-18 08:00] VITALS: BP 133/68
--- NOTE | 2022-04-18 09:20 | NUR ---
RN NOTE Patient not in room at the moment, will give home medication when patient comes back.
--- NOTE | 2022-04-18 10:02 | NUR ---
RN NOTE Patient not in room at the moment. Will given investigational drug and home medication when patient comes back.
--- NOTE | 2022-04-18 10:18 | NUR ---
RN NOTE Patient still not in her room, called patient's number, did not pickle pumper. Left a message.
--- NOTE | 2022-04-18 10:51 | NUR ---
RN NOTE Patient still not in room, called patient's number on file, no answer; left a message. Called Dr. Lopez[facility] to follow up if patient is there, no answer.
--- NOTE | 2022-04-18 11:08 | NUR ---
RN NOTE Patient still not in room, called patient, did not answer; left message. Called Dr. Lopez's office, patient is there with coordinator. Will given medication when patient comes back.
[2022-04-18] MEDS: AMLODIPINE 10 MG PO SCH (11:59)
[2022-04-18] MEDS: INVEST MED CVL-231-2002 PO SCH (11:59)
--- NOTE | 2022-04-18 12:01 | NUR ---
RN NOTE Patient just got back to her room, home medication and investigational drug given.
[2022-04-18 19:10] VITALS: BP 119/72
--- NOTE | 2022-04-18 19:32 | NUR ---
MS RN CLOSING NOTE Patient in bed, resting. A/O x 4, able to make needs known. Stable on room air, breathing evenly and unlabored. No SOB or s/s of distress noted. No IV access due to clinical trial status. Due meds given. All needs attended to. Safety precautions in place: bed in low, locked position; siderails up x 2; call light within reach. Will endorse to production shift supervisor nurse for JOVANNY.
[2022-04-18 20:00] VITALS: BP 118/64
--- NOTE | 2022-04-18 20:34 | NUR ---
noc rn opening note received patient in bed, alert and oriented x4. no s/s of apparent distress on room air. denies pain nor discomfort at this time. no iv access. safety in place. will monitor and cont. with the plan of care for patient.
[2022-04-18] MEDS: ZOLPIDEM TARTRATE 10 MG TABLET PO PRN (22:19)
--- NOTE | 2022-04-19 07:21 | NUR ---
rn closing note needs attended. no significant change on my shift. will endorse to morning shift rn for continuity of patient care.
--- NOTE | 2022-04-19 07:40 | NUR ---
RN NOTE Patient not in room at the moment.
[2022-04-19 08:00] VITALS: BP 109/70
--- NOTE | 2022-04-19 08:30 | NUR ---
RN NOTE Patient back in room. No IV access due to clinical trial status. Will continue to monitor.
[2022-04-19] MEDS: AMLODIPINE 10 MG PO SCH (09:08)
[2022-04-19] MEDS: INVEST MED CVL-231-2002 PO SCH (10:05)
--- NOTE | 2022-04-19 19:15 | NUR ---
RN NOTES: RECEIVED AWAKE ON BED, A/OX4, ORIENTED TO UNIT AND STAFF, PLEASANT PERSONALITY, ABLE TO VERBALIZED NEEDS,AMBULATORY, CONTINENT B/B, SKIN INTACT,ON ROOM AIR, SHE IS REQUESTING IF SHE CAN HAVE HER SLEEPING PILL LONNY, RN EXPLAINED WILL GIVE IT LATER BEFORE SHE SLEEP.
--- NOTE | 2022-04-19 19:42 | NUR ---
MS RN CLOSING NOTE Patient in bed, resting. A/O x 4, able to make needs known. Stable on room air, breathing evenly and unlabored. No SOB or s/s of distress noted. No IV access due to clinical trial status. Due meds given. All needs attended to. Safety precautions in place: bed in low, locked position; siderails up x 2; call light within reach. Will endorse to shift production supervisor nurse for JOVANNY.
[2022-04-19 20:00] VITALS: BP 138/77
--- NOTE | 2022-04-19 21:02 | NUR ---
RN NOTES: -AT 2044 SHE IS ALREADY ASKING FOR HER SLEEPING PILL, EXPLAINED TO HER ITS DUE AT 0, SHE IS ASKING IF SHE CAN GET IT NOW SHE WANTS TO GO TO SLEEP. -GIVEN EARLIER PER PATIENT REQUEST.
[2022-04-19] MEDS: ZOLPIDEM TARTRATE 10 MG TABLET PO PRN (21:04)
--- NOTE | 2022-04-19 23:00 | NUR ---
RN NOTES: ABLE TO SLEEP AND REST.KEPT CALL LIGHT WITHIN EASY REACH.
--- NOTE | 2022-04-20 06:55 | NUR ---
RN NOTES: ASLEEP IN THE NIGHT, KEPT ON CLOSE VISUAL CHECK, NO CHANGE IN BEHAVIOR, ENDORSED FOR CONTINUITY OF CARE.
--- NOTE | 2022-04-20 07:29 | NUR ---
MS RN OPENING NOTE RECEIVED PT IN BED ASLEEP, EASILY AROUSED. A/O X4. ABLE TO MAKE NEEDS KNOWN. ON RA, TOLERATING WELL. NO SOB NOTED. NOT IN ANY SIGN OF RESPIRATORY DISTRESS. NO IV ACCESS NOTED. PT IS ON CLINICAL TRIAL. NO BEHAVIOR PROBLEM NOTED AT THIS TIME. SAFETY MEASURES IN PLACE: BED IN LOWEST AND LOCKED POSITION, SIDE RAILS UPX2, AND CALL LIGHT WITHIN REACH. WILL CONTINUE TO MONITOR PT.
[2022-04-20 08:00] VITALS: BP 115/81
[2022-04-20] MEDS: AMLODIPINE 10 MG PO SCH (08:55)
[2022-04-20] MEDS: INVEST MED CVL-231-2002 PO SCH ×2 (10:00→10:27)
--- NOTE | 2022-04-20 10:19 | NUR ---
RN NOTE INVESTIGATIONAL MEDICATIONS FOR CLINICAL TRIAL NOT GIVEN. MEDICATION WAS NOT AVAILABLE. FOLLOWED UP WITH PHARMACY AND THEY WILL SEND IT.
--- NOTE | 2022-04-20 10:27 | NUR ---
RN NOTE RECEIVED THE INVESTIGATIONAL MEDICATION FOR CLINICAL TRIAL FROM THE PHARMACY AND ADMINISTERED. NO BEHAVIOR PROBLEM NOTED AT THIS TIME. WILL CONTINUE TO MONITOR PT.
[2022-04-20 16:18] VITALS: BP 122/72
--- NOTE | 2022-04-20 19:30 | NUR ---
RN OPENING NOTE PATIENT SEEN WALKING ALONG THE HALLWAY TOWARDS THE ELEVATED. PATIENT DOES NOT SEEM TO BE IN ANY APPARENT DISTRESS, CALM AT THIS TIME. PATIENT ON RA, TOLERATING WELL, NO SOB NOTED OR DYSPNEA REPORTED BY PATIENT. PATIENT DOES NOT HAVE AN IV ACCESS. INDEPENDENT WITH ACTIVITIES. SAFETY MEASURES IMPLEMENTED: BED LOCKED AND IN LOWEST POSITION, CALL LIGHT WITHIN REACH, SIDE RAILS UP X 2. WILL MONITOR PATIENT CLOSELY.
--- NOTE | 2022-04-20 19:32 | NUR ---
MS RN CLOSING NOTE PT IN BED ASLEEP, EASILY AROUSED. A/O X4. ABLE TO MAKE NEEDS KNOWN. ON RA, TOLERATING WELL. NO SOB NOTED. NOT IN ANY SIGN OF RESPIRATORY DISTRESS. NO IV ACCESS NOTED. PT IS ON CLINICAL TRIAL. NO BEHAVIOR PROBLEM NOTED AT THIS TIME. ALL NEEDS ATTENDED. KEPT CLEAN AND COMFORTABLE. SAFETY MEASURES IN PLACE: BED IN LOWEST AND LOCKED POSITION, SIDE RAILS UPX2, AND CALL LIGHT WITHIN REACH. ENDORSED TO ROTARY SAW OPERATOR NURSE FOR JOVANNY.
[2022-04-20 20:00] VITALS: BP 123/60
[2022-04-20] MEDS: ZOLPIDEM TARTRATE 10 MG TABLET PO PRN (21:01)
--- NOTE | 2022-04-20 21:01 | NUR ---
RN NOTE RAISA REQUESTED BY PATIENT TO HELP HER SLEEP. MED GIVEN. WILL REASSESS MED EFFECTIVENESS AT A LATER TIME.
--- NOTE | 2022-04-21 06:53 | NUR ---
RN CLOSING NOTE PATIENT SEEN IN BED, SLEEPING, EASILY AWAKENED. PATIENT WAS CALM AND COOPERATIVE DURING THE SHIFT. PATIENT ON RA, TOLERATING WELL, NO SOB NOTED OR DYSPNEA REPORTED BY PATIENT. PATIENT DOES NOT HAVE AN IV ACCESS. INDEPENDENT WITH ACTIVITIES. SAFETY MEASURES IMPLEMENTED: BED LOCKED AND IN LOWEST POSITION, CALL LIGHT WITHIN REACH, SIDE RAILS UP X 2. ALL NEEDS MET AND ATTENDED. ALL ORDERS CARRIED OUT. WILL ENDORSE TO DAY SHIFT NURSE FOR JOVANNY
[2022-04-21] MEDS: AMLODIPINE 10 MG PO SCH (09:23)
[2022-04-21] MEDS: INVEST MED CVL-231-2002 PO SCH (10:01)
[2022-04-21] MEDS: IBUPROFEN 200 MG TABLET PO PRN (14:45)
--- NOTE | 2022-04-21 14:45 | NUR ---
RN NOTE PT C/O BACK PAIN WITH PAIN SCALE LEVEL OF 6/10 AND REQUESTED FOR IBUPROFEN. IBUPROFEN 600MG PO GIVEN ORDERED PRN Q8H. WILL MONITOR AND REASSESS PT.
--- NOTE | 2022-04-21 15:45 | NUR ---
RN NOTE REASSESSED PT'S BACK PAIN, PER PT, IBUPROFEN MEDICATION EFFECTIVE WITH PAIN LEVEL OF 0/10.
--- NOTE | 2022-04-21 19:04 | NUR ---
MS RN CLOSING NOTE PT IN BED ASLEEP, EASILY AROUSED. A/O X4. ABLE TO MAKE NEEDS KNOWN. ON RA, TOLERATING WELL. NO SOB NOTED. NOT IN ANY SIGN OF RESPIRATORY DISTRESS. NO IV ACCESS NOTED. PT IS ON CLINICAL TRIAL. NO BEHAVIOR PROBLEM NOTED AT THIS TIME. ALL NEEDS ATTENDED. KEPT CLEAN AND COMFORTABLE. SAFETY MEASURES IN PLACE: BED IN LOWEST AND LOCKED POSITION, SIDE RAILS UPX2, AND CALL LIGHT WITHIN REACH. ENDORSED TO ELEMENTARY VOCAL MUSIC TEACHER NURSE FOR JOVANNY.
[2022-04-21 20:00] VITALS: BP 119/76
[2022-04-21] MEDS: ZOLPIDEM TARTRATE 10 MG TABLET PO PRN (20:53)
--- NOTE | 2022-04-21 20:55 | NUR ---
RN NOTES PRN AMBIEN 10 MG PO GIVEN PER PT'S REQUEST; WILL CONTINUE TO MONITOR
--- NOTE | 2022-04-22 06:46 | NUR ---
MS RN CLOSING NOTES PATIENT LYING IN BED; AWAKE, A/O X 4. EVEN AND NONLABORED RESPIRATION NOTED. STABLE ON ROOM AIR. IN NO APPARENT DISTRESS. NO C/O ANY PAIN OR DISCOMFORT AT THIS TIME. ON CLINICAL TRIAL. NO IV ACCESS. ALL NEEDS MET. DUE PO MEDS GIVEN ORDERED. FALL AND SAFETY MEASURES MAINTAINED: CALL LIGHT AND TABLE WITHIN EASY REACH, SIDE RAILS UP X 2, BED IN LOWEST LOCKED POSITION. ENDORSED TO CAMMIE PROCTOR FOR JOVANNY.
--- NOTE | 2022-04-22 07:35 | NUR ---
RN OPENING NOTE PATIENT ALERT, ORIENTED X4, IN BED, WATCHING TV. DENIES PAIN. STATING SHE IS CONSTIPATED, REQUESTING MEDS. CALL LIGHT IN REACH, NEEDS ATTENDED, MONITOR AND ASSIST.
[2022-04-22 08:25] VITALS: BP 106/60
[2022-04-22] MEDS: AMLODIPINE 10 MG PO SCH (09:00)
[2022-04-22] MEDS: MAGNESIUM HYDROXIDE 30 ML UDC PO PRN ×2 (09:22→21:14)
--- NOTE | 2022-04-22 09:22 | NUR ---
RN NOTES PATIENT WAS GIVEN MILK OF MAGNESIA FOR CONSTIPATION. WILL CONTINUE TO MONITOR PATIENT.
[2022-04-22] MEDS: INVEST MED CVL-231-2002 PO SCH (10:00)
[2022-04-22] MEDS: IBUPROFEN 200 MG TABLET PO PRN (11:33)
--- NOTE | 2022-04-22 11:33 | NUR ---
RN NOTE- GENERALIZED DISCOMFORT. MOTRIN 600 MG ADMINISTERED
--- NOTE | 2022-04-22 13:47 | NUR ---
RN NOTE FOLLOWED UP WITH PATIENT REGARDING MILK OF MAGNESIA, PATIENT STATED IT DID NOT HELP YET, WILL LET US KNOW IF SHE IS STILL IN DISCOMFORT.
[2022-04-22 16:20] VITALS: BP 102/56
[2022-04-22] MEDS ORDERED: PSYLLIUM SEED 1 PKT PACKET PO PRN (18:30)
--- NOTE | 2022-04-22 18:49 | NUR ---
RN CLOSING NOTES PATIENT LYING IN BED; AWAKE, A/O X 4. EVEN AND NONLABORED RESPIRATION NOTED. STABLE ON ROOM AIR. IN NO APPARENT DISTRESS. NO C/O ANY PAIN OR DISCOMFORT AT THIS TIME. ON CLINICAL TRIAL. NO IV ACCESS. ALL NEEDS MET. DUE PO MEDS GIVEN ORDERED. FALL AND SAFETY MEASURES MAINTAINED: CALL LIGHT AND TABLE WITHIN EASY REACH, SIDE RAILS UP X 2, BED IN LOWEST LOCKED POSITION .
--- NOTE | 2022-04-22 18:49 | NUR ---
RN NOTE- METAMUCIL ORDERED AND ADMINISTERED FOR CONSTIPATION.
--- NOTE | 2022-04-22 19:45 | NUR ---
MS RN OPENING NOTE PT SLEEPING, PT A/O X 4,, ABLE TO VERBALIZE NEEDS. NO ACUTE DISTRESS NOTED. NO COMPLAINT OF PAIN, OR DISCOMFORT AT THIS TIME. SIDE RAILS UP X 2,, CALL LIGHT WITHIN REACH, BED LOCKED IN LOW POSITION. PT IS ON CLINICAL TRAIL. WILL CONTINUE TO MONITOR PT,
[2022-04-22 20:00] VITALS: BP 101/62
[2022-04-22] MEDS: ZOLPIDEM TARTRATE 10 MG TABLET PO PRN (21:11)
[2022-04-23 04:00] VITALS: BP 140/57
--- NOTE | 2022-04-23 06:41 | NUR ---
MS RN CLOSING NOTES LEFT PATIENT LYING IN BED, A/O X 4. PT SLEPT FOR 9 HOURS. RESPIRATION EVEN, AND NONLABORED. STABLE ON ROOM AIR. NO S/S OF ACUTE DISTRESS. NO C/O ANY PAIN OR DISCOMFORT AT THIS TIME. ON CLINICAL TRIAL. NO IV ACCESS. MEDS GIVEN ORDERED. FALL AND SAFETY MEASURES IN PLACE: CALL LIGHT WITHIN REACH, SIDE RAILS UP X 2, BED IN LOW LOCKED POSITION. WILL ENDORSE PT'S CARE TO AM SHIFT NURSE.
--- NOTE | 2022-04-23 07:45 | NUR ---
RN OPENING NOTES RECEIVED PATIENT ON BED , AWAKE AND VERBALLY RESPONSIVE , ROOM AIR , NO SOB OR DISTRESS NOTED , NO C/O OF PAIN AND DISCOMFORT , NO IV ACCESS , ON CT TRIAL AND NO BEHAVIOR NOTED AT THIS TIME , SAFTY PRECAUTIONS PROVIDED AND WILL MONITOR FOR ANY CHANGES
[2022-04-23] MEDS: AMLODIPINE 10 MG PO SCH (09:26)
[2022-04-23] MEDS: INVEST MED CVL-231-2002 PO SCH (09:37)
--- NOTE | 2022-04-23 18:46 | NUR ---
RN CLOSING NOTES RECEIVED PATIENT ON BED , AWAKE AND VERBALLY RESPONSIVE , ROOM AIR , NO SOB OR DISTRESS NOTED , NO C/O OF PAIN AND DISCOMFORT , ALL DUE MEDS GIVEN ORDERED , ABLE TO SMOKE OUTSIDE ORDERED , NO IV ACCESS , ON CT TRIAL AND NO BEHAVIOR NOTED AT THIS TIME , SAFTY PRECAUTIONS PROVIDED AND WILL ENDORSED TO NEXT SHIFT
--- NOTE | 2022-04-23 19:30 | NUR ---
noc rn opening note received patient in her room, a/ox4 and able to make needs known. no s/s of apparent distress and no c/o pain. introduced myself to patient. needs attended for now. will continue with patient's plan of care.
--- NOTE | 2022-04-23 21:00 | NUR ---
noc rn note patient request for ambien. cannot wait until 2200. given at this time as ordered.
[2022-04-23] MEDS: ZOLPIDEM TARTRATE 10 MG TABLET PO PRN (21:03)
[2022-04-23 22:29] VITALS: BP 106/59
--- NOTE | 2022-04-24 06:40 | NUR ---
noc rn closing patient did not exhibit any behavioral or any psych instability throughout shift. needs attended. will endorse to morning shift rn for continuity of care plan.
--- NOTE | 2022-04-24 07:30 | NUR ---
RN OPENING NOTES RECEIVED PATIENT IN BED, AWAKE, A/O X4, VERBALLY RESPONSIVE. O SIGNS OF ACUTE DISTRESS NOTED. ON ROOM AIR, NO SOB NOTED, BREATHING EVEN AND UNLABORED. REMAINS ON CLINICAL TRIAL. NO IV ACCESS. DENIES ANY PAIN AT THIS TIME. SAFETY MEASURE IN PLACE. WILL CONTINUE TO MONITOR PATIENT.
[2022-04-24 08:00] VITALS: BP 116/80
[2022-04-24] MEDS: AMLODIPINE 10 MG PO SCH (09:41)
[2022-04-24] MEDS: INVEST MED CVL-231-2002 PO SCH (09:41)
--- NOTE | 2022-04-24 11:45 | NUR ---
RN NOTE ATIVAN GIVEN FOR ANXIETY PER PATIENTS REQUEST.
[2022-04-24] MEDS: LORAZEPAM 1 MG TABLET PO PRN (14:45)
[2022-04-24] MEDS: IBUPROFEN 200 MG TABLET PO PRN (16:29)
--- NOTE | 2022-04-24 16:29 | NUR ---
RN NOTE PATIENT C/O 7/10 BACK PAIN, MOTRIN 600 MG GIVEN ORDERED.
--- NOTE | 2022-04-24 18:55 | NUR ---
RN CLOSING NOTES PATIENT IN BED, AWAKE, A/O X4, VERBALLY RESPONSIVE. NO SIGNS OF ACUTE DISTRESS NOTED. REMAINS STABLE ON ROOM AIR, NO SOB NOTED, BREATHING EVEN AND UNLABORED. CONTINUE ON CLINICAL TRIAL. NO UNTOWARD BEHAVIOR NOTED THROUGHOUT THE SHIFT. INVESTIGATIONAL MEDS GIVEN, NO A/R NOTED. SAFETY MEASURE MAINTAINED. WILL ENDORSE TO NEXT SHIFT FOR CONTINUITY OF CARE.
--- NOTE | 2022-04-24 19:30 | NUR ---
MS RN OPENING NOTES RECEIVED PATIENT LYING IN BED AWAKE. A/O X4, ABLE TO VERBALIZE NEEDS. BREATHING EVEN AND NON-LABORED ON ROOM AIR. NOT IN APPARENT DISTRESS. NO C/O PAIN OR DISCOMFORT AT THIS TIME. NO IV ACCESS, ON CLINICAL TRIAL. SAFETY MEASURES IN PLACED: BED IN LOWEST AND LOCKED POSITION, SIDE RAILS UP X2, CALL LIGHT PLACED WITHIN EASY REACH. WILL CONTINUE POC.
[2022-04-24] MEDS: ZOLPIDEM TARTRATE 10 MG TABLET PO PRN (22:04)
--- NOTE | 2022-04-24 22:10 | NUR ---
MS RN NOTES PT REQUESTED PRN AMBIEN. ADMINISTERED AND TOLERATED WELL.
--- NOTE | 2022-04-25 07:12 | NUR ---
MS RN CLOSING NOTES PATIENT LYING IN BED ASLEEP, EASY TO AROUSE. A/O X4. NO SOB OR NOTED, TOLERATING ROOM AIR WELL. NO ACUTE DISTRESS NOTED. DENIES PAIN OR DISCOMFORT. NO IV ACCESS, ON CLINICAL TRIAL. ALL DUE MEDS GIVEN AND NEEDS ATTENDED. SAFETY MEASURES MAINTAINED: BED IN LOWEST AND LOCKED POSITION, SIDE RAILS UP X2, CALL LIGHT PLACED WITHIN EASY REACH. WILL ENDORSE FOR JOVANNY.
[2022-04-25 08:00] VITALS: BP 118/66
[2022-04-25] MEDS: AMLODIPINE 10 MG PO SCH (09:16)
[2022-04-25] MEDS: INVEST MED CVL-231-2002 PO SCH (09:16)
[2022-04-25] MEDS: LORAZEPAM 1 MG TABLET PO PRN (13:45)
--- NOTE | 2022-04-25 18:50 | NUR ---
RN CLOSING NOTES PATIENT ON BED , AWAKE AND VERBALLY RESPONSIVE , ROOM AIR , NO SOB OR DISTRESS NOTED , NO C/O OF PAIN AND DISCOMFORT , NO IV ACCESS , ON CT TRIAL AND NO BEHAVIOR NOTED AT THIS TIME , ALL DUE MEDS GIVEN ORDERED , C/O OF ANXIETY AND ATIVAN WAS GIVEN AND WITH HELP . SAFETY PRECAUTIONS PROVIDED AND WILL ENDORSED TO NEXT SHIFT
--- NOTE | 2022-04-25 19:30 | NUR ---
RN OPENING NOTE RECEIVED PATIENT RESTING IN BED, PT A/O X 4, VERBALLY RESPONSIVE, ON ROOM AIR, NO SOB OR DISTRESS NOTED, NO C/O OF PAIN AND DISCOMFORT AT THIS TIME, NO IV ACCESS. PATIENT IS ON CLINICAL TRIAL. PT IS COOPERATIVE, NO BEHAVIOR CHANGES NOTED AT THIS TIME. SAFETY PRECAUTIONS IN PLACE: BED LOCKED IN LOWEST POSITION, SIDE RAILS UP X 2, CALL LIGHT WITHIN REACH. WILL CONTINUE TO MONITOR.
--- NOTE | 2022-04-25 19:53 | NUR ---
MS RN NOTE PER AM SHIFT AND PER PROTOCOL, HOLD AMBIEN AND ATIVAN MEDICATION TONIGHT 04/25/22; WILL FOLLOW PROTOCOL
[2022-04-25 20:00] VITALS: BP 106/58
--- NOTE | 2022-04-26 07:05 | NUR ---
MS RN CLOSING NOTES PATIENT RESTING IN BED, EASY TO AROUSE. A/O X4. NO SOB OR NOTED, TOLERATING ROOM AIR WELL. NO ACUTE DISTRESS NOTED. DENIES PAIN OR DISCOMFORT AT THIS TIME. NO IV ACCESS, ON CLINICAL TRIAL. ALL NEEDS ATTENDED. SAFETY MEASURES MAINTAINED: BED IN LOWEST AND LOCKED POSITION, SIDE RAILS UP X2, CALL LIGHT WITHIN EASY REACH. WILL ENDORSE TO AM SHIFT NURSE.
[2022-04-26 08:00] VITALS: BP 141/77
[2022-04-26] MEDS: AMLODIPINE 10 MG PO SCH (09:31)
[2022-04-26] MEDS: INVEST MED CVL-231-2002 PO SCH (09:32)
[2022-04-26] MEDS ORDERED: LORAZEPAM 1 MG TABLET PO PRN (13:00)
[2022-04-26 16:00] VITALS: BP 137/62
--- NOTE | 2022-04-26 18:38 | NUR ---
N CLOSING NOTES PATIENT ON BED , AWAKE AND VERBALLY RESPONSIVE , ROOM AIR , NO SOB OR DISTRESS NOTED , NO C/O OF PAIN AND DISCOMFORT , NO IV ACCESS , ON CT TRIAL AND NO BEHAVIOR NOTED AT THIS TIME , ALL DUE MEDS GIVEN ORDERED , PATIENT WENT OUT TO SMOKE . SAFETY PRECAUTIONS PROVIDED AND WILL ENDORSED TO NEXT SHIFT
--- NOTE | 2022-04-26 19:50 | NUR ---
MS RN OPENING NOTE RECEIVED PATIENT IN ROOM, AWAKE. PT A/O X 4, VERBALLY RESPONSIVE, ON ROOM AIR, NO SOB OR DISTRESS NOTED, NO C/O OF PAIN AND DISCOMFORT AT THIS TIME, NO IV ACCESS. PATIENT IS ON CLINICAL TRIAL. PT IS COOPERATIVE, NO BEHAVIOR CHANGES NOTED AT THIS TIME. SAFETY PRECAUTIONS IN PLACE: BED LOCKED IN LOWEST POSITION, SIDE RAILS UP X 2, CALL LIGHT WITHIN REACH. WILL CONTINUE TO MONITOR.
[2022-04-26] MEDS: ZOLPIDEM TARTRATE 10 MG TABLET PO PRN (21:30)
--- NOTE | 2022-04-27 07:23 | NUR ---
RN OPENING NOTES RECEIVED PATIENT IN BED, AWAKE, A/O X4, VERBALLY RESPONSIVE. NO SIGNS OF ACUTE DISTRESS NOTED. ON ROOM AIR, NO SOB NOTED, BREATHING EVEN AND UNLABORED. NO C/O PAIN OR DISCOMFORT AT THIS TIME. REMAINS ON CLINICAL TRIAL. NO IV ACCESS. DENIES ANY PAIN AT THIS TIME. SAFETY MEASURE IN PLACE. WILL CONTINUE TO MONITOR PATIENT.
--- NOTE | 2022-04-27 07:25 | NUR ---
MS RN CLOSING NOTES LEFT PATIENT COMFORTABLY RESTING IN BED. A/O X4. NO SOB NOTED, TOLERATING ROOM AIR WELL. NO ACUTE DISTRESS SEEN. DENIES PAIN OR DISCOMFORT AT THIS TIME. NO IV ACCESS, ON CLINICAL TRIAL. ALL NEEDS ATTENDED. SAFETY MEASURES IN PLACE: BED IN LOWEST AND LOCKED POSITION, SIDE RAILS UP X2, CALL LIGHT WITHIN EASY REACH. WILL ENDORSE TO AM SHIFT NURSE.
[2022-04-27 08:00] VITALS: BP 116/64
[2022-04-27] MEDS: AMLODIPINE 10 MG PO SCH (08:32)
[2022-04-27] MEDS: INVEST MED CVL-231-2002 PO SCH (09:57)
--- NOTE | 2022-04-27 18:51 | NUR ---
RN NOTE PATIENT STILL NOT BACK TO THE HOSPITAL. PATIENT LOGGED OUT AT 1830 TO SMOKE OUTSIDE. WILL ENDORSE TO NEXT SHIFT.
--- NOTE | 2022-04-27 19:07 | NUR ---
RN NOTE PATIENT JUST CAME BACK FROM OUTSIDE, NOW EATING OUTSIDE FOOD. REMINDED PATIENT THAT SHE NEEDS TO BE NPO AFTER 2099. VERBALIZES UNDERSTANDING. ENDORSED.
--- NOTE | 2022-04-27 19:45 | NUR ---
RN OPENING NOTE PATIENT IN BED WATCHING TV, ALERT/ORIENTED X 4, PT ABLE TO MAKE NEEDS KNOWN. PATIENT STABLE ON RA, NO S/S OF DISTRESS OR SOB NOTED, BREATHING EVEN AND UNLABORED. REMINDED PATIENT THAT SHE WILL BE NPO @ 2100, PATIENT VERBALIZED UNDERSTANDING. PATIENT REQUESTED AMBIEN FOR 2030 SINCE SHE WILL BE NPO AFTER THAT. SAFETY MEASURES IN PLACE: CALL LIGHT WITHIN REACH, SIDE RAILS UP X 2, BED LOCKED IN LOWEST POSITION. WILL CONTINUE TO MONITOR PATIENT
[2022-04-27 20:00] VITALS: BP 113/52
[2022-04-27] MEDS: ZOLPIDEM TARTRATE 10 MG TABLET PO PRN (20:32)
--- NOTE | 2022-04-28 07:55 | NUR ---
RN OPENING NOTE PATIENT AWAKE IN BED RESTING. A/O X4. NO S/S OF PAIN NOTED AT THIS TIME. ON ROOM AIR, NO DISTRESS OR SHORTNESS OF BREATH NOTED. No IV ACCESS, CLINICAL TRIAL. FALL AND SAFETY MEASURES IN PLACE, BED IN LOW AND LOCK POSITION, CALL LIGHT AND TABLE WITHIN EASY REACH, SIDE RAILS UP X2. WILL CONTINUE TO MONITOR.
[2022-04-28 08:00] VITALS: BP 102/57
[2022-04-28] MEDS: AMLODIPINE 10 MG PO SCH (09:00)
[2022-04-28] MEDS: INVEST MED CVL-231-2002 PO SCH (10:34)
--- NOTE | 2022-04-28 19:30 | NUR ---
noc rn opening patient not in room during ramírez report
--- NOTE | 2022-04-28 19:31 | NUR ---
RN CLOSING NOTE PATIENT AWAKE IN BED RESTING. A/O X4. NO S/S OF PAIN NOTED AT THIS TIME. ON ROOM AIR, NO DISTRESS OR SHORTNESS OF BREATH NOTED. No IV ACCESS, CLINICAL TRIAL. FALL AND SAFETY MEASURES IN PLACE, BED IN LOW AND LOCK POSITION, CALL LIGHT AND TABLE WITHIN EASY REACH, SIDE RAILS UP X2. WILL ENDORSE TO SENIOR DATA MINING ANALYST.
[2022-04-28 20:00] VITALS: BP 139/78
--- NOTE | 2022-04-28 20:30 | NUR ---
noc rn note patient in bed at this time. made aware of npo status. patient acknowledged. will cont. with plan for patient.
[2022-04-28] MEDS: ZOLPIDEM TARTRATE 10 MG TABLET PO PRN (20:39)
--- NOTE | 2022-04-28 20:40 | NUR ---
ambien given before 2100 per patient request. patient is aware of npo status.
--- NOTE | 2022-04-29 07:23 | NUR ---
MS RN OPENING NOTES PATIENT A/O X4. PATIENT SCHEDULED FOR LABORATORY BLOOD DRAW. PATIENT IS ON CLINICAL TRIAL FOR PSYCHIATRIC MEDICATION. NO BEHAVIORAL CONCERNS AT THIS TIME. PATIENT IS NOT COMPLAINING OF PAIN AND DOES NOT APPEAR TO BE IN DISTRESS. ANTICIPATED DISCHARGE @ 1000. SKIN IS INTACT. ALL PATIENT NEEDS MET. BED IN LOWEST LOCKED POSITION, CALL LIGHT WITHIN REACH.
--- NOTE | 2022-04-29 09:45 | NUR ---
MS RN NOTE RECIEVED A CALL FROM DR SALGUERO REGARDING PATIENT DISCHARGE. ORDERS READBACK AND VERIFIED WITH MD. MD ORDERED TO GIVE MEDICATIONS PRIOR TO DISCHARGE.
[2022-04-29] MEDS: AMLODIPINE 10 MG PO SCH (09:58)
[2022-04-29] MEDS: INVEST MED CVL-231-2002 PO SCH (09:59)
--- NOTE | 2022-04-29 10:10 | NUR ---
RN CLOSING NOTE PATIENT DISCHARGED @1000. MEDICATIONS ADMINISTERED PRIOR TO DISCHARGE. DISCHARGE TEACHING COMPLETED. PATIENT VERBALIZED UNDERSTANDING OF HEALTH TEACHINGS. PATIENT SIGNED DISCHARGE PAPERWORK INCLUDING RELEASE OF VALUABLES. PATIENT AWARE OF FOLLOW UP WITH PRIMARY CARE PHYSICIAN. PATIENT ACCOMPANIED TO LOBBY. PATIENT IN STABLE CONDITION.
== END 2022-04-29 10:05 | disposition home or self-care (01) | DRG 951 ==
LOC: GPS 13:12 → UNDOADMIN 13:12 → MEDOV2 13:12 → MED 04-02 20:56
PROVIDERS: ADMIT Psychiatry & Neurology Psychiatry; ATTEND Psychiatry & Neurology Psychiatry
DX: Z00.6 Encounter for examination for normal comparison and control in clinical research program (principal); F20.0 Paranoid schizophrenia; I10 Essential (primary) hypertension; F41.9 Anxiety disorder, unspecified; E66.9 Obesity, unspecified; Z68.37 Body mass index [BMI] 37.0-37.9, adult; G47.00 Insomnia, unspecified; K59.00 Constipation, unspecified; Z79.899 Other long term (current) drug therapy
CPT/HCPCS: 82962-TC; 87081-TC; G0378

== ENCOUNTER 2022-08-11 12:10 | Inpatient (IN) | payer OTHER ==
[2022-08-11 16:00] VITALS: BP_SYST 123; BP_DIAS 67; BP_DIAS 69
[2022-08-11] MEDS ORDERED: MAG HYDROX/AL HYDROX/SIMETH 30 ML UDC PO PRN (16:30)
[2022-08-11] MEDS ORDERED: ZOLPIDEM TARTRATE 10 MG TABLET PO PRN (16:30)
--- NOTE | 2022-08-11 16:30 | NUR ---
ms rn received a new admission,clinical trial patient of dr. blanco,52 year old female, awake,alert,oriented x4,not in any form of distress, respirations even and unlabored,no sob noted, denies pain at this time, all needs attended.
--- NOTE | 2022-08-11 16:40 | NUR ---
.ms rn went down to smoke ,all needs attended.
--- NOTE | 2022-08-11 19:30 | NUR ---
MS RN OPENING NOTES - RECEIVED PATIENT WALKING IN THE HALLWAY. A/O X4. BREATHING EVEN AND NON-LABORED ON ROOM AIR. NOT IN APPARENT DISTRESS. NO C/O PAIN AT THIS TIME. NO IV ACCESS, ON CLINICAL TRIAL. ROOM SAFETY PRECAUTIONS IN PLACE: BED LOCKED AND IN LOW POSITION, SIDE RAILS UP X2, CALL LIGHT WITHIN REACH. WILL CONTINUE PLAN OF CARE.
[2022-08-11 20:00] VITALS: BP 104/57
[2022-08-11] MEDS: IBUPROFEN 200 MG TABLET PO PRN (20:32)
--- NOTE | 2022-08-11 20:32 | NUR ---
PATIENT REQUESTED PRN IBUPROFEN 600MG FOR HER CHRONIC RIGHT KNEE PAIN.
[2022-08-11] MEDS: OLANZAPINE 5 MG PO SCH (22:17)
--- NOTE | 2022-08-12 06:49 | NUR ---
MS RN CLOSING NOTES - PATIENT SLEEPING, EASY TO AROUSE. ABLE TO VERBALIZE NEEDS. NOT IN RESPIRATORY OR CARDIAC DISTRESS. NO SOB OR NOTED. DENIES PAIN AT THIS TIME. AFEBRILE. ALL NEEDS ATTENDED AND ANTICIPATED. SAFETY PRECAUTIONS MAINTAINED. WILL ENDORSE TO NEXT SHIFT FOR CONTINUITY OF CARE.
--- NOTE | 2022-08-12 07:10 | NUR ---
ms rn received on bed, awake,alert,oriented x4,not in any form of distress, respirations even and unlabored,no sob noted, lungs are clear,abdomen soft,positive bowel sounds, denies pain at this time,clinical trial patient,all need attended.
[2022-08-12 08:00] VITALS: BP 155/81
[2022-08-12] MEDS: HOME MED MISC AMLODIPINE 10MG PO SCH (09:50)
--- NOTE | 2022-08-12 12:00 | NUR ---
ms rn on bed, no distress noted.
[2022-08-12] MEDS: MAGNESIUM HYDROXIDE 30 ML UDC PO PRN (13:46)
[2022-08-12 16:00] VITALS: BP 149/63
--- NOTE | 2022-08-12 18:10 | NUR ---
ms rn on bed, mom given for constipation, no distress noted,all needs attended.
--- NOTE | 2022-08-12 19:25 | NUR ---
RN OPENING NOTE RECEIVED PATIENT IN BED; AWAKE, ALERT AND ORIENTED X 4. ON ROOM AIR; TOLERATING WELL. BREATHING EVEN AND NONLABORED. IN NO ACUTE DISTRESS. DENIES ANY PAIN OR DISCOMFORT AT THIS TIME. ON CLINICAL TRIAL. NO IV ACCESS. ABLE TO MAKE NEEDS KNOWN. SAFETY MEASURES IMPLEMENTED: CALL LIGHT AND TABLE WITHIN REACH, SIDE RAILS UP X 2, BED IN LOWEST LOCKED POSITION. WILL CONTINUE PLAN OF CARE.
[2022-08-12 20:00] VITALS: BP 133/76
[2022-08-12] MEDS: OLANZAPINE 5 MG PO SCH (22:01)
--- NOTE | 2022-08-13 06:40 | NUR ---
RN CLOSING NOTE PATIENT IN BED; AWAKE, A/O X 4. STABLE ON ROOM AIR. BREATHING EQUAL AND UNLABORED. IN NO APPARENT DISTRESS. NO C/O ANY PAIN OR DISCOMFORT AT THIS TIME. ON CLINICAL TRIAL. NO IV ACCESS. ALL NEEDS ATTENDED. SAFETY MEASURES MAINTAINED: CALL LIGHT AND TABLE WITHIN REACH, SIDE RAILS UP X 2, BED IN LOWEST LOCKED POSITION. ENDORSED TO MORNING SHIFT FOR JOVANNY.
[2022-08-13 07:00] VITALS: BP 120/67
--- NOTE | 2022-08-13 07:25 | NUR ---
ms rn received on bed, awake,alert,oriented x4,not in any form of distress, clinical trial patient ,denies pain at this time,no distress noted,all needs attended.
--- NOTE | 2022-08-13 09:30 | NUR ---
ms zuleta breakfast served,due meds given,tolerated well.
[2022-08-13] MEDS: HOME MED MISC AMLODIPINE 10MG PO SCH (09:36)
[2022-08-13 16:00] VITALS: BP 143/79
--- NOTE | 2022-08-13 16:30 | NUR ---
ms rn on bed, no distress noted,all needs attended.
[2022-08-13] MEDS: ACETAMINOPHEN ES 500 MG TABLET PO PRN (16:39)
--- NOTE | 2022-08-13 19:07 | NUR ---
RN NOTE PATIENT IN BED; AWAKE, A/O X 4. STABLE ON ROOM AIR. BREATHING EQUAL AND UNLABORED. IN NO APPARENT DISTRESS. NO C/O ANY PAIN OR DISCOMFORT AT THIS TIME. ON CLINICAL TRIAL. NO IV ACCESS. ALL NEEDS ATTENDED. SAFETY MEASURES MAINTAINED: CALL LIGHT AND TABLE WITHIN REACH, SIDE RAILS UP X 2, BED IN LOWEST LOCKED POSITION.
[2022-08-13 20:00] VITALS: BP 110/83
[2022-08-13] MEDS: OLANZAPINE 5 MG PO SCH (22:04)
--- NOTE | 2022-08-14 06:30 | NUR ---
RN NOTE PATIENT IN BED; ASLEEP STABLE ON ROOM AIR. BREATHING EQUAL AND UNLABORED. IN NO APPARENT DISTRESS. NO C/O ANY PAIN OR DISCOMFORT AT THIS TIME. ON CLINICAL TRIAL. NO IV ACCESS. ALL NEEDS ATTENDED. SAFETY MEASURES MAINTAINED: CALL LIGHT AND TABLE WITHIN REACH, SIDE RAILS UP X 2, BED IN LOWEST LOCKED POSITION.
--- NOTE | 2022-08-14 07:30 | NUR ---
MS RN OPENING NOTES RECEIVED PATIENT ON BED AWAKE AND A/O X4. ON ROOM AIR TOLERATING WELL. NO SOB NOTED. NOT IN DISTRESS. WITH NO COMPLAINTS OF PAIN OR DISCOMFORT AT THIS TIME. WITH NO IV ACCESS. ON CLINICAL TRIAL STATUS. SAFETY MEASURES IN PLACED. CALL LIGHT WITHIN REACH. BED ON LOWEST LOCKED POSITION, SIDE RAILS UPX2. WILL CONTINUE TO MONITOR.
[2022-08-14] MEDS: HOME MED MISC AMLODIPINE 10MG PO SCH (08:18)
[2022-08-14 08:20] VITALS: BP 153/86
[2022-08-14 16:40] VITALS: BP 109/60
--- NOTE | 2022-08-14 18:35 | NUR ---
MS RN CLOSING NOTES PATIENT ON BED AWAKE AND A/O X4. ON ROOM AIR TOLERATING WELL. NO SOB NOTED. NOT IN DISTRESS. WITH NO COMPLAINTS OF PAIN OR DISCOMFORT AT THIS TIME. WITH NO IV ACCESS. ON CLINICAL TRIAL STATUS. DUE MEDS GIVEN. SAFETY MEASURES IN PLACED. CALL LIGHT WITHIN REACH. BED ON LOWEST LOCKED POSITION, SIDE RAILS UPX2. WILL ENDORSE TO NEXT SHIFT FOR JOVANNY.
--- NOTE | 2022-08-14 19:37 | NUR ---
MS RN OPENING NOTE RECEIVED PT RESTING IN BED, VERBALLY RESPONSIVE. A/O X4 AND ABLE TO MAKE NEEDS KNOWN. PT STABLE ON ROOM AIR. NO SOB OR S/S OF RESPIRATORY DISTRESS. BREATHING EVEN AND UNLABORED. NO IV ACCESS D/T CLINICAL TRAIL STATUS. SAFETY PRECAUTIONS IN PLACE. BED IN LOWEST LOCKED POSITION, HOB ELEVATED, SIDE RAILS UP X2, AND CALL LIGHT AND TABLE WITHIN REACH. ALL NEEDS MET AT THIS TIME.
[2022-08-14 20:00] VITALS: BP 121/70
[2022-08-14] MEDS: OLANZAPINE 5 MG PO SCH (21:19)
--- NOTE | 2022-08-15 06:34 | NUR ---
MS RN CLOSING NOTE PT RESTING IN BED, VERBALLY RESPONSIVE. A/O X4 AND ABLE TO MAKE NEEDS KNOWN. PT STABLE ON ROOM AIR. NO SOB OR S/S OF RESPIRATORY DISTRESS. BREATHING EVEN AND UNLABORED. NO IV ACCESS D/T CLINICAL TRAIL STATUS. ALL DUE MEDS GIVEN ORDERED. SAFETY PRECAUTIONS IN PLACE AT ALL TIMES. BED IN LOWEST LOCKED POSITION, HOB ELEVATED, SIDE RAILS UP X2, AND CALL LIGHT AND TABLE WITHIN REACH. ALL NEEDS MET AT THIS TIME AND WILL ENDORSE TO ONCOMING NURSE FOR JOVANNY.
[2022-08-15 08:00] VITALS: BP 129/77
[2022-08-15] MEDS: HOME MED MISC AMLODIPINE 10MG PO SCH (08:34)
[2022-08-15] MEDS: MAGNESIUM HYDROXIDE 30 ML UDC PO PRN (15:37)
[2022-08-15 16:00] VITALS: BP 121/82
[2022-08-15] MEDS: ACETAMINOPHEN ES 500 MG TABLET PO PRN (16:19)
[2022-08-15 20:00] VITALS: BP 114/61
[2022-08-15] MEDS: OLANZAPINE 5 MG PO SCH (22:17)
--- NOTE | 2022-08-16 07:50 | NUR ---
RN OPENING NOTE PATIENT AWAKE IN BED RESTING, A/O X 4. NO S/S OF PAIN NOTED AT THIS TIME. ON ROOM AIR, NO DISTRESS OR SHORTNESS OF BREATH NOTED. NO IV ACCESS, CLINICAL TRIAL PATIENT. FALL AND SAFETY MEASURES IN PLACE, BED IN LOW AND LOCK POSITION, CALL LIGHT AND TABLE WITHIN EASY REACH, SIDE RAILS UP X2. WILL CONTINUE TO MONITOR.
[2022-08-16 08:00] VITALS: BP 126/69
[2022-08-16] MEDS: MAGNESIUM HYDROXIDE 30 ML UDC PO PRN (09:09)
[2022-08-16] MEDS: HOME MED MISC AMLODIPINE 10MG PO SCH (09:09)
[2022-08-16] MEDS: LORAZEPAM 1 MG TABLET PO PRN (13:01)
[2022-08-16 16:00] VITALS: BP 144/77
--- NOTE | 2022-08-16 18:31 | NUR ---
RN CLOSING NOTE PATIENT AWAKE IN BED RESTING, A/O X 4. NO S/S OF PAIN NOTED AT THIS TIME. ON ROOM AIR, NO DISTRESS OR SHORTNESS OF BREATH NOTED. NO IV ACCESS, CLINICAL TRIAL PATIENT. SCHEDULE MEDICATIONS ADMINISTERED. FALL AND SAFETY MEASURES IN PLACE, BED IN LOW AND LOCK POSITION, CALL LIGHT AND TABLE WITHIN EASY REACH, SIDE RAILS UP X2. ALL NEEDS ATTENDED AND ANTICIPATED. WILL ENDORSE TO SURGICAL ELASTIC KNITTER.
[2022-08-16 20:43] VITALS: BP 105/56
--- NOTE | 2022-08-16 20:44 | NUR ---
RN NOTE PATIENT AWAKE IN BED RESTING, A/O X 4. NO S/S OF PAIN NOTED AT THIS TIME. ON ROOM AIR, NO DISTRESS OR SHORTNESS OF BREATH NOTED. NO IV ACCESS, CLINICAL TRIAL PATIENT. FALL AND SAFETY MEASURES IN PLACE, BED IN LOW AND LOCK POSITION, CALL LIGHT AND TABLE WITHIN EASY REACH, SIDE RAILS UP X2. ALL NEEDS ATTENDED AND ANTICIPATED.
[2022-08-16] MEDS: OLANZAPINE 5 MG PO SCH ×2 (21:05→21:58)
--- NOTE | 2022-08-17 06:45 | NUR ---
RN NOTE PATIENT AWAKE IN BED RESTING, A/O X 4. NO S/S OF PAIN NOTED AT THIS TIME. ON ROOM AIR, NO DISTRESS OR SHORTNESS OF BREATH NOTED. NO IV ACCESS, CLINICAL TRIAL PATIENT. FALL AND SAFETY MEASURES IN PLACE, BED IN LOW AND LOCK POSITION, CALL LIGHT AND TABLE WITHIN EASY REACH, SIDE RAILS UP X2. ALL NEEDS ATTENDED AND ANTICIPATED.WILL ENDORSE CARE TO DAY SHIFT NURSE.
--- NOTE | 2022-08-17 07:30 | NUR ---
RN OPENING NOTE PATIENT AWAKE RESTING IN BED, A/O X 4. PT IS ON RA BREATHING EVEN AND NON LABORED. NO S/S OF PAIN NOTED AT THIS TIME. NO DISTRESS OR SHORTNESS OF BREATH NOTED. NO IV ACCESS, CLINICAL TRIAL PATIENT. NO SI/DI. FALL AND SAFETY MEASURES IN PLACE, BED IN LOWEST AND LOCKED POSITION, CALL LIGHT AND TABLE WITHIN EASY REACH, SIDE RAILS UP X2. WILL CONTINUE TO MONITOR.
[2022-08-17 08:00] VITALS: BP 137/83
[2022-08-17] MEDS: HOME MED MISC AMLODIPINE 10MG PO SCH (09:05)
[2022-08-17] MEDS: LORAZEPAM 1 MG TABLET PO PRN (13:04)
[2022-08-17] MEDS: ACETAMINOPHEN ES 500 MG TABLET PO PRN (14:30)
[2022-08-17 16:00] VITALS: BP 116/57
[2022-08-17 20:00] VITALS: BP 100/55
--- NOTE | 2022-08-18 06:40 | NUR ---
RN CLOSING NOTE PATIENT IN BED RESTING, A/OX4. NO S/S OF PAIN NOTED AT THIS TIME. ON ROOM AIR, BREATHING EVEN AND NON-LABORED. NO DISTRESS OR SHORTNESS OF BREATH NOTED. NO IV ACCESS, CLINICAL TRIAL PATIENT. SCHEDULE MEDICATIONS ADMINISTERED. NO SI/DI. FALL AND SAFETY MEASURES IN PLACE, BED IN LOW AND LOCK POSITION, CALL LIGHT AND TABLE WITHIN EASY REACH, SIDE RAILS UP X2. ALL NEEDS ATTENDED AND ANTICIPATED. WILL ENDORSE TO NEXT SHIFT.
[2022-08-18 07:00] VITALS: BP 138/78
--- NOTE | 2022-08-18 07:30 | NUR ---
RN OPENING NOTE PATIENT AWAKE, AMBULATORY, INTERACTIVE, A/O X 4. PT IS ON RA BREATHING NON LABORED. NO IV ACCESS, CLINICAL TRIAL PATIENT. FALL AND SAFETY MEASURES IN PLACE, BED IN LOWEST AND LOCKED POSITION, CALL LIGHT AND TABLE WITHIN EASY REACH, SIDE RAILS UP X2. WILL CONTINUE TO MONITOR/ ASSIST
[2022-08-18] MEDS: HOME MED MISC AMLODIPINE 10MG PO SCH (08:01)
[2022-08-18] MEDS: ACETAMINOPHEN ES 500 MG TABLET PO PRN (08:52)
[2022-08-18] MEDS ORDERED: LORAZEPAM 1 MG TABLET PO PRN (09:00)
[2022-08-18] MEDS ORDERED: ZOLPIDEM TARTRATE 10 MG TABLET PO PRN ×2 (09:00)
--- NOTE | 2022-08-18 18:43 | NUR ---
RN CLOSING NOTE- UNCHANGED, ATIVAN X ONE DOSE THIS MORNING FOR RESTLESSNESS. PATIENT AWAKE, AMBULATORY, INTERACTIVE, A/O X 4. PT IS ON RA BREATHING NON LABORED. NO IV ACCESS, CLINICAL TRIAL PATIENT. FALL AND SAFETY MEASURES IN PLACE, BED IN LOWEST AND LOCKED POSITION, CALL LIGHT AND TABLE WITHIN EASY REACH, SIDE RAILS UP X2. WILL CONTINUE TO MONITOR/ ASSIST
[2022-08-18 20:00] VITALS: BP 102/55
--- NOTE | 2022-08-19 06:33 | NUR ---
MS RN CLOSING NOTE PT RESTING IN BED, VERBALLY RESPONSIVE. A/O X4 AND ABLE TO MAKE NEEDS KNOWN. PT STABLE ON ROOM AIR. NO SOB OR S/S OF RESPIRATORY DISTRESS. BREATHING EVEN AND UNLABORED. NO IV ACCESS D/T CLINICAL TRAIL STATUS. ALL DUE MEDS GIVEN ORDERED. KEPT NPO AFTER MN. SAFETY PRECAUTIONS IN PLACE AT ALL TIMES. BED IN LOWEST LOCKED POSITION, HOB ELEVATED, SIDE RAILS UP X2, AND CALL LIGHT AND TABLE WITHIN REACH. ALL NEEDS MET AT THIS TIME AND WILL ENDORSE TO ONCOMING NURSE FOR JOVANNY.
[2022-08-19 07:00] VITALS: BP 103/59
--- NOTE | 2022-08-19 07:45 | NUR ---
MS RN OPENING NOTES: PT RESTING IN BED. A/O X4, AND ABLE TO MAKE NEEDS KNOWN. PT STABLE ON ROOM AIR. NO SOB OR S/S OF RESPIRATORY DISTRESS. BREATHING EVEN AND UNLABORED. NO IV ACCESS D/T CLINICAL TRIAL STATUS. IS NPO UNTIL AM LABS DONE WITH . SAFETY PRECAUTIONS IN PLACE AT ALL TIMES. BED IN LOWEST LOCKED POSITION, HOB ELEVATED, SIDE RAILS UP X2, AND CALL LIGHT AND TABLE WITHIN REACH, WILL CONT WITH PLAN OF CARE DURING SHIFT.
[2022-08-19] MEDS: HOME MED MISC AMLODIPINE 10MG PO SCH ×2 (08:46→14:39)
--- NOTE | 2022-08-19 08:46 | NUR ---
RN NOTES: HELP HOME BP MEDS DUE TO LOW BP = 103/59, HR= 83
[2022-08-19] MEDS: LORAZEPAM 1 MG TABLET PO PRN (14:39)
--- NOTE | 2022-08-19 14:39 | NUR ---
RN NOTES: PT ASKED FOR ATIVAN, STATES " SHE FEELS A BIT ANXIOUS" PT ASKED FOR BP MEDS FROM AM- 142/91; HR -115
[2022-08-19 16:00] VITALS: BP 126/63
--- NOTE | 2022-08-19 18:33 | NUR ---
MS RN CLOSING NOTES: PT RESTING IN BED. A/O X4, AND ABLE TO MAKE NEEDS KNOWN. PT STABLE ON ROOM AIR. NO SOB OR S/S OF RESPIRATORY DISTRESS. BREATHING EVEN AND UNLABORED. NO IV ACCESS D/T CLINICAL TRIAL STATUS, RESUMED ON REG DIET. SAFETY PRECAUTIONS IN PLACE AT ALL TIMES, BED IN LOWEST LOCKED POSITION, HOB ELEVATED, SIDE RAILS UP X2, CALL LIGHT AND TABLE WITHIN REACH, WILL ENDORSE TO P SHIFT.
[2022-08-19] MEDS: ACETAMINOPHEN ES 500 MG TABLET PO PRN (19:22)
--- NOTE | 2022-08-19 19:30 | NUR ---
MS RN OPENING NOTE RECEIVED PT RESTING IN BED, VERBALLY RESPONSIVE. A/O X4 AND ABLE TO MAKE NEEDS KNOWN. PT STABLE ON ROOM AIR. NO SOB OR S/S OF RESPIRATORY DISTRESS. BREATHING EVEN AND UNLABORED. NO IV ACCESS . PATIENT IS CLINICAL TRAIL STATUS. SAFETY PRECAUTIONS IN PLACE. BED IN LOWEST LOCKED POSITION, HOB ELEVATED, SIDE RAILS UP X2, AND CALL LIGHT AND TABLE WITHIN REACH. WILL CONTINUE TO MONITOR CLOSELY.
[2022-08-19 20:00] VITALS: BP 117/60
[2022-08-19] MEDS: INVEST MED MK-8189-008-02 MISC 1 DOSE PO SCH (20:03)
[2022-08-19] MEDS: ZOLPIDEM TARTRATE 10 MG TABLET PO PRN (23:02)
--- NOTE | 2022-08-20 06:30 | NUR ---
MS RN CLOSING NOTE PT RESTING IN BED, VERBALLY RESPONSIVE. A/O X4 AND ABLE TO MAKE NEEDS KNOWN. PT STABLE ON ROOM AIR. NO SOB OR S/S OF RESPIRATORY DISTRESS. BREATHING EVEN AND UNLABORED. NO IV ACCESS . PATIENT IS CLINICAL TRAIL STATUS. SAFETY PRECAUTIONS IN PLACE. BED IN LOWEST LOCKED POSITION, HOB ELEVATED, SIDE RAILS UP X2, AND CALL LIGHT AND TABLE WITHIN REACH. WILL ENDORSE FOR JOVANNY.
--- NOTE | 2022-08-20 07:30 | NUR ---
RN MS NOTES PT AWAKE, ALERT AND ORIENTED, IN HER ROOM, NO COMPLAINT OF PAIN OR ANY DISCOMFORT, AMBULATES ALONG THE HALLWAY WITH STEADY GAIT, CALL LIGHT WITHIN REACH.
[2022-08-20 08:00] VITALS: BP 137/77
[2022-08-20] MEDS: HOME MED MISC AMLODIPINE 10MG PO SCH (08:58)
[2022-08-20 16:00] VITALS: BP 138/79
[2022-08-20] MEDS: LORAZEPAM 1 MG TABLET PO PRN (18:01)
--- NOTE | 2022-08-20 18:58 | NUR ---
RN MS NOTES PT IN BED, RESTING, WATCHING TV, NO COMPLAINT OF PAIN OR ANY DISCOMFORT, NO BEHAVIOR PROBLEM NOTED, AMBULATES IN THE ROOM AND ALONG THE HALLWAY WITH STEADY GAIT, COMPLIANT WITH MEDICATIONS.
--- NOTE | 2022-08-20 19:27 | NUR ---
CT RN NOTE RECEIVED PATIENT IN BED, ASLEEP BUT EASY TO AROUSE AND RESPONSIVE. AFEBRILE AND NOT IN ANY FORM OF ACUTE DISTRESS. BREATHING EVEN AND NON LABORED. NO C/O PAIN OR DISCOMFORT AT THIS TIME. SAFETY MEASURES IN PLACE. KEPT BED IN LOCKED AND IN LOW POSITION TO REDUCE INJURY. SIDE RAILS UP X2. ADVISED TO USE THE CALL LIGHT WHEN IN NEED OF ASSISTANCE.
[2022-08-20 20:00] VITALS: BP 118/61
[2022-08-20] MEDS: INVEST MED MK-8189-008-02 MISC 1 DOSE PO SCH (20:08)
[2022-08-20] MEDS: ZOLPIDEM TARTRATE 10 MG TABLET PO PRN (22:51)
--- NOTE | 2022-08-21 06:29 | NUR ---
RN CLOSING NOTE PATIENT IN BED, ASLEEP BUT EASY TO AROUSE AND RESPONSIVE. AFEBRILE AND NOT IN ANY FORM OF ACUTE DISTRESS. BREATHING EVEN AND NON LABORED. NO C/O PAIN OR DISCOMFORT THROUGHOUT THE SHIFT. MEDICATED ORDERED. MONITORED FOR ANY CHANGES IN BEHAVIOR. OFFERED AND ENCOURAGED FLUIDS TOLERATED. SAFETY MEASURES IN PLACE. KEPT BED IN LOCKED AND IN LOW POSITION TO REDUCE INJURY. SIDE RAILS UP X2. ADVISED TO USE THE CALL LIGHT WHEN IN NEED OF ASSISTANCE. ALL NURSING NEEDS ATTENDED. ENDORSED TO INCOMING SHIFT FOR CONTINUITY OF CARE.
--- NOTE | 2022-08-21 07:35 | NUR ---
LOSING NOTE RECEIVED PATIENT IN BED, ASLEEP BUT EASILY ROUSED. A/O X4, MAINLY TUNISIAN SPK WITH SOME UKRAINIAN, ABLE TO MAKE NEEDS KNOWN. ON RA WITH NO S/S OF SOB, REPORTS PAIN / AT THE MOMENT, WILL CONT TO ASSESS FOR PAIN AND MEDICATE ORDERED. SAFETY MEASURES IN PLACE, BED LOCKED IN LOWEST POSITION, SIDE RAILS UP X2. ADVISED TO USE THE CALL LIGHT WHEN IN NEED OF ASSISTANCE, PT VERBALIZED UNDERSTANDING, WILL CONT WITH PLAN OF CARE DURING SHIFT. Addendum: 08/21/22 at 0751 by JHONY BALDWIN RN MS PROCTOR OPENING NOTES: Addendum: 08/21/22 at 0752 by JHONY BALDWIN RN PLS DISREGARD THESE NOTES FOR THIS PT, ERRONEOUS ENTRY
--- NOTE | 2022-08-21 07:53 | NUR ---
MS RN OPENING NOTES: PT RESTING IN BED. A/O X4, AND ABLE TO MAKE NEEDS KNOWN. PT STABLE ON ROOM AIR. NO SOB OR S/S OF RESPIRATORY DISTRESS. BREATHING EVEN AND UNLABORED. NO IV ACCESS D/T CLINICAL TRIAL STATUS. SAFETY PRECAUTIONS IN PLACE AT ALL TIMES. BED IN LOWEST LOCKED POSITION, HOB ELEVATED, SIDE RAILS UP X2, AND CALL LIGHT AND TABLE WITHIN REACH, WILL CONT WITH PLAN OF CARE DURING SHIFT.
[2022-08-21 08:00] VITALS: BP 149/73
[2022-08-21] MEDS: HOME MED MISC AMLODIPINE 10MG PO SCH (09:20)
--- NOTE | 2022-08-21 09:20 | NUR ---
RN NOTES HOME MED GIVEN, BP - 149/73, HR- 63
[2022-08-21] MEDS: ACETAMINOPHEN ES 500 MG TABLET PO PRN ×2 (10:09→19:25)
[2022-08-21] MEDS: LORAZEPAM 1 MG TABLET PO PRN ×2 (10:10→19:25)
--- NOTE | 2022-08-21 10:12 | NUR ---
RN NOTES: PT ASKED FOR TYLENOL FOR GENERALIZED PAIN 4/10 AND ATIVAN FOR ANXIETY, WILL MEDICATE ORDERED.
[2022-08-21 16:00] VITALS: BP 118/81
--- NOTE | 2022-08-21 18:30 | NUR ---
RN NOTES: PT ASKED FOR TYLENOL FOR GENERALIZED PAIN 4/10 AND ATIVAN FOR ANXIETY, WILL MEDICATE ORDERED.
--- NOTE | 2022-08-21 19:30 | NUR ---
MS RN OPENING NOTE RECEIVED PATIENT IN BED, AWAKE, ALERT AND ORIENTED X4. ABLE TO COMMUNICATE NEEDS WITH THE STAFFS. AFEBRILE AND NOT IN ANY FORM OF ACUTE DISTRESS. BREATHING EVEN AND NON LABORED. NO C/O PAIN OR DISCOMFORT AT THIS TIME. SAFETY MEASURES IN PLACE. KEPT BED IN LOCKED AND IN LOW POSITION. SIDE RAILS UP X2. ADVISED TO USE THE CALL LIGHT WHEN IN NEED OF ASSISTANCE.
--- NOTE | 2022-08-21 19:56 | NUR ---
MS RN NOTES: PT RESTING IN BED. A/O X4, AND ABLE TO MAKE NEEDS KNOWN. PT STABLE ON ROOM AIR. NO SOB OR S/S OF RESPIRATORY DISTRESS. BREATHING EVEN AND UNLABORED. NO IV ACCESS D/T CLINICAL TRIAL STATUS. ALL NEEDS MET, SAFETY PRECAUTIONS IN PLACE AT ALL TIMES, BED IN LOWEST LOCKED POSITION, HOB ELEVATED, SIDE RAILS UP X2, CALL LIGHT AND TABLE WITHIN REACH, WILL ENDORSE TO P SHIFT.
[2022-08-21 20:00] VITALS: BP 150/84
[2022-08-21] MEDS: INVEST MED MK-8189-008-02 MISC 1 DOSE PO SCH (20:03)
[2022-08-21] MEDS: ZOLPIDEM TARTRATE 10 MG TABLET PO PRN (21:13)
--- NOTE | 2022-08-22 06:30 | NUR ---
MS RN CLOSING NOTE PATIENT IN BED, ASLEEP BUT EASY TO AROUSE AND RESPONSIVE. ABLE TO COMMUNICATE NEEDS WITH THE STAFFS. AFEBRILE AND NOT IN ANY FORM OF ACUTE DISTRESS. BREATHING EVEN AND NON LABORED. NO C/O PAIN OR DISCOMFORT THROUGHOUT THE SHIFT. DUE MEDS GIVEN, MONITORED FOR ANY ADVERSE REACTION. SAFETY MEASURES IN PLACE. KEPT BED IN LOCKED AND IN LOW POSITION. SIDE RAILS UP X2. ADVISED TO USE THE CALL LIGHT WHEN IN NEED OF ASSISTANCE. ALL NURSING NEEDS ATTENDED. ENDORSED TO INCOMING SHIFT FOR CONTINUITY OF CARE.
--- NOTE | 2022-08-22 07:12 | NUR ---
MS RN OPENING NOTES RECEIVED PT IN BED AWAKE, A/O X4. ABLE TO MAKE NEEDS KNOWN, DENIES PAIN OR ANY DISCOMFORTS AT THIS TIME. ON ROOM AIR, TOLERATING WELL, BREATHING EVEN AND UNLABORED. NO IV ACCESS PER CLINICAL TRIAL POLICY. SAFETY PRECAUTIONS IN PLACE: BED IN LOWEST LOCKED POSITION, SIDE RAILS UP X2, CALL LIGHT AND TRAY TABLE WITHIN REACH OF PT. WILL CONTINUE WITH PLAN OF CARE.
[2022-08-22] MEDS: LORAZEPAM 1 MG TABLET PO PRN (07:56)
[2022-08-22] MEDS: ACETAMINOPHEN ES 500 MG TABLET PO PRN ×2 (07:56→16:31)
[2022-08-22 08:00] VITALS: BP 139/87
--- NOTE | 2022-08-22 08:01 | NUR ---
RN NOTES PT VERBALIZED THAT SHE IS ANXIOUS W/ PAIN ON THE LEGS. REQUESTED FOR ATIVAN AND TYLENOL. PRN ATIVAN 1MG AND TYLENOL 1000MG PO GIVEN AT 0756.
[2022-08-22] MEDS: HOME MED MISC AMLODIPINE 10MG PO SCH (08:03)
[2022-08-22 16:00] VITALS: BP 128/87
--- NOTE | 2022-08-22 16:33 | NUR ---
RN NOTES PT VERBALIZED PAIN ON THE RIGHT LEG, REQUESTED FOR TYLENOL. PRN TYLENOL 1000MG PO GIVEN AT 1631.
--- NOTE | 2022-08-22 18:39 | NUR ---
MS RN CLOSING NOTES PATIENT RESTING IN BED AT THIS TIME. A/O X4. ABLE TO MAKE NEEDS KNOWN. ON ROOM AIR, TOLERATING WELL, BREATHING EVEN AND UNLABORED, NO SOB NOTED. NO INAPPROPRIATE BEHAVIOR EXHIBITED DURING SHIFT. NO IV ACCESS PER CLINICAL TRIAL POLICY. NEEDS/CARE ATTENDED WELL. SAFETY PRECAUTIONS IN PLACE: BED IN LOWEST LOCKED POSITION, SIDE RAILS UP X2, CALL LIGHT AND TRAY TABLE WITHIN REACH OF PT. WILL ENDORSE PLAN OF CARE TO DIRECTOR TRANSLATIONAL NURSE.
[2022-08-22 20:00] VITALS: BP 113/60
--- NOTE | 2022-08-22 20:10 | NUR ---
MS MAURICE NOTES . CHECKED PATIENT IN HER ROOM AND SEEN LYING IN HER BED COVERED WITH THE BLANKET BECAUSE ITS SO COLD IN HER ROOM BUT NOTICED SHE STILL HAVE SMALL FAN IN FRONT OF HER. SHE STATES THAT SHE'S HAVING HOT FLUSHES .PATIENT ABLE TO MAKE NEEDS KNOWN. PT STABLE ON ROOM AIR. NO SOB OR S/S OF RESPIRATORY DISTRESS. BREATHING EVEN AND UNLABORED. NO IV ACCESS D/T CLINICAL TRIAL STATUS. ROUTINE INVESTIGATIONAL MEDS GIVEN ORDERED. SAFETY PRECAUTIONS IN PLACE AT ALL TIMES. BED IN LOWEST LOCKED POSITION, HOB ELEVATED, SIDE RAILS UP X2, AND CALL LIGHT AND TABLE WITHIN REACH, WILL CONT WITH PLAN OF CARE DURING SHIFT.
[2022-08-22] MEDS: INVEST MED MK-8189-008-02 MISC 1 DOSE PO SCH (20:39)
--- NOTE | 2022-08-23 07:00 | NUR ---
MS FLATBED TRUCK DRIVER CLOSING NOTES PT REMAINS IN HER ROOM RESTING COMFORTABLY IN BED WITHOUT ANY DISTRESS OR ANY DISCOMFORT. WILL CONTINUE MONITORING. ENDORSE TO AM NURSE FOR CONTINUITY OF CARE. PLACE CALL LIGHT AT REACH.
--- NOTE | 2022-08-23 07:30 | NUR ---
RN OPENING NOTE PATIENT AWAKE RESTING IN BED, INTERACTIVE, A/O X 4. PT IS ON RA BREATHING EVEN AND NON LABORED. NO DISTRESS OR SHORTNESS OF BREATH NOTED. NO IV ACCESS, CLINICAL TRIAL PATIENT. FALL AND SAFETY MEASURES IN PLACE, BED IN LOWEST AND LOCKED POSITION, CALL LIGHT AND TABLE WITHIN EASY REACH, SIDE RAILS UP X2. WILL CONTINUE TO MONITOR AND ASSIST.
[2022-08-23 08:00] VITALS: BP 153/91
[2022-08-23] MEDS: ACETAMINOPHEN ES 500 MG TABLET PO PRN (08:32)
[2022-08-23] MEDS: LORAZEPAM 1 MG TABLET PO PRN (08:32)
[2022-08-23] MEDS: HOME MED MISC AMLODIPINE 10MG PO SCH (08:32)
--- NOTE | 2022-08-23 18:30 | NUR ---
RN CLOSING NOTE- PATIENT AWAKE RESTING IN BED, A/O X 4, UNCHANGED, TYLENOL X ONE DOSE THIS MORNING FOR KNEE PAIN AND ATIVAN X ONE DOSE FOR RESTLESSNESS. PT IS ON RA BREATHING NON LABORED. NO IV ACCESS, CLINICAL TRIAL PATIENT. FALL AND SAFETY MEASURES IN PLACE, BED IN LOWEST AND LOCKED POSITION, CALL LIGHT AND TABLE WITHIN EASY REACH, SIDE RAILS UP X2. WILL ENDORSE TO INCOMING NURSE FOR JOVANNY.
--- NOTE | 2022-08-23 19:00 | NUR ---
MS RN OPENING NOTE PATIENT IS ON CLINICAL TRIAL. SHE IS SITTING IN BED, ALERT AND ORIENTED. A/O X 4. PT IS VERY CALM. SHE IS ON RA, BREATHING EVEN AND NON LABORED. NO S/S OF DISTRESS OR SHORTNESS OF BREATH. NO IV ACCESS. SAFETY MEASURES ARE IN PLACE: BED IN LOWEST AND LOCKED POSITION, CALL LIGHT AND TABLE WITHIN EASY REACH, SIDE RAILS UP X2. WILL CONTINUE MONITOR THE PATIEN AND PROVIDE THE CARE PATIENT NEEDS.
[2022-08-23] MEDS: INVEST MED MK-8189-008-02 MISC 1 DOSE PO SCH (19:51)
[2022-08-23 20:00] VITALS: BP 127/71
[2022-08-23] MEDS: ZOLPIDEM TARTRATE 10 MG TABLET PO PRN (21:32)
--- NOTE | 2022-08-23 21:40 | NUR ---
MS RN NOTE PATIENT IS REQUESTING FOR MEDICATIONS FOR SLEEPING. PRN MEDICATION WAS ADMINISTERED TO THE PT PER MD ORDER.
--- NOTE | 2022-08-24 06:48 | NUR ---
MS RN CLOSING NOTE PATIENT IS ON CLINICAL TRIAL. SHE IS IN BED, ALERT AND ORIENTED. A/O X 4. SHE IS ON RA, BREATHING EVEN AND NONE LABORED. NO S/S OF DISTRESS OR SHORTNESS OF BREATH. NO IV ACCESS. PATIENT DOES NOT HAVE ANY BEHAVIORAL ISSUES THROUGH THE SHIFT. SAFETY MEASURES ARE IN PLACE: BED IN LOWEST AND LOCKED POSITION, CALL LIGHT AND TABLE ARE WITHIN EASY REACH, SIDE RAILS UP X2. WILL ENDORSE NEXT SHIFT NURSE FOR CONTINUING PATIENT CARE.
--- NOTE | 2022-08-24 07:30 | NUR ---
RN OPENING NOTE PATIENT IN HER ROOM, CAME OUT OF SHOWER, A/O X 4. PT IS ON RA BREATHING EVEN AND NON LABORED. NO DISTRESS OR SHORTNESS OF BREATH NOTED. NO IV ACCESS, CLINICAL TRIAL PATIENT. FALL AND SAFETY MEASURES IN PLACE, BED IN LOWEST AND LOCKED POSITION, CALL LIGHT AND TABLE WITHIN EASY REACH, SIDE RAILS UP X2. WILL CONTINUE TO MONITOR AND ASSIST.
[2022-08-24 08:00] VITALS: BP 126/75
[2022-08-24] MEDS: HOME MED MISC AMLODIPINE 10MG PO SCH (08:39)
[2022-08-24] MEDS: LORAZEPAM 1 MG TABLET PO PRN ×2 (08:43→17:06)
[2022-08-24] MEDS: ACETAMINOPHEN ES 500 MG TABLET PO PRN ×2 (10:38→20:18)
[2022-08-24] MEDS: MAGNESIUM HYDROXIDE 30 ML UDC PO PRN (11:33)
[2022-08-24 16:00] VITALS: BP 111/57
--- NOTE | 2022-08-24 18:38 | NUR ---
RN CLOSING NOTE PATIENT AWAKE RESTING IN BED, A/O X 4, UNCHANGED, TYLENOL X ONE DOSE THIS MORNING FOR KNEE PAIN AND ATIVAN X TWO DOSE FOR RESTLESSNESS AND AGITATION. PT IS ON RA BREATHING NON LABORED. NO IV ACCESS, CLINICAL TRIAL PATIENT. FALL AND SAFETY MEASURES IN PLACE, BED IN LOWEST AND LOCKED POSITION, CALL LIGHT AND TABLE WITHIN EASY REACH, SIDE RAILS UP X2. WILL ENDORSE TO INCOMING NURSE FOR JOVANNY.
[2022-08-24 20:00] VITALS: BP 115/64
[2022-08-24] MEDS: INVEST MED MK-8189-008-02 MISC 1 DOSE PO SCH (20:28)
[2022-08-24] MEDS ORDERED: TEMAZEPAM 15 MG CAPSULE PO PRN (21:30)
[2022-08-25] MEDS ORDERED: ZOLPIDEM TARTRATE 10 MG TABLET PO PRN
[2022-08-25] MEDS ORDERED: LORAZEPAM 1 MG TABLET PO PRN
[2022-08-25] MEDS: ACETAMINOPHEN ES 500 MG TABLET PO PRN ×2 (07:44→15:52)
[2022-08-25 08:00] VITALS: BP 146/105
[2022-08-25 08:34] VITALS: BP 146/105
[2022-08-25] MEDS: HOME MED MISC AMLODIPINE 10MG PO SCH (09:15)
[2022-08-25] MEDS: MAGNESIUM HYDROXIDE 30 ML UDC PO PRN (13:35)
[2022-08-25 16:22] VITALS: BP 127/79
--- NOTE | 2022-08-25 18:53 | NUR ---
RN CLOSING NOTE PATIENT AWAKE IN BED RESTING, A/O X 4. NO S/S OF PAIN NOTED AT THIS TIME, TYLENOL FOR PAIN WAS GIVEN DURING THE SHIFT. ON ROOM AIR, NO DISTRESS OR SHORTNESS OF BREATH NOTED. NO IV ACCESS, CLINICAL TRIAL PATIENT. SCHEDULE MEDICATIONS ADMINISTERED. FALL AND SAFETY MEASURES IN PLACE, BED IN LOW AND LOCK POSITION, CALL LIGHT AND TABLE WITHIN EASY REACH, SIDE RAILS UP X2. ALL NEEDS ATTENDED AND ANTICIPATED. WILL ENDORSE TO CORPORATE ANALYST NURSE.
--- NOTE | 2022-08-25 19:30 | NUR ---
noc rn note received patient in room. introduced myself and reminded of Lorazepam and ambien hold tonight. patient acknowledged. Encouraged to verbalized any needs and concerns. will continue with the plan for patient.
[2022-08-25] MEDS: INVEST MED MK-8189-008-02 MISC 1 DOSE PO SCH (20:00)
[2022-08-25 20:43] VITALS: BP 112/69
[2022-08-26] MEDS: MAGNESIUM HYDROXIDE 30 ML UDC PO PRN (04:45)
--- NOTE | 2022-08-26 07:25 | NUR ---
MS RN NOTES PATIENT IN BED ALERT ORIENTED X 4. NO ACUTE DISTRESS NOTED, BREATHING UNLABORED. DENIED PAIN AT THIS TIME, NO FACIAL GRIMACING NOTED. SAFETY MEASURES IN PLACE, CALL LIGHT WITHIN REACH, WILL CONTINUE TO MONITOR ACCORDINGLY.
[2022-08-26 08:08] VITALS: BP 127/62
[2022-08-26] MEDS: HOME MED MISC AMLODIPINE 10MG PO SCH (08:27)
[2022-08-26] MEDS: LORAZEPAM 1 MG TABLET PO PRN (16:01)
[2022-08-26 16:21] VITALS: BP 133/62
--- NOTE | 2022-08-26 18:58 | NUR ---
MS RN NOTES PATIENT IN BED ALERT ORIENTED X 4. NO ACUTE DISTRESS NOTED, BREATHING UNLABORED. DENIED PAIN AT THIS TIME, NO FACIAL GRIMACING NOTED. NEEDS ATTENDED AND ANTICIPATED. SAFETY MEASURES IN PLACE, CALL LIGHT WITHIN REACH, WILL ENDORSE TO NIGHT NURSE FOR CONTINUITY OF CARE.
--- NOTE | 2022-08-26 19:26 | NUR ---
MS RN OPENING NOTE RECEIVED PT AWAKE IN BED. A/O X4 AND ABLE TO MAKE NEEDS KNOWN. PT STABLE ON ROOMS AIR. NO SOB OR S/S OF RESPIRATORY DISTRESS. BREATHING EVEN AND UNLABORED. NO IV ACCES DUE TO CLINICAL TRIAL STATUS. SAFETY PRECAUTIONS IN PLACE. BED IN LOWEST LOCKED POSITION, SIDE RAILS UP X2, AND CALL LIGHT AND TABLE WITHIN REACH. ALL NEEDS MET AT THIS TIME.
[2022-08-26] MEDS: INVEST MED MK-8189-008-02 MISC 1 DOSE PO SCH (19:46)
[2022-08-26 20:00] VITALS: BP 130/62
[2022-08-27] MEDS: IBUPROFEN 200 MG TABLET PO PRN ×2 (01:33→09:07)
--- NOTE | 2022-08-27 01:40 | NUR ---
RN NOTE PT COMPLAINED OF R KNEE PAIN 09/09. ADMINISTERED MOTRIN FOR PAIN ORDERED. ICE PACK GIVEN PER REQUEST. MADE COMFORTABLE IN BED. ALL NEEDS MET AT THIS TIME.
--- NOTE | 2022-08-27 07:18 | NUR ---
MS INCINERATOR OPERATOR OPENING NOTE RECEIVED PT AWAKE IN BED. A/O X4. PT STABLE ON ROOM AIR. NO SOB OR S/S OF RESPIRATORY DISTRESS. BREATHING EVEN AND UNLABORED. NO IV ACCES DUE TO CLINICAL TRIAL STATUS. SAFETY PRECAUTIONS IN PLACE. BED IN LOWEST LOCKED POSITION, SIDE RAILS UP X2, AND CALL LIGHT AND TABLE WITHIN REACH. WILL CONTINUE TO MONITOR.
[2022-08-27 08:00] VITALS: BP 116/59
[2022-08-27] MEDS: MAGNESIUM HYDROXIDE 30 ML UDC PO PRN ×3 (09:07→21:46)
[2022-08-27] MEDS: HOME MED MISC AMLODIPINE 10MG PO SCH (09:07)
[2022-08-27 16:00] VITALS: BP 138/77
--- NOTE | 2022-08-27 18:31 | NUR ---
MS TOOL CRIB ATTENDANT CLOSING NOTE PATIENT AWAKE IN BED. A/O X4. PATIENT STABLE ON ROOM AIR. NO SOB OR S/S OF RESPIRATORY DISTRESS. BREATHING EVEN AND UNLABORED PATIENT IS AMBULATORY WITH ZERO ASSISTANCE. NO IV ACCES DUE TO CLINICAL TRIAL STATUS. SAFETY PRECAUTIONS IN PLACE. BED IN LOWEST LOCKED POSITION, AND CALL LIGHT AND TABLE WITHIN REACH. WILL ENDORSE TO DOCTOR OF NAPRAPATHY NURSE.
[2022-08-27 20:00] VITALS: BP 115/60
[2022-08-27] MEDS: INVEST MED MK-8189-008-02 MISC 1 DOSE PO SCH (20:03)
[2022-08-27] MEDS: ZOLPIDEM TARTRATE 10 MG TABLET PO PRN (21:18)
--- NOTE | 2022-08-27 21:18 | NUR ---
RN NOTE PT COMPLAINED OF INSOMNIA. ADMINISTERED AMBIEN 10 MG FOR INSOMNIA ORDERED. MADE COMFORTABLE IN BED. ALL NEEDS MET AT THIS TIME.
--- NOTE | 2022-08-27 21:46 | NUR ---
RN NOTE PT COMPLAINING OF CONSTIPATION AND REQUESTED MILK OF MAGNESIA. ADMINISTERED MEDICATION ORDERED. MADE COMFORTABLE IN BED. ALL NEEDS MET AT THIS TIME.
--- NOTE | 2022-08-27 23:50 | NUR ---
MS RN NOTES RECEIVED PATIENT AT 2350 RESTING IN BED. A/O TIMES 4. NO PAIN NOTED. NO SOB NOTED. NO DISTRESS NOTED. ABLE TO MAKE NEEDS KNOWN. NO DISTRESS NOTED. NO BEHAVIORAL ISSUE NOTED. ALL SAFETY MEASURES IN PLACE. BED LOCKED IN THE LOWEST POSITION. CALL LIGHT AND TABLE IN EASY REACH. SIDE RAILS UP TIMES 2. WILL CONTINUE TO MONITOR CLOSELY.
--- NOTE | 2022-08-28 06:35 | NUR ---
MS RN CLOSING NOTES PATIENT RESTING IN BED. PATIENT IS A/O TIMES 4. NO PAIN NOTED. NO SOB NOTED. NO DISTRESS NOTED. ABLE TO MAKE NEEDS KNOWN. NO BEHAVIORAL ISSUE NOTED. ALL SAFETY MEASURES IN PLACE. BED LOCKED IN THE LOWEST POSITION. CALL LIGHT AND TABLE IN EASY REACH. SIDE RAILS UP TIMES 2. WILL ENDORSE FOR JOVANNY.
[2022-08-28 07:00] VITALS: BP 105/63
[2022-08-28] MEDS: HOME MED MISC AMLODIPINE 10MG PO SCH ×2 (08:05→08:49)
[2022-08-28] MEDS: LORAZEPAM 1 MG TABLET PO PRN (08:05)
--- NOTE | 2022-08-28 08:06 | NUR ---
RN NOTES: HELD BP MEDS DUE TO PT BP = 105/63, PT ASKED FOR ATIVAN, WILL MEDICATE PER ORDER
[2022-08-28] MEDS: MAGNESIUM HYDROXIDE 30 ML UDC PO PRN (13:21)
[2022-08-28 16:00] VITALS: BP 130/66
--- NOTE | 2022-08-28 18:51 | NUR ---
MS RN CLOSING NOTES: PT RESTING IN BED. A/O X4, AND ABLE TO MAKE NEEDS KNOWN. PT STABLE ON ROOM AIR. NO SOB OR S/S OF RESPIRATORY DISTRESS. BREATHING EVEN AND UNLABORED. NO IV ACCESS D/T CLINICAL TRIAL STATUS. ALL NEEDS MET, SAFETY PRECAUTIONS IN PLACE AT ALL TIMES. BED IN LOWEST LOCKED POSITION, HOB ELEVATED, SIDE RAILS UP X2, AND CALL LIGHT AND TABLE WITHIN REACH, WILL ENDORSE TO PM SHIFT.
--- NOTE | 2022-08-28 19:30 | NUR ---
RN NOTES PRN AMBIEN 10 MG GIVEN PER PATIENT'S REQUEST AT 2100 FOR INSOMNIA.
--- NOTE | 2022-08-28 19:30 | NUR ---
MS RN NOTES RECEIVED PATIENT AWAKE IN BED. A/O TIMES 4. NO PAIN NOTED. NO SOB NOTED. NO DISTRESS NOTED. ABLE TO MAKE NEEDS KNOWN. NO DISTRESS NOTED. NO BEHAVIORAL ISSUE NOTED. ALL SAFETY MEASURES IN PLACE. BED LOCKED IN THE LOWEST POSITION. CALL LIGHT AND TABLE IN EASY REACH. SIDE RAILS UP TIMES 2. WILL CONTINUE TO MONITOR CLOSELY.
[2022-08-28] MEDS: INVEST MED MK-8189-008-02 MISC 1 DOSE PO SCH (20:01)
[2022-08-28] MEDS: ZOLPIDEM TARTRATE 10 MG TABLET PO PRN (20:50)
--- NOTE | 2022-08-29 06:25 | NUR ---
MS RN CLOSING NOTES PATIENT RESTING IN BED. PATIENT IS A/O TIMES 4. NO PAIN NOTED. NO SOB NOTED. NO DISTRESS NOTED. ABLE TO MAKE NEEDS KNOWN. NO BEHAVIORAL ISSUE NOTED DURING SHIFT.COOPERATIVE AND PLEASANT. ALL SAFETY MEASURES IN PLACE. BED LOCKED IN THE LOWEST POSITION. CALL LIGHT AND TABLE IN EASY REACH. SIDE RAILS UP TIMES 2. WILL ENDORSE FOR JOVANNY.
--- NOTE | 2022-08-29 07:30 | NUR ---
RN OPENING NOTES RECEIVED PATIENT AWAKE IN BED FROM AMMONIUM NITRATE CRYSTALLIZER. A/O TIMES 4. NO PAIN NOTED. NO SOB NOTED. NO DISTRESS NOTED. ABLE TO MAKE NEEDS KNOWN. NO DISTRESS NOTED. NO BEHAVIORAL ISSUE NOTED. ALL SAFETY MEASURES IN PLACE. BED LOCKED IN THE LOWEST POSITION. CALL LIGHT AND TABLE IN EASY REACH. SIDE RAILS UP TIMES 2. WILL CONTINUE TO MONITOR CLOSELY.
[2022-08-29 08:00] VITALS: BP 103/56
[2022-08-29] MEDS: HOME MED MISC AMLODIPINE 10MG PO SCH (09:17)
--- NOTE | 2022-08-29 10:30 | NUR ---
RN NOTE PATIENT OFF UNIT FOR SMOKE BREAK
--- NOTE | 2022-08-29 11:50 | NUR ---
RN NOTE PATIENT BACK ON UNIT
[2022-08-29] MEDS: LORAZEPAM 1 MG TABLET PO PRN (13:06)
--- NOTE | 2022-08-29 13:07 | NUR ---
RN NOTE PATIENT REPORTS FEELING VERY ANXIOUS. PRN ATIVAN GIVEN
[2022-08-29 16:00] VITALS: BP 117/60
--- NOTE | 2022-08-29 19:23 | NUR ---
RN CLOSING NOTE PT AWAKE IN BED. STABLE ON ROOM AIR. A/O X 4. NO RESPIRATORY DISTRESS NOTED. HOB ELEVATED HIGH FOWLERS. NO IV ACCESS. ALL CARE PROVIDED. SAFETY PRECAUTIONS MAINTAINED. WILL ENDORSE TO DELIVERY DRIVER ASSISTANT NURSE FOR JOVANNY.
--- NOTE | 2022-08-29 19:30 | NUR ---
MS RN OPENING NOTE RECEIVED PATIENT FROM AM NURSE; PATIENT IS ALERT AND ORIENTED X 4, ABLE TO MAKE NEEDS KNOWN; ON ROOM AIR BREATHING EVENLY AND NO RESPIRATORY DISTRESS NOTED; ENCOURAGED VERBALIZATION OF NEEDS; SAFETY PRECAUTIONS IMPLEMENTED, BED IN LOW POSITION, LOCKED, SIDE RAILS UP X 2, CALL LIGHT WITHIN REACH; WILL CONTINUE TO MONITOR THROUGHOUT SHIFT
[2022-08-29] MEDS: INVEST MED MK-8189-008-02 MISC 1 DOSE PO SCH (20:08)
[2022-08-29] MEDS: ZOLPIDEM TARTRATE 10 MG TABLET PO PRN (20:10)
[2022-08-29] MEDS: MAGNESIUM HYDROXIDE 30 ML UDC PO PRN (21:07)
[2022-08-30] MEDS: MAGNESIUM HYDROXIDE 30 ML UDC PO PRN (06:18)
--- NOTE | 2022-08-30 06:45 | NUR ---
MS RN CLOSING NOTE PATIENT IS ALERT AND ORIENTED X 1; S/P EGD AND PEG INSERTION; ON ROOM AIR BREATHING EVENLY AND NO RESPIRATORY DISTRESS NOTED; WITH IV ACCESS IN LFA G#22 RUNNING NSS AT 100 ML/HR, INFUSING WELL; NO COMPLAINS OF PAIN AND DISCOMFORT AT THIS TIME; PATIENT WAS REFUSING MEDICATIONSSAFETY MEASURES IMPLEMENTED, BED IN LOWEST POSITION, LOCKED, SIDE RAILS UP X 2, CALL LIGHT WITHIN REACH; WILL ENDORSE TO AM NURSE FOR JOVANNY. Addendum: 08/30/22 at 0649 by TATYANA CHRISTINA RN ERROR
--- NOTE | 2022-08-30 06:49 | NUR ---
MS RN CLOSING NOTE PATIENT IS ALERT AND ORIENTED X 4, ABLE TO MAKE NEEDS KNOWN; ON ROOM AIR BREATHING EVENLY AND NO RESPIRATORY DISTRESS NOTED; NO COMPLAINTS OF PAIN AND DISCOMFORT AT THIS TIME; PATIENT'S NEEDS ATTENDED; ADMINISTERED MEDICATIONS PRESCRIBED; ENCOURAGED VERBALIZATION OF NEEDS; SAFETY PRECAUTIONS IMPLEMENTED, BED IN LOW POSITION, LOCKED, SIDE RAILS UP X 2, CALL LIGHT WITHIN REACH; WILL ENDORSE TO AM NURSE FOR JOVANNY.
--- NOTE | 2022-08-30 07:42 | NUR ---
MS RN OPENING NOTE RECEIVED PATIENT AWAKE , AMBULATING ; PATIENT IS A/O X 4, ABLE TO MAKE NEEDS KNOWN; ON ROOM AIR BREATHING EVENLY AND NO RESPIRATORY DISTRESS NOTED; ENCOURAGED VERBALIZATION OF NEEDS; SAFETY PRECAUTIONS IMPLEMENTED, BED IN LOW POSITION, LOCKED, SIDE RAILS UP X 2, CALL LIGHT WITHIN REACH; WILL CONTINUE TO MONITOR THROUGHOUT SHIFT
[2022-08-30 08:00] VITALS: BP 127/65
[2022-08-30] MEDS: HOME MED MISC AMLODIPINE 10MG PO SCH (09:18)
[2022-08-30 16:00] VITALS: BP 115/54
--- NOTE | 2022-08-30 18:34 | NUR ---
MS RN CLOSING NOTE PATIENT AWAKE , AMBULATING ; PATIENT IS A/O X 4, ABLE TO MAKE NEEDS KNOWN; ON ROOM AIR BREATHING EVENLY AND NO RESPIRATORY DISTRESS NOTED; ENCOURAGED VERBALIZATION OF NEEDS; DUE MEDS GIVEN ORDERED , SAFETY PRECAUTIONS IMPLEMENTED, BED IN LOW POSITION, LOCKED, SIDE RAILS UP X 2, CALL LIGHT WITHIN REACH; WILL CONTINUE TO MONITOR THROUGHOUT SHIFT
[2022-08-30 20:00] VITALS: BP 119/54
[2022-08-30] MEDS: ZOLPIDEM TARTRATE 10 MG TABLET PO PRN (20:25)
[2022-08-30] MEDS: INVEST MED MK-8189-008-02 MISC 1 DOSE PO SCH (20:25)
[2022-08-31] MEDS: MAGNESIUM HYDROXIDE 30 ML UDC PO PRN ×2 (05:04→10:21)
--- NOTE | 2022-08-31 06:15 | NUR ---
END OF SHIFT SUMMARY REPORT Patient in bed, Alert Oriented x4. Independent on ADL's, ambulatory. On Clinical Trial for study antipsychotic drug medication, compliant with medication and treatment, swallowed medication. 6 Hours sleep with Ambien. Reports not too good bowel movement yesterday and request for laxative. Given MOM, no result at this time. Will endorse to oncoming RN.
--- NOTE | 2022-08-31 07:15 | NUR ---
MS RN OPENING NOTE RECEIVED PATIENT AWAKE, AMBULATING, PATIENT IS A/O X 4, ABLE TO MAKE NEEDS KNOWN; ON ROOM AIR BREATHING EVENLY AND NO RESPIRATORY DISTRESS NOTED, SAFETY PRECAUTIONS IMPLEMENTED, BED IN LOW POSITION, LOCKED, SIDE RAILS UP X 2, CALL LIGHT WITHIN REACH; WILL CONTINUE TO MONITOR
[2022-08-31 08:00] VITALS: BP 116/73
[2022-08-31] MEDS: HOME MED MISC AMLODIPINE 10MG PO SCH (10:00)
[2022-08-31] MEDS: LORAZEPAM 1 MG TABLET PO PRN (14:28)
[2022-08-31 16:00] VITALS: BP 127/70
--- NOTE | 2022-08-31 19:10 | NUR ---
RN opening notes Pt is resting in the room comfortably. Pt is alert and orientedX4. On room air. No SOB. No S/S of distress noted. No IV sites. Pt is a clinical trial. safety precautions is maintained. Bed at low position, brakes locked, side railsupX2, hob elevated, and call light is within reach. will continue to monitor.
--- NOTE | 2022-08-31 19:35 | NUR ---
MS RN CLOSING NOTE PATIENT AWAKE, AMBULATING, PATIENT IS A/O X 4, ABLE TO MAKE NEEDS KNOWN; ON ROOM AIR BREATHING EVENLY AND NO RESPIRATORY DISTRESS NOTED; ENCOURAGED VERBALIZATION OF NEEDS; DUE MEDS GIVEN ORDERED , SAFETY PRECAUTIONS IMPLEMENTED, BED IN LOW POSITION, LOCKED, SIDE RAILS UP X 2, CALL LIGHT WITHIN REACH; ENDORSED TO INTEGRATED SPECIALIST RN FOR JOVANNY
[2022-08-31] MEDS: INVEST MED MK-8189-008-02 MISC 1 DOSE PO SCH (19:50)
[2022-08-31] MEDS: ZOLPIDEM TARTRATE 10 MG TABLET PO PRN (19:52)
[2022-08-31 20:00] VITALS: BP 129/69
[2022-09-01] MEDS ORDERED: LORAZEPAM 1 MG TABLET PO PRN
[2022-09-01] MEDS ORDERED: ZOLPIDEM TARTRATE 10 MG TABLET PO PRN
--- NOTE | 2022-09-01 06:30 | NUR ---
RN closing notes Pt is resting in bed comfortably. Pt is alert and orientedX4. On room air. No SOB. No S/S of distress noted. No IV sites. VS is stable. Routine med was given as ordered. Kept Pt clean, dry and comfortable. safety precautions is maintained. Bed at low position, brakes locked, side railsupX2, hob elevated, and call light is within reach. Will endorse to am nurse for JOVANNY.
--- NOTE | 2022-09-01 07:35 | NUR ---
RN OPENING NOTE- PT AWAKE IN BED, INTERACTIVE, AFFECT APPROPRIATE, DENIES SI, HI, AH, VH, AMBULATING PATIENT IS A/O X 4, ABLE TO MAKE NEEDS KNOWN, NO SIDE EFFECTS OF RX REPORTED, ENCOURAGED VERBALIZATION OF NEEDS; SAFETY PRECAUTIONS IMPLEMENTED, BED IN LOW POSITION, LOCKED, SIDE RAILS UP X 2, CALL LIGHT WITHIN REACH; WILL CONTINUE TO MONITOR / ASSIST
[2022-09-01] MEDS: HOME MED MISC AMLODIPINE 10MG PO SCH (08:43)
[2022-09-01] MEDS: IBUPROFEN 200 MG TABLET PO PRN (10:37)
--- NOTE | 2022-09-01 10:37 | NUR ---
RN NOTE- IBUPROFEN 600MG ADMINISTERED FOR ALANIS
[2022-09-01] MEDS: MAGNESIUM HYDROXIDE 30 ML UDC PO PRN (14:04)
--- NOTE | 2022-09-01 14:15 | NUR ---
RN NOTE- MOM 30CC ADMINISTERED FOR CONSTIPATION
[2022-09-01 16:00] VITALS: BP 114/56
--- NOTE | 2022-09-01 18:27 | NUR ---
RN CLOSING NOTE- PT UNCHANGED, AWAKE IN BED, INTERACTIVE, AFFECT APPROPRIATE, DENIES SI, HI, AH, VH, AMBULATING PATIENT IS A/O X 4, ABLE TO MAKE NEEDS KNOWN, NO SIDE EFFECTS OF RX REPORTED, ENCOURAGED VERBALIZATION OF NEEDS; SAFETY PRECAUTIONS IMPLEMENTED, BED IN LOW POSITION, LOCKED, SIDE RAILS UP X 2, CALL LIGHT WITHIN REACH; WILL CONTINUE TO MONITOR / ASSIST
[2022-09-01 20:00] VITALS: BP 124/63
[2022-09-01] MEDS: INVEST MED MK-8189-008-02 MISC 1 DOSE PO SCH (20:01)
--- NOTE | 2022-09-01 20:20 | NUR ---
MS RN OPENING NOTES: RECEIVED PATIENT AWAKE IN BED, BED IN LOW POSITION CALL LIGHTS WITHIN REACH, NO COMPLAIN OF PAIN AND DISCOMFORT AT THIS TIME, ON ROOM AIR SATURATING WELL, PATIENT IS A/OX4 AMBULATORY ABLE TO MAKE NEEDS KNOWN, ON CLINICAL TRIAL NO CHANGES IN BEHAVIOR WAS OBSERVED, PATIENT KEPT CLEAN AND DRY ALL NEEDS MET WILL CONTINUE TO MONITOR.
[2022-09-01 20:33] VITALS: BP 124/63
--- NOTE | 2022-09-02 06:54 | NUR ---
RN CLOSING NOTES: PATIENT SLEEP IN BED COMFORTABLY, AROUSABLE TO VERBAL STIMULI ON ROOM AIR SATURATING WELL, NO SOB WAS OBSERVED, PATIENT IS A/OX4 ABLE TO EXPRESS NEEDS, AMBULATORY WITH SUPERVISION, ON CLINICAL TRIAL NO CHANGES IN BEHAVIOR WAS OBSERVED, PATIENT KEPT CLEAN AND DRY ALL NEEDS MEET WILL CONTINUE TO MONITOR.
--- NOTE | 2022-09-02 07:05 | NUR ---
RN OPENING NOTE- UNCHANGED, PT AWAKE IN BED, INTERACTIVE, AFFECT APPROPRIATE, DENIES SI, HI, AH, VH, AMBULATING PATIENT IS A/O X 4, ABLE TO MAKE NEEDS KNOWN, NO SIDE EFFECTS OF RX REPORTED, ENCOURAGED VERBALIZATION OF NEEDS; SAFETY PRECAUTIONS IMPLEMENTED, BED IN LOW POSITION, LOCKED, SIDE RAILS UP X 2, CALL LIGHT WITHIN REACH; WILL CONTINUE TO MONITOR / ASSIST
[2022-09-02 08:20] VITALS: BP 120/66
[2022-09-02] MEDS: HOME MED MISC AMLODIPINE 10MG PO SCH (08:50)
[2022-09-02] MEDS: IBUPROFEN 200 MG TABLET PO PRN ×2 (08:52→17:03)
--- NOTE | 2022-09-02 08:53 | NUR ---
RN NOTE- IBUPROFEN 600MG ADMINISTERED FOR ALANIS
[2022-09-02 16:47] VITALS: BP 103/48
--- NOTE | 2022-09-02 17:06 | NUR ---
RN NOTE- IBUPROFEN 600MG ADMINISTERED FOR GENERALIZED DISCOMFORT
--- NOTE | 2022-09-02 18:25 | NUR ---
RN CLOSING NOTE- PT REMAINS THE SAME, AWAKE, INTERACTIVE, AFFECT APPROPRIATE, DENIES SI, HI, AH, VH, AMBULATING PATIENT IS A/O X 4, ABLE TO MAKE NEEDS KNOWN, NO SIDE EFFECTS OF RX REPORTED, SAFETY PRECAUTIONS IMPLEMENTED, BED IN LOW POSITION, LOCKED, SIDE RAILS UP X 2, CALL LIGHT WITHIN REACH; WILL CONTINUE TO MONITOR / ASSIST
--- NOTE | 2022-09-02 19:15 | NUR ---
MS RN OPENING NOTES RECEIVED PATIENT AMBULATING AROUND ROOM. A/O X4, ABLE TO MAKE NEEDS KNOWN. ON CLINICAL TRIAL. DENIES PAIN AND DISCOMFORT AT THIS TIME. ON ROOM AIR WITH NO S/S OF RESPIRATORY DISTRESS. NO IV ACCESS NOTED. WILL MONITOR CHANGES IN BEHAVIOR. SAFETY PRECAUTIONS IN PLACE: BED LOCKED AND IN LOW POSITION, SIDE RAILS UP X2, CALL LIGHT AND TRAY TABLE WITHIN REACH. WILL CONTINUE TO MONITOR AND ASSIST.
[2022-09-02 20:00] VITALS: BP 102/53
[2022-09-02] MEDS: INVEST MED MK-8189-008-02 MISC 1 DOSE PO SCH (20:03)
[2022-09-02] MEDS: ZOLPIDEM TARTRATE 10 MG TABLET PO PRN (20:03)
--- NOTE | 2022-09-03 06:44 | NUR ---
MS RN CLOSING NOTES PATIENT AMBULATING AROUND UNIT AT THIS TIME. A/O X4, ABLE TO MAKE NEEDS KNOWN. ON CLINICAL TRIAL. DENIES PAIN AND DISCOMFORT AT THIS TIME. STABLE ON ROOM AIR WITH NO S/S OF RESPIRATORY DISTRESS. NO IV ACCESS NOTED. NO CHANGES IN BEHAVIOR NOTED. SAFETY PRECAUTIONS MAINTAINED: BED LOCKED AND IN LOW POSITION, SIDE RAILS UP X2, CALL LIGHT AND TRAY TABLE WITHIN REACH. WILL ENDORSE JOVANNY TO DAY SHIFT NURSE.
--- NOTE | 2022-09-03 07:41 | NUR ---
RN Opening Note Patient AOx4 able to express own concerns. Sleeping, easily aroused. Patient states no complaints, no signs of distress or discomfort. All safety precautions taken, call light and table within reach and bed at lowest position.
[2022-09-03 08:00] VITALS: BP 109/54
[2022-09-03] MEDS: HOME MED MISC AMLODIPINE 10MG PO SCH (09:00)
--- NOTE | 2022-09-03 18:57 | NUR ---
RN Closing Note PAtient AOx4 able to express her concerns. All safety precautions taken, call light and table within reach, bed at lowest position. Will endorse to night nurse for continuity of care.
--- NOTE | 2022-09-03 19:30 | NUR ---
MS RN OPENING NOTE RECEIVED PATIENT FROM AM NURSE; PATIENT IS ALERT AND ORIENTED X 4, ABLE TO MAKE NEEDS KNOWN; ON ROOM AIR BREATHING EVENLY AND NO DISTRESS NOTED; NO COMPLAINTS OF PAIN AND DISCOMFORT AT THIS TIME; ENCOURAGED VERBALIZATION OF NEEDS; SAFETY PRECAUTIONS IMPLEMENTED, BED IN LOW POSITION, LOCKED, SIDE RAILS UP X 2; CALL LIGHT WITHIN REACH; WILL CONTINUE TO MONITOR THROUGHOUT SHIFT
[2022-09-03 20:00] VITALS: BP 113/71
[2022-09-03] MEDS: INVEST MED MK-8189-008-02 MISC 1 DOSE PO SCH (20:08)
[2022-09-03] MEDS: ZOLPIDEM TARTRATE 10 MG TABLET PO PRN (20:44)
--- NOTE | 2022-09-03 21:20 | NUR ---
MS RN NOTE PATIENT ASKED FOR AMBIEN PRIOR TO SLEEPING; AMBIEN GIVEN AT 2043H; PATIENT IS CURRENTLY ASLEEP
[2022-09-04 00:14] VITALS: BP 113/71
--- NOTE | 2022-09-04 06:37 | NUR ---
MS RN CLOSING NOTE PATIENT IS ALERT AND ORIENTED X 4, ABLE TO MAKE NEEDS KNOWN; ON ROOM AIR BREATHING EVENLY AND NO RESPIRATORY DISTRESS NOTED; NO COMPLAINTS OF PAIN AND DISCOMFORT AT THIS TIME; ENCOURAGED VERBALIZATION OF NEEDS; ADMINISTERED MEDICATIONS PRESCRIBED; PATIENT'S NEEDS ATTENDED; MONITORED ACCORDINGLY; SAFETY PRECAUTIONS IMPLEMENTED, BED IN LOW POSITION, LOCKED, SIDE RAILS UP X 2, CALL LIGHT WITHIN REACH; WILL ENDORSE TO AM NURSE FOR JOVANNY
--- NOTE | 2022-09-04 07:30 | NUR ---
PT RECEIVED RESTING COMFORTABLY IN BED. NO S/S OR C/O PAIN OR DISTRESS NOTED. SIDE RAILS UP X2, CALL LIGHT LEFT WITHIN REACH. WILL CONTINUE PLAN OF CARE.
[2022-09-04] MEDS: HOME MED MISC AMLODIPINE 10MG PO SCH (09:24)
[2022-09-04] MEDS: IBUPROFEN 200 MG TABLET PO PRN (09:24)
[2022-09-04] MEDS: LORAZEPAM 1 MG TABLET PO PRN (09:24)
[2022-09-04 10:00] VITALS: BP 113/46
[2022-09-04] MEDS: MAGNESIUM HYDROXIDE 30 ML UDC PO PRN (16:27)
--- NOTE | 2022-09-04 19:30 | NUR ---
MS RN OPENING NOTE RECEIVED PATIENT FROM AM NURSE; PATIENT IS ALERT AND ORIENTED X 4, ABLE TO MAKE NEEDS KNOWN; ON ROOM AIR TOLERATING WELL, BREATHING EVENLY AND NO RESPIRATORY DISTRESS NOTED; ENCOURAGED VERBALIZATION OF NEEDS; SAFETY PRECAUTIONS IMPLEMENTED, BED IN LOW POSITION, LOCKED, SIDE RAILS UP X 2; CALL LIGHT WITHIN REACH; WILL CONTINUE TO MONITOR THROUGHOUT SHIFT
[2022-09-04 20:00] VITALS: BP 124/71
[2022-09-04] MEDS: INVEST MED MK-8189-008-02 MISC 1 DOSE PO SCH (20:02)
[2022-09-04] MEDS: ZOLPIDEM TARTRATE 10 MG TABLET PO PRN (20:02)
--- NOTE | 2022-09-05 06:51 | NUR ---
MS RN CLOSING NOTE PATIENT IS ALERT AND ORIENTED X 4, ABLE TO MAKE NEEDS KNOWN; ON ROOM AIR BREATHING EVENLY AND NO RESPIRATORY DISTRESS NOTED; NO COMPLAINTS OF PAIN AND DISCOMFORT AT THIS TIME; ENCOURAGED VERBALIZATION OF NEEDS; ADMINISTERED MEDICATIONS PRESCRIBED; AMBIEN PRN GIVEN PER PATIENT'S REQUEST PRIOR TO SLEEP; PATIENT'S NEEDS ATTENDED; MONITORED ACCORDINGLY; SAFETY PRECAUTIONS IMPLEMENTED, BED IN LOW POSITION, LOCKED, SIDE RAILS UP X 2, CALL LIGHT WITHIN REACH; WILL ENDORSE TO AM NURSE FOR JOVANNY
--- NOTE | 2022-09-05 07:39 | NUR ---
MS RN OPENING NOTE Patient in bed, awake. A/O x 4, able to make needs known. On room air breathing evenly and unlabored, no SOB or s/s of distress noted. No IV access due to clinical trial status. Safety precautions in p lace: bed in low, locked position; siderails up x2; call light within reach. Will continue to monitor.
[2022-09-05] MEDS: IBUPROFEN 200 MG TABLET PO PRN (07:48)
--- NOTE | 2022-09-05 07:48 | NUR ---
RN NOTE Patient complained of pain on legs 6/10 on pain scale. PRN Ibuprofen given. Will continue to monitor.
[2022-09-05 08:00] VITALS: BP 128/79
[2022-09-05] MEDS: HOME MED MISC AMLODIPINE 10MG PO SCH ×2 (08:56→09:00)
[2022-09-05] MEDS: LORAZEPAM 1 MG TABLET PO PRN ×2 (08:57→13:11)
--- NOTE | 2022-09-05 09:00 | NUR ---
RN NOTE Patient was asking for Ativan medication because she was feeling anxious, medication pulled out but patient was not in room. Medication Ativan 1 tablet returned. Home med not given as well.
--- NOTE | 2022-09-05 11:54 | NUR ---
RN NOTE Patient still not in her room.
--- NOTE | 2022-09-05 12:10 | NUR ---
RN NOTE Patient back in room.
--- NOTE | 2022-09-05 13:11 | NUR ---
RN NOTE Patient states she's anxious and asked for Ativan, PRN Ativan 1 mg PO given. Will continue to monitor.
[2022-09-05 16:00] VITALS: BP 117/62
--- NOTE | 2022-09-05 19:00 | NUR ---
MS RN CLOSING NOTE Patient in bed awake. A/O x 4, able to make needs known. On room air, no SOB or s/s of distress notes. NO IV access due to clinical trial status. Denies any pain or discomfort at this time. All needs attended to. Due meds given. Safety precautions in p lace: bed in low, locked position; siderails up x2; call light within reach. Will endorse to director nursing service nurse for JOVANNY.
--- NOTE | 2022-09-05 19:14 | NUR ---
RN Opening Notes Received pt in bed, asleep, awakens to verbal stimuli. AOx4, able to make needs known. On RA and tolerating well. No SOB noted. No s/sx of respiratory distress noted. No IV access due to clinical trial status. Safety precautions in place: bed in lowest, locked position, siderails upX2, and brakes on. Table and call light within reach. All needs met at this time.
[2022-09-05] MEDS: INVEST MED MK-8189-008-02 MISC 1 DOSE PO SCH (19:59)
[2022-09-05 20:00] VITALS: BP 126/72
[2022-09-05] MEDS: ZOLPIDEM TARTRATE 10 MG TABLET PO PRN (20:20)
--- NOTE | 2022-09-05 20:20 | NUR ---
RN Note Upon administering investigational medication, patient requested ambien. Patient made aware of protocol to not administer ambien and ativan within 10 hours of each other. Patient said I took it [ativan] at 1. I can take the ambien already. They told me I can take it at 3!" Explained to patient that I can give it at 11 PM. Patient became angry and started to yell saying "you're messing with me! I wanna speak to the doctor!" Contacted Dr. Lopez, who was made aware of the situation, and Dr. Lopez said "It is okay to administer the ambien now."
--- NOTE | 2022-09-06 06:43 | NUR ---
RN Closing Notes Pt in bed, awake, entering and leaving room. AOx4, able to make needs known. On RA and tolerating well. No SOB noted. No s/sx of respiratory distress noted. No IV access due to clinical trial status. All orders carried out. All needs met. Administered ambien per patient request and as approved by Dr. Lopez. Safety precautions in place: bed in lowest, locked position, siderails upX2, and brakes on. Table and call light within reach. Will endorse to oncoming shift for JOVANNY.
[2022-09-06 08:00] VITALS: BP 117/76
[2022-09-06] MEDS: HOME MED MISC AMLODIPINE 10MG PO SCH (09:03)
[2022-09-06] MEDS: MAGNESIUM HYDROXIDE 30 ML UDC PO PRN (09:03)
[2022-09-06] MEDS: IBUPROFEN 200 MG TABLET PO PRN (13:43)
[2022-09-06 16:00] VITALS: BP 140/80
--- NOTE | 2022-09-06 19:21 | NUR ---
MS RN OPENING NOTE Patient in bed, awake. A/O x 4, able to make needs known. On room air breathing evenly and unlabored, no SOB or s/s of distress noted. No IV access due to clinical trial status. Due meds given. All needs attended to. Safety precautions in [place]: bed in low, locked position; siderails up x2; call light within reach. Will endorse to packer inspector nurse for JOVANNY. Addendum: 09/06/22 at 1922 by ANGELICA MCCRACKEN RN CORRECTION: MS PROCTOR CLOSING NOTE
--- NOTE | 2022-09-06 19:22 | NUR ---
MS RN CLOSING NOTE Patient in bed, awake. A/O x 4, able to make needs known. On room air breathing evenly and unlabored, no SOB or s/s of distress noted. No IV access due to clinical trial status. Due meds given. All needs attended to. Safety precautions in p lace: bed in low, locked position; siderails up x2; call light within reach. Will endorse to assembler 1st shift nurse for JOVANNY.
[2022-09-06 20:00] VITALS: BP 119/61
[2022-09-06] MEDS: INVEST MED MK-8189-008-02 MISC 1 DOSE PO SCH (20:30)
[2022-09-06] MEDS: ZOLPIDEM TARTRATE 10 MG TABLET PO PRN (20:33)
--- NOTE | 2022-09-06 20:33 | NUR ---
UNABLE TO SLEEP Patient in bed, stated she wants to sleep early and request Ambien. Given Ambien per patient request. Will monitor hours of sleep.
--- NOTE | 2022-09-07 06:22 | NUR ---
END OF SHIFT REPORT Patient in bed, Alert Oriented x4. Compliant with medication, swallowed. 6 hours sleep with Ambien. Ambulatory, independent with ADL's. Patient no IV line, no lab as patient on Clinical Trial study on Antipsychotic medication. Clinical Trial continuous. Will endorse to oncoming RN.
[2022-09-07 07:00] VITALS: BP 120/65
--- NOTE | 2022-09-07 07:30 | NUR ---
RN OPENING NOTE RECEIVED PATIENT IN BED, AWAKE, A/O X4, VERBALLY RESPONSIVE, NO SIGNS OF ACUTE DISTRESS NOTED. NO C/O PAIN OR DISCOMFORT AT THIS TIME. STABLE ON ROOM AIR, BREATHING EVEN AND UNLABORED. REMAINS ON CLINICAL TRIAL. NO IV ACCESS. SAFETY MEASURE IN PLACE. WILL CONTINUE TO MONITOR PATIENT FOR SAFETY AND BEHAVIOR.
[2022-09-07] MEDS: HOME MED MISC AMLODIPINE 10MG PO SCH (08:34)
[2022-09-07] MEDS: IBUPROFEN 200 MG TABLET PO PRN (10:51)
[2022-09-07] MEDS: LORAZEPAM 1 MG TABLET PO PRN (10:51)
[2022-09-07 16:00] VITALS: BP 113/61
[2022-09-07] MEDS: MAGNESIUM HYDROXIDE 30 ML UDC PO PRN (16:02)
--- NOTE | 2022-09-07 18:48 | NUR ---
RN CLOSING NOTE PATIENT IN BED, AWAKE, A/O X4, WATCHING TV. VERBALLY RESPONSIVE, NO SIGNS OF ACUTE DISTRESS NOTED. DENIES ANY PAIN OR DISCOMFORT. DUE MEDS GIVEN ORDERED. REMAINS STABLE ON ROOM AIR, BREATHING EVEN AND UNLABORED. REMAINS ON CLINICAL TRIAL. NO IV ACCESS. NO UNTOWARD BEHAVIOR NOTED. DENIES SI/HI. SAFETY MEASURE MAINTAINED. WILL ENDORSE TO NEXT SHIFT FOR CONTINUITY OF CARE.
--- NOTE | 2022-09-07 19:15 | NUR ---
MATERIALS DIRECTOR INITIAL NOTES RECEIVED REPORT FROM AM NURSE AND SEEN PATIENT AWAKE IN BED RESTING, A/O X 4. NO S/S OF PAIN NOTED AT THIS TIME.PATIENT REQUEST TO HAVE HER INVESTIGATIONAL MED WITH HER AMBIEN . ON ROOM AIR, NO DISTRESS OR SHORTNESS OF BREATH NOTED. NO IV ACCESS, CLINICAL TRIAL PATIENT. FALL AND SAFETY MEASURES IN PLACE, BED IN LOW AND LOCK POSITION, CALL LIGHT AND TABLE WITHIN EASY REACH, SIDE RAILS UP X2. WILL CONTINUE TO MONITOR.
[2022-09-07 20:00] VITALS: BP 116/65
[2022-09-07] MEDS: INVEST MED MK-8189-008-02 MISC 1 DOSE PO SCH (20:35)
[2022-09-07] MEDS: ZOLPIDEM TARTRATE 10 MG TABLET PO PRN (20:35)
[2022-09-08] MEDS ORDERED: LORAZEPAM 1 MG TABLET PO PRN
[2022-09-08] MEDS ORDERED: ZOLPIDEM TARTRATE 10 MG TABLET PO PRN
--- NOTE | 2022-09-08 07:25 | NUR ---
RN OPENING NOTE - CLINICAL TRIAL RECEIVED PT IN BED, AWAKE, A/O X4. ABLE TO MAKE NEEDS KNOWN, NO SIGNS AND SYMPTOMS OF ACUTE DISTRESS NOTED. DENIES ANY PAIN OR DISCOMFORT. DUE MEDS GIVEN ORDERED. STABLE ON ROOM AIR, BREATHING EVEN AND UNLABORED. NO IV ACCESS PER PROTOCOL. WILL MONITOR FOR ANY BEHAVIOR CHANGES. SAFETY MEASURES IN PLACE: BED IN LOWEST AND LOCKED POSITION, ORIENTED HOW TO CALL FOR HELP. WILL CONTINUE POC.
--- NOTE | 2022-09-08 07:34 | NUR ---
tamale maker closing notes pt back to her room , she slept well .all due meds given , Stable throughout the night. kept her comfortable and safe at all times. will endorse to am nurse for continuity of care. place call light at reach.
[2022-09-08] MEDS: HOME MED MISC AMLODIPINE 10MG PO SCH (08:44)
[2022-09-08] MEDS: MAGNESIUM HYDROXIDE 30 ML UDC PO PRN (08:44)
--- NOTE | 2022-09-08 09:00 | NUR ---
RN NOTES - PT ASKED FOR MILK OF MAGNESIA FOR CONSTIPATION - ADMINISTERED.
[2022-09-08] MEDS: IBUPROFEN 200 MG TABLET PO PRN (10:39)
--- NOTE | 2022-09-08 10:45 | NUR ---
RN NOTES - PT COMPLAINS OF MINOR PAIN OF 11/07 - GIVEN IBUPROFEN 600 MG PO.
[2022-09-08 15:57] VITALS: BP 134/67
--- NOTE | 2022-09-08 18:28 | NUR ---
RN CLOSING NOTE - CLINICAL TRIAL PT IN BED, AWAKE, A/O X4, WATCHING TV, STILL ON ROOM AIR, NO COMPLAINTS OF ANY PAIN OR DISCOMFORT. NO IV ACCESS PER PROTOCOL. WILL MONITOR FOR ANY BEHAVIOR CHANGES.ALL DUE MEDS GIVEN, SAFETY MAINTAINED. WILL ENDORSE TO BLACK PULLER NURSE.
[2022-09-08 20:00] VITALS: BP 122/65
--- NOTE | 2022-09-08 20:00 | NUR ---
SWING TENDER OPENING NOTE- PT AWAKE IN BED, INTERACTIVE, AFFECT APPROPRIATE, DENIES SI, HI, AH, VH, AMBULATING PATIENT IS A/O X 4, ABLE TO MAKE NEEDS KNOWN, NO SIDE EFFECTS OF RX REPORTED, ENCOURAGED VERBALIZATION OF NEEDS; SAFETY PRECAUTIONS IMPLEMENTED, BED IN LOW POSITION, LOCKED, SIDE RAILS UP X 2, CALL LIGHT WITHIN REACH; WILL CONTINUE TO MONITOR .
[2022-09-08] MEDS: INVEST MED MK-8189-008-02 MISC 1 DOSE PO SCH (20:41)
[2022-09-09 05:55] VITALS: BP 125/65
--- NOTE | 2022-09-09 07:06 | NUR ---
MS RN OPENING NOTES RECEIVED PATIENT AWAKE IN BED, A/Ox4 ABLE TO MAKE NEEDS KNOWN. ON ROOM AIR, NO S/S OF RESPIRATORY DISTRESS. PATIENT IS CLINICAL TRIAL, NO IV ACCESS. NO C/O OF PAIN OR DISCOMFORT. SKIN INTACT. SAFETY MEASURES IN PLACE: BED LOCKED AND IN LOWEST POSITION, HOB ELEVATED, SIDE RAILS UPx2, CALL LIGHT WITHIN REACH. WILL CONTINUE TO MONITOR.
--- NOTE | 2022-09-09 07:38 | NUR ---
CHIEF SALES OFFICER CLOSING NOTES PT WOKE UP AND SAYING SHE JUST NEED TO GO DOWN TO GET COFFEE AND SMOKE AT THE SAME TIME. SLEPT WELL. INTERACT APPROPRIATELY . AWARE THAT HER SCHEDULE FOR TEST TODAY FOR HER INVESTIGATIONAL MEDS. ALL DUE MEDS GIVEN AND ALL NEEDS MET. KEPT HER WARM AND COMFORTABLE AT ALL TIMES. PLACE CALL LIGHT AT REACH.
[2022-09-09 08:23] VITALS: BP 133/81
[2022-09-09] MEDS: HOME MED MISC AMLODIPINE 10MG PO SCH (08:27)
[2022-09-09] MEDS: LORAZEPAM 1 MG TABLET PO PRN (12:00)
--- NOTE | 2022-09-09 12:07 | NUR ---
RN NOTES PATIENT REQUESTED PRN ATIVAN. MEDICATION ADMINISTERED, WILL CONTINUE TO MONITOR.
--- NOTE | 2022-09-09 18:40 | NUR ---
MS RN CLOSING NOTES PATIENT AWAKE IN BED, A/Ox4 ABLE TO MAKE NEEDS KNOWN. STABLE ON ROOM AIR, NO S/S OF RESPIRATORY DISTRESS. PATIENT IS CLINICAL TRIAL, NO IV ACCESS. NO C/O OF PAIN OR DISCOMFORT. SKIN INTACT. ALL PRESCRIBED MEDICATION ADMINISTERED. ALL NEEDS ATTENDED TO. SAFETY MEASURES MAINTAINED: BED LOCKED AND IN LOWEST POSITION, HOB ELEVATED, SIDE RAILS UPx2, CALL LIGHT WITHIN REACH. WILL ENDORSE TO NEXT SHIFT ANY JOVANNY.
--- NOTE | 2022-09-09 20:00 | NUR ---
director of video analytics notes pt seen in her room watching movies on her IPAD . She's pleasant and interact appropriately . kept her comfortable a all times. will continue monitoring.
[2022-09-09 20:29] VITALS: BP 106/60
[2022-09-09] MEDS: ZOLPIDEM TARTRATE 10 MG TABLET PO PRN (20:34)
[2022-09-09] MEDS: INVEST MED MK-8189-008-02 MISC 1 DOSE PO SCH (20:34)
--- NOTE | 2022-09-10 07:14 | NUR ---
MS PATROL AGENT CLOSING NOTES PT REMAINS IN HER ROOM RESTING COMFORTABLY IN BED WITHOUT ANY DISTRESS OR ANY DISCOMFORT. DUE MEDS GIVEN WITH AMBIEN PER PT REQUEST. WILL CONTINUE MONITORING. ENDORSE TO AM NURSE FOR CONTINUITY OF CARE. PLACE CALL LIGHT AT REACH.
--- NOTE | 2022-09-10 07:53 | NUR ---
RN OPENING NOTE RECEIVED PATIENT IN ROOM 319, AO x 4. ABLE TO RESPONDS ALL STIMULI. RESPIRATORY EVEN AND UNLABORED IN ROOM AIR. IN NO ACUTE DISTRESS OBSERVED. SKIN IS WARM TO TOUCH, KEEP CLEAN/DRY. KEPT ELEVATED HOB FOR ASPIRATION PRECAUTION/ENSURE AIRWAY, ALSO LOWEST BED POSITIONED. BED ALARM IS ON AT ALL THE TIME FOR SAFETY. CALL LIGHT WITHIN REACH, WILL CONTINUE TO MONITOR FOR SAFETY.
[2022-09-10 08:00] VITALS: BP 130/82
[2022-09-10] MEDS: HOME MED MISC AMLODIPINE 10MG PO SCH (08:21)
[2022-09-10] MEDS: LORAZEPAM 1 MG TABLET PO PRN (12:03)
[2022-09-10 16:00] VITALS: BP 106/70
--- NOTE | 2022-09-10 17:43 | NUR ---
RN CLOSING NOTE PATIENT RESTING IN BED. IN NO ACUTE DISTRESS OBSERVED. RESPIRATORY EVEN AND UNLABORED IN ROOM AIR. SKIN IS WARM TO TOUCH KEEP CLEAN/DRY. NO SI/HI OBSERVED. KEPT ELEVATED HOB FOR ENSURE AIRWAY/ASPIRATION PRECAUTION, AND LOWEST BED POSITION. BED ALARM IS ON AT ALL THE TIME FOR SAFETY. CALL LIGHT WITHIN REACH, WILL ENDORSE GINNER HELPER.
--- NOTE | 2022-09-10 19:35 | NUR ---
RN OPENING NOTE RECEIVED PATIENT IN BED; AWAKE, ALERT AND ORIENTED x 4. ON ROOM AIR; TOLERATING WELL. BREATHING EVEN AND UNLABORED. IN NO ACUTE DISTRESS. DENIES ANY PAIN OR DISCOMFORT AT THIS TIME. ABLE TO MAKE NEEDS KNOWN. ON CLINICAL TRIAL. NO IV ACCESS. SAFETY PRECAUTIONS IMPLEMENTED: CALL LIGHT AND TABLE WITHIN REACH, SIDE RAILS UP X 2, BED IN LOWEST LOCKED POSITION. WILL CONTINUE PLAN OF CARE.
[2022-09-10 20:00] VITALS: BP 105/56
[2022-09-10] MEDS: INVEST MED MK-8189-008-02 MISC 1 DOSE PO SCH (20:04)
[2022-09-10] MEDS ORDERED: ZOLPIDEM TARTRATE 5 MG TABLET ONE (20:29)
[2022-09-10] MEDS ORDERED: ZOLPIDEM TARTRATE 10 MG TABLET ONE (20:44)
[2022-09-10] MEDS: ZOLPIDEM TARTRATE 10 MG TABLET PO PRN (20:45)
--- NOTE | 2022-09-11 06:45 | NUR ---
RN CLOSING NOTE PATIENT IN BED; AWAKE, A/O X 4. STABLE ON ROOM AIR. BREATHING EQUAL AND UNLABORED. IN NO APPARENT DISTRESS. NO C/O ANY PAIN OR DISCOMFORT AT THIS TIME. ON CLINICAL TRIAL. NO IV ACCESS. ALL NEEDS ATTENDED. SAFETY MEASURES MAINTAINED: CALL LIGHT AND TABLE WITHIN REACH, SIDE RAILS UP X 2, BED IN LOWEST LOCKED POSITION. ENDORSED TO BRENDA PROCTOR FOR JOVANNY.
[2022-09-11 07:00] VITALS: BP 107/67
--- NOTE | 2022-09-11 07:30 | NUR ---
RN OPENING NOTE RECEIVED PATIENT IN BED, AWAKE, A/O X4, VERBALLY RESPONSIVE, NO SIGNS OF ACUTE DISTRESS NOTED. NO C/O PAIN OR DISCOMFORT AT THIS TIME. STABLE ON ROOM AIR, BREATHING EVEN AND UNLABORED. REMAINS ON CLINICAL TRIAL. NO IV ACCESS. DENIES ANY SI/HI. SAFETY MEASURE IN PLACE. WILL CONTINUE TO MONITOR PATIENT FOR SAFETY AND BEHAVIOR.
[2022-09-11] MEDS: LORAZEPAM 1 MG TABLET PO PRN (08:07)
[2022-09-11] MEDS: HOME MED MISC AMLODIPINE 10MG PO SCH (08:08)
[2022-09-11] MEDS: MAGNESIUM HYDROXIDE 30 ML UDC PO PRN (16:07)
[2022-09-11 20:00] VITALS: BP 117/50
--- NOTE | 2022-09-11 20:00 | NUR ---
ACID CONDITIONING WORKER INITIAL NOTES RECEIVED REPORT FROM AM NURSE AND SEEN PT IN BED LYING DOWN WHILE WATCHING MOVIES ON HER CELLPHONE, SHE REQUESTED HER AMBIEN WITH INVESTIGATIONAL MEDS WELL. PT IS COOPERATIVE, PLEASANT NO SIGNS OF ANY AGITATION OR ANY BEHAVIORAL PROBLEM AT THIS TIME. SHE'S COMFORTABLE WITH AIR-CONDITION ON . WILL CONTINUE MONITORING.
[2022-09-11] MEDS: INVEST MED MK-8189-008-02 MISC 1 DOSE PO SCH (20:18)
[2022-09-11] MEDS: ZOLPIDEM TARTRATE 10 MG TABLET PO PRN (20:18)
--- NOTE | 2022-09-12 06:46 | NUR ---
heating repair technician closing notes pt woke up and went to the smoking area for smoke and get coffee too. She's back to her room , no signs of any changes of her mood. She slept well and stable throughout the night. kept her warm and comfortable at all times. place call light at reach. will endorse to am nurse for continuity of care.
[2022-09-12 08:30] VITALS: BP 135/85
[2022-09-12] MEDS: HOME MED MISC AMLODIPINE 10MG PO SCH (09:07)
[2022-09-12] MEDS: IBUPROFEN 200 MG TABLET PO PRN (17:45)
--- NOTE | 2022-09-12 19:30 | NUR ---
MS RN CLOSING NOTES PATIENT ON BED RESTING AND A/O X4. ON ROOM AIR TOLERATING WELL. NO SOB NOTED. NOT IN DISTRESS. WITH NO COMPLAINTS OF PAIN OR DISCOMFORT AT THIS TIME. WITH NO IV ACCESS. ON CLINICAL TRIAL STATUS. DUE MEDS GIVEN. SAFETY MEASURES IN PLACED. CALL LIGHT WITHIN REACH. BED ON LOWEST LOCKED POSITION, SIDE RAILS UPX2. WILL ENDORSE TO NEXT SHIFT FOR JOVANNY.
--- NOTE | 2022-09-12 19:55 | NUR ---
MS RN OPENING NOTES RECEIVED PATIENT IN BED ALERT, AWAKE AND ORIENTED. A/O X 4. PT IS ON RA BREATHING EVEN AND NON LABORED. NO DISTRESS OR SHORTNESS OF BREATH NOTED. NO IV ACCESS, CLINICAL TRIAL PATIENT.SAFETY MEASURES GIVEN WITH BED IN LOWEST AND LOCKED POSITION. CALL LIGHT AND TABLE WITHIN EASY REACH, SIDE RAILS UP X2. WILL CONTINUE WITH THE PLAN OF CARE.
[2022-09-12 20:00] VITALS: BP 121/68
[2022-09-12] MEDS: INVEST MED MK-8189-008-02 MISC 1 DOSE PO SCH (20:08)
[2022-09-12] MEDS: ZOLPIDEM TARTRATE 10 MG TABLET PO PRN (20:23)
[2022-09-13] MEDS: IBUPROFEN 200 MG TABLET PO PRN (07:40)
[2022-09-13 08:00] VITALS: BP 114/53
--- NOTE | 2022-09-13 08:07 | NUR ---
MS RN CLOSING NOTES PATIENT RESTING IN BED AND EASILY AROUSED. A/O X 4. PT IS ON RA, BREATHING EVEN AND NON LABORED. NO DISTRESS OR SHORTNESS OF BREATH NOTED. NO IV ACCESS, CLINICAL TRIAL PATIENT.SAFETY MEASURES GIVEN WITH BED IN LOWEST AND LOCKED POSITION. CALL LIGHT AND TABLE WITHIN EASY REACH, SIDE RAILS UP X2. WILL ENDORSE TO THE NEXT SHIFT.
[2022-09-13] MEDS: HOME MED MISC AMLODIPINE 10MG PO SCH (09:12)
[2022-09-13 16:00] VITALS: BP 128/70
[2022-09-13 20:00] VITALS: BP 122/45
[2022-09-13] MEDS: INVEST MED MK-8189-008-02 MISC 1 DOSE PO SCH (20:36)
[2022-09-13] MEDS: ZOLPIDEM TARTRATE 10 MG TABLET PO PRN (20:44)
--- NOTE | 2022-09-14 07:28 | NUR ---
MS RN CLOSING NOTES PATIENT RESTING IN BED. A/O X 4. PT IS ON RA, BREATHING EVEN AND NON LABORED. NO DISTRESS OR SHORTNESS OF BREATH NOTED. NO IV ACCESS, CLINICAL TRIAL PATIENT.SAFETY MEASURES GIVEN WITH BED IN LOWEST AND LOCKED POSITION. CALL LIGHT AND TABLE WITHIN EASY REACH, SIDE RAILS UP X2. WILL ENDORSE TO THE NEXT SHIFT.
[2022-09-14 08:00] VITALS: BP 133/80
[2022-09-14] MEDS: IBUPROFEN 200 MG TABLET PO PRN ×2 (08:31→18:05)
[2022-09-14] MEDS: HOME MED MISC AMLODIPINE 10MG PO SCH (08:31)
--- NOTE | 2022-09-14 08:31 | NUR ---
RN NOTE Patient complained of her knees and asked for pain medication. PRN Ibuprofen 600 mg given. Will continue to monitor.
--- NOTE | 2022-09-14 18:05 | NUR ---
RN NOTE Patient complained of her knees and asked for pain medication. PRN Ibuprofen 600 mg given. Will continue to monitor.
--- NOTE | 2022-09-14 18:43 | NUR ---
MS RN CLOSING NOTE Patient in bed, resting. A/O x 4, able to make needs known. On room air, breathing evenly and unlabored. No SOB or s/s of distress noted. No IV access due to clinical trial status. All needs attended to. Due meds given. Safety precautions in place: bed in low, locked position; siderails up x 2; call light within reach. Will endorse to night warehouse selector nurse for JOVANNY.
--- NOTE | 2022-09-14 19:30 | NUR ---
noc rn opening note received patient in bed, a/ox4. no s/s of apparent distress on room air. denies any pain at this time. introduced myself. Encouraged of verbalizing any needs or concerns. Patient asking for her ambien with her ID medication. will follow through plan for patient.
[2022-09-14] MEDS: INVEST MED MK-8189-008-02 MISC 1 DOSE PO SCH (20:00)
[2022-09-14] MEDS: ZOLPIDEM TARTRATE 10 MG TABLET PO PRN (20:00)
--- NOTE | 2022-09-14 20:02 | NUR ---
noc rn note Give ambien at this time per patient request. Per Hannah she talked to Dr. Lopez about getting her Ambien with her ID medications and per her doctor John Ok'd to it.
[2022-09-14 20:30] VITALS: BP 122/56
[2022-09-14 22:05] VITALS: BP 122/56
[2022-09-15] MEDS ORDERED: ZOLPIDEM TARTRATE 10 MG TABLET PO PRN
[2022-09-15] MEDS ORDERED: LORAZEPAM 1 MG TABLET PO PRN
--- NOTE | 2022-09-15 07:20 | NUR ---
MS RN OPENING NOTE RECEIVED PATIENT AWAKE IN BED. PATIENT IS A/O X 4. PT IS ON ROOM AIR WITH EQUAL AND UNLABORED BREATHING WITH NO SIGNS OF RESPIRATORY DISTRESS NOTED. PATIENT IS ON CLINICAL TRIAL, WITH GOOD DISPOSITION AT THIS TIME. SAFTETY MEASURES ENSURED WITH BED IN LOWEST AND LOCKED POSITION. CALL LIGHT AND TABLE WITHIN EASY REACH, SIDE RAILS UP X2. WILL CONTINUE WITH PLAN OF CARE.
--- NOTE | 2022-09-15 07:24 | NUR ---
noc rn closing note Patient still in OR at this time. Will endorse to HITESH Potts for continuity of patient care.
[2022-09-15 08:00] VITALS: BP 138/97
[2022-09-15] MEDS: HOME MED MISC AMLODIPINE 10MG PO SCH (08:41)
--- NOTE | 2022-09-15 19:00 | NUR ---
MS RN CLOSING NOTE PATIENT AWAKE IN BED. PATIENT IS A/O X 4. PT IS ON ROOM AIR WITH EQUAL AND UNLABORED BREATHING WITH NO SIGNS OF RESPIRATORY DISTRESS NOTED. PATIENT IS ON CLINICAL TRIAL, WITH GOOD DISPOSITION AT THIS TIME. SAFETY MEASURES ENSURED WITH BED IN LOWEST AND LOCKED POSITION. CALL LIGHT AND TABLE WITHIN EASY REACH, SIDE RAILS UP X2. PATIENT MOSTLENDORSE TO NEXT SHIFT FOR CONTINUITY OF CARE.
[2022-09-15 20:00] VITALS: BP 133/87
[2022-09-15] MEDS: INVEST MED MK-8189-008-02 MISC 1 DOSE PO SCH (20:11)
--- NOTE | 2022-09-16 06:10 | NUR ---
END OF SHIFT REPORT Patient in bed, Alert Oriented x4. Compliant with medication and treatment. Calm, no agitated behavior. NPO status, Lorazepam and Ambien medication held last night after 2200 and will resume after MD completed patient assessment today 09/16/22. Patient on Clinical study medication. Will endorse to oncoming RN.
--- NOTE | 2022-09-16 07:21 | NUR ---
MS RN OPENING NOTE RECEIVED PATIENT AWAKE IN BED. PATIENT IS A/O X 4. PT IS ON ROOM AIR WITH EQUAL AND UNLABORED BREATHING WITH NO SIGNS OF RESPIRATORY DISTRESS NOTED. PATIENT IS ON CLINICAL TRIAL, WITH GOOD DISPOSITION AT THIS TIME. PATIENT KEPT ON NPO SINCE 2199 YESTERDAY ORDERED. SAFETY MEASURES ENSURED WITH BED IN LOWEST AND LOCKED POSITION. CALL LIGHT AND TABLE WITHIN EASY REACH, SIDE RAILS UP X2. WILL CONTINUE WITH PLAN OF CARE.
--- NOTE | 2022-09-16 08:15 | NUR ---
MS RN NOTE PATIENT STEPPED OUT FOR HER SCHEDULED BLOOD DRAW ORDERED. PATIENT KEPT ON NPO ORDERED. NO BEHAVIORAL MANIFESTATION NOTED.
[2022-09-16 08:49] VITALS: BP 126/69
[2022-09-16] MEDS: HOME MED MISC AMLODIPINE 10MG PO SCH (13:55)
[2022-09-16] MEDS: LORAZEPAM 1 MG TABLET PO PRN (14:13)
[2022-09-16] MEDS: IBUPROFEN 200 MG TABLET PO PRN (14:13)
[2022-09-16 16:11] VITALS: BP 132/72
--- NOTE | 2022-09-16 19:00 | NUR ---
MS RN CLOSING NOTE PATIENT AWAKE IN BED. PATIENT IS A/O X 4. PT IS ON ROOM AIR WITH EQUAL AND UNLABORED BREATHING WITH NO SIGNS OF RESPIRATORY DISTRESS NOTED. PATIENT IS ON CLINICAL TRIAL, WITH GOOD DISPOSITION AT THIS TIME. SAFETY MEASURES ENSURED WITH BED IN LOWEST AND LOCKED POSITION. CALL LIGHT AND TABLE WITHIN EASY REACH, SIDE RAILS UP X2. PATIENT ENDORSED TO NEXT SHIFT FOR CONTINUITY OF CARE.
--- NOTE | 2022-09-16 19:30 | NUR ---
RN Opening Notes Received pt in room, laying in bed, awake. AOx4, able to make needs known. On RA and tolerating well. No SOB noted. No s/sx of respiratory distress noted. No IV access present due to clinical trial status. Safety precautions in place: bed in lowest, locked position, siderails upx2, and brakes on. Table and call light within reach. All needs met at this time.
[2022-09-16 20:00] VITALS: BP 121/68
[2022-09-16] MEDS: INVEST MED MK-8189-008-02 MISC 1 DOSE PO SCH (20:00)
[2022-09-16] MEDS: ZOLPIDEM TARTRATE 10 MG TABLET PO PRN (20:05)
--- NOTE | 2022-09-16 20:05 | NUR ---
RN Notes Patient requested ambien. Patient made aware of Dr. Lopez's 10 hour protocol between ambien and ativan. Patient requested that nurse contact Dr. Lopez. Dr. Lopez made aware of patient's ambien request. Per Dr. Lopez, it is acceptable to administer ambien at this time.
--- NOTE | 2022-09-17 06:45 | NUR ---
RN Closing Notes Pt in room, laying in bed, awake. AOx4, able to make needs known. On RA and tolerating well. No SOB noted. No s/sx of respiratory distress noted. No IV access present due to clinical trial status. All orders carried out. All needs met. Pt kept clean and dry. Investigational medication administered. Safety precautions in place: bed in lowest, locked position, siderails upx2, and brakes on. Table and call light within reach. Will endorse to oncoming shift for JOVANNY.
--- NOTE | 2022-09-17 07:50 | NUR ---
MS RN OPENING NOTE RECEIVED PATIENT AWAKE IN BED. PATIENT IS A/O X 4. PT IS ON ROOM AIR WITH NO SOB OR DISTRESS NOTED . PT IS ON CLINICAL TRIAL, WITH NO BEHAVIOR NOTED NO C/O OF PAIN AND DISCOMFORT . SAFETY MEASURES ENSURED WITH BED IN LOWEST AND LOCKED POSITION. CALL LIGHT AND TABLE WITHIN EASY REACH, SIDE RAILS UP X2. WILL CONTINUE WITH PLAN OF CARE.
[2022-09-17 08:00] VITALS: BP 138/99
[2022-09-17] MEDS: HOME MED MISC AMLODIPINE 10MG PO SCH (11:56)
[2022-09-17] MEDS: IBUPROFEN 200 MG TABLET PO PRN (15:53)
[2022-09-17 16:00] VITALS: BP 103/56
--- NOTE | 2022-09-17 18:30 | NUR ---
MS RN CLOSING NOTES NOTE RECEIVED PATIENT AWAKE IN BED. PATIENT IS A/O X 4. PT IS ON ROOM AIR WITH NO SOB OR DISTRESS NOTED . PT IS ON CLINICAL TRIAL, WITH NO BEHAVIOR NOTED C/O OF PAIN AND DISCOMFORT AROUND 1553 AND MOTRIN GIVEN ORDERED , ALL DUE MEDS GIVEN ORDERED , SAFETY MEASURES PROVIDED WITH BED IN LOWEST AND LOCKED POSITION. CALL LIGHT AND TABLE WITHIN EASY REACH, SIDE RAILS UP X2. ENDORSED TO NEXT SHIFT .
--- NOTE | 2022-09-17 19:30 | NUR ---
MS RN OPENING NOTES RECEIVED PATIENT WATCHING TV IN BED ALERT, AWAKE AND ORIENTED. A/O X 4. PT IS ON RA BREATHING EVEN AND NON LABORED. NO DISTRESS OR SHORTNESS OF BREATH NOTED. NO IV ACCESS, CLINICAL TRIAL PATIENT. SAFETY MEASURES GIVEN WITH BED IN LOWEST AND LOCKED POSITION. CALL LIGHT AND TABLE WITHIN EASY REACH, SIDE RAILS UP X2. WILL CONTINUE WITH THE PLAN OF CARE.
[2022-09-17 20:00] VITALS: BP 105/59
[2022-09-17] MEDS: ZOLPIDEM TARTRATE 10 MG TABLET PO PRN (20:04)
[2022-09-17] MEDS: INVEST MED MK-8189-008-02 MISC 1 DOSE PO SCH (20:04)
--- NOTE | 2022-09-18 06:55 | NUR ---
MS RN CLOSING NOTES PATIENT RESTING IN BED. A/O X 4. PT IS ON RA, BREATHING EVEN AND NON LABORED. NO DISTRESS OR SHORTNESS OF BREATH NOTED. NO IV ACCESS, CLINICAL TRIAL PATIENT.SCHEDULED MEDICATIONS GIVEN. SAFETY MEASURES GIVEN WITH BED IN LOWEST AND LOCKED POSITION. CALL LIGHT AND TABLE WITHIN EASY REACH, SIDE RAILS UP X2. WILL ENDORSE TO THE NEXT SHIFT.
[2022-09-18] MEDS: LORAZEPAM 1 MG TABLET PO PRN (07:45)
[2022-09-18] MEDS: IBUPROFEN 200 MG TABLET PO PRN (07:45)
--- NOTE | 2022-09-18 07:49 | NUR ---
MS RN OPENING NOTE RECEIVED PATIENT AWAKE IN BED. PATIENT IS A/O X 4. PT IS ON ROOM AIR WITH NO SOB OR DISTRESS NOTED. PT IS ON CLINICAL TRIAL, WITH NO ABNORMAL BEHAVIOR NOTED. PATIENT C/O 8/10 PAIN TO BOTH HER KNEES AND FEELING ANXIOUS. GAVE PATIENT IBUPROFEN 600 MG PO PRN FOR PAIN AND ATIVAN 1 MG PO PRN ANXIETY RESULTS PENDING. SAFETY MEASURES ENSURED WITH BED IN LOWEST AND LOCKED POSITION. CALL LIGHT AND TABLE WITHIN EASY REACH, SIDE RAILS UP X2. WILL CONTINUE WITH MD PLAN OF CARE.
[2022-09-18] MEDS: HOME MED MISC AMLODIPINE 10MG PO SCH (09:03)
[2022-09-18 16:00] VITALS: BP 99/49
--- NOTE | 2022-09-18 18:46 | NUR ---
MS RN CLOSING NOTE (CLINICAL TRIAL PT) PATIENT AWAKE IN BED. PATIENT IS A/O X 4. PT IS ON ROOM AIR WITH NO SOB OR DISTRESS NOTED . PT IS ON CLINICAL TRIAL, WITH NO SYMPTOMS OF AKATHISIA, TREMORS, NOR EPS OBSERVED. ALL DUE MEDS GIVEN ORDERED AND GOOD RELIEF WITH PRN IBUPROFEN AND ATIVAN THIS AM. SAFETY MEASURES PROVIDED:BED IN LOWEST AND LOCKED POSITION; CALL LIGHT AND TABLE WITHIN EASY REACH; SIDE RAILS UP X2. ENDORSED TO HOME RESTORATION SERVICE CLEANER song JOSEPH .
--- NOTE | 2022-09-18 19:00 | NUR ---
RN OPENING NOTES PT IS AWAKE. A/O X 4 ABLE TO MAKE NEEDS KNOWN. PT ON RA TOLERATING WELL, BREATHING EVEN AND UNLABORED AT THIS TIME. PT IS AMBULATORY WITH BRP, CAN WALK INDEPENDENTLY. SAFETY MEASURES IS IN PLACE. BED IN ITS LOWEST AND LOCKED POSITION. SIDE RAILS UP X 2. BEDSIDE TABLE AND CALL LIGHT IS EASY REACH. WILL CONTINUE TO MONITOR PATIENT ACCORDINGLY.
[2022-09-18] MEDS: INVEST MED MK-8189-008-02 MISC 1 DOSE PO SCH (19:49)
[2022-09-18] MEDS: ZOLPIDEM TARTRATE 10 MG TABLET PO PRN (20:02)
[2022-09-18 20:28] VITALS: BP 116/62
--- NOTE | 2022-09-19 06:50 | NUR ---
RN CLOSING NOTES PT IS ASLEEP. A/O X 4. PT ON RA,TOLERATING WELL, BREATHING EVEN AND UNLABORED AT THIS TIME. PT IS AMBULATORY WITH BRP, CAN WALK INDEPENDENTLY. MEDICATION ADMINISTERED PER MD'S ORDER. SAFETY MEASURES IS IN PLACE. BED IN ITS LOWEST AND LOCKED POSITION. SIDE RAILS UP X 2 . BEDSIDE TABLE AND CALL LIGHT IS EASY REACH. WILL ENDORSE TO THE NEXT SHIFT FOR CONTINUITY OF CARE.
--- NOTE | 2022-09-19 07:40 | NUR ---
MS RN OPENING NOTE RECEIVED PATIENT AWAKE IN BED. PATIENT IS A/O X 4. PT IS ON ROOM AIR WITH NO SOB OR DISTRESS NOTED. PT IS ON CLINICAL TRIAL, WITH NO ABNORMAL BEHAVIOR NOTED. PATIENT DENIES FEELING ANXIOUS AND DENIES HAVING PAIN AT THE MOMENT. PATIENT OBSERVED TO BE WATCHING A COMEDY SHOW ON TELEVISION AND LAUGHING. FEELING ANXIOUS. SAFETY MEASURES ENSURED WITH BED IN LOWEST AND LOCKED POSITION. CALL LIGHT AND TABLE WITHIN EASY REACH, SIDE RAILS UP X2. WILL CONTINUE TO MONITOR AND CARE FOR PATIENT PER MD PLAN OF CARE.
[2022-09-19 09:04] VITALS: BP 119/59
[2022-09-19] MEDS: HOME MED MISC AMLODIPINE 10MG PO SCH (09:33)
[2022-09-19] MEDS: IBUPROFEN 200 MG TABLET PO PRN (10:29)
[2022-09-19] MEDS: LORAZEPAM 1 MG TABLET PO PRN (10:29)
[2022-09-19 17:02] VITALS: BP 100/46
--- NOTE | 2022-09-19 18:51 | NUR ---
MS RN CLOSING NOTE (CLINICAL TRIAL PT) PATIENT AWAKE IN BED. PATIENT IS A/O X 4. PT IS ON ROOM AIR WITH NO SOB NOR DISTRESS NOTED. PT IS ON CLINICAL TRIAL, WITH NO SYMPTOMS OF AKATHISIA, TREMORS, NOR EPS OBSERVED. ALL DUE MEDS GIVEN ORDERED AND GOOD RELIEF WITH PRN IBUPROFEN AND ATIVAN THIS AM. SAFETY MEASURES PROVIDED:BED IN LOWEST AND LOCKED POSITION; CALL LIGHT AND TABLE WITHIN EASY REACH; SIDE RAILS UP X2. ENDORSED TO TRUCK DRIVING INSTRUCTOR RENATE PROCTOR FOR JOVANNY.
--- NOTE | 2022-09-19 19:55 | NUR ---
RN OPENING NOTE PATIENT AWAKE IN BED. A/OX4. NO S/S OF DISTRESS, BREATHING WITHOUT DIFFICULTY ON ROOM AIR. PATIENT PRESENTS IN A PLEASANT AND COOPERATIVE MOOD; NON-MALODOROUS; MAKES EYE-CONTACT WHEN INTERACTING WITH STAFF. SAFETY MEASURES IN PLACE: BED LOCKED AND IN LOWEST POSITION, SEMI-SALAZAR'S, RAILS UP X2, CALL LOPEZ WITHIN REACH. WILL CONTINUE TO MONITOR PATIENT.
[2022-09-19 20:00] VITALS: BP 116/64
[2022-09-19] MEDS: INVEST MED MK-8189-008-02 MISC 1 DOSE PO SCH (20:18)
[2022-09-19] MEDS: ZOLPIDEM TARTRATE 10 MG TABLET PO PRN (20:18)
--- NOTE | 2022-09-20 07:02 | NUR ---
RN CLOSING NOTE PATIENT ASLEEP IN BED. A/OX4. NO S/S OF DISTRESS, BREATHING WITHOUT DIFFICULTY ON ROOM AIR. PATIENT SLEPT ALL THROUGHOUT THE NIGHT; NO INCIDENT. SAFETY MEASURES IN PLACE: BED LOCKED AND AT LOWEST POSITION, LOW-FOWLERS, RAILS UP X2, CALL LOPEZ WITHIN REACH. WILL ENDORSE TO NEXT SHIFT FOR JOVANNY.
--- NOTE | 2022-09-20 07:27 | NUR ---
CT RN OPENING NOTES RECEIVED PT IN BED. A/O X 4, ABLE TO MAKE NEEDS KNOWN. ON RA, NO SIGN OF ACUTE DISTRESS. NO IV ACCESS. PT CALM AND COOPERATIVE. NO C/O PAIN/DISCOMFORT AT THIS TIME. SAFETY MEASURES IN PLACE: BED LOCKED AND IN LOWEST POSITION, CALL LIGHT AND TRAY TABLE WITHIN EASY REACH, SIDE RAILS X 2. WILL CONTINUE TO MONITOR.
[2022-09-20] MEDS: HOME MED MISC AMLODIPINE 10MG PO SCH (09:01)
[2022-09-20] MEDS: ACETAMINOPHEN ES 500 MG TABLET PO PRN (09:29)
--- NOTE | 2022-09-20 09:31 | NUR ---
RN NOTES PT C/O DRY COUGH AND RIGHT LEG PAIN. TYLENOL 1000MG PRN PO GIVEN AT 0929. INFORMED DR. SALGUERO REGARDING PT'S COUGH. ORDERED COUGH MEDICINE, CARRIED OUT. WILL CONTINUE TO MONITOR.
[2022-09-20 09:37] VITALS: BP 117/76
[2022-09-20] MEDS ORDERED: GUAIFENESIN/D-METHORPHAN HB 5 ML UDC PO PRN (10:30)
[2022-09-20] MEDS: LORAZEPAM 1 MG TABLET PO PRN (13:17)
--- NOTE | 2022-09-20 13:19 | NUR ---
RN NOTES PT VERBALIZED THAT SHE NEEDS HER ATIVAN. ATIVAN 1MG PO PRN GIVEN AT 1317. WILL CONTINUE TO MONITOR.
[2022-09-20] MEDS: MENTHOL/CETYLPYRD (CEPACOL) 1 LOZ LOZENGE PO PRN ×2 (15:22→18:30)
[2022-09-20] MEDS: IBUPROFEN 200 MG TABLET PO PRN ×2 (16:38→23:46)
--- NOTE | 2022-09-20 16:40 | NUR ---
RN NOTES PT C/O RIGHT LEG PAIN AND VERBALIZED SHE WANTS IBUPROFEN. IBUPROFEN 600MG PO PRN GIVEN AT 1638. WILL CONTINUE TO MONITOR.
--- NOTE | 2022-09-20 18:26 | NUR ---
CT RN CLOSING NOTES PT IN RESTING IN BED, WATCHING TV. A/O X 4, ABLE TO MAKE NEEDS KNOWN. ON RA, TOLERATED WELL. NO IV ACCESS. PT CALM AND COOPERATIVE. C/O DRY COUGH/THROAT, CEPACOL LOZENGES GIVEN ORDERED. NEEDS ATTENDED. SAFETY MEASURES IN PLACE: BED LOCKED AND IN LOWEST POSITION, CALL LIGHT AND TRAY TABLE WITHIN EASY REACH, SIDE RAILS X 2. WILL ENDORSE JOVANNY TO REPAIRER NURSE.
[2022-09-20 18:28] VITALS: BP 106/45
--- NOTE | 2022-09-20 19:53 | NUR ---
RN OPENING NOTE PATIENT AWAKE, AND WANTING TO GO DOWNSTAIRS FOR A CIGARETTE. A/OX4. NO S/S OF DISTRESS, BREATHING WITHOUT DIFFICULTY ON ROOM AIR. PATIENT NON-MALODOROUS, BUT SLIGHTLY DISHEVELED. SAFETY MEASURES IN PLACE: BED LOCKED AND AT LOWEST POSITION, LOW-FOWLERS, RAILS UPX2, CALL LOPEZ WITHIN REACH. WILL CONTINUE TO MONITOR PATIENT.
[2022-09-20] MEDS: ZOLPIDEM TARTRATE 10 MG TABLET PO PRN (20:29)
[2022-09-20] MEDS: INVEST MED MK-8189-008-02 MISC 1 DOSE PO SCH (20:29)
[2022-09-20 20:39] VITALS: BP 124/77
[2022-09-21] MEDS: MENTHOL/CETYLPYRD (CEPACOL) 1 LOZ LOZENGE PO PRN ×3 (06:30→15:38)
--- NOTE | 2022-09-21 07:05 | NUR ---
RN CLOSING NOTE PATIENT AWAKE IN BED. A/OX4. NO S/S OF DISTRESS, BREATHING WITHOUT DIFFICULTY ON ROOM AIR. SAFETY MEASURES IN PLACE: BED LOCKED AND AT LOWEST POSITION, MID-FOWLERS, RAILS UP X2, CALL LOPEZ WITHIN REACH. WILL ENDORSE TO NEXT SHIFT FOR JOVANNY.
--- NOTE | 2022-09-21 07:30 | NUR ---
RN OPENING NOTE RECEIVED PT IN BED. A/O X 4, ABLE TO MAKE NEEDS KNOWN. ON RA, NO SIGN OF ACUTE DISTRESS. NO IV ACCESS. PT CALM AND COOPERATIVE. NO C/O PAIN/DISCOMFORT AT THIS TIME. SAFETY MEASURES IN PLACE: BED LOCKED AND IN LOWEST POSITION, CALL LIGHT AND TRAY TABLE WITHIN EASY REACH, SIDE RAILS X 2. WILL CONTINUE TO MONITOR.
[2022-09-21] MEDS: LORAZEPAM 1 MG TABLET PO PRN (08:27)
[2022-09-21] MEDS: IBUPROFEN 200 MG TABLET PO PRN ×2 (08:28→18:12)
--- NOTE | 2022-09-21 08:30 | NUR ---
RN NOTE PT C/O LEG AND KNEE PAIN, VERBALIZED SHE WANTS IBUPROFEN AND ATIVAN. IBUPROFEN 600MG PO PRN AND ATIVAN 1MG PO PRN GIVEN AT 0828. WILL CONTINUE TO MONITOR.
[2022-09-21] MEDS: HOME MED MISC AMLODIPINE 10MG PO SCH (09:07)
[2022-09-21] MEDS: SALINE NASAL SPRAY 0.65% 1 BOTTLE BOTTLE NS PRN ×2 (10:20→16:22)
--- NOTE | 2022-09-21 10:22 | NUR ---
RN NOTE PT C/O CONGESTED NOSE, NASAL SPRAY PRN ADMINISTERED. WILL CONTINUE TO MONITOR.
[2022-09-21] MEDS: LORATADINE 10 MG TABLET PO SCH (18:06)
--- NOTE | 2022-09-21 18:55 | NUR ---
RN CLOSING NOTE PATIENT RESTING IN BED. A/OX4. NO S/S OF DISTRESS, PT ON ROOM AIR BREATHING EVEN AND NON LABORED. C/O DRY COUGH/THROAT AND NASAL CONGESTION, PRESCRIBED MEDS GIVEN. COVID TEST COLLECTED. WILL DROP IT OFF AT LAB. SAFETY MEASURES IN PLACE: BED LOCKED AND AT LOWEST POSITION, LOW-FOWLERS, RAILS UP X2, CALL LOPEZ WITHIN REACH. WILL ENDORSE TO NEXT SHIFT FOR JOVANNY.
--- NOTE | 2022-09-21 19:30 | NUR ---
MS RN OPENING NOTE RECEIVED PATIENT LYING IN BED, AWAKE, ALERT AND ORIENTED. ABLE TO COMMUNICATE NEEDS WITH THE STAFFS. AFEBRILE AND NOT IN ANY FORM OF ACUTE DISTRESS. AFEBRILE BUT NOTED WITH NASAL CONGESTION, FLUIDS ENCOURAGED. ON CLINICAL TRIAL, MONITORED FOR ANY BEHAVIORAL CHANGES. SAFETY MEASURES IN PLACE. KEPT BED IN LOCKED AND IN LOW POSITION. SIDE RAILS UP X2. ADVISED TO USE THE CALL LIGHT WHEN IN NEED OF ASSISTANCE.
[2022-09-21] MEDS: INVEST MED MK-8189-008-02 MISC 1 DOSE PO SCH (19:51)
[2022-09-21 20:00] VITALS: BP 114/57
[2022-09-21] MEDS: ZOLPIDEM TARTRATE 10 MG TABLET PO PRN (20:28)
[2022-09-22] MEDS ORDERED: ZOLPIDEM TARTRATE 10 MG TABLET PO PRN
[2022-09-22] MEDS ORDERED: LORAZEPAM 1 MG TABLET PO PRN
[2022-09-22] MEDS: IBUPROFEN 200 MG TABLET PO PRN (02:59)
--- NOTE | 2022-09-22 06:22 | NUR ---
MS RN CLOSING NOTE PATIENT IN BED, ASLEEP, BUT EASY TO AROUSE AND RESPONSIVE. ABLE TO COMMUNICATE NEEDS WITH THE STAFFS. AFEBRILE AND NOT IN ANY FORM OF ACUTE DISTRESS. AFEBRILE BUT STILL NOTED WITH NASAL CONGESTION, FLUIDS ENCOURAGED. ON CLINICAL TRIAL, MONITORED FOR ANY BEHAVIORAL CHANGES. MEDICATED ORDERED. SAFETY MEASURES IN PLACE. KEPT BED IN LOCKED AND IN LOW POSITION. SIDE RAILS UP X2. ADVISED TO USE THE CALL LIGHT WHEN IN NEED OF ASSISTANCE. ALL NURSING NEEDS ATTENDED. ENDORSED TO INCOMING SHIFT FOR CONTINUITY OF CARE.
[2022-09-22] MEDS: MENTHOL/CETYLPYRD (CEPACOL) 1 LOZ LOZENGE PO PRN (06:41)
--- NOTE | 2022-09-22 07:35 | NUR ---
RN OPENING NOTE RECEIVED PT IN BED. A/O X 4, ABLE TO MAKE NEEDS KNOWN. ON RA, NO SIGN OF ACUTE DISTRESS. AFEBRILE BUT NOTED WITH NASAL CONGESTION. ON CLINICAL TRIAL, MONITOR FOR ANY BEHAVIORAL CHANGES. NO IV ACCESS. PT CALM AND COOPERATIVE. NO C/O PAIN/DISCOMFORT AT THIS TIME. SAFETY MEASURES IN PLACE: BED LOCKED AND IN LOWEST POSITION, CALL LIGHT AND TRAY TABLE WITHIN EASY REACH, SIDE RAILS X 2. WILL CONTINUE TO MONITOR.
[2022-09-22] MEDS: SALINE NASAL SPRAY 0.65% 1 BOTTLE BOTTLE NS PRN ×2 (08:44→16:15)
[2022-09-22] MEDS: LORATADINE 10 MG TABLET PO SCH (08:44)
[2022-09-22] MEDS: HOME MED MISC AMLODIPINE 10MG PO SCH (08:44)
[2022-09-22 09:47] VITALS: BP 120/64
[2022-09-22 15:49] VITALS: BP 131/83
--- NOTE | 2022-09-22 18:40 | NUR ---
RN CLOSING NOTE PATIENT RESTING IN BED. A/OX4. NO S/S OF DISTRESS, PT ON ROOM AIR BREATHING EVEN AND NON LABORED. AFEBRILE, C/O NASAL CONGESTION, PRESCRIBED MEDS GIVEN. SAFETY MEASURES IN PLACE. KEPT BED IN LOCKED AND IN LOW POSITION. SIDE RAILS UP X2. ADVISED TO USE THE CALL LIGHT WHEN IN NEED OF ASSISTANCE. ALL NURSING NEEDS ATTENDED. ENDORSED TO INCOMING SHIFT FOR CONTINUITY OF CARE.
--- NOTE | 2022-09-22 20:00 | NUR ---
RN OPENING NOTE PATIENT RESTING IN BED. A/OX4. NO S/S OF DISTRESS, PT ON ROOM AIR BREATHING EVEN AND NON LABORED. AFEBRILE, C/O NASAL CONGESTION AND MILD COUGH. SAFETY MEASURES IN PLACE; KEPT BED IN LOCKED AND IN LOW POSITION. SIDE RAILS UP X2. ADVISED TO USE THE CALL LIGHT WHEN IN NEED OF ASSISTANCE.
[2022-09-22] MEDS: INVEST MED MK-8189-008-02 MISC 1 DOSE PO SCH (20:07)
[2022-09-22 20:47] VITALS: BP 138/61
--- NOTE | 2022-09-23 07:04 | NUR ---
MS RN CLOSING NOTE PATIENT RESTING IN BED. A/OX4. NO S/S OF DISTRESS, PT ON ROOM AIR BREATHING EVEN AND NON LABORED. AFEBRILE, WITH NASAL CONGESTION AND MILD COUGH. SAFETY MEASURES IN PLACE; KEPT BED IN LOCKED AND IN LOW POSITION. SIDE RAILS UP X2. ADVISED TO USE THE CALL LIGHT WHEN IN NEED OF ASSISTANCE. WILL ENDORSE TO NEXT SHIFT FOR CONTINUITY OF CARE.
[2022-09-23] MEDS: IBUPROFEN 200 MG TABLET PO PRN (07:37)
[2022-09-23] MEDS: LORATADINE 10 MG TABLET PO SCH (08:38)
[2022-09-23] MEDS: HOME MED MISC AMLODIPINE 10MG PO SCH (08:38)
--- NOTE | 2022-09-23 18:38 | NUR ---
RN CLOSING NOTE PATIENT WATCHING TV IN BED. A/OX4. NO S/S OF DISTRESS, PT ON ROOM AIR BREATHING EVEN AND NON LABORED. AFEBRILE, C/O NASAL CONGESTION, PRESCRIBED MEDS GIVEN. SAFETY MEASURES IN PLACE. KEPT BED IN LOCKED AND IN LOW POSITION. SIDE RAILS UP X2. ADVISED TO USE THE CALL LIGHT WHEN IN NEED OF ASSISTANCE. ALL NURSING NEEDS ATTENDED. ENDORSED TO INCOMING SHIFT FOR CONTINUITY OF CARE.
--- NOTE | 2022-09-23 19:59 | NUR ---
RN OPENING NOTE PATIENT WATCHING TV IN BED. A/OX4. NO S/S OF DISTRESS, PT ON ROOM AIR BREATHING EVEN AND NON LABORED. AFEBRILE, C/O NASAL CONGESTION, PRESCRIBED MEDS GIVEN. SAFETY MEASURES IN PLACE. KEPT BED IN LOCKED AND IN LOW POSITION. SIDE RAILS UP X2. ADVISED TO USE THE CALL LIGHT WHEN IN NEED OF ASSISTANCE. ALL NURSING NEEDS ATTENDED.
[2022-09-23 20:00] VITALS: BP 110/56
[2022-09-23] MEDS: INVEST MED MK-8189-008-02 MISC 1 DOSE PO SCH (20:01)
[2022-09-23] MEDS: ZOLPIDEM TARTRATE 10 MG TABLET PO PRN (22:31)
--- NOTE | 2022-09-23 22:33 | NUR ---
RN NOTE PRN AMBIEN GIVEN TOLERATED WELL.
--- NOTE | 2022-09-24 07:25 | NUR ---
CT RN OPENING NOTE RECEIVED PT IN BED, AWAKE. A/OX4, ABLE TO MAKE NEEDS KNOWN. NO C/O PAIN/DISCOMFORT AT THIS TIME. ON ROOM AIR, NO SIGN OF ACUTE RESPIRATORY DISTRESS. SAFETY MEASURES IN PLACE: BED IN LOCKED AND IN LOW POSITION, SIDE RAILS UP X2, CALL LIGHT AND TRAY TABLE WITHIN EASY REACH. WILL CONTINUE TO MONITOR PT.
[2022-09-24] MEDS: HOME MED MISC AMLODIPINE 10MG PO SCH (09:50)
[2022-09-24] MEDS: LORATADINE 10 MG TABLET PO SCH (09:50)
[2022-09-24 15:17] VITALS: BP 147/81
[2022-09-24 16:00] VITALS: BP 108/59
[2022-09-24] MEDS: MENTHOL/CETYLPYRD (CEPACOL) 1 LOZ LOZENGE PO PRN ×2 (16:09→20:02)
--- NOTE | 2022-09-24 16:10 | NUR ---
RN NOTES PT VERBALIZES THAT SHE HAS DRY THROAT AND WANT THE LOZENGE. CEPACOL LOZENGES GIVEN AT 1609 ORDERED. WILL CONTINUE TO MONITOR.
--- NOTE | 2022-09-24 18:40 | NUR ---
CT RN CLOSING NOTE PT RESTING IN BED. A/OX4, ABLE TO MAKE NEEDS KNOWN. DID NOT C/O PAIN WITHIN THE SHIFT. ON ROOM AIR, TOLERATED WELL. NO IV ACCESS. NEEDS ATTENDED. PT CALM AND COOPERATIVE. NO CHANGES IN BEHAVIOR NOTED. SAFETY MEASURES IN PLACE: BED IN LOCKED AND IN LOW POSITION, SIDE RAILS UP X2, CALL LIGHT AND TRAY TABLE WITHIN EASY REACH. WILL ENDORSE JOVANNY TO PHARMACEUTICAL ANALYST.
--- NOTE | 2022-09-24 19:50 | NUR ---
RECEIVED IN BED ALERT AND ORIENTATED X4 SMILING CALL LIGHT WITHIN HER REACH
[2022-09-24 20:00] VITALS: BP 117/55
[2022-09-24] MEDS: INVEST MED MK-8189-008-02 MISC 1 DOSE PO SCH (20:02)
[2022-09-24] MEDS: ZOLPIDEM TARTRATE 10 MG TABLET PO PRN (20:12)
--- NOTE | 2022-09-25 06:00 | NUR ---
CLOSING NOTES: ALERT AND ORIENTATED X4 SMILING AND COOPERATIVE WOKE UP THIS AM 0500 WENT TO BED 2100
--- NOTE | 2022-09-25 07:30 | NUR ---
RN OPENING NOTE RECEIVED PATIENT IN BED, AWAKE, WATCHING TV, A/O X4, VERBALLY RESPONSIVE, NO SIGNS OF ACUTE DISTRESS NOTED. NO C/O PAIN OR DISCOMFORT AT THIS TIME. STABLE ON ROOM AIR, BREATHING EVEN AND UNLABORED. REMAINS ON CLINICAL TRIAL. NO IV ACCESS. DENIES ANY SI/HI. SAFETY MEASURE IN PLACE. WILL CONTINUE TO MONITOR PATIENT FOR SAFETY AND BEHAVIOR.
[2022-09-25] MEDS: HOME MED MISC AMLODIPINE 10MG PO SCH (08:32)
[2022-09-25] MEDS: LORATADINE 10 MG TABLET PO SCH (08:32)
--- NOTE | 2022-09-25 18:47 | NUR ---
RN CLOSING NOTE PATIENT IN BED, AWAKE, A/O X4, WATCHING TV. VERBALLY RESPONSIVE, NO SIGNS OF ACUTE DISTRESS NOTED. NO C/O ANY PAIN OR DISCOMFORT. DUE MEDS GIVEN ORDERED. REMAINS STABLE ON ROOM AIR, BREATHING EVEN AND UNLABORED. REMAINS ON CLINICAL TRIAL. NO IV ACCESS. NO UNTOWARD BEHAVIOR NOTED. DENIES SI/HI. SAFETY MEASURE MAINTAINED. WILL ENDORSE TO NEXT SHIFT FOR CONTINUITY OF CARE.
[2022-09-25 20:00] VITALS: BP 147/56
--- NOTE | 2022-09-25 20:05 | NUR ---
RN OPENING NOTE PATIENT AWAKE IN BED WATCHING TV, PT ALERT/ORIENTED X 4, PT ABLE TO MAKE NEEDS KNOWN. PT STABLE ON RA, NO S/S OF DISTRESS OR SOB NOTED, BREATHING EVEN AND UNLABORED. NO IV ACCESS D/T CLINICAL TRIAL STATUS. PATIENT REQUESTED AMBIEN FOR SLEEP, WILL GIVE MED ORDERED. PATIENT AMBULATORY WITH STEADY GAIT. SAFETY MEASURES IN PLACE: CALL LIGHT WITHIN REACH, SIDE RAILS UP X 2, BED LOCKED IN LOWEST POSITION. WILL CONTINUE TO MONITOR PATIENT
[2022-09-25] MEDS: ZOLPIDEM TARTRATE 10 MG TABLET PO PRN (20:07)
[2022-09-25] MEDS: INVEST MED MK-8189-008-02 MISC 1 DOSE PO SCH (20:07)
--- NOTE | 2022-09-26 06:21 | NUR ---
RN CLOSING NOTE PATIENT AWAKE IN ROOM, PT ALERT/ORIENTED X 4, PT ABLE TO MAKE NEEDS KNOWN. PT STABLE ON RA, NO S/S OF DISTRESS OR SOB NOTED, BREATHING EVEN AND UNLABORED. NO IV ACCESS D/T CLINICAL TRIAL STATUS. NO SIGNIFICANT CHANGES THIS SHIFT, PT SLEPT WELL THROUGH THE NIGHT, MEDICATIONS GIVEN ORDERED. NO BEHAVIORAL CHANGES NOTED, PT DENIES SI/HI. PATIENT AMBULATORY WITH STEADY GAIT. SAFETY MEASURES IN PLACE: CALL LIGHT WITHIN REACH, SIDE RAILS UP X 2, BED LOCKED IN LOWEST POSITION. WILL ENDORSE TO DAYSHIFT RN FOR CONTINUITY OF CARE
[2022-09-26 07:00] VITALS: BP 146/101
--- NOTE | 2022-09-26 07:18 | NUR ---
MS RN OPENING NOTE RECEIVED PATIENT AWAKE IN BED. PATIENT IS A/O X 4. PT IS ON ROOM AIR WITH EQUAL AND UNLABORED BREATHING WITH NO SIGNS OF RESPIRATORY DISTRESS NOTED. PATIENT IS ON CLINICAL TRIAL, WITH GOOD DISPOSITION AT THIS TIME. SAFETY MEASURES ENSURED WITH BED IN LOWEST AND LOCKED POSITION. CALL LIGHT AND TABLE WITHIN EASY REACH, SIDE RAILS UP X2. WILL CONTINUE WITH PLAN OF CARE.
[2022-09-26] MEDS: LORATADINE 10 MG TABLET PO SCH (08:22)
[2022-09-26] MEDS: HOME MED MISC AMLODIPINE 10MG PO SCH (08:23)
[2022-09-26] MEDS: LORAZEPAM 1 MG TABLET PO PRN (11:50)
--- NOTE | 2022-09-26 11:55 | NUR ---
MS RN NOTE PATIENT COMPLAINED OF GETTING ANXIOUS AND ASKED FOR ATIVAN. PATIENT WITH PRN STANDING ORDER OF ATIVAN. PRN MEDICATION GIVEN. PROVIDED WITH CALM AND QUIET ENVIRONMENT.
[2022-09-26 16:00] VITALS: BP 108/58
--- NOTE | 2022-09-26 19:00 | NUR ---
MS RN OPENING NOTE PATIENT IS ON CLINICAL TRIAL. SHE IS SITTING IN HER BED, ALERT AND ORIENTED. A/O X 4. PT IS VERY CALM. SHE IS ON RA, BREATHING EVEN AND NON LABORED. NO S/S OF DISTRESS OR SHORTNESS OF BREATH. NO IV ACCESS. SAFETY MEASURES ARE IN PLACE: BED IN LOWEST AND LOCKED POSITION, CALL LIGHT AND TABLE WITHIN EASY REACH, SIDE RAILS UP X2. WILL CONTINUE MONITOR THE PATIENT AND PROVIDE THE CARE PATIENT NEEDS.
--- NOTE | 2022-09-26 19:05 | NUR ---
MS RN CLOSING NOTE RECEIVED PATIENT AWAKE IN BED. PATIENT IS A/O X 4. PT IS ON ROOM AIR WITH EQUAL AND UNLABORED BREATHING WITH NO SIGNS OF RESPIRATORY DISTRESS NOTED. PATIENT IS ON CLINICAL TRIAL, WITH GOOD DISPOSITION AT THIS TIME. SAFETY MEASURES ENSURED WITH BED IN LOWEST AND LOCKED POSITION. CALL LIGHT AND TABLE WITHIN EASY REACH, SIDE RAILS UP X2. WILL ENDORSE TO NEXT SHIFT FOR CONTINUITY OF CARE.
[2022-09-26 20:00] VITALS: BP 127/55
[2022-09-26] MEDS: INVEST MED MK-8189-008-02 MISC 1 DOSE PO SCH (20:21)
[2022-09-26] MEDS: ZOLPIDEM TARTRATE 10 MG TABLET PO PRN (20:21)
--- NOTE | 2022-09-26 20:25 | NUR ---
MS RN NOTE PATIENT IS REQUESTING FOR SLEEPING PILL. PRN PO MEDICATION AMBIEN GIVEN PER MD ORDER.
--- NOTE | 2022-09-27 07:15 | NUR ---
MS RN CLOSING NOTE PATIENT IS ON CLINICAL TRIAL. SHE IS IN BED SLEEPING, EASILY BEING AROUSED. SHE IS ALERT AND ORIENTED. A/O X 4. SHE IS ON RA, BREATHING EVEN AND NONE LABORED. NO S/S OF DISTRESS OR SHORTNESS OF BREATH. NO IV ACCESS. PATIENT DOES NOT HAVE ANY BEHAVIORAL ISSUES THROUGH THE SHIFT. SAFETY MEASURES ARE IN PLACE: BED IN LOWEST AND LOCKED POSITION, CALL LIGHT AND TABLE ARE WITHIN EASY REACH, SIDE RAILS UP X2. WILL ENDORSE NEXT SHIFT NURSE FOR CONTINUING PATIENT CARE.
--- NOTE | 2022-09-27 07:18 | NUR ---
MS RN OPENING NOTE RECEIVED PATIENT AWAKE IN BED. PATIENT IS A/O X 4. PT IS ON ROOM AIR WITH NO SIGNS OF RESPIRATORY DISTRESS NOTED. PATIENT IS ON CLINICAL TRIAL, WITH GOOD DISPOSITION AT THIS TIME. SAFETY MEASURES ENSURED WITH BED IN LOWEST AND LOCKED POSITION. CALL LIGHT AND TABLE WITHIN EASY REACH, SIDE RAILS UP X2. WILL CONTINUE WITH PLAN OF CARE.
[2022-09-27] MEDS: LORATADINE 10 MG TABLET PO SCH (08:29)
[2022-09-27] MEDS: HOME MED MISC AMLODIPINE 10MG PO SCH (08:30)
[2022-09-27 09:02] VITALS: BP 119/60
[2022-09-27 16:00] VITALS: BP 116/72
[2022-09-27] MEDS: IBUPROFEN 200 MG TABLET PO PRN (16:21)
--- NOTE | 2022-09-27 18:51 | NUR ---
MS RN CLOSING NOTE PATIENT AWAKE IN BED. PATIENT IS A/O X 4. PT IS ON ROOM AIR WITH NO SIGNS OF RESPIRATORY DISTRESS NOTED. PATIENT IS ON CLINICAL TRIAL, WITH GOOD DISPOSITION AT THIS TIME. SAFETY MEASURES ENSURED WITH BED IN LOWEST AND LOCKED POSITION. CALL LIGHT AND TABLE WITHIN EASY REACH, SIDE RAILS UP X2. WILL ENDORSE TO NEXT SHIFT FOR CONTINUITY OF CARE.
[2022-09-27 20:00] VITALS: BP 114/58
[2022-09-27] MEDS: INVEST MED MK-8189-008-02 MISC 1 DOSE PO SCH (20:26)
[2022-09-27] MEDS: ZOLPIDEM TARTRATE 10 MG TABLET PO PRN (20:26)
--- NOTE | 2022-09-27 20:27 | NUR ---
MS RN NOTE PATIENT IS REQUESTING FOR SLEEPING PILL. PRN PO MEDICATION AMBIEN GIVEN PER MD ORDER.
--- NOTE | 2022-09-28 07:51 | NUR ---
MS RN NOTES: RECEIVED PT AWAKE, A/OX4, ABLE TO MAKE NEEDS KNOWN, ON CLINICAL TRIAL. PT IS ON RA, BREATHING EVEN AND NONE LABORED. NO S/S OF DISTRESS OR SHORTNESS OF BREATH. NO IV ACCESS. SAFETY MEASURES ARE IN PLACE: BED IN LOWEST AND LOCKED POSITION, CALL LIGHT AND TABLE ARE WITHIN EASY REACH, SIDE RAILS UP X2. WILL CONT WITH PLAN OF CARE DURING SHIFT.
[2022-09-28 08:00] VITALS: BP 122/76
[2022-09-28] MEDS: HOME MED MISC AMLODIPINE 10MG PO SCH (08:20)
[2022-09-28] MEDS: LORATADINE 10 MG TABLET PO SCH (08:20)
--- NOTE | 2022-09-28 08:32 | NUR ---
RN NOTES: AM BP = 127/76, HR= 84
[2022-09-28] MEDS: LORAZEPAM 1 MG TABLET PO PRN (08:52)
--- NOTE | 2022-09-28 08:52 | NUR ---
RN NOTES: PT ASKED FOR ATIVAN, STATES SHE IS "FEELING A BIT ANXIOUS", WILL MEDICATE PER ORDER.
[2022-09-28 16:13] VITALS: BP 126/66
--- NOTE | 2022-09-28 19:30 | NUR ---
MS RN OPENING NOTES - RECEIVED PATIENT STANDING IN ROOM. A/O X4. BREATHING EVEN AND NON-LABORED ON ROOM AIR. NOT IN APPARENT DISTRESS. DENIES PAIN AT THIS TIME. NO IV ACCESS, ON CLINICAL TRIAL. SAFETY PRECAUTIONS IN PLACE: BED LOCKED AND IN LOW POSITION, SIDE RAILS UP X2, CALL LIGHT WITHIN REACH. WILL CONTINUE TO MONITOR FOR SAFETY AND BEHAVIOR.
--- NOTE | 2022-09-28 19:53 | NUR ---
MS RN CLOSING NOTES: PT AWAKE, A/OX4, ABLE TO MAKE NEEDS KNOWN, ON CLINICAL TRIAL. PT IS ON RA, BREATHING EVEN AND NONE LABORED. NO S/S OF DISTRESS OR SHORTNESS OF BREATH. NO IV ACCESS. ALL NEEDS MET, MEDS GIVEN. SAFETY MEASURES ARE IN PLACE, CALL LIGHT AND TABLE ARE WITHIN EASY REACH, SIDE RAILS UP X2, ENDORSED TO PM SHIFT.
[2022-09-28 20:00] VITALS: BP 120/59
[2022-09-28] MEDS: INVEST MED MK-8189-008-02 MISC 1 DOSE PO SCH (20:00)
[2022-09-28] MEDS: ZOLPIDEM TARTRATE 10 MG TABLET PO PRN (20:44)
--- NOTE | 2022-09-28 21:03 | NUR ---
PATIENT REQUESTED FOR AMBIEN 10MG, GIVEN. EXPLAINED THAT IT WILL BE HELD AFTER 2200 TOMORROW, VERBALIZED UNDERSTANDING.
[2022-09-28 21:05] VITALS: BP 120/59
[2022-09-29] MEDS ORDERED: LORAZEPAM 1 MG TABLET PO PRN
[2022-09-29] MEDS ORDERED: ZOLPIDEM TARTRATE 10 MG TABLET PO PRN
--- NOTE | 2022-09-29 06:43 | NUR ---
MS RN CLOSING NOTES - PATIENT WENT OUTSIDE. NO ACUTE DISTRESS THROUGHOUT THE NIGHT. NO SOB OR NOTED, TOLERATING ROOM AIR WELL. NO C/O PAIN OR DISCOMFORT. AFEBRILE. NO BEHAVIOR ISSUES OBSERVED. ALL DUE MEDS GIVEN AND NEEDS ATTENDED. SAFETY PRECAUTIONS MAINTAINED. WILL ENDORSE TO NEXT SHIFT FOR JOVANNY.
[2022-09-29 07:00] VITALS: BP 126/53
--- NOTE | 2022-09-29 08:10 | NUR ---
MS RN OPENING NOTES; RECEIVED PT AWAKE, A/OX4, ABLE TO MAKE NEEDS KNOWN, ON CLINICAL TRIAL. PT IS ON RA, BREATHING EVEN AND NONE LABORED. NO S/S OF SOB. PT REQUESTING ATIVAN, STATES SHE'S "FEELING A LITTLE ANXIOUS", WILL MEDICATE ORDERED. NO IV ACCESS. SAFETY MEASURES ARE IN PLACE: BED IN LOWEST AND LOCKED POSITION, CALL LIGHT AND TABLE ARE WITHIN EASY REACH, SIDE RAILS UP X2. WILL CONT WITH PLAN OF CARE DURING SHIFT.
[2022-09-29] MEDS: HOME MED MISC AMLODIPINE 10MG PO SCH (08:28)
[2022-09-29] MEDS: LORATADINE 10 MG TABLET PO SCH (08:28)
--- NOTE | 2022-09-29 08:29 | NUR ---
RN NOTES: BP MED GIVEN AM BP = 126/53 HR= 77
--- NOTE | 2022-09-29 18:56 | NUR ---
MS RN CLOSING NOTES; PT CURRENTLY NOT PRESENT IN THE UNIT, LOGGED WENT OUT TO SMOKE @ 1840, WILL ENDORSE TO PM SHIFT.
--- NOTE | 2022-09-29 19:00 | NUR ---
ALERT AND ORINATED X4 SMILING ANDAyala FRIENDLY'AWARE SHE IS NPO THRU THE NIGHT LABS TO BE DRAWN IN THE AM SHE IS WALKING AROUND STEADY GAIT
[2022-09-29 20:00] VITALS: BP 157/86
[2022-09-29] MEDS: INVEST MED MK-8189-008-02 MISC 1 DOSE PO SCH (20:44)
[2022-09-29 22:00] VITALS: BP 157/86
[2022-09-30] MEDS ORDERED: ZOLPIDEM TARTRATE 10 MG TABLET PO PRN
[2022-09-30] MEDS ORDERED: LORAZEPAM 1 MG TABLET PO PRN
--- NOTE | 2022-09-30 05:49 | NUR ---
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
[2022-09-30 08:00] VITALS: BP 133/88
--- NOTE | 2022-09-30 08:15 | NUR ---
MS RN OPENING NOTE; RECEIVED PT AWAKE, A/OX4, ABLE TO MAKE NEEDS KNOWN, ON CLINICAL TRIAL. PT IS ON RA, BREATHING EVEN AND NONE LABORED. NO S/S OF SOB. NO IV ACCESS. SAFETY MEASURES ARE IN PLACE: BED IN LOWEST AND LOCKED POSITION, CALL LIGHT AND TABLE ARE WITHIN EASY REACH, SIDE RAILS UP X2. PATIENT CONFIRMED THAT SHE ALANIS MAINTAINED NPO STATUS FOR AM LABS TODAY. WILL CONTINUE WITH PLAN OF CARE PER DR. SALGUERO.
[2022-09-30] MEDS: LORATADINE 10 MG TABLET PO SCH ×2 (09:00→11:07)
[2022-09-30] MEDS: HOME MED MISC AMLODIPINE 10MG PO SCH ×2 (09:00→11:07)
--- NOTE | 2022-09-30 11:20 | NUR ---
MS WATER TREATMENT TECHNICIAN PATIENT TO HOME NOTE: Patient demonstrated understandiing of discharge home care instructions with teach back method in her own words. Patient signed her accounting of and possession of all her listed belongings/valuables. Patient departed the hospital walking steady accompanied by Dr. Lopez's staff at 11:18 AM.
[2022-10-06] MEDS ORDERED: ZOLPIDEM TARTRATE 10 MG TABLET PO PRN
[2022-10-06] MEDS ORDERED: LORAZEPAM 1 MG TABLET PO PRN
[2022-10-07] MEDS ORDERED: LORAZEPAM 1 MG TABLET PO PRN
[2022-10-07] MEDS ORDERED: ZOLPIDEM TARTRATE 10 MG TABLET PO PRN
[2022-10-13] MEDS ORDERED: LORAZEPAM 1 MG TABLET PO PRN
[2022-10-13] MEDS ORDERED: ZOLPIDEM TARTRATE 10 MG TABLET PO PRN
[2022-10-14] MEDS ORDERED: LORAZEPAM 1 MG TABLET PO PRN
[2022-10-14] MEDS ORDERED: ZOLPIDEM TARTRATE 10 MG TABLET PO PRN
== END 2022-09-30 11:20 | disposition home or self-care (01) | DRG 951 ==
LOC: MED 14:46
PROVIDERS: ADMIT Psychiatry & Neurology Psychiatry; ATTEND Psychiatry & Neurology Psychiatry
DX: Z00.6 Encounter for examination for normal comparison and control in clinical research program (principal); R45.851 Suicidal ideations; F20.0 Paranoid schizophrenia; Z91.51 Personal history of suicidal behavior; Z91.14 Patient's other noncompliance with medication regimen; I10 Essential (primary) hypertension; F41.9 Anxiety disorder, unspecified; Z79.899 Other long term (current) drug therapy; K59.00 Constipation, unspecified; F29 Unspecified psychosis not due to a substance or known physiological condition
CPT/HCPCS: 87081-TC; G0378

== ENCOUNTER 2025-01-24 10:45 | Inpatient (IN) | payer OTHER ==
[~2025-01-24] VITALS: Ht 175.3 cm; Wt 132.4 kg
[~2025-01-24 10:45] MED LIST changes: +AMLODIPINE 10 MG PO SCH
[2025-01-24 15:00] VITALS: BP 138/82; TEMP 97.9; O2SAT 98
[2025-01-24] MEDS ORDERED: MAGNESIUM HYDROXIDE 30 ML UDC PO PRN (15:00)
[2025-01-24] MEDS ORDERED: ONDANSETRON 4 MG TAB.RAPDIS PO PRN (15:00)
[2025-01-24] MEDS: AMLODIPINE 10 MG PO SCH (16:00)
[2025-01-24] MEDS: LORAZEPAM 1 MG TABLET FOR AGITATION PO PRN (19:51)
[2025-01-24 20:00] VITALS: BP 129/60; TEMP 98.2; O2SAT 99
[2025-01-24] MEDS: OLANZAPINE 10 MG PO SCH (22:00)
[2025-01-25 08:00] VITALS: BP 154/77; TEMP 98.2; O2SAT 97
[2025-01-25 16:00] VITALS: BP 139/80; TEMP 98.6; O2SAT 95
[2025-01-25 20:00] VITALS: BP 151/94; TEMP 99.1; O2SAT 96
[2025-01-26 08:00] VITALS: BP 127/63; TEMP 98.4; O2SAT 96
[2025-01-26 10:57] VITALS: BP 127/63; TEMP 98.4; O2SAT 96
[2025-01-26 16:00] VITALS: BP 129/64; TEMP 97.9; O2SAT 94
[2025-01-26 20:38] VITALS: BP 143/71; TEMP 98.7; O2SAT 98
[2025-01-26] MEDS: OLANZAPINE 5 MG PO SCH (21:43)
[2025-01-27 08:08] VITALS: BP 148/76; TEMP 98.1; O2SAT 100
[2025-01-27] MEDS: IBUPROFEN 200 MG TABLET PO PRN (13:08)
[2025-01-27 16:05] VITALS: BP 137/97; TEMP 98; O2SAT 98
[2025-01-27 20:05] VITALS: BP 133/73; TEMP 98.6; O2SAT 99
[2025-01-28 08:00] VITALS: BP 136/63; TEMP 97.5; O2SAT 99
[2025-01-28] MEDS: HOME MED MISCELLANEOUS PO SCH (10:00)
[2025-01-28] MEDS ORDERED: HOME MED MISCELLANEOUS PO SCH ×2 (10:00→10:42)
[2025-01-28 16:00] VITALS: BP 136/63; TEMP 98.1; O2SAT 99
[2025-01-28 20:00] VITALS: BP 131/75; TEMP 98.1; O2SAT 97
[2025-01-28] MEDS: ZOLPIDEM TARTRATE 10 MG TABLET PO PRN (21:24)
[2025-01-29 07:00] VITALS: BP 130/60; TEMP 97.7; O2SAT 98
[2025-01-29 08:48] VITALS: BP 130/60; TEMP 98.1; O2SAT 98
[2025-01-29 16:00] VITALS: BP 120/66; TEMP 99.1; O2SAT 99
[2025-01-29 16:04] VITALS: BP 120/66; TEMP 99; O2SAT 98
[2025-01-29 20:00] VITALS: BP 116/67; TEMP 97.9; O2SAT 100
[2025-01-30 08:00] VITALS: BP 145/81; TEMP 97.9
[2025-01-30 09:30] VITALS: BP 107/64
[2025-01-30 16:00] VITALS: BP 110/66; TEMP 96.8; O2SAT 99
[2025-01-30 20:00] VITALS: BP 128/61; TEMP 97.7; O2SAT 97
[2025-01-31 08:00] VITALS: BP 123/70; O2SAT 100
[2025-01-31 08:51] VITALS: BP 123/70; TEMP 98; O2SAT 100
[2025-01-31 20:00] VITALS: BP 142/61; TEMP 98.6; O2SAT 99
[2025-02-01 08:00] VITALS: BP 139/75; TEMP 97.5; O2SAT 99
[2025-02-01 16:00] VITALS: BP 121/62; TEMP 98.1; O2SAT 97
[2025-02-01 20:00] VITALS: BP 117/52; TEMP 98.2; O2SAT 98
[2025-02-02 08:19] VITALS: BP 154/76; TEMP 98.2; O2SAT 98
[2025-02-02 16:08] VITALS: BP 110/56; TEMP 98.1; O2SAT 98
[2025-02-02 20:00] VITALS: BP 114/58; TEMP 99; O2SAT 97
[2025-02-02 20:36] VITALS: BP 114/58; TEMP 99; O2SAT 97
[2025-02-03 08:00] VITALS: BP 130/66; TEMP 97.5; O2SAT 97
[2025-02-03 16:00] VITALS: BP 107/72; TEMP 99.5; O2SAT 98
[2025-02-03 20:00] VITALS: BP 136/86; TEMP 98.2; O2SAT 96
[2025-02-03] MEDS: MAG HYDROX/AL HYDROX/SIMETH 30 ML UDC PO PRN (20:12)
[2025-02-04 08:00] VITALS: BP 141/82; TEMP 98.6; O2SAT 99
[2025-02-04 16:00] VITALS: BP 121/56; TEMP 97.9; O2SAT 99
[2025-02-04 20:00] VITALS: BP 134/99; TEMP 98; O2SAT 100
[2025-02-04] MEDS: ZOLPIDEM TARTRATE 10 MG TABLET PO PRN (21:15)
[2025-02-05] MEDS: [UNRECOGNIZED DRUG - OTHER] PO SCH (07:18)
[2025-02-05] MEDS: [UNRECOGNIZED DRUG - OTHER] PO SCH (07:18)
[2025-02-05] MEDS: [UNRECOGNIZED DRUG - REMARK] PO SCH (19:00)
[2025-02-05 20:00] VITALS: BP 132/54; TEMP 98.1; O2SAT 98
[2025-02-06] MEDS ORDERED: [UNRECOGNIZED DRUG - OTHER] PO SCH (06:30)
[2025-02-06] MEDS: [UNRECOGNIZED DRUG - REMARK] PO SCH (06:30)
[2025-02-06 07:30] VITALS: BP 129/56; TEMP 98.2; O2SAT 96
[2025-02-06 16:00] VITALS: BP 131/75; TEMP 98.2; O2SAT 95
[2025-02-06 20:00] VITALS: BP 115/60; TEMP 98.4; O2SAT 97
[2025-02-07 08:00] VITALS: BP 137/90; TEMP 97.9; O2SAT 99
[2025-02-07] MEDS: LORAZEPAM 1 MG TABLET FOR AGITATION PO PRN (13:48)
[2025-02-07 20:00] VITALS: BP 132/71; TEMP 98.1; O2SAT 98
[2025-02-08 07:00] VITALS: BP 123/57; TEMP 98.2; O2SAT 99
[2025-02-08 16:00] VITALS: BP 121/73; TEMP 97.9; O2SAT 97
[2025-02-08 20:00] VITALS: BP 121/55; TEMP 97.9; O2SAT 97
[2025-02-09 08:00] VITALS: BP 122/57; TEMP 97.5; O2SAT 100
[2025-02-09 16:00] VITALS: BP 149/79; TEMP 98.6; O2SAT 98
[2025-02-09 20:00] VITALS: BP 136/76; TEMP 97.3; O2SAT 99
[2025-02-09 21:08] VITALS: BP 116/63; TEMP 97.3; O2SAT 99
[2025-02-10 08:00] VITALS: BP 133/100; TEMP 98; O2SAT 97
[2025-02-10 20:38] VITALS: BP 129/62; TEMP 98.1; O2SAT 99
[2025-02-11 08:00] VITALS: BP 119/66; TEMP 98.4; O2SAT 100
[2025-02-11 16:00] VITALS: BP 107/68; TEMP 98.2; O2SAT 96
[2025-02-11] MEDS: [UNRECOGNIZED DRUG - REMARK] PO SCH (18:42)
[2025-02-11 20:00] VITALS: BP 129/69; TEMP 97.9; O2SAT 99
[2025-02-11] MEDS: ZOLPIDEM TARTRATE 10 MG TABLET PO PRN (21:30)
[2025-02-12] MEDS: [UNRECOGNIZED DRUG - REMARK] PO SCH (06:11)
[2025-02-12] MEDS ORDERED: [UNRECOGNIZED DRUG - REMARK] PO SCH (06:30)
[2025-02-12 08:00] VITALS: BP 147/88; TEMP 98.1; O2SAT 95
[2025-02-12] MEDS: LORAZEPAM 1 MG TABLET FOR AGITATION PO PRN (14:24)
[2025-02-12 16:00] VITALS: BP 116/61; TEMP 98; O2SAT 98
[2025-02-12 20:00] VITALS: BP 134/78; TEMP 99; O2SAT 96
[2025-02-13 07:45] VITALS: BP 154/88; TEMP 98.4; O2SAT 100
[2025-02-13 08:00] VITALS: BP 154/88; TEMP 98.4; O2SAT 100
[2025-02-13 16:00] VITALS: BP 127/79; TEMP 98.1; O2SAT 98
[2025-02-13 20:16] VITALS: BP 137/79; TEMP 98.1; O2SAT 95
[2025-02-13 20:39] VITALS: BP 137/79; TEMP 98.1; O2SAT 95
[2025-02-14 07:00] VITALS: BP 136/72; TEMP 98.1; O2SAT 99
[2025-02-14 16:00] VITALS: BP 112/57; TEMP 98.4; O2SAT 98
[2025-02-15 08:00] VITALS: BP 118/64; TEMP 98.2; O2SAT 98
[2025-02-15 16:00] VITALS: BP 109/51; TEMP 98.8; O2SAT 99
[2025-02-15 20:00] VITALS: BP 132/61; TEMP 97.9; O2SAT 97
[2025-02-16 08:00] VITALS: BP 127/82; TEMP 97.7; O2SAT 98
[2025-02-16 08:53] VITALS: BP 127/82; TEMP 97.7; O2SAT 97
[2025-02-16 16:00] VITALS: BP 120/69; TEMP 97.7; O2SAT 100
[2025-02-16 16:06] VITALS: BP 120/69; TEMP 97.7; O2SAT 97
[2025-02-16 20:00] VITALS: BP 146/87; TEMP 98.2; O2SAT 97
[2025-02-17 18:00] VITALS: BP 147/76; TEMP 98; O2SAT 100
[2025-02-17 20:00] VITALS: BP 129/58; TEMP 98.8; O2SAT 100
[2025-02-18 07:30] VITALS: BP 134/65; TEMP 98.1; O2SAT 99
[2025-02-18 08:00] VITALS: BP 134/65; TEMP 98.1; O2SAT 99
[2025-02-18 16:00] VITALS: BP 108/71; TEMP 97.9; O2SAT 95
[2025-02-18 20:00] VITALS: BP_SYST 122; BP_DIAS 57; BP_DIAS 70; TEMP 97.9; O2SAT 100
[2025-02-18] MEDS: ZOLPIDEM TARTRATE 10 MG TABLET PO PRN (20:57)
[2025-02-19 07:30] VITALS: BP 122/70; TEMP 98.2; O2SAT 99
[2025-02-19 20:00] VITALS: BP 117/54; TEMP 98.1; O2SAT 99
[2025-02-20 07:30] VITALS: BP 146/82; TEMP 97.7; O2SAT 98
[2025-02-20] MEDS: ACETAMINOPHEN ES 500 MG TABLET PO PRN (08:26)
[2025-02-20 20:00] VITALS: BP 123/59; TEMP 97.9; O2SAT 100; O2SAT 98
[2025-02-21 08:00] VITALS: BP 138/70; TEMP 97.9; O2SAT 99
[2025-02-21 16:00] VITALS: BP 129/66; TEMP 98; O2SAT 98
[2025-02-21 20:00] VITALS: BP 118/63; TEMP 98.1; O2SAT 98
[2025-02-22 08:00] VITALS: BP 146/90; TEMP 98.4; O2SAT 96
[2025-02-22] MEDS: LORAZEPAM 1 MG TABLET FOR AGITATION PO PRN (13:51)
[2025-02-22 16:00] VITALS: BP 128/55; TEMP 98.2; O2SAT 99
[2025-02-22 20:00] VITALS: BP 125/73; TEMP 98.4; O2SAT 98
[2025-02-23 07:30] VITALS: BP 124/65; TEMP 98.2; O2SAT 99
[2025-02-23 16:00] VITALS: BP 137/61; TEMP 98.8; O2SAT 100
[2025-02-23 20:00] VITALS: BP 129/80; TEMP 98.4; O2SAT 97; O2SAT 99
[2025-02-24 07:30] VITALS: BP 147/85; TEMP 98.1; O2SAT 97
[2025-02-25 08:00] VITALS: BP 145/85; TEMP 97.7; O2SAT 98
[2025-02-25] MEDS: LORAZEPAM 1 MG TABLET FOR AGITATION PO PRN (12:49)
[2025-02-25 20:26] VITALS: BP 106/55; TEMP 98.2; O2SAT 96
[2025-02-25] MEDS: ZOLPIDEM TARTRATE 10 MG TABLET PO PRN (20:56)
[2025-02-26 07:00] VITALS: BP 139/80; TEMP 97.7; O2SAT 96
[2025-02-26 16:00] VITALS: BP 144/70; TEMP 98.1; O2SAT 97
[2025-02-26 20:00] VITALS: BP 125/54; TEMP 98.1; O2SAT 99
[2025-02-27 07:00] VITALS: BP 115/67; TEMP 97.9; O2SAT 100
[2025-02-27 16:00] VITALS: BP 108/50; TEMP 97.9; O2SAT 94
[2025-02-27 20:53] VITALS: BP 143/84; TEMP 97.7; O2SAT 96
[2025-02-27 22:37] VITALS: BP 130/80; TEMP 97.8; O2SAT 100
[2025-02-28 08:00] VITALS: BP 155/84; TEMP 98.1; O2SAT 98
[2025-02-28 16:00] VITALS: BP 124/57; TEMP 98.8; O2SAT 97
[2025-02-28 20:00] VITALS: BP 120/63; TEMP 98.2; O2SAT 96
[2025-03-01 08:00] VITALS: BP 138/83; TEMP 97.5; O2SAT 99
[2025-03-01 16:00] VITALS: BP 134/72; TEMP 97.9; O2SAT 97
[2025-03-01 20:00] VITALS: BP 119/64; TEMP 96; O2SAT 96
[2025-03-02 07:30] VITALS: BP 129/64; TEMP 97.7; O2SAT 99
[2025-03-02 20:00] VITALS: BP 106/59; TEMP 98.2; O2SAT 95
[2025-03-03 07:30] VITALS: BP 149/86; TEMP 97.9; O2SAT 97
[2025-03-03] MEDS: LORAZEPAM 1 MG TABLET FOR AGITATION/ANXIETY PO PRN (12:20)
[2025-03-03 16:00] VITALS: BP 127/56; TEMP 98.4; O2SAT 99
[2025-03-03 20:00] VITALS: BP 152/96; TEMP 98.1; O2SAT 95
[2025-03-04 08:00] VITALS: BP 139/89; TEMP 97.9; O2SAT 98
[2025-03-04 16:00] VITALS: BP 130/84; TEMP 98.4; O2SAT 96
[2025-03-04 20:00] VITALS: BP 119/59; TEMP 98.4; O2SAT 98
[2025-03-04] MEDS: ZOLPIDEM TARTRATE 10 MG TABLET PO PRN (21:00)
[2025-03-05 08:00] VITALS: BP_SYST 130; BP_SYST 131; BP_DIAS 66; BP_DIAS 73; TEMP 98.2; TEMP 98.4; O2SAT 100; O2SAT 95
[2025-03-05 16:00] VITALS: BP 118/69; TEMP 98.4; O2SAT 98
[2025-03-05 20:00] VITALS: BP 128/65; TEMP 97.9; O2SAT 99
[2025-03-05 20:48] VITALS: BP 128/65; TEMP 97.9; O2SAT 99
[2025-03-06 08:00] VITALS: BP 147/89; TEMP 98.8; O2SAT 96
[2025-03-06 16:00] VITALS: BP 110/53; TEMP 97.7; O2SAT 99
[2025-03-06 20:00] VITALS: BP 136/57; TEMP 98.1; O2SAT 98
[2025-03-07 16:00] VITALS: BP 144/80; TEMP 98.6; O2SAT 98
[2025-03-08 08:00] VITALS: BP 150/73; TEMP 98.2; O2SAT 98
[2025-03-08 16:00] VITALS: BP 129/72; TEMP 98.2; O2SAT 99
[2025-03-08 20:00] VITALS: BP 125/62; TEMP 98.2; O2SAT 96
[2025-03-09 08:00] VITALS: BP 107/69; TEMP 98.3; O2SAT 99
[2025-03-09 16:00] VITALS: BP 125/58; TEMP 97.7; O2SAT 98
[2025-03-09 20:13] VITALS: BP 118/89; TEMP 98.1; O2SAT 96
[2025-03-10 08:43] VITALS: BP_SYST 128; BP_SYST 135; BP_DIAS 62; BP_DIAS 80; TEMP 97.7; TEMP 98.2; O2SAT 98; O2SAT 99
[2025-03-10 20:00] VITALS: BP 120/62; TEMP 97.9; O2SAT 97
[2025-03-11 08:00] VITALS: BP 131/72; TEMP 98.5; O2SAT 99
[2025-03-11] MEDS: LORAZEPAM 1 MG TABLET FOR AGITATION/ANXIETY PO PRN (13:40)
[2025-03-11 20:00] VITALS: BP 129/55; TEMP 97.9; O2SAT 95
[2025-03-11] MEDS ORDERED: ZOLPIDEM TARTRATE 10 MG TABLET ONE (20:59)
[2025-03-11] MEDS: ZOLPIDEM TARTRATE 10 MG TABLET PO PRN (21:00)
[2025-03-12 08:00] VITALS: BP 147/104; TEMP 98.9; O2SAT 96
== END 2025-03-12 10:08 | disposition home or self-care (01) | DRG 951 ==
LOC: MED 13:44
PROVIDERS: ADMIT Psychiatry & Neurology Psychiatry; ATTEND Psychiatry & Neurology Psychiatry
DX: Z00.6 Encounter for examination for normal comparison and control in clinical research program (principal); F20.0 Paranoid schizophrenia; Z79.899 Other long term (current) drug therapy
CPT/HCPCS: G0378